=== PATIENT | female | born 1950 | race Caucasian/White ===

== ENCOUNTER → 2017-11-17 11:04 | Outpatient (CLI) | payer MEDICARE, OTHER, SELFPAY ==
[2017-11-17 14:05] LABS: Albumin/Globulin Ratio 1.3 (1.1-1.8); Bilirubin,Total 3.1 mg/dL (0.2-1.0); Blood Urea Nitrogen 12 mg/dL (7-18); Calcium 10.3 mg/dL (8.5-10.1); Sodium 140 mmol/L (136-145); VLDL Cholesterol 41 mg/dL (0-40)
[2017-11-17 14:28] LABS: Hemoglobin A1C 8.9 % (0.0-7.0)
[2017-11-17 16:48] LABS: Alanine Aminotransferase 24 U/L (12-78); Alkaline Phosphatase 70 U/L (46-116); Anion Gap 15.5 mEq/L (5-15); Aspartate Amino Transferase 11 U/L (15-37); Carbon Dioxide 26 mmol/L (21.0-32.0); Chloride 103 mmol/L (98-107); Chol/HDL Ratio 2.6 (1-3.5); Cholesterol 130 mg/dL (140-200); Creatinine,Serum 0.83 mg/dL (0.55-1.02); Estimated Glomerular Filt Rate 68 ml/min (>60); GFR (African American) 83 ML/MIN (>60); Globulin 3.2 gm/dl (1.3-3.2); Glucose 275 mg/dL (74-106); HDL Cholesterol 50 mg/dL (29-89); LDL Cholesterol 39 mg/dL (0-130); Potassium 4.5 mmoL/L (3.5-5.1); Total Protein,Serum 7.2 gm/dL (6.4-8.2); Triglycerides 203 mg/dL (30-200)
[2017-11-18 05:20] LABS: Creatinine, Urine 221.5 mg/dL (Not Estab.); Microalbumin, Urine 75.9 ug/mL (Not Estab.)
== END ==
PROVIDERS: Visit Provider Nurse Practitioner Family
DX: E11.9 Type 2 diabetes mellitus without complications (principal); E78.5 Hyperlipidemia, unspecified; E04.9 Nontoxic goiter, unspecified
CPT/HCPCS: 36415; 80053; 80061; 82043; 82570; 83036; 84443

== ENCOUNTER → 2018-02-24 09:18 | Outpatient (CLI) | payer MEDICARE, OTHER, SELFPAY ==
--- NOTE | 2018-02-24 09:22 | XR_ITS ---
XR hand RT min 3V HISTORY: ITS.REASON: Rt hand pain ORDERING PHYSICIAN: Gina Aguilar MD PATIENT AGE: 67 years COMPARISON: None FINDINGS: No fracture or dislocation. No lytic or blastic change. Calcification is present along the radial and proximal aspect of the proximal phalanx of the fourth finger and could be due to an old avulsion injury. There is also some chondrocalcinosis of the radial aspect of the third metacarpal phalangeal joint. Mild osteoarthritic changes are present at the second DIP joint and there is chondrocalcinosis at the lateral aspect of the first metacarpal carpal joint, and the radioscaphoid joint, and the triangular fibrocartilage. IMPRESSION: No acute finding. Suspect old avulsion fracture at the proximal and radial aspect of the proximal phalanx of the third digit. Chondrocalcinosis
== END ==
PROVIDERS: PCP Internal Medicine Adolescent Medicine; Visit Provider Orthopaedic Surgery
DX: M79.641 Pain in right hand (principal)
CPT/HCPCS: 73130

== ENCOUNTER → 2018-03-31 12:58 | Outpatient (CLI) | payer MEDICARE, OTHER, SELFPAY ==
[2018-03-31 14:56] LABS: Hemoglobin A1C 7.3 % (0.0-7.0)
[2018-03-31 14:59] LABS: Alanine Aminotransferase 26 U/L (12-78); Albumin Level 4.1 gm/dL (3.4-5.0); Albumin/Globulin Ratio 1.2 (1.1-1.8); Alkaline Phosphatase 66 U/L (46-116); Anion Gap 13.6 mEq/L (5-15); Aspartate Amino Transferase 12 U/L (15-37); Bilirubin,Total 2.6 mg/dL (0.2-1.0); Blood Urea Nitrogen 11 mg/dL (7-18); Calcium 10.3 mg/dL (8.5-10.1); Carbon Dioxide 28 mmol/L (21.0-32.0); Chloride 102 mmol/L (98-107); Chol/HDL Ratio 2.5 (1-3.5); Cholesterol 149 mg/dL (140-200); Creatinine,Serum 0.85 mg/dL (0.55-1.02); Estimated Glomerular Filt Rate 66 ml/min (>60); GFR (African American) 80 ML/MIN (>60); Globulin 3.3 gm/dl (1.3-3.2); Glucose 167 mg/dL (74-106); HDL Cholesterol 60 mg/dL (29-89); LDL Cholesterol 48 mg/dL (0-130); Potassium 4.6 mmoL/L (3.5-5.1); Sodium 139 mmol/L (136-145); Thyroid Stimulating Hormone 0.38 uIU/ml (0.358-3.740); Total Protein,Serum 7.4 gm/dL (6.4-8.2); Triglycerides 205 mg/dL (30-200); VLDL Cholesterol 41 mg/dL (0-40)
== END ==
PROVIDERS: PCP Nurse Practitioner Family; Visit Provider Nurse Practitioner Family
DX: E78.5 Hyperlipidemia, unspecified (principal); E11.9 Type 2 diabetes mellitus without complications; E03.9 Hypothyroidism, unspecified
CPT/HCPCS: 36415; 80053; 80061; 83036; 84443

== ENCOUNTER 2018-05-28 13:05 | Emergency (ER) | payer MEDICARE, OTHER, SELFPAY ==
--- NOTE | 2018-05-28 13:12 | XR_ITS ---
XR ankle LT min 3V, XR foot LT min 3V Ordering Physician: Truong Schofield Patient Age: 67 years: Female HISTORY: ITS.REASON: LEFT FOOT PAIN TECHNIQUE: LEFT FOOT: 3 views nonweightbearing 3 views LEFT ANKLE: 3 views nonweightbearingft. COMPARISON :None ========= LEFT FOOT 3 view The left forefoot is intact. No erosions. Joint spaces well-maintained. . Slight roughening at the medial margin of the first cuneiforms noted but not of significance. Minor sclerosis at distal talus at talonavicular joint. Most notable is the Over 8 mm length plantar calcaneal spur, and the irregular wispy calcifications adjacent to it. The Most pronounced calcification adjacent this spur and then seen tapering, & diminishing over 3 cm length along along the course of the plantar aponeurosis., Posterior aspect . Soft tissue swelling throughout the foot ========= LEFT ANKLE 3: view: . prominent diffuse soft tissue swelling at the ankle which is fairly pronounced. Soft tissue swelling continues into the foot but most pronounced about the medial and lateral malleolus. again the primary other finding is the plantar calcaneal spur in the wispy calcifications stranding and inflammation along the plantar aponeurosis.. . Wispy calcification is seen inferior to the medial malleolus as well as a likely towards plantar medial aspect of the calcaneus.. Ankle joint is fairly well maintained with only question some mild sclerosis at the medial corner of talus no osteochondral defect evident. IMPRESSION: ...... . Calcaneal spur with irregular wispy dystrophic calcification about this spur & extending along plantar aponeurosis. Prominent soft tissue swelling at the ankle and continuing into the foot
[2018-05-28 13:35] VITALS: BP 145/82; PULSE 89; RESP 18; TEMP 36.9; O2SAT 96; BMI 28.1
--- NOTE | 2018-05-28 13:45 | HMH.EDUTC ---
[facility] [place] Clinical Impression: Foot pain Qualifiers: Laterality: left Qualified Code(s): M79.672 - Pain in left foot Heel pain Qualifiers: Laterality: left Qualified Code(s): M79.672 - Pain in left foot Disposition: Home, Self-Care Condition on Discharge: Good Instructions: DI for Foot Pain Additional Instructions: Rest the ankle. Follow up with the international controller (foot doctor-Dr. Patel) as recommended. Take the ibuprofen as prescribed. GO TO THE ER FOR ANY LIFE THREATENING SYMPTOMS Prescriptions: Ibuprofen [Ibuprofen 600mg Tablet] 600 mg PO Q6HP PRN #30 tab PRN Reason: Mild Pain Referrals: Catherine Hernandez APRN [Primary Care Provider] - Carola Patel DPM [Staff Physician] - Time of Disposition: 14:48 Medical Decision Making - Medical Records Medical records reviewed: No: I reviewed the patient's medical records. - Attila Inquiry Pt receiving controlled substance: No Attila was queried for this patient: No Vital Signs: 05/28/18 13:35 05/28/18 15:00 Temperature 98.4 F 98.3 F Temperature Source Oral Pulse Rate 82 Pulse Rate [Right Radial] 89 Respiratory Rate 18 18 Blood Pressure 137/76 Blood Pressure [Right Arm] 145/82 H Blood Pressure Mean [Right Arm] 103 02 Sat by Pulse Oximetry 96 Oxygen Delivery Method Room Air Room Air - Lab Data Lab Results 05/28/18 14:17: Uric Acid 4.5 Orders (Tests/Meds): ED MEDICATIONS Discontinued Medications Generic Name Dose Route Start Last Admin Trade Name Freq PRN Reason Stop Dose Admin Ketorolac Tromethamine 30 mg 05/28/18 14:48 05/28/18 14:56 Toradol 30mg/Ml Vial IM 05/28/18 14:49 30 mg ONCE ONE Administration ORDERS Category Date Time Status Foot XR left minimum 3 views [XR foot LT min 3V] Stat Exams 05/28/18 13:12 Taken XR ankle LT min 3V Stat Exams 05/28/18 13:12 Taken - Radiology Data #1 Image(s): Ankle, Foot/Toes Image Reviewed: Yes I reviewed the patient's radiology image, Yes I reviewed the patient's radiology image w/the ED provider Preliminary Findings: Abnormal (heel spur, soft tissue swelling- uric acid checked to r/o gout, it was wnl. denise wrap applied and referred to podiatry, NSAIDS) [facility] [place] - General Stated complaint: Left foot pain Time Seen by Provider: 05/28/18 13:45 Mode of Arrival: Family Vehicle Source of Information: Patient Limitations: No Limitations Description of Symptoms (Recalled from Triage Doc. by RN): pt c/o left foot/ankle pain and swelling. pt denies injury. HEENT Symptoms (Recalled from RN notes): No Resp Symptoms (Recalled from RN notes): No Skin Symptoms (Recalled from RN notes): No MS Symptoms (Recalled from RN notes): Yes (left foot pain/swelling) Functional Status (Recalled from RN notes): na - History of Present Illness Provider Complaint: For the past couple of days, she has had worsening left heel and ankle pain. She denies any injury. She denies any history of similar symptoms, other than she was told several years ago that she has a heel spur in the affected foot. She is diabetic. She denies any history of foot ulcers or infections of lower extremities. - Related Data Home Medications Medication Instructions Recorded Confirmed Atorvastatin Calcium [Atorvastatin 20 mg PO HS 10/13/17 02/24/18 20mg Tab] Estradiol 1 applic VG DAILY 10/13/17 02/24/18 Glimepiride [Amaryl 2mg tablet] 2 mg PO DAILY 10/13/17 02/24/18 Levothyroxine Sodium 10 mg PO DAILY 10/13/17 02/24/18 [Levothyroxine 100mcg (0.1MG) Tab] Loratadine [Claritin 10mg Tablet] 10 mg PO DAILY 10/13/17 02/24/18 Metformin HCl [Metformin HCl ER] 500 mg PO BID 10/13/17 02/24/18 Omeprazole [Omeprazole 20mg 20 mg PO DAILY PRN 10/13/17 02/24/18 Capsule] Triamcinolone Acetonide 15 gm TP DAILY 10/13/17 02/24/18 Previous Rx's Medication Instructions Recorded Azithromycin [Z-Jean Claude 250mg Tab] 250 mg PO UD DOSE PK #6 tab 10/13/17 Phen
--- NOTE | 2018-05-28 13:51 | ED_ITS ---
[facility] – [place] Disposition Clinical Impression: Foot pain Qualifiers: Laterality: left Qualified Code(s): M79.672 - Pain in left foot Heel pain Qualifiers: Laterality: left Qualified Code(s): M79.672 - Pain in left foot Disposition: Home, Self-Care Condition on Discharge: Good Instructions: DI for Foot Pain Additional Instructions: Rest the ankle. Follow up with the animal geneticist (foot doctor-Dr. Patel) as recommended. Take the ibuprofen as prescribed. GO TO THE ER FOR ANY LIFE THREATENING SYMPTOMS Prescriptions: Ibuprofen [Ibuprofen 600mg Tablet] 600 mg PO Q6HP PRN #30 tab PRN Reason: Mild Pain Referrals: Catherine Hernandez APRN [Primary Care Provider] - Carola Patel DPM [Staff Physician] - Time of Disposition: 14:48 Medical Decision Making - Medical Records Medical records reviewed: No: I reviewed the patient's medical records. - Attila Inquiry Pt receiving controlled substance: No Attila was queried for this patient: No Vital Signs: 05/28/18 13:35 05/28/18 15:00 Temperature 98.4 F 98.3 F Temperature Source Oral Pulse Rate 82 Pulse Rate [Right Radial] 89 Respiratory Rate 18 18 Blood Pressure 137/76 Blood Pressure [Right Arm] 145/82 H Blood Pressure Mean [Right Arm] 103 02 Sat by Pulse Oximetry 96 Oxygen Delivery Method Room Air Room Air - Lab Data Lab Results 05/28/18 14:17: Uric Acid 4.5 Orders (Tests/Meds): ED MEDICATIONS Discontinued Medications Generic Name Dose Route Start Last Admin Trade Name Freq PRN Reason Stop Dose Admin Ketorolac Tromethamine 30 mg 05/28/18 14:48 05/28/18 14:56 Toradol 30mg/Ml Vial IM 05/28/18 14:49 30 mg ONCE ONE Administration ORDERS Category Date Time Status Foot XR left minimum 3 views [XR foot LT min 3V] Stat Exams 05/28/18 13:12 Taken XR ankle LT min 3V Stat Exams 05/28/18 13:12 Taken - Radiology Data #1 Image(s): Ankle, Foot/Toes Image Reviewed: Yes I reviewed the patient's radiology image, Yes I reviewed the patient's radiology image w/the ED provider Preliminary Findings: Abnormal (heel spur, soft tissue swelling- uric acid checked to r/o gout, it was wnl. denise wrap applied and referred to podiatry, NSAIDS) [facility] [place] H[place] - General Stated complaint: Left foot pain Time Seen by Provider: 05/28/18 13:45 Mode of Arrival: Family Vehicle Source of Information: Patient Limitations: No Limitations Description of Symptoms (Recalled from Triage Doc. by RN): pt c/o left foot/ankle pain and swelling. pt denies injury. HEENT Symptoms (Recalled from RN notes): No Resp Symptoms (Recalled from RN notes): No Skin Symptoms (Recalled from RN notes): No MS Symptoms (Recalled from RN notes): Yes (left foot pain/swelling) Functional Status (Recalled from RN notes): na - History of Present Illness Provider Complaint: For the past couple of days, she has had worsening left heel and ankle pain. She denies any injury. She denies any history of similar symptoms, other than she was told several years ago that she has a heel spur in the affected foot. She is diabetic. She denies any history of foot ul
[2018-05-28 14:36] LABS: Uric Acid 4.5 mg/dL (2.6-7.2)
[2018-05-28 15:00] VITALS: BP 137/76; PULSE 82; RESP 18; TEMP 36.8; O2SAT 98
== END 2018-05-28 15:07 | disposition home or self-care (01) ==
PROVIDERS: Emergency Provider Nurse Practitioner Family; PCP Nurse Practitioner Family
DX: M79.672 Pain in left foot (principal)
CPT/HCPCS: G0463; 73610; 73630; 84550; 96372; 99202

== ENCOUNTER → 2018-06-14 08:50 | Outpatient (CLI) | payer MEDICARE, OTHER, SELFPAY ==
--- NOTE | 2018-06-14 08:55 | XR_ITS ---
XR foot wt bearing LT 3V HISTORY: Charcot joint ITS.REASON: Charcot Charcot foot ORDERING PHYSICIAN: Carola Patel DPM PATIENT AGE: 67 years COMPARISON: 05/28/2018 FINDINGS: There is mild pes planus. Calcification present along the plantar arch posteriorly near a calcaneal spur. No fracture or dislocation. No obvious lytic or blastic change. IMPRESSION: Overall no change mild pes planus with calcification along the plantar aponeurosis as before
== END ==
PROVIDERS: PCP Nurse Practitioner Family; Visit Provider Podiatrist
DX: E11.610 Type 2 diabetes mellitus with diabetic neuropathic arthropathy (principal); Z79.84 Long term (current) use of oral hypoglycemic drugs
CPT/HCPCS: 73630

== ENCOUNTER → 2018-06-27 07:41 | Outpatient (CLI) | payer MEDICARE, OTHER, SELFPAY ==
--- NOTE | 2018-06-27 07:49 | XR_ITS ---
XR foot wt bearing LT 3V Ordering Physician: Carola Patel DPM Patient Age: 67 years: Female HISTORY: ITS.REASON: Charcot Foot pain and additional swelling left foot TECHNIQUE: 3 view weightbearing left foot COMPARISON :05/28/2018 & 06/14/2018 left foot studies FINDINGS . Pes planus Plantar calcaneal spur measuring 6.5 mm in length with additional calcification surrounding the calcaneal spur as well as a extending along the plantar aponeurosis is seen on previous study. The toes appear intact. Metatarsals appear intact. Suggestion perhaps early arthritic changes at the tarsometatarsal metatarsal joints and likely about the navicula articulations.. No remarkable erosive changes. Mild soft tissue swelling throughout the foot. No obvious lytic or blastic lesions IMPRESSION: Mild diffuse additional soft tissue swelling throughout the foot. Otherwise No appreciable osseous change since recent prior studies 06/14/2018 Again note : Pes planus...& The Calcaneal spur with additional calcification along the plantar aponeurosis as seen before
== END ==
PROVIDERS: PCP Internal Medicine Adolescent Medicine; Visit Provider Podiatrist
DX: E11.610 Type 2 diabetes mellitus with diabetic neuropathic arthropathy (principal); Z79.84 Long term (current) use of oral hypoglycemic drugs
CPT/HCPCS: 73630

== ENCOUNTER → 2018-07-19 07:53 | Outpatient (CLI) | payer MEDICARE, OTHER, SELFPAY ==
--- NOTE | 2018-07-19 07:56 | XR_ITS ---
XR foot wt bearing LT 3V HISTORY: Foot pain ITS.REASON: Charcot ORDERING PHYSICIAN: Carola Patel DPM PATIENT AGE: 67 years COMPARISON: None FINDINGS: There is mild pes planus. Small spur is present along the plantar surface of the calcaneus with mild calcification of the plantar fascia posteriorly. No fracture or dislocation. No lytic or blastic change. IMPRESSION: Pes planus
== END ==
PROVIDERS: PCP Internal Medicine Adolescent Medicine; Visit Provider Podiatrist
DX: E11.610 Type 2 diabetes mellitus with diabetic neuropathic arthropathy (principal); Z79.84 Long term (current) use of oral hypoglycemic drugs
CPT/HCPCS: 73630

== ENCOUNTER → 2018-09-29 07:51 | Outpatient (CLI) | payer MEDICARE, OTHER, SELFPAY ==
--- NOTE | 2018-09-29 07:55 | XR_ITS ---
XR foot wt bearing LT 3V HISTORY: Foot pain ITS.REASON: Diabetic Charcot ORDERING PHYSICIAN: Carola Patel DPM PATIENT AGE: 67 years COMPARISON: None FINDINGS: There is mild pes planus. Calcification is noted along the plantar fascial and along a small calcaneal spur which may indicate plantar fasciitis. Normal alignment. No bony destructive process or significant degenerative change. Mild osteoarthritis involves the first metatarsophalangeal joint IMPRESSION: Pes planus with possible plantar fasciitis
== END ==
PROVIDERS: PCP Nurse Practitioner Family; Visit Provider Podiatrist
DX: E11.610 Type 2 diabetes mellitus with diabetic neuropathic arthropathy (principal); Z79.84 Long term (current) use of oral hypoglycemic drugs
CPT/HCPCS: 73630

== ENCOUNTER → 2019-01-19 08:28 | Outpatient (CLI) | payer MEDICARE, OTHER, SELFPAY ==
--- NOTE | 2019-01-19 08:31 | MM_ITS ---
PROCEDURE: MM DIG SCREENING MAMM BI W/CAD Patient Age:68Y CLINICAL INDICATION: SCREENING. No hormones. No new complains Family history. Mother with breast cancer. Age 66 COMPARISON: DIGMAMMS MAMMOGRAM SCREEN-[employer] N/C from 01/07/2009 DMSB DIGITAL MAMM-SCREEN BILATERAL from 01/07/2010 DMSB DIGITAL MAMM-SCREEN BILATERAL from 01/07/2011 DMSB DIGITAL MAMM-SCREEN BILATERAL from 01/08/2012 DMSB DIG MAMM-SCREEN CODIE from 09/20/2014 DMSB DIG MAMM-SCREEN CODIE W/CAD from 10/12/2016 TECHNIQUE: Standard CC and MLO images were obtained. R2 CAD reviewed. FINDINGS: Moderately dense breast tissue fills the central cuff baker second of both right and left breast but stable architecture with no dominant mass. Right breast few additional small round benign appearing punctate calcifications seen at deep central breast-.. Appear to be associated with an longstanding area of slight density/and minor architectural irregularity density possibly from scarring. I would question if there may have been old trauma or biopsy in this region, with these reflecting slowly progressing benign fat necrosis calcifications.. NO suspicious small branching or suspicious pleomorphic calcifications forms in this area;. And the focal area of slight irregular density here appears similar to studies dating back to 2010, 2011. Left breast: No prominent new findings.. . Again see a small unimpressive grouping of calcifications at of 12 o'clock retroareolar region towards anterior breast. The most notable of these calcifications have been present since 2010 there are 2 or 3 tiny additional small punctate calcifications additionally seen here over since 2017. Favor these are benign calcifications in this 68-year-old patient . Bilateral follow-up in 6-8 months to be adequate to further evaluate IMPRESSION: stable architecture. No new suspicious mass. Slight progression of what appear to be benign-appearing calcifications bilaterally At right breast, these additional new benign round punctate calcifications associated with a stable longstanding area of subtle irregular asymmetric density deep breast. . At the left breast there are 2 or 3 very tiny additional new punctate calcifications not felt to be of concern and a 68 However I would suggest bilateral follow-up in 6-9 months to again evaluate these slowly progressing benign-appearing calcifications bilaterally BI-RAD Category: 3 Probably Benign Finding Short Term Follow-up FOLLOW-UP: 6M -9 Month Follow-up bilateral mammogram (A letter has been sent to the patient regarding results of the study.) Dictated by: Marlon Herrera MD 01/20/2019 09:58 Electronically signed by Marlon Herrera MD in [place] 01/26/2019 11:06
--- NOTE | 2019-01-19 08:31 | XR_ITS ---
PROCEDURE: XR DEXA AXIAL SKELETON CLINICAL HISTORY: POST MENOPAUSAL COMPARISON: No exams were available for comparison FINDINGS: The L1-L4 density is 1.343 grams/centimeters sq with T-score of 1.4 Mean hip density is 0.886 grams/centimeters sq with a T-score -1.1 consistent with osteopenia. IMPRESSION: Osteopenia with moderate fracture risk. Treatment advised. Suggest follow-up exam January 2021 Dictated by: Kalpesh Valera MD 01/19/2019 18:18 Electronically signed by Kalpesh Valera MD in [place] 01/19/2019 18:18
== END ==
PROVIDERS: PCP Nurse Practitioner Family; Visit Provider Nurse Practitioner Family
DX: Z12.31 Encounter for screening mammogram for malignant neoplasm of breast (principal); Z13.820 Encounter for screening for osteoporosis; Z78.0 Asymptomatic menopausal state
CPT/HCPCS: 77067; 77080

== ENCOUNTER → 2019-02-06 10:52 | Outpatient (POV) | payer MEDICARE, OTHER, SELFPAY | PROVIDERS: Visit Provider Specialist | DX: R20.0 Anesthesia of skin (principal); M79.641 Pain in right hand | CPT/HCPCS: 95886; 95908 ==

== ENCOUNTER → 2019-02-11 09:03 | Outpatient (CLI) | payer MEDICARE, OTHER, SELFPAY ==
[2019-02-11 09:08] LABS: Microscopic, Urine URINE MICROSCOPIC (MICROSCOPIC)
[2019-02-11 09:41] LABS: Basophils # 0.1 K/mm3 (0-0.2); Basophils % 1.1 % (0.1-2.0); Eosinophils # 0.3 K/mm3 (0.0-0.4); Hematocrit 46.5 % (37.0-47.0); Hemoglobin 15.7 g/dL (12.2-16.2); Lymphocytes # 1.5 K/mm3 (0.7-4.5); Lymphocytes % 30.3 % (10-50); Mean Corpuscular HGB Conc 33.8 g/dL (31.8-35.4); Mean Corpuscular Hemoglobin 31.8 pg (27.0-31.2); Mean Platelet Volume 9.3 fl (7.4-10.4); Monocytes # 0.3 K/mm3 (0.1-1.0); Monocytes % 5.4 % (1.7-9.3); Neutrophils # 2.8 K/mm3 (1.8-7.8); Neutrophils % 57.2 % (37.0-80.0); Platelet Count 212 K/mm3 (142-424); Red Blood Count 4.94 M/mm3 (4.20-5.40); Red Cell Distribution Width 12.8 % (11.5-17.5)
[2019-02-11 09:57] LABS: Appearance,Urine CLEAR (Clear); Bilirubin,Urine Negative (Negative); Blood, Urine Negative (Negative); Color,Urine YELLOW (Yellow); Glucose,Urine (UA) TRACE (Negative); Ketones,Urine Negative (Negative); Leukocyte Esterase,Urine 1+ (Negative); Nitrate,Urine Negative (Negative); PH,Urine 5.5 (5.0-8.5); Protein,Urine Negative (Negative); Specific Gravity, Urine >= 1.030 (1.005-1.030); Urobilinogen,Urine 0.2 EU/dl (0.2)
[2019-02-11 10:21] LABS: Hemoglobin A1C 8.2 % (0.0-7.0)
[2019-02-11 11:04] LABS: Alanine Aminotransferase 17 U/L (12-78); Albumin Level 3.9 gm/dL (3.4-5.0); Albumin/Globulin Ratio 1.3 (1.1-1.8); Alkaline Phosphatase 63 U/L (46-116); Anion Gap 12.4 mEq/L (5-15); Aspartate Amino Transferase 8 U/L (15-37); Bilirubin,Total 1.6 mg/dL (0.2-1.0); Blood Urea Nitrogen 15 mg/dL (7-18); Calcium 10.6 mg/dL (8.5-10.1); Carbon Dioxide 25 mmol/L (21.0-32.0); Chloride 103 mmol/L (98-107); Chol/HDL Ratio 2.7 (1-3.5); Cholesterol 117 mg/dL (140-200); Creatinine,Serum 0.94 mg/dL (0.55-1.02); Estimated Glomerular Filt Rate 59 ml/min (>60); GFR (African American) 71 ML/MIN (>60); Glucose 208 mg/dL (74-106); HDL Cholesterol 44 mg/dL (29-89); LDL Cholesterol 36 mg/dL (0-130); Potassium 4.4 mmoL/L (3.5-5.1); Sodium 136 mmol/L (136-145); Thyroid Stimulating Hormone 1.17 uIU/ml (0.358-3.740); Total Protein,Serum 6.9 gm/dL (6.4-8.2); Triglycerides 184 mg/dL (30-200); VLDL Cholesterol 37 mg/dL (0-40)
[2019-02-11 11:45] LABS: Bacteria,Urine Trace /lpf
== END ==
PROVIDERS: Visit Provider Orthopaedic Surgery
DX: Z01.818 Encounter for other preprocedural examination (principal); G56.01 Carpal tunnel syndrome, right upper limb; R82.90 Unspecified abnormal findings in urine; Z79.899 Other long term (current) drug therapy
CPT/HCPCS: 36415; 80053; 80061; 81001; 83036; 84443; 85025; 87086

== ENCOUNTER → 2019-09-11 08:05 | Outpatient (CLI) | payer MEDICARE, OTHER, SELFPAY ==
--- NOTE | 2019-09-11 08:17 | XR_ITS ---
PROCEDURE: XR FOOT WT BEARING LT 3V CLINICAL INDICATION: charcot Pain COMPARISON: [id number] XR foot LT min 3V from 05/28/2018 [id number] XR foot wt bearing LT 3V from 06/14/2018 FTWBL3 XR foot wt bearing LT 3V from 06/27/2018 [id number] XR foot wt bearing LT 3V from 07/19/2018 FINDINGS: No fracture or dislocation. No lytic or blastic change. There is normal mineralization. The joint spaces are well-preserved. No significant degenerative/arthritic changes. No erosive changes evident. Other findings:There is mild pes planus and there is calcification anterior to a calcaneal spur which could be seen plantar fasciitis. IMPRESSION: No change mild pes planus with possible plantar fasciitis Dictated by: Kalpesh Valera MD 09/11/2019 08:48 Electronically signed by Kalpesh Valera MD in [place] 09/11/2019 08:48
--- NOTE | 2019-09-11 08:17 | XR_ITS ---
PROCEDURE: XR ANKLE WT BEARING LT MIN 3V CLINICAL INDICATION: charcot Pain COMPARISON: No exams were available for comparison FINDINGS: No fracture, dislocation, lytic change, or blastic change evident. No significant degenerative change. There is a well-circumscribed calcification at the tip of the lateral malleolus and may be due to an old fracture or ununited ossification center. There is minimal spurring of the anterior distal tibia IMPRESSION: No acute findings. Dictated by: Kalpesh Valera MD 09/11/2019 08:45 Electronically signed by Kalpesh Valera MD in [place] 09/11/2019 08:45
--- NOTE | 2019-09-11 08:17 | XR_ITS ---
PROCEDURE: XR FOOT WT BEARING RT 3V CLINICAL INDICATION: charcot Pain COMPARISON: [id number] XR foot LT min 3V from 05/28/2018 FTWBL3 XR foot wt bearing LT 3V from 06/14/2018 FTWBL3 XR foot wt bearing LT 3V from 06/27/2018 FTWBL3 XR foot wt bearing LT 3V from 07/19/2018 FINDINGS: No fracture or dislocation. No lytic or blastic change. There is normal mineralization. The joint spaces are well-preserved. No significant degenerative/arthritic changes. No erosive changes evident. Other findings:There is mild pes planus. Calcification is present anterior to a calcaneal spur and could be secondary to plantar fasciitis. IMPRESSION: Pes planus with possible plantar fasciitis Dictated by: Kalpesh Valera MD 09/11/2019 08:47 Electronically signed by Kalpesh Valera MD in [place] 09/11/2019 08:47
--- NOTE | 2019-09-11 08:17 | XR_ITS ---
PROCEDURE: XR ANKLE WT BEARING RT MIN 3V CLINICAL INDICATION: charcot The the COMPARISON: No exams were available for comparison FINDINGS: No fracture, dislocation, lytic change, or blastic change evident. No significant degenerative change. There is some minimal calcification medial to the medial malleolus and could be due to old injury. Talar dome is unremarkable and the ankle mortise is preserved. IMPRESSION: No acute findings. Dictated by: Kalpesh Valera MD 09/11/2019 08:41 Electronically signed by Kalpesh Valera MD in [place] 09/11/2019 08:41
== END ==
PROVIDERS: PCP Nurse Practitioner Family; Visit Provider Podiatrist
DX: E11.610 Type 2 diabetes mellitus with diabetic neuropathic arthropathy (principal); Z79.84 Long term (current) use of oral hypoglycemic drugs
CPT/HCPCS: 73610; 73630

== ENCOUNTER → 2019-12-07 10:14 | Outpatient (CLI) | payer MEDICARE, OTHER, SELFPAY ==
[2019-12-07 11:06] LABS: Basophils % 0.7 % (0.1-2.0); Eosinophils # 0.2 K/mm3 (0.0-0.4); Eosinophils % 3.5 % (0.1-12.0); Hematocrit 43.1 % (37.0-47.0); Hemoglobin 15.9 g/dL (12.2-16.2); Lymphocytes # 1.3 K/mm3 (0.7-4.5); Lymphocytes % 21.9 % (10-50); Mean Corpuscular HGB Conc 36.9 g/dL (31.8-35.4); Mean Corpuscular Volume 89.4 fl (81-99); Mean Platelet Volume 9.5 fl (7.4-10.4); Monocytes # 0.3 K/mm3 (0.1-1.0); Monocytes % 4.6 % (1.7-9.3); Neutrophils # 4.2 K/mm3 (1.8-7.8); Neutrophils % 69.3 % (37.0-80.0); Platelet Count 196 K/mm3 (142-424); Red Blood Count 4.82 M/mm3 (4.20-5.40); Red Cell Distribution Width 13.3 % (11.5-17.5)
[2019-12-07 11:30] LABS: Alanine Aminotransferase 14 U/L (12-78); Albumin Level 4.4 g/dl (3.5-5.0); Albumin/Globulin Ratio 1.5 (1.1-1.8); Alkaline Phosphatase 67 U/L (38-126); Anion Gap 14.4 mEq/L (5-15); Aspartate Amino Transferase 20 U/L (14-36); Bilirubin,Total 2.7 mg/dl (0.2-1.3); Blood Urea Nitrogen 11 mg/dl (7-17); Calcium 10.9 mg/dl (8.4-10.2); Carbon Dioxide 28 mmol/L (22.0-30.0); Chloride 100 mmol/L (98-107); Chol/HDL Ratio 2.6 (1-3.5); Cholesterol 130 mg/dl (140-200); Estimated Glomerular Filt Rate 83 ml/min (>60); GFR (African American) 100 ML/MIN (>60); Globulin 2.9 g/dL (1.3-3.2); Glucose 216 mg/dl (74-100); HDL Cholesterol 50 mg/dl (40-60); Potassium 4.4 mmoL/L (3.5-5.1); Sodium 138 mmol/L (136-145); Total Protein,Serum 7.3 g/dl (6.3-8.2); Triglycerides 230 mg/dl (30-150); VLDL Cholesterol 46 mg/dL (0-40)
[2019-12-07 11:35] LABS: Hemoglobin A1C 8.3 % (4.0-6.0)
[2019-12-07 11:47] LABS: 25-OH Vitamin D, Total 76.8 ng/mL (30-100)
[2019-12-07 12:01] LABS: Thyroid Stimulating Hormone 0.62 uIU/mL (0.465-4.68)
== END ==
PROVIDERS: Visit Provider Nurse Practitioner Family
DX: E11.610 Type 2 diabetes mellitus with diabetic neuropathic arthropathy (principal); E78.5 Hyperlipidemia, unspecified; E03.9 Hypothyroidism, unspecified; M81.0 Age-related osteoporosis without current pathological fracture
CPT/HCPCS: 36415; 80053; 80061; 82306; 83036; 84443; 85025

== ENCOUNTER → 2019-12-20 14:21 | Outpatient (CLI) | payer MEDICARE, OTHER, SELFPAY ==
--- NOTE | 2019-12-20 14:29 | US_ITS ---
PROCEDURE: US THYROID CLINICAL INDICATION: GOITER Hypercalcemia COMPARISON: US THY US THYROID from 05/22/2015 FINDINGS: The isthmus is enlarged at 12 mm. There is diffuse heterogeneous echogenicity of both lobes of the thyroid gland. The right lobe measures 5.4 x 1.4 x 2.4 cm and the left lobe measures 2.4 x 1.3 x 2 cm. No solid appearing nodules are evident. IMPRESSION: Enlarged hypoechoic heterogeneous thyroid gland consistent with goiter Dictated by: Kalpesh Valera MD 12/20/2019 17:57 Kalpesh Valera MD in [place] 12/20/2019 17:57
== END ==
PROVIDERS: PCP Nurse Practitioner Family; Visit Provider Nurse Practitioner Family
DX: E04.1 Nontoxic single thyroid nodule (principal)
CPT/HCPCS: 76536

== ENCOUNTER → 2019-12-28 11:49 | Outpatient (CLI) | payer MEDICARE, OTHER, SELFPAY ==
[2019-12-28 13:09] LABS: Calcium 11.8 mg/dl (8.4-10.2)
[2019-12-28 13:22] LABS: Intact Parathyroid Hormone 50.9 pg/mL (7.5-53.5)
[2019-12-28 13:26] LABS: Free T4 (Free Thyroxine) 1.42 ng/dl (0.78-2.19)
[2019-12-30 18:16] LABS: Calcium, Ionized 6.1 mg/dL (4.5-5.6); Thyroid Peroxidase Antibodies 143 IU/mL (0-34)
[2019-12-31 14:03] LABS: Thyroid Stimulating Immunoglob <0.10 IU/L (0.00-0.55)
== END ==
PROVIDERS: Visit Provider Otolaryngology
DX: E01.0 Iodine-deficiency related diffuse (endemic) goiter (principal)
CPT/HCPCS: 36415; 82310; 82330; 83970; 84439; 84443; 84445; 86376

== ENCOUNTER → 2020-01-22 07:48 | Outpatient (CLI) | payer MEDICARE, OTHER, SELFPAY ==
--- NOTE | 2020-01-22 07:51 | MM_ITS ---
PROCEDURE: MM DIG SCREENING MAMM BI W/CAD Referring Doctor: Dave Rocha Patient Age:69Y CLINICAL INDICATION: SCREENING 69-year-old. No hormones no new complaints. Family history: Mother with breast cancer age 66 postmenopausal COMPARISON: MG DMSB DIG MAMM-SCREEN CODIE from 09/20/2014 MG DMSB DIG MAMM-SCREEN CODIE W/CAD from 10/12/2016 MG MM DIG SCREENING MAMM BI W/CAD from 01/19/2019 TECHNIQUE: Standard CC and MLO images were obtained. R2 CAD reviewed. Bilateral digital breast tomosynthesis included. Additional nipple profile view right breast included FINDINGS: A fairly dense breast tissue for this patient's age again noted at at central breast; however we see no new areas of concern. No dominant or suspicious mass but a bilateral calcifications appear benign character and can be followed in 1 year Right breast. No new areas of significant concern . Scattered small punctate calcifications similar to previous last year's exam but these small dense round punctate calcifications can be be followed. There 2 or 3 additional scattered tiny calcifications right breast not of concern but would encourage follow-up 1 year in this pattern breast and with positive family history Left breast.. No new areas of concern. On previous study 2019 some small calcifications at the central breast were noted but there now forming a benign ring a appearance the but not of concern. Other tiny faint barely calcifications in the left breast are scattered not of concern and can be followed IMPRESSION: . No significant new findings Bilateral follow-up 1 year recommended and should be encouraged/emphasized Moderately dense breast Scattered benign calcifications bilateral again noted BI-RAD Category: 2 Benign Finding(s) FOLLOW-UP: 1YR 1 Year Follow-up (A letter has been sent to the patient regarding results of the study.) Dictated by: Marlon Herrera MD 01/26/2020 11:54 Marlon Herrera MD in [place] 01/26/2020 11:54
== END ==
PROVIDERS: PCP Nurse Practitioner Family; Visit Provider Internal Medicine Adolescent Medicine
DX: Z12.31 Encounter for screening mammogram for malignant neoplasm of breast (principal)
CPT/HCPCS: 77063; 77067

== ENCOUNTER 2020-03-14 10:15 | Emergency (ER) | payer MEDICARE, OTHER, SELFPAY ==
[2020-03-14 10:32] VITALS: BP 146/80; PULSE 94; RESP 16; TEMP 36.6; O2SAT 98; BMI 27.4
--- NOTE | 2020-03-14 10:38 | HMH.EDUTC ---
[facility] [place] Clinical Impression: UTI (urinary tract infection) Qualifiers: Urinary tract infection type: site unspecified Hematuria presence: without hematuria Qualified Code(s): N39.0 - Urinary tract infection, site not specified Disposition: Home, Self-Care Condition on Discharge: Good Instructions: Nitrofurantoin, Urinary Tract Infection, DI for Urinary Tract Infection (UTI) Additional Instructions: *Increase fluids. Water not Soda or Tea *Start antibiotic immediately and be sure to take as ordered for the FULL length of time although you should start to see improvement over the next 48 hours *Be SURE to follow up anytime for new or worsening symptoms with your family doctor. AND in 48 hours for urine culture results with your family doctor, if you do not have a doctor then you may call back to the [facility] for urine culture results and further treatment. We do recommend that you choose and establish care with a Primary Care Physician. AND follow up with them in 10-14 days to repeat UA to ensure infection is resolved and blood no longer present *Be sure to let your PCP know that we sent urine cultures from the [facility] so they can follow up to ensure that you area the on the correct antibiotic Call your doctor office and make appointment for 48 hours (2 days from today) to follow up and get the results of your urine culture and further treatment Make sure to follow up for your urine culture results Return if needed Straight to ER if any life threatening symptoms Prescriptions: Nitrofurantoin Monohyd/M-Cryst [Macrobid 100 mg Capsule] 100 mg PO BID 7 Days #14 cap Transmission Status: Pending to [id number] Referrals: Catherine Hernandez APRN [Primary Care Provider] - Time of Disposition: 10:45 Medical Decision Making - Attila Inquiry Pt receiving controlled substance: No Attila was queried for this patient: No Vital Signs: 03/14/20 10:32 Temperature 97.8 F Temperature Source Oral Pulse Rate [Right] 94 H Respiratory Rate 16 Blood Pressure [Right Arm] 146/80 H Blood Pressure Mean [Right Arm] 102 Blood Pressure Source [Right Arm] Automatic Cuff Blood Pressure Position [Right Arm] Sitting 02 Sat by Pulse Oximetry 98 Oxygen Delivery Method Room Air - Lab Data Lab results reviewed: Yes: I reviewed the patient's lab results. [facility] [place] - General Stated complaint: poss uti Time Seen by Provider: 03/14/20 10:39 Mode of Arrival: Ambulatory Source of Information: Patient Limitations: No Limitations HEENT Symptoms (Recalled from RN notes): No Resp Symptoms (Recalled from RN notes): No Skin Symptoms (Recalled from RN notes): No MS Symptoms (Recalled from RN notes): No Functional Status (Recalled from RN notes): na - History of Present Illness Provider Complaint: Patient state that she started having some burning with urination, feeling of urgency and frequecy and having achy like feeling in her lower back State that she has had several UTI in the past with similar sympotms Denies fever, denies abdominal pain - Related Data Home Medications Medication Instructions Recorded Confirmed Atorvastatin Calcium [Lipitor 20mg 20 mg PO HS 10/13/17 01/08/20 Tab] Loratadine [Claritin 10mg 10 mg PO DAILY 10/13/17 01/08/20 Tablet] Omeprazole [Omeprazole 20mg 20 mg PO DAILY PRN 10/13/17 01/08/20 Capsule] levothyroxine 88 mcg tablet 88 mcg PO DAILY 90 Days #90 tab 05/31/18 01/08/20 metformin 1,000 mg tablet 1,000 mg PO DAILY 90 Days #90 tab 05/31/18 01/08/20 Sitagliptin Phosphate [Januvia 100 mg PO DAILY 02/13/19 01/08/20 100mg tablet] glimepiride 4 mg tablet 4 mg PO tab 12/28/19 01/08/20 Previous Rx's Medication Instructions Recorded Ibuprofen [Ibuprofen 600mg 600 mg PO Q6HP PRN #30 tab 05/28/18 Tablet] Nitrofurantoin Monohyd/M-Cryst 100 mg PO BID 7 Days #14 cap 03/14/20 [Macrobid 100 mg Capsule] Allergies Allergy/AdvReac Type Severity Reaction Status Date / Time
[2020-03-14 10:40] LABS: Apearance,Urine Cloudy (Clear); Bilirubin,Urine Negative (Negative); Blood, Urine Negative (Negative); Color,Urine Dark Yellow (Yellow); Glucose,Urine (UA) Negative (Negative); Ketones,Urine Negative (Negative); Protein,Urine Negative (Negative); Specific Gravity, Urine 1.025 (1.005-1.030); UTC Leukocyte Esterase,Urine 2+ (Negative); UTC Nitrate,Urine Negative (Negative); Urobilinogen,Urine 0.2 EU/dl (0.2)
[2020-03-14 10:56] VITALS: BP 142/70; PULSE 70; RESP 16; TEMP 36.8; O2SAT 98
== END 2020-03-14 10:59 | disposition home or self-care (01) ==
PROVIDERS: Emergency Provider Nurse Practitioner; PCP Nurse Practitioner Family
DX: N30.00 Acute cystitis without hematuria (principal); E11.9 Type 2 diabetes mellitus without complications; E78.5 Hyperlipidemia, unspecified; K21.9 Gastro-esophageal reflux disease without esophagitis; Z88.1 Allergy status to other antibiotic agents; Z79.84 Long term (current) use of oral hypoglycemic drugs; Z79.899 Other long term (current) drug therapy
CPT/HCPCS: 81003; 87086; 87088; 87186; 99201

== ENCOUNTER 2020-05-29 10:12 | Emergency (ER) | payer MEDICARE, OTHER, SELFPAY ==
[2020-05-29] VITALS (9 sets, daily range): BP systolic 130–151; BP diastolic 67–100; PULSE 78–97; RESP 16–19; TEMP 36.6; O2SAT 94–98; BMI 26.3
--- NOTE | 2020-05-29 10:58 | HMH.EDUTC ---
[facility] [place] Clinical Impression: Colostomy hernia, Nausea Abdominal pain Qualifiers: Abdominal location: generalized Qualified Code(s): R10.84 - Generalized abdominal pain Back pain Qualifiers: Back pain location: low back pain Chronicity: acute Back pain laterality: bilateral Sciatica presence: without sciatica Qualified Code(s): M54.5 - Low back pain Disposition: Home, Self-Care Condition on Discharge: Good Instructions: DI for Acute Abdominal Pain Additional Instructions: Additional instructions for ABDOMINAL PAIN: See your physician as soon as possible for further evaluation. Return immediately if worsening abdominal pain, vomiting, shortness of breath, fever, vomiting of blood or abdominal distention. Zofran for nausea. Prescriptions: Ondansetron [Zofran 4mg ODT] 4 mg PO TIDP PRN #10 tab.rapdis PRN Reason: Nausea And Vomiting Transmission Status: Received by [id number] Referrals: Catherine Hernandez APRN [Primary Care Provider] - Medical Decision Making - Medical Records Medical records reviewed: No: I reviewed the patient's medical records. - Attila Inquiry Pt receiving controlled substance: No Vital Signs: 05/29/20 10:15 05/29/20 11:10 05/29/20 11:30 Temperature 97.8 F 98 F Temperature Source Oral Oral Pulse Rate Pulse Rate [Right Brachial] 88 97 H 81 Respiratory Rate 19 16 Blood Pressure Blood Pressure [Right Arm] 133/82 147/96 H 132/100 H Blood Pressure Mean [Right Arm] 99 113 110 Blood Pressure Source [Right Arm] Automatic Cuff Automatic Cuff Blood Pressure Position Blood Pressure Position [Right Arm] Sitting Sitting Sitting 02 Sat by Pulse Oximetry 98 97 96 Oxygen Delivery Method Room Air Room Air Room Air 05/29/20 11:45 05/29/20 12:00 05/29/20 12:30 Temperature Temperature Source Pulse Rate Pulse Rate [Right Brachial] 88 81 85 Respiratory Rate Blood Pressure Blood Pressure [Right Arm] 139/80 130/67 141/74 H Blood Pressure Mean [Right Arm] 99 88 96 Blood Pressure Source [Right Arm] Automatic Cuff Automatic Cuff Automatic Cuff Blood Pressure Position Blood Pressure Position [Right Arm] Sitting Sitting Sitting 02 Sat by Pulse Oximetry 96 97 94 L Oxygen Delivery Method Room Air Room Air Room Air 05/29/20 13:05 05/29/20 14:30 05/29/20 15:06 Temperature 98 F Temperature Source Oral Pulse Rate 78 Pulse Rate [Right Brachial] 80 84 Respiratory Rate 18 Blood Pressure 132/74 Blood Pressure [Right Arm] 133/72 151/81 H Blood Pressure Mean [Right Arm] 92 104 Blood Pressure Source [Right Arm] Automatic Cuff Automatic Cuff Blood Pressure Position Sitting Blood Pressure Position [Right Arm] Sitting Sitting 02 Sat by Pulse Oximetry 96 94 L Oxygen Delivery Method Room Air Room Air Room Air - Lab Data Lab results reviewed: Yes: I reviewed the patient's lab results. Lab Results 05/29/20 10:14: Urine Color Dark yellow, Urine Appearance Cloudy, Urine pH 5.0, Ur Specific [place] 1.030, Urine Protein Trace, Urine Glucose (UA) Negative, Urine Ketones 2+, Urine Blood Negative, Urine Nitrate Negative, Urine Bilirubin 2+ A, Urine Urobilinogen 0.2, Ur Leukocyte Esterase Negative 05/29/20 10:20: Urine Color Yellow, Urine Appearance Clear, Urine pH 5.5, Ur Specific [place] >= 1.030, Urine Protein Negative, Urine Glucose (UA) Negative, Urine Ketones 1+, Urine Blood Negative, Urine Nitrate Negative, Urine Bilirubin 2+ A, Urine Urobilinogen 0.2, Ur Leukocyte Esterase Negative, Urine RBC Occasional, Urine WBC 3-5, Ur Squamous Epith Cells 3-5 05/29/20 11:16: WBC 9.6, RBC 5.44 H, Hgb 17.2 H, Hct 50.1 H, MCV 92.1, MCH 31.6 H, MCHC 34.3, RDW 13.4, Plt Count 208, MPV 9.2, Neut % (Auto) 77.8, Lymph % (Auto) 14.2, [place] % (Auto) 5.4, Eos % (Auto) 1.9, Baso % (Auto) 0.7, Neut # (Auto) 7.5, Lymph # (Auto) 1.4, [place] # (Auto) 0.5, Eos # (Auto) 0.2, Baso # (Auto) 0.1 05/29/20 11:16: Sodium 138, Potassium 4.1, Chloride 100, Carbon Dioxide 24, Anion Gap 18
--- NOTE | 2020-05-29 11:05 | PC.NURSE ---
PATIENT SENT TO ER PER DIPAK MIRZA APRN FOR FURTHER EVALUATION. REPORT GIVEN TO Tahira CARRIZALES RN
--- NOTE | 2020-05-29 11:12 | HMH.EDGENADL ---
ED Disposition Clinical Impression: Colostomy hernia, Nausea Abdominal pain Qualifiers: Abdominal location: generalized Qualified Code(s): R10.84 - Generalized abdominal pain Back pain Qualifiers: Back pain location: low back pain Chronicity: acute Back pain laterality: bilateral Sciatica presence: without sciatica Qualified Code(s): M54.5 - Low back pain Disposition: Home, Self-Care Condition on Discharge: Good Instructions: DI for Acute Abdominal Pain Additional Instructions: Additional instructions for ABDOMINAL PAIN: See your physician as soon as possible for further evaluation. Return immediately if worsening abdominal pain, vomiting, shortness of breath, fever, vomiting of blood or abdominal distention. Zofran for nausea. Prescriptions: Ondansetron [Zofran 4mg ODT] 4 mg PO TIDP PRN #10 tab.rapdis PRN Reason: Nausea And Vomiting Transmission Status: Pending to [id number] Referrals: Catherine Hernandez APRN [Primary Care Provider] - - Critical Care Critical Care Time: No Attestation: On 05/29/20, the high probability of a clinically significant, sudden or life threatening deterioration of the following system(s) required my full and direct attention, intervention and personal management. The time I documented below is in addition to time spent performing reported procedures but includes the following listed in this critical care notation. Medical Decision Making - Attila Inquiry Pt receiving controlled substance: No Vital Signs: 05/29/20 10:15 05/29/20 11:10 05/29/20 11:30 Temperature 97.8 F 98 F Temperature Source Oral Oral Pulse Rate [Right Brachial] 88 97 H 81 Respiratory Rate 19 16 Blood Pressure [Right Arm] 133/82 147/96 H 132/100 H Blood Pressure Mean [Right Arm] 99 113 110 Blood Pressure Source [Right Arm] Automatic Cuff Automatic Cuff Blood Pressure Position [Right Arm] Sitting Sitting Sitting 02 Sat by Pulse Oximetry 98 97 96 Oxygen Delivery Method Room Air Room Air Room Air 05/29/20 11:45 05/29/20 12:00 05/29/20 12:30 Temperature Temperature Source Pulse Rate [Right Brachial] 88 81 85 Respiratory Rate Blood Pressure [Right Arm] 139/80 130/67 141/74 H Blood Pressure Mean [Right Arm] 99 88 96 Blood Pressure Source [Right Arm] Automatic Cuff Automatic Cuff Automatic Cuff Blood Pressure Position [Right Arm] Sitting Sitting Sitting 02 Sat by Pulse Oximetry 96 97 94 L Oxygen Delivery Method Room Air Room Air Room Air 05/29/20 13:05 05/29/20 14:30 Temperature Temperature Source Pulse Rate [Right Brachial] 80 84 Respiratory Rate Blood Pressure [Right Arm] 133/72 151/81 H Blood Pressure Mean [Right Arm] 92 104 Blood Pressure Source [Right Arm] Automatic Cuff Automatic Cuff Blood Pressure Position [Right Arm] Sitting Sitting 02 Sat by Pulse Oximetry 96 94 L Oxygen Delivery Method Room Air Room Air - Lab Data Lab results reviewed: Yes: I reviewed the patient's lab results. Lab Results 05/29/20 10:14: Urine Color Dark yellow, Urine Appearance Cloudy, Urine pH 5.0, Ur Specific [place] 1.030, Urine Protein Trace, Urine Glucose (UA) Negative, Urine Ketones 2+, Urine Blood Negative, Urine Nitrate Negative, Urine Bilirubin 2+ A, Urine Urobilinogen 0.2, Ur Leukocyte Esterase Negative 05/29/20 10:20: Urine Color Yellow, Urine Appearance Clear, Urine pH 5.5, Ur Specific [place] >= 1.030, Urine Protein Negative, Urine Glucose (UA) Negative, Urine Ketones 1+, Urine Blood Negative, Urine Nitrate Negative, Urine Bilirubin 2+ A, Urine Urobilinogen 0.2, Ur Leukocyte Esterase Negative, Urine RBC Occasional, Urine WBC 3-5, Ur Squamous Epith Cells 3-5 05/29/20 11:16: WBC 9.6, RBC 5.44 H, Hgb 17.2 H, Hct 50.1 H, MCV 92.1, MCH 31.6 H, MCHC 34.3, RDW 13.4, Plt Count 208, MPV 9.2, Neut % (Auto) 77.8, Lymph % (Auto) 14.2, [place] % (Auto) 5.4, Eos % (Auto) 1.9, Baso % (Auto) 0.7, Neut # (Auto) 7.5, Lymph # (Auto) 1.4, [place] # (Auto) 0.5, Eos # (Auto) 0.2, Baso # (Auto) 0.1 05/13
[2020-05-29 11:18] LABS: Microscopic, Urine URINE MICROSCOPIC (MICROSCOPIC)
--- NOTE | 2020-05-29 11:19 | CT_ITS ---
PROCEDURE: CT ABDOMEN PELVIS W CON CLINICAL INDICATION: abdominal pain` Pain across the lower abdomen. Colostomy bag. No nausea vomiting or diarrhea. COMPARISON: CT ABDPELW/O CT ABD PELVIS W/O CONTRAST from 12/26/2014 TECHNIQUE: IV Contrast: 75ML Isovue 370 Oral Contrast administered Axial images obtained with sagittal and coronal reformats. All CT scans at the facility use one or more dose reduction, viz: automated exposure control, ma/kV adjustment per patient size (including targeted exams where dose is matched to indication, i.e. head), or iterative reconstruction technique. FINDINGS: LOWER THORAX: No acute finding ABDOMEN & PELVIS: There is no intra-abdominal free air or free fluid. There is a large right lateral peritoneal defect with neck of the defect measuring at least 3.5 centimeters. There is redemonstration of development of skin thickening surrounding the colostomy defect. The bowel associated with the colostomy traverses the inferior margin of the defect. There is no significant bowel dilatation proximal or distal to the herniated small bowel there is no fat stranding in the associated fat. There is marked altered anatomy of the bowel appearance suggests total or near total colectomy. Correlate with surgical history. There is a slightly thickened appearance of the gallbladder wall although it is minimally filled which is likely the reason for the thick-walled appearance. Correlate clinically to determine if patient has a right pain localized to the right upper quadrant. The remaining solid abdominal organs have a normal appearance. There is minimal filling of the urinary bladder which has a grossly normal appearance. Uterus and ovaries have not opacified with this injection timing on this current study. Scattered uterine calcifications suggest presence of fibroids. Calcifications in the left ovary and left ovarian of approximately 3.3 cc is larger than typical for patient age and slightly increased in size compared with 2014. Mild enlargement of the right ovary is also visible. Pelvic ultrasound may be appropriate for further evaluation. There is no abdominal or pelvic adenopathy. There are scattered atherosclerotic calcifications in the abdominal aorta and branch vessels. There are degenerative changes in the skeleton. There is severe narrowing of the lumbar spinal canal at the L3-4 level. There is a [id number] left convex scoliotic curvature of the lumbar spine IMPRESSION: 1. Large right lateral peritoneal defect with a large loop of small bowel and a large amount of intraperitoneal fat extending into the defect. There is narrowing and buckling of the small bowel approximately 5 centimeters from the colostomy by the margin of the there abdominal wall musculature and peritoneum, possibly a source of patient's symptoms with a minimal prominence of the diameter the bowel proximal to this location. 2. There are no distended loops of small bowel by CT size criteria. There are no air-fluid levels. Or other evidence of small bowel obstruction. 3. Severe lumbar spinal canal stenosis. 4. Slightly thickened appearance of the gallbladder wall probably due to minimal filling of the gallbladder, correlate clinically. 5. Prominent left greater than right ovaries with a small calcification and minimal increase in size of left ovary compared with prior CT. Pelvic ultrasound may be appropriate for further evaluation or monitoring. Dictated by: Gilda Queen MD 05/29/2020 14:35 Gilda Queen MD in [place] 05/29/2020 14:35
[2020-05-29 11:21] LABS: Apearance,Urine Cloudy (Clear); Color,Urine Dark Yellow (Yellow); Glucose,Urine (UA) Negative (Negative); Protein,Urine Trace (Negative)
[2020-05-29 11:22] LABS: Bilirubin,Urine 2+ (Negative); Blood, Urine Negative (Negative); Ketones,Urine 2+ (Negative); UTC Leukocyte Esterase,Urine Negative (Negative); UTC Nitrate,Urine Negative (Negative); Urobilinogen,Urine 0.2 EU/dl (0.2)
[2020-05-29 11:22] LABS: Appearance,Urine CLEAR (Clear); Bilirubin,Urine 2+ (Negative); Blood, Urine Negative (Negative); Color,Urine YELLOW (Yellow); Glucose,Urine (UA) Negative (Negative); Ketones,Urine 1+ (Negative); Leukocyte Esterase,Urine Negative (Negative); Nitrate,Urine Negative (Negative); PH,Urine 5.5 (5.0-8.5); Protein,Urine Negative (Negative); Specific Gravity, Urine >= 1.030 (1.005-1.030); Urobilinogen,Urine 0.2 EU/dl (0.2)
[2020-05-29 11:26] LABS: RBC,Urine Occasional #/hpf (0-3)
[2020-05-29 11:31] LABS: Basophils # 0.1 K/mm3 (0-0.2); Basophils % 0.7 % (0.1-2.0); Eosinophils # 0.2 K/mm3 (0.0-0.4); Eosinophils % 1.9 % (0.1-12.0); Hematocrit 50.1 % (37.0-47.0); Hemoglobin 17.2 g/dL (12.2-16.2); Lymphocytes # 1.4 K/mm3 (0.7-4.5); Lymphocytes % 14.2 % (10-50); Mean Corpuscular HGB Conc 34.3 g/dL (31.8-35.4); Mean Corpuscular Hemoglobin 31.6 pg (27.0-31.2); Mean Corpuscular Volume 92.1 fl (81-99); Mean Platelet Volume 9.2 fl (7.4-10.4); Monocytes # 0.5 K/mm3 (0.1-1.0); Monocytes % 5.4 % (1.7-9.3); Neutrophils # 7.5 K/mm3 (1.8-7.8); Neutrophils % 77.8 % (37.0-80.0); Platelet Count 208 K/mm3 (142-424); Red Blood Count 5.44 M/mm3 (4.20-5.40); Red Cell Distribution Width 13.4 % (11.5-17.5); White Blood Count 9.6 K/mm3 (4.8-10.8)
[2020-05-29 11:34] LABS: Alanine Aminotransferase 17 U/L (12-78); Albumin Level 5.2 g/dl (3.5-5.0); Albumin/Globulin Ratio 1.3 (1.1-1.8); Alkaline Phosphatase 73 U/L (38-126); Anion Gap 18.1 mEq/L (5-15); Aspartate Amino Transferase 25 U/L (14-36); Bilirubin,Total 4.3 mg/dl (0.2-1.3); Blood Urea Nitrogen 16 mg/dl (7-17); Calcium 11.9 mg/dl (8.4-10.2); Carbon Dioxide 24 mmol/L (22.0-30.0); Chloride 100 mmol/L (98-107); Creatinine Clearance Estimated 53 mL/min (50-200); Estimated Glomerular Filt Rate 62 ml/min (>60); GFR (African American) 75 ML/MIN (>60); Globulin 3.9 g/dL (1.3-3.2); Glucose 213 mg/dl (74-100); Lipase 118 U/L (23-300); Potassium 4.1 mmoL/L (3.5-5.1); Sodium 138 mmol/L (136-145); Total Protein,Serum 9.1 g/dl (6.3-8.2)
--- NOTE | 2020-05-29 11:49 | PC.NURSE ---
Pt finished contrast. Notified radiology
--- NOTE | 2020-05-29 12:53 | PC.NURSE ---
family at bedside updated on plan of care
--- NOTE | 2020-05-29 13:41 | PC.NURSE ---
Pt with rad.
== END 2020-05-29 15:07 | disposition home or self-care (01) ==
LOC: UTC 10:16 → ER 11:08
PROVIDERS: Nurse Practitioner Family; Emergency Provider Emergency Medicine; PCP Nurse Practitioner Family
DX: R10.84 Generalized abdominal pain (principal); E11.65 Type 2 diabetes mellitus with hyperglycemia; K21.9 Gastro-esophageal reflux disease without esophagitis; K51.90 Ulcerative colitis, unspecified, without complications; N28.9 Disorder of kidney and ureter, unspecified; E78.5 Hyperlipidemia, unspecified; Z79.899 Other long term (current) drug therapy
CPT/HCPCS: 74177; 80053; 81001; 81003; 83690; 85025; 96375; 99284; J2405; Q9967

== ENCOUNTER → 2020-09-06 11:20 | Outpatient (CLI) | payer MEDICARE, OTHER, SELFPAY ==
--- NOTE | 2020-09-06 11:25 | XR_ITS ---
PROCEDURE: XR FOOT WT BEARING LT 3V CLINICAL INDICATION: evaluate for charcot changes COMPARISON: Right foot same day FINDINGS: No fracture or dislocation. No lytic or blastic change. There is normal mineralization. The tarsal bones metatarsals and phalanges all appear intact. No Charcot changes are seen. There is a prominent spur of the calcaneus at the insertion of the plantar tendon with a tiny spur the insertion of the Achilles tendon. There is flattening of the plantar arch. IMPRESSION: Ntmz-rp-[id number] pes planus with prominent plantar calcaneal spur Dictated by: Dr. Nasir Cleveland MD 09/06/2020 12:15 Dr. Nasir Cleveland MD in [place] 09/06/2020 12:15
--- NOTE | 2020-09-06 11:25 | XR_ITS ---
PROCEDURE: XR ANKLE WT BEARING LT MIN 3V CLINICAL INDICATION: swelling COMPARISON: Right ankle same date FINDINGS: There is moderate diffuse soft tissue swelling both medially and laterally more prominent than the right ankle. However the medial and lateral malleolus appear intact and the ankle mortise appears normal. IMPRESSION: Diffuse soft tissue swelling, no significant bony abnormality noted Dictated by: Dr. Nasir Cleveland MD 09/06/2020 12:13 Dr. Nasir Cleveland MD in [place] 09/06/2020 12:13
--- NOTE | 2020-09-06 11:25 | XR_ITS ---
PROCEDURE: XR FOOT WT BEARING RT 3V CLINICAL INDICATION: evaluate for charcot changes COMPARISON: No exams were available for comparison FINDINGS: No fracture or dislocation. No lytic or blastic change. There is normal mineralization. The tarsal bones, metatarsals and phalanges appear intact. There is a prominent spur of the calcaneus at the insertion of the plantar tendon. There is mild to moderate flattening of the plantar arch. There are no Charcot changes noted IMPRESSION: Gflr-ic-eginxkrb pes planus with prominent calcaneal spur is noted Dictated by: Dr. Nasir Cleveland MD 09/06/2020 12:17 Dr. Nasir Cleveland MD in [place] 09/06/2020 12:17
--- NOTE | 2020-09-06 11:25 | XR_ITS ---
PROCEDURE: XR ANKLE WT BEARING RT MIN 3V CLINICAL INDICATION: swelling COMPARISON: Left ankle same date FINDINGS: There is mild diffuse soft tissue swelling medially. The medial and lateral malleolus appear intact and the ankle mortise is normal. IMPRESSION: Mild soft tissue swelling otherwise grossly normal right ankle Dictated by: Dr. Nasir Cleveland MD 09/06/2020 12:12 Dr. Nasir lCeveland MD in [place] 09/06/2020 12:12
== END ==
PROVIDERS: PCP Nurse Practitioner Family; Visit Provider Podiatrist
DX: E11.610 Type 2 diabetes mellitus with diabetic neuropathic arthropathy (principal); Z79.84 Long term (current) use of oral hypoglycemic drugs
CPT/HCPCS: 73610; 73630

== ENCOUNTER → 2020-10-10 08:45 | Outpatient (CLI) | payer MEDICARE, OTHER, SELFPAY ==
[2020-10-10 09:23] LABS: Basophils # 0.1 K/mm3 (0-0.2); Eosinophils # 0.2 K/mm3 (0.0-0.4); Hematocrit 42.4 % (37.0-47.0); Lymphocytes # 1.4 K/mm3 (0.7-4.5); Lymphocytes % 25.4 % (10-50); Mean Corpuscular HGB Conc 35.3 g/dL (31.8-35.4); Mean Corpuscular Hemoglobin 31.3 pg (27.0-31.2); Mean Corpuscular Volume 88.6 fl (81-99); Mean Platelet Volume 9.1 fl (7.4-10.4); Monocytes # 0.3 K/mm3 (0.1-1.0); Monocytes % 5.8 % (1.7-9.3); Neutrophils # 3.4 K/mm3 (1.8-7.8); Neutrophils % 63.8 % (37.0-80.0); Platelet Count 178 K/mm3 (142-424); Red Blood Count 4.78 M/mm3 (4.20-5.40); Red Cell Distribution Width 13.3 % (11.5-17.5); White Blood Count 5.4 K/mm3 (4.8-10.8)
[2020-10-10 09:43] LABS: Hemoglobin A1C 7.2 % (4.0-6.0)
[2020-10-10 11:14] LABS: Alanine Aminotransferase 15 U/L (12-78); Albumin Level 4.2 g/dl (3.5-5.0); Albumin/Globulin Ratio 1.6 (1.1-1.8); Alkaline Phosphatase 56 U/L (38-126); Anion Gap 13.3 mEq/L (5-15); Aspartate Amino Transferase 20 U/L (14-36); Bilirubin,Total 2.8 mg/dl (0.2-1.3); Blood Urea Nitrogen 15 mg/dl (7-17); Calcium 10.6 mg/dl (8.4-10.2); Carbon Dioxide 27 mmol/L (22.0-30.0); Chloride 104 mmol/L (98-107); Chol/HDL Ratio 2.5 (1-3.5); Cholesterol 135 mg/dl (140-200); Estimated Glomerular Filt Rate 71 ml/min (>60); GFR (African American) 86 ML/MIN (>60); Globulin 2.7 g/dL (1.3-3.2); Glucose 192 mg/dl (74-100); HDL Cholesterol 55 mg/dl (40-60); Potassium 4.3 mmoL/L (3.5-5.1); Sodium 140 mmol/L (136-145); Total Protein,Serum 6.9 g/dl (6.3-8.2); Triglycerides 146 mg/dl (30-150); VLDL Cholesterol 29 mg/dL (0-40)
[2020-10-10 11:23] LABS: 25-OH Vitamin D, Total 88.1 ng/mL (30-100)
[2020-10-10 11:25] LABS: Direct LDL Cholesterol 56.15 mg/dL (100-129)
[2020-10-10 11:45] LABS: Thyroid Stimulating Hormone 0.15 uIU/mL (0.465-4.68)
== END ==
PROVIDERS: Visit Provider Nurse Practitioner Family
DX: E11.610 Type 2 diabetes mellitus with diabetic neuropathic arthropathy (principal); E78.5 Hyperlipidemia, unspecified; E03.9 Hypothyroidism, unspecified; M85.89 Other specified disorders of bone density and structure, multiple sites; Z78.0 Asymptomatic menopausal state; Z79.84 Long term (current) use of oral hypoglycemic drugs
CPT/HCPCS: 36415; 80053; 80061; 82306; 83036; 84443; 85025

== ENCOUNTER → 2021-02-03 08:14 | Outpatient (CLI) | payer MEDICARE, OTHER, SELFPAY ==
--- NOTE | 2021-02-03 08:17 | MM_ITS ---
PROCEDURE: MM DIG SCREENING MAMM BI W/CAD Digital Breast Tomosynthesis Included CLINICAL INDICATION: SCREENING There is a history of breast cancer in the patient's mother diagnosed after menopause. COMPARISON: MG DMSB DIG MAMM-SCREEN CODIE W/CAD from 10/12/2016 MG MM DIG SCREENING MAMM BI W/CAD from 01/19/2019 MG MM DIG SCREENING MAMM BI W/CAD from 01/22/2020 TECHNIQUE: Standard CC and MLO images and 3D Tomosynthesis was obtained. R2 CAD reviewed. FINDINGS: Moderate fibroglandular densities are seen in the central portions of both breasts slightly more prominent right than left. Scattered microcalcifications in both breast and there is faint arterial calcification in both breasts. There is no suspicious lesion in either breast no suspicious microcalcifications. IMPRESSION: Fibrofatty parenchyma with no suspicious lesions seen BI-RAD Category: 2 Benign Finding(s) FOLLOW-UP: 1YR 1 Year Follow-up (A letter has been sent to the patient regarding results of the study.) Dictated by: Dr. Nasir Cleveland MD 02/05/2021 11:14 Dr. Nasir Cleveland MD in [place] 02/05/2021 11:14
--- NOTE | 2021-02-03 09:05 | XR_ITS ---
PROCEDURE: XR DEXA AXIAL SKELETON CLINICAL HISTORY: OSTEOPENIA Patient is postmenopausal COMPARISON: CR XR DEXA AXIAL SKELETON from 01/19/2019 FINDINGS: The right hip BMD is 0.846 grams/centimeter squared with a T-score of -1.1. This is a decline in T-score from the previous study which is -0.6 The left hip BMD is 0.748 grams/centimeter squared with a T-score of -1.6. This is a decline from the previous study when it measured -0.7. The lumbar spine BMD is 1.161 grams/centimeter squared with a T-score of 1.0. This is a slight decline from the previous study when it measured 1.4 IMPRESSION: Values in the osteopenia range for both hips, normal study lumbar spine Based on these results a follow-up exam is recommended in year. Dictated by: Dr. Nasir Cleveland MD 02/05/2021 12:46 Dr. Nasir Cleveland MD in [place] 02/05/2021 12:46
== END ==
PROVIDERS: PCP Nurse Practitioner Family; Visit Provider Nurse Practitioner Family
DX: Z12.31 Encounter for screening mammogram for malignant neoplasm of breast (principal); Z13.820 Encounter for screening for osteoporosis; Z78.0 Asymptomatic menopausal state; M85.89 Other specified disorders of bone density and structure, multiple sites
CPT/HCPCS: 77063; 77067; 77080

== ENCOUNTER 2021-05-05 10:33 | Emergency (ER) | payer MEDICARE, OTHER, SELFPAY ==
[2021-05-05 12:03] VITALS: BP 160/95; PULSE 71; RESP 18; TEMP 36.7; O2SAT 99; BMI 27.4
--- NOTE | 2021-05-05 12:07 | XR_ITS ---
FINAL REPORT CLINICAL HISTORY: left wrist/ hand pain FINDINGS: LEFT HAND 3 views were obtained. There is no acute fracture or dislocation. There is mild narrowing of the DIP and PIP joints consistent with osteoarthritis. There is no bony erosion. There is no soft tissue abnormality. IMPRESSION: Findings consistent with osteoarthritis. Reviewed, Interpreted and Dictated by Greg Caldwell MD Transcribed by Lulu Singh Authenticated by Greg Caldwell MD on 05/05/2021 01:16:[address] [facility]
--- NOTE | 2021-05-05 12:07 | XR_ITS ---
FINAL REPORT CLINICAL HISTORY: left wrist/ hand pain FINDINGS: LEFT WRIST 3 views were obtained. There is no acute fracture or dislocation. There is mild narrowing of the radiocarpal joint. There is chondrocalcinosis in the triangular fibro cartilage. There are multiple calcifications identified at the margins of the proximal and mid carpal row which is probably related to osteoarthritis. There is no soft tissue abnormality. IMPRESSION: Changes of osteoarthritis described. Reviewed, Interpreted and Dictated by Greg Caldwell MD Transcribed by Lulu Singh Authenticated by Greg Caldwell MD on 05/05/2021 01:14:27 PM [facility]
--- NOTE | 2021-05-05 13:17 | HMH.EDUTC ---
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 Follow up with Dr. Kaplan (orthopedics). Sometimes there can be issues that don't show up well on x-rays, such as tendonitis and tendon injuries. So, you should follow up. I put in a referral but you need to call his office and schedule an appointment. Follow up with your regular doctor. GO TO THE ER FOR ANY WORSENING SYMPTOMS The steroids will make your blood sugars run higher. Please follow your prescribed diabetic diet and monitor your blood sugars regularly as prescribed while you are on them. Wear the wrist splint. Wear it while you sleep if possible. Sometimes people bend their wrists up in weird ways while they sleep and that might make your symptoms worse. Avoid doing any repetitive activities with your hand and wrist for the next couple of weeks at least. Prescriptions: methylPREDNISolone [Medrol] 4 mg PO DIRECTED 6 Days #21 packet Transmission Status: Received by [id number] Referrals: Catherine Hernandez APRN [Primary Care Provider] - Time of Disposition: 13:59 Medical Decision Making - Medical Records Medical records reviewed: No: I reviewed the patient's medical records. - Attila Inquiry Pt receiving controlled substance: No Vital Signs: 05/05/21 12:03 Temperature 98.0 F Temperature Source Oral Pulse Rate [Right Brachial] 71 Respiratory Rate 18 Blood Pressure [Right Arm] 160/95 H Blood Pressure Mean [Right Arm] 116 Blood Pressure Source [Right Arm] Automatic Cuff Blood Pressure Position [Right Arm] Sitting 02 Sat by Pulse Oximetry 99 Oxygen Delivery Method Room Air Orders (Tests/Meds): ED MEDICATIONS Discontinued Medications Generic Name Dose Route Start Last Admin Trade Name Freq PRN Reason Stop Dose Admin Methylprednisolone Sodium Succinate 125 mg 05/05/21 13:57 05/05/21 14:05 Methylprednisolone Sod Succ 125mg Vial IM 05/05/21 13:58 125 mg ONCE ONE Administration ORDERS Category Date Time Status XR hand LT 2V Stat Exams 05/05/21 12:07 Taken XR wrist LT 2V Stat Exams 05/05/21 12:07 Taken [facility] [place] HPI - General Stated complaint: lt wrist/hand pain Time Seen by Provider: 05/05/21 13:17 Mode of Arrival: Ambulatory Source of Information: Patient Limitations: No Limitations Description of Symptoms (Recalled from Triage Doc. by RN): pt. states she was mopping her floor last week and began to have pain in her left wrist/ thumb area. It has gotten worse over the last week and now she can not use it. HEENT Symptoms (Recalled from RN notes): No Resp Symptoms (Recalled from RN notes): No Skin Symptoms (Recalled from RN notes): No MS Symptoms (Recalled from RN notes): Yes Functional Status (Recalled from RN notes): n/a - History of Present Illness Provider Complaint: She has been having left wrist pain and pain at the base of her left thumb for the past week. She states that her symptoms began after she had to mop up a spill. She denies any history of having similar symptoms other than she has had issues with carpal tunnel in the affected hand, but she had surgery on that in the past and it fixed it. - Related Data Home Medications Medication Instructions Recorded Confirmed Atorvastatin Calcium [Lipitor 20mg 20 mg PO HS 10/13/17 05/05/21 Tab] Omeprazole [Omeprazole 20mg 20 mg PO DAILY PRN 10/13/17 05/05/21 Capsule] levothyroxine
[2021-05-05 14:44] VITALS: BP 160/95; PULSE 71; RESP 18; TEMP 36.6
== END 2021-05-05 14:45 | disposition home or self-care (01) ==
PROVIDERS: Emergency Provider Nurse Practitioner Family; PCP Nurse Practitioner Family
DX: M77.22 Periarthritis, left wrist (principal); E11.69 Type 2 diabetes mellitus with other specified complication; K21.9 Gastro-esophageal reflux disease without esophagitis; E03.9 Hypothyroidism, unspecified; E78.5 Hyperlipidemia, unspecified; Z79.899 Other long term (current) drug therapy
CPT/HCPCS: 29125; G0463; 73100; 73120; 99202

== ENCOUNTER 2021-06-28 11:35 | Emergency (ER) | payer MEDICARE, OTHER, SELFPAY ==
[2021-06-28] VITALS (7 sets, daily range): BP systolic 111–166; BP diastolic 46–88; PULSE 66–90; RESP 18–20; TEMP 36.8; O2SAT 98–100; BMI 23.7; BMI 26.9
[2021-06-28 12:01] LABS: Apearance,Urine Cloudy (Clear); Blood, Urine Negative (Negative); Color,Urine Dark Yellow (Yellow); Glucose,Urine (UA) 1+ (Negative); Ketones,Urine 1+ (Negative); PH,Urine 5.5 (5.0-8.5); Protein,Urine Negative (Negative)
[2021-06-28 12:02] LABS: Bilirubin,Urine 2+ (Negative); UTC Leukocyte Esterase,Urine Negative (Negative); UTC Nitrate,Urine Negative (Negative); Urobilinogen,Urine 0.2 EU/dl (0.2)
[2021-06-28 12:17] LABS: POC Glucose,Bedside 204 (70-110)
--- NOTE | 2021-06-28 12:27 | HMH.EDUTC ---
[facility] [place] Disposition Condition on Discharge: Good Time of Disposition: 12:38 <Shagufta Rowland - Last Filed: 06/28/21 14:09> <Janes Cardenas - Last Filed: 06/28/21 18:26> Clinical Impression: Abdominal pain Qualifiers: Abdominal location: right lower quadrant Qualified Code(s): R10.31 - Right lower quadrant pain Disposition: Home, Self-Care Instructions: 'Diet Plate' May Help People With Diabetes Lose Weight, Renal (Kidney) Disease Diet -- For People Not on Dialysis Prescriptions: Ondansetron [Zofran 4mg ODT] 4 mg PO QID 3 Days #12 tab Transmission Status: Received by [id number] Referrals: Provider,Referral, [Primary Care Provider] - Medical Decision Making - Attila Inquiry Pt receiving controlled substance: No Attila was queried for this patient: No - Lab Data Lab results reviewed: Yes: I reviewed the patient's lab results. Result diagrams: 06/28/21 13:04 06/28/21 13:04 <Shagufta Rowland - Last Filed: 06/28/21 14:09> - Medical Records Medical records reviewed: Yes: I reviewed the patient's medical records. - Lab Data Result diagrams: 06/28/21 13:04 06/28/21 13:04 - Radiology Data #1 Image(s): Chest Image Reviewed: Yes I reviewed the patient's radiology results, Yes I reviewed the patient's radiology image - CT Data CT Scan: Abdomen Time Received: 18:[address] Reviewed: Yes: I have reviewed the patient's CT results, I have viewed the radiologist's interpretation <Janes Cardenas - Last Filed: 06/28/21 18:26> Vital Signs: 06/28/21 11:40 06/28/21 13:01 06/28/21 13:23 Temperature 98.2 F 98.2 F Temperature Source Oral Oral Pulse Rate 75 Pulse Rate [Right Brachial] 90 73 Respiratory Rate 18 18 Blood Pressure 154/88 H Blood Pressure [Right Arm] 166/77 H 133/48 L Blood Pressure Mean 110 Blood Pressure Mean [Right Arm] 106 76 Blood Pressure Source [Right Arm] Automatic Cuff Automatic Cuff Blood Pressure Position [Right Arm] Sitting Sitting 02 Sat by Pulse Oximetry 98 100 98 Oxygen Delivery Method Room Air Room Air 03/19/22 13:31 06/28/21 14:01 06/28/21 15:00 Temperature Temperature Source Pulse Rate 71 66 69 Pulse Rate [Right Brachial] Respiratory Rate Blood Pressure 111/46 L 122/62 116/54 L Blood Pressure [Right Arm] Blood Pressure Mean 85 77 71 Blood Pressure Mean [Right Arm] Blood Pressure Source [Right Arm] Blood Pressure Position [Right Arm] 02 Sat by Pulse Oximetry 98 98 100 Oxygen Delivery Method 06/28/21 17:00 Temperature 98.2 F Temperature Source Oral Pulse Rate 69 Pulse Rate [Right Brachial] Respiratory Rate 20 Blood Pressure 116/54 L Blood Pressure [Right Arm] Blood Pressure Mean Blood Pressure Mean [Right Arm] Blood Pressure Source [Right Arm] Blood Pressure Position [Right Arm] 02 Sat by Pulse Oximetry Oxygen Delivery Method Room Air - Lab Data Lab Results 06/28/21 11:48: Urine Color Yellow, Urine Appearance Clear, Urine pH 6.0, Ur Specific [place] >= 1.030, Urine Protein Negative, Urine Glucose (UA) Trace, Urine Ketones 1+, Urine Blood Negative, Urine Nitrate Negative, Urine Bilirubin 2+ A, Urine Urobilinogen 0.2, Ur Leukocyte Esterase Negative, Urine RBC None, Urine WBC Occasional, Ur Squamous Epith Cells Occasional, Calcium Oxalate Crystal 4+, Urine Bacteria None 06/28/21 11:57: Urine Color Dark yellow, Urine Appearance Cloudy, Urine pH 5.5, Ur Specific [place] 1.030, Urine Protein Negative, Urine Glucose (UA) 1+, Urine Ketones 1+, Urine Blood Negative, Urine Nitrate Negative, Urine Bilirubin 2+ A, Urine Urobilinogen 0.2, Ur Leukocyte Esterase Negative 06/28/21 12:10: POC Glucose 204 H 06/28/21 13:04: WBC 6.4, RBC 4.94, Hgb 16.0, Hct 46.8, MCV 94.9, MCH 32.4 H, MCHC 34.1, RDW 13.9, Plt Count 234, MPV 10.4, Neut % (Auto) 71.6, Lymph % (Auto) 19.9, [place] % (Auto) 5.0, Eos % (Auto) 2.2, Baso % (Auto) 1.4, Neut # (Auto) 4.6, Lymph # (Auto) 1.3, [place] # (Auto) 0.3, Eos # (Auto) 0.1, Baso # (Auto) 0.1 03
--- NOTE | 2021-06-28 12:30 | PC.NURSE ---
PATIENT SENT TO ER PER Lor SPARKS APRN FOR FURTHER EVALUATION. REPORT GIVEN TO Tahira GARZA RN BY Lor SPARKS APRN
--- NOTE | 2021-06-28 13:12 | PC.NURSE ---
Pt assessed and in room
--- NOTE | 2021-06-28 13:24 | XR_ITS ---
PROCEDURE INFORMATION: Exam: XR Chest Exam date and time: 06/28/2021 1:36 PM Age: 70 years old Clinical indication: Other: Vomitting; Additional info: Vomiting TECHNIQUE: Imaging protocol: XR of the chest. Views: 1 view. COMPARISON: CT ABDOMEN PELVIS W CON 05/29/2020 1:31 PM FINDINGS: Lungs: Unremarkable. No consolidation. Pleural spaces: Unremarkable. No pleural effusion. No pneumothorax. Heart/Mediastinum: Unremarkable. No cardiomegaly. Bones/joints: Unremarkable. IMPRESSION: No acute findings.
--- NOTE | 2021-06-28 13:24 | CT_ITS ---
PROCEDURE INFORMATION: Exam: CT Abdomen And Pelvis With Contrast Exam date and time: 06/28/2021 2:31 PM Age: 70 years old Clinical indication: Vomiting; Additional info: Rlq pain-- she has a iliostomy from ulcerated colitis -- vomiting TECHNIQUE: Imaging protocol: Computed tomography of the abdomen and pelvis with contrast. Radiation optimization: All CT scans at this facility use at least one of these dose optimization techniques: automated exposure control; mA and/or kV adjustment per patient size (includes targeted exams where dose is matched to clinical indication); or iterative reconstruction. Contrast material: ISOVUE; Contrast volume: 75 ml; Contrast route: IV; COMPARISON: CT ABDOMEN PELVIS W CON 05/29/2020 1:31 PM FINDINGS: Lungs: Atelectasis in the right middle lobe Liver: Normal. No mass. Gallbladder and bile ducts: Normal. No calcified stones. No ductal dilation. Pancreas: Normal. No ductal dilation. Spleen: Normal. No splenomegaly. Adrenal glands: Normal. No mass. Kidneys and ureters: Normal. No hydronephrosis. Stomach and bowel: Unremarkable. No obstruction. No mucosal thickening. Appendix: No evidence of appendicitis. Intraperitoneal space: Unremarkable. No free air. No significant fluid collection. Vasculature: Unremarkable. No abdominal aortic aneurysm. Lymph nodes: Unremarkable. No enlarged lymph nodes. Urinary bladder: Unremarkable as visualized. 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 Bones/joints: Levoscoliosis of the lumbar spine Soft tissues: Right lower quadrant ostomy with large peristomal hernia. No obstruction.. IMPRESSION: 1. Right lower quadrant ostomy with large peristomal hernia. No obstruction.. 2. 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
[2021-06-28 13:31] LABS: Microscopic, Urine URINE MICROSCOPIC (MICROSCOPIC)
[2021-06-28 13:35] LABS: Basophils # 0.1 K/mm3 (0-0.2); Basophils % 1.4 % (0.1-2.0); Eosinophils # 0.1 K/mm3 (0.0-0.4); Eosinophils % 2.2 % (0.1-12.0); Hematocrit 46.8 % (37.0-47.0); Lymphocytes # 1.3 K/mm3 (0.7-4.5); Lymphocytes % 19.9 % (10-50); Mean Corpuscular HGB Conc 34.1 g/dL (31.8-35.4); Mean Corpuscular Hemoglobin 32.4 pg (27.0-31.2); Mean Corpuscular Volume 94.9 fl (81-99); Mean Platelet Volume 10.4 fl (7.4-10.4); Monocytes # 0.3 K/mm3 (0.1-1.0); Neutrophils # 4.6 K/mm3 (1.8-7.8); Neutrophils % 71.6 % (37.0-80.0); Platelet Count 234 K/mm3 (142-424); Red Blood Count 4.94 M/mm3 (4.20-5.40); Red Cell Distribution Width 13.9 % (11.5-17.5); White Blood Count 6.4 K/mm3 (4.8-10.8)
[2021-06-28 13:45] LABS: Chloride 102 mmol/L (98-107)
[2021-06-28 13:46] LABS: Potassium 4.5 mmoL/L (3.5-5.1); Sodium 136 mmol/L (136-145)
[2021-06-28 13:48] LABS: Alanine Aminotransferase 20 U/L (12-78); Aspartate Amino Transferase 30 U/L (14-36); Blood Urea Nitrogen 13 mg/dl (7-17); Creatinine Clearance Estimated 49 mL/min (50-200); Estimated Glomerular Filt Rate 49 ml/min (>60); GFR (African American) 59 ML/MIN (>60)
[2021-06-28 13:49] LABS: Albumin Level 4.4 g/dl (3.5-5.0); Albumin/Globulin Ratio 1.6 (1.1-1.8); Alkaline Phosphatase 57 U/L (38-126); Anion Gap 13.5 mEq/L (5-15); Bilirubin,Total 3.3 mg/dl (0.2-1.3); Calcium 10.1 mg/dl (8.4-10.2); Carbon Dioxide 25 mmol/L (22.0-30.0); Globulin 2.8 g/dL (1.3-3.2); Glucose 188 mg/dl (74-100); Lipase 120 U/L (23-300); Total Protein,Serum 7.2 g/dl (6.3-8.2)
--- NOTE | 2021-06-28 14:26 | PC.NURSE ---
pt to RAD
[2021-06-28 14:34] LABS: Appearance,Urine CLEAR (Clear); Blood, Urine Negative (Negative); Color,Urine YELLOW (Yellow); Glucose,Urine (UA) TRACE (Negative); Ketones,Urine 1+ (Negative); Leukocyte Esterase,Urine Negative (Negative); Nitrate,Urine Negative (Negative); Protein,Urine Negative (Negative); Specific Gravity, Urine >= 1.030 (1.005-1.030); Urobilinogen,Urine 0.2 EU/dl (0.2)
[2021-06-28 14:49] LABS: Bilirubin,Urine 2+ (Negative)
--- NOTE | 2021-06-28 14:52 | PC.NURSE ---
back from RAD
--- NOTE | 2021-06-28 14:55 | HMH.EDGENADL ---
ED Disposition Clinical Impression: Abdominal pain Qualifiers: Abdominal location: right lower quadrant Qualified Code(s): R10.31 - Right lower quadrant pain Clinical Impression: (Ruled Out): Weakness Disposition: Home, Self-Care Condition on Discharge: Good Prescriptions: Ondansetron [Zofran 4mg ODT] 4 mg PO QID 3 Days #12 tab Transmission Status: Pending to [id number] Referrals: Provider,Referral, [Primary Care Provider] - - Critical Care Critical Care Time: No Attestation: On 06/28/21, the high probability of a clinically significant, sudden or life threatening deterioration of the following system(s) required my full and direct attention, intervention and personal management. The time I documented below is in addition to time spent performing reported procedures but includes the following listed in this critical care notation. Medical Decision Making - Medical Records Medical records reviewed: Yes: I reviewed the patient's medical records. - Attila Inquiry Pt receiving controlled substance: No Vital Signs: 06/28/21 11:40 06/28/21 13:23 Temperature 98.2 F 98.2 F Temperature Source Oral Oral Pulse Rate [Right Brachial] 90 73 Respiratory Rate 18 18 Blood Pressure [Right Arm] 166/77 H 133/48 L Blood Pressure Mean [Right Arm] 106 76 Blood Pressure Source [Right Arm] Automatic Cuff Automatic Cuff Blood Pressure Position [Right Arm] Sitting Sitting 02 Sat by Pulse Oximetry 98 98 Oxygen Delivery Method Room Air Room Air - Lab Data Lab Results 06/28/21 11:48: Urine Color Yellow, Urine Appearance Clear, Urine pH 6.0, Ur Specific [place] >= 1.030, Urine Protein Negative, Urine Glucose (UA) Trace, Urine Ketones 1+, Urine Blood Negative, Urine Nitrate Negative, Urine Bilirubin 2+ A, Urine Urobilinogen 0.2, Ur Leukocyte Esterase Negative, Urine RBC None, Urine WBC Occasional, Ur Squamous Epith Cells Occasional, Calcium Oxalate Crystal 4+, Urine Bacteria None 06/28/21 11:57: Urine Color Dark yellow, Urine Appearance Cloudy, Urine pH 5.5, Ur Specific [place] 1.030, Urine Protein Negative, Urine Glucose (UA) 1+, Urine Ketones 1+, Urine Blood Negative, Urine Nitrate Negative, Urine Bilirubin 2+ A, Urine Urobilinogen 0.2, Ur Leukocyte Esterase Negative 06/28/21 12:10: POC Glucose 204 H 06/28/21 13:04: WBC 6.4, RBC 4.94, Hgb 16.0, Hct 46.8, MCV 94.9, MCH 32.4 H, MCHC 34.1, RDW 13.9, Plt Count 234, MPV 10.4, Neut % (Auto) 71.6, Lymph % (Auto) 19.9, [place] % (Auto) 5.0, Eos % (Auto) 2.2, Baso % (Auto) 1.4, Neut # (Auto) 4.6, Lymph # (Auto) 1.3, [place] # (Auto) 0.3, Eos # (Auto) 0.1, Baso # (Auto) 0.1 06/28/21 13:04: Sodium 136, Potassium 4.5, Chloride 102, Carbon Dioxide 25, Anion Gap 13.5, BUN 13, Creatinine 1.10 H, Estimated Creat Clear 49, Estimated GFR 49 L, Est GFR ( Amer) 59, Glucose 188 H, Calcium 10.1, Total Bilirubin 3.3 H, AST 30, ALT 20, Alkaline Phosphatase 57, Total Protein 7.2, Albumin 4.4, Globulin 2.8, Albumin/Globulin Ratio 1.6, Lipase 120 06/28/21 15:11: Lactate 1.5 Result diagrams: 06/28/21 13:04 06/28/21 13:04 Orders (Tests/Meds): ED MEDICATIONS Discontinued Medications Generic Name Dose Route Start Last Admin Trade Name Freq PRN Reason Stop Dose Admin Lactated Ringer's 1,000 mls @ 999 mls/hr 06/28/21 13:30 06/28/21 14:02 Lactated Ringer's 1000 Ml Bag IV 06/28/21 14:30 999 mls/hr .Q1H1M MINDI Administration Iopamidol 75 ml 06/28/21 14:38 06/28/21 14:39 Iopamidol-370 (76%);100ml Bottle IV 06/28/21 14:39 75 ml ONCE ONE Administration Ondansetron HCl 4 mg 06/28/21 13:27 06/28/21 14:02 Ondansetron 4mg/2ml Vial IV 06/28/21 13:28 4 mg ONCE ONE Administration Sodium Chloride 10 ml 06/28/21 14:38 06/28/21 14:39 Sodium Chloride 0.9% 10ml Syr (Rad Only) IV 06/28/21 14:39 10 ml ONCE ONE Administration - CT Data CT Scan: Abdomen Time Received: 15:[address] Reviewed: Yes: I have reviewed the patient's CT results, I have viewed th
[2021-06-28 15:57] LABS: Lactic Acid 1.5 mmol/L (0.7-2.1)
[2021-06-28 16:13] LABS: Calcium Oxalate Crystals,Urine 4+ /lpf; Squamous Epithelial Cell,Urine Occasional #/hpf (0-5); WBC,Urine Occasional #/hpf (0-3)
== END 2021-06-28 17:01 | disposition home or self-care (01) ==
LOC: UTC 11:41 → ER 12:36
PROVIDERS: Nurse Practitioner; Emergency Provider Emergency Medicine
DX: R10.31 Right lower quadrant pain (principal); E11.65 Type 2 diabetes mellitus with hyperglycemia; K21.9 Gastro-esophageal reflux disease without esophagitis; E78.5 Hyperlipidemia, unspecified; E03.9 Hypothyroidism, unspecified; Z88.1 Allergy status to other antibiotic agents
CPT/HCPCS: 71045; 74177; 80053; 81001; 81003; 82962; 83605; 83690; 85025; 96365; 96375; 99284; J2405; Q9967

== ENCOUNTER → 2021-07-07 15:40 | Outpatient (CLI) | payer MEDICARE, OTHER, SELFPAY ==
--- NOTE | 2021-07-07 15:48 | XR_ITS ---
FINAL REPORT CLINICAL HISTORY: ACUTE RIGHT SIDED LOW BACK PAIN WITHOUT SCIATICA FINDINGS: 5 views of the lumbar spine were obtained. There is no evidence of fracture or dislocation. There is a proximally 7 mm of left lateral subluxation of L3 on L4. There is leftward curvature. There are moderate and severe degenerative changes with disc space narrowing and osteophyte formation. There is multilevel vacuum disc phenomenon. Vascular calcifications are present. IMPRESSION: Moderate and severe degenerative changes. Left lateral subluxation of L3 on L4. Reviewed, Interpreted and Dictated by Elton Raines III, MD Transcribed by Devin Anderson Authenticated by Elton Raines III, MD on 07/07/2021 04:45:52 PM [facility]
== END ==
PROVIDERS: PCP Nurse Practitioner Family; Visit Provider Nurse Practitioner Family
DX: M54.50 Low back pain, unspecified (principal)
CPT/HCPCS: 72110

== ENCOUNTER → 2021-09-10 10:26 | Outpatient (CLI) | payer MEDICARE, OTHER, SELFPAY ==
--- NOTE | 2021-09-10 10:34 | XR_ITS ---
FINAL REPORT CLINICAL HISTORY: charcot evaluation FINDINGS: RIGHT FOOT Three views were obtained. There is no acute fracture or dislocation. There are mild degenerative changes. Plantar calcaneal spur is identified. There is calcification in the region of the posterior plantar aponeurosis posteriorly. Note is made of pes planus deformity. IMPRESSION: Degenerative and chronic appearing findings. Reviewed, Interpreted and Dictated by Elton Raines III, MD Transcribed by Leonarda Benedict Authenticated and [facility]
--- NOTE | 2021-09-10 10:34 | XR_ITS ---
FINAL REPORT CLINICAL HISTORY: charcot eval COMPARISON: 09/06/2020 FINDINGS: LEFT ANKLE Three views were obtained. There is no acute fracture or dislocation. Is there are chronic calcifications inferior to the medial and lateral malleoli. There is a plantar calcaneal spur. There are calcifications in the region of the posterior plantar aponeurosis. Soft tissue swelling is identified. IMPRESSION: Degenerative and chronic appearing findings. Reviewed, Interpreted and Dictated by Elton Raines III, MD Transcribed by Leonarda Benedict Authenticated and [facility]
--- NOTE | 2021-09-10 10:34 | XR_ITS ---
FINAL REPORT CLINICAL HISTORY: charcot evaluation COMPARISON: 09/06/2020 FINDINGS: RIGHT ANKLE Three views were obtained. There is no acute fracture or dislocation. Mild degenerative changes are present. There are chronic calcifications inferior to the medial and lateral malleoli. There is calcification in the region of the plantar aponeurosis. Plantar calcaneal spur is identified. Note is made of soft tissue swelling. IMPRESSION: Degenerative and chronic appearing findings. Reviewed, Interpreted and Dictated by Elton Raines III, MD Transcribed by Leonarda Benedict Authenticated and . [facility]
--- NOTE | 2021-09-10 10:34 | XR_ITS ---
FINAL REPORT CLINICAL HISTORY: charcto evaluation FINDINGS: LEFT FOOT Three views were obtained. There is no acute fracture or dislocation. Mild degenerative changes are present. There is mild lateral angulation of the midfoot. Plantar calcaneal spur is identified. There is calcification in the region of the posterior plantar aponeurosis. Pes planus deformity is identified. IMPRESSION: Degenerative and chronic appearing findings. Reviewed, Interpreted and Dictated by Elton Raines III, MD Transcribed by Leonarda Benedict Authenticated and [facility]
== END ==
PROVIDERS: PCP Nurse Practitioner Family; Visit Provider Nurse Practitioner Family
DX: E11.610 Type 2 diabetes mellitus with diabetic neuropathic arthropathy (principal); M79.672 Pain in left foot; M79.671 Pain in right foot; M25.571 Pain in right ankle and joints of right foot; M25.572 Pain in left ankle and joints of left foot; Z79.84 Long term (current) use of oral hypoglycemic drugs
CPT/HCPCS: 73610; 73630

== ENCOUNTER → 2022-05-11 14:10 | Outpatient (CLI) | payer MEDICARE, OTHER, SELFPAY | PROVIDERS: PCP Student in an Organized Health Care Education/Training Program; Visit Provider Student in an Organized Health Care Education/Training Program | DX: N39.0 Urinary tract infection, site not specified (principal) | CPT/HCPCS: 87086 ==

== ENCOUNTER → 2022-06-09 08:06 | Outpatient (CLI) | payer MEDICARE, OTHER, SELFPAY ==
[2022-06-09 09:06] LABS: Basophils # 0.1 K/mm3 (0-0.2); Basophils % 1.4 % (0.1-2.0); Eosinophils # 0.3 K/mm3 (0.0-0.4); Eosinophils % 5.3 % (0.1-12.0); Hematocrit 41.9 % (37.0-47.0); Hemoglobin 14.6 g/dL (12.2-16.2); Lymphocytes # 1.8 K/mm3 (0.7-4.5); Lymphocytes % 27.5 % (10-50); Mean Corpuscular HGB Conc 34.9 g/dL (31.8-35.4); Mean Corpuscular Hemoglobin 32.1 pg (27.0-31.2); Mean Corpuscular Volume 92.2 fl (81-99); Mean Platelet Volume 10.1 fl (7.4-10.4); Monocytes # 0.4 K/mm3 (0.1-1.0); Monocytes % 5.7 % (1.7-9.3); Neutrophils # 3.8 K/mm3 (1.8-7.8); Platelet Count 201 K/mm3 (142-424); Red Blood Count 4.55 M/mm3 (4.20-5.40); Red Cell Distribution Width 13.5 % (11.5-17.5); White Blood Count 6.4 K/mm3 (4.8-10.8)
[2022-06-09 09:26] LABS: Alanine Aminotransferase 15 U/L (12-78); Albumin Level 4.1 g/dl (3.5-5.0); Albumin/Globulin Ratio 1.6 (1.1-1.8); Alkaline Phosphatase 55 U/L (38-126); Anion Gap 5.1 mEq/L (5-15); Aspartate Amino Transferase 19 U/L (14-36); Bilirubin,Total 1.6 mg/dl (0.2-1.3); Blood Urea Nitrogen 14 mg/dl (7-17); Calcium 10.2 mg/dl (8.4-10.2); Carbon Dioxide 26 mmol/L (22.0-30.0); Chloride 109 mmol/L (98-107); Chol/HDL Ratio 2.3 (1-3.5); Cholesterol 129 mg/dl (140-200); Estimated Glomerular Filt Rate 61 ml/min (>60); GFR (African American) 74 ML/MIN (>60); Globulin 2.6 g/dL (1.3-3.2); Glucose 152 mg/dl (74-100); HDL Cholesterol 55 mg/dl (40-60); Potassium 4.1 mmoL/L (3.5-5.1); Sodium 136 mmol/L (136-145); Total Protein,Serum 6.7 g/dl (6.3-8.2); Triglycerides 182 mg/dl (30-150); VLDL Cholesterol 36 mg/dL (0-40)
[2022-06-09 09:38] LABS: Direct LDL Cholesterol 49.13 mg/dL (100-129)
[2022-06-09 09:41] LABS: Hemoglobin A1C 7.7 % (4.0-6.0)
== END ==
PROVIDERS: PCP Nurse Practitioner Family; Visit Provider Nurse Practitioner Family
DX: E11.610 Type 2 diabetes mellitus with diabetic neuropathic arthropathy (principal); E78.5 Hyperlipidemia, unspecified; Z79.84 Long term (current) use of oral hypoglycemic drugs
CPT/HCPCS: 36415; 80053; 80061; 83036; 84443; 85025

== ENCOUNTER → 2022-06-15 15:48 | Outpatient (CLI) | payer MEDICARE, OTHER, SELFPAY ==
--- NOTE | 2022-06-15 15:53 | MM_ITS ---
PROCEDURE INFORMATION: Exam: MG Bilateral Screening 3D Mammography Exam date and time: 06/15/2022 4:01 PM Age: 71 years old Clinical indication: Screening examination . Family history of breast carcinoma. TECHNIQUE: Imaging protocol: Bilateral Screening tomosynthesis and 2D mammography including computer-aided detection (CAD) when performed. COMPARISON: 1. MG MM DIG SCREENING MAMM BI W/CAD 02/03/2021 8:27 AM 2. MG MM DIG SCREENING MAMM BI W/CAD 01/22/2020 8:01 AM 3. MG MM DIG SCREENING MAMM BI W/CAD 01/19/2019 9:02 AM FINDINGS: MAMMOGRAPHY: Breast composition: The breasts are extremely dense, which lowers the sensitivity of mammography. Mass: No suspicious masses. Architectural distortion: No suspicious distortion. Calcifications: No suspicious calcifications. Asymmetric density: None. Skin thickening: None. Axillary adenopathy: None. IMPRESSION: 1. No mammographic evidence of malignancy. Annual screening is recommended unless otherwise clinically indicated. 2. Given the reported risk factors for this patient, a breast cancer risk assessment may prove useful for further evaluation. ASSESSMENT: BI-RADS Category 1: Negative
== END ==
PROVIDERS: PCP Nurse Practitioner Family; Visit Provider Nurse Practitioner Family
DX: Z12.31 Encounter for screening mammogram for malignant neoplasm of breast (principal)
CPT/HCPCS: 77063; 77067

== ENCOUNTER → 2022-09-08 16:28 | Outpatient (CLI) | payer MEDICARE, OTHER, SELFPAY ==
--- NOTE | 2022-09-08 16:33 | XR_ITS ---
PROCEDURE INFORMATION: Exam: XR Left Foot Complete; Alignment Exam date and time: 09/08/2022 4:34 PM Age: 71 years old Clinical indication: Pain; Foot; Left; Additional info: Foot pain TECHNIQUE: Imaging protocol: Radiologic exam of the left foot. Views: 3 or more views. COMPARISON: CR XR FOOT WT BEARING LT 3V 09/10/2021 10:51 AM FINDINGS: Bones/joints: Mild osteopenia. Minimal enthesophyte plantar margin of the calcaneus at the site of attachment of the plantar aponeurosis. Persistent pes planus. Moderate degenerative changes 1st metatarsophalangeal articulation. Soft tissues: Normal. IMPRESSION: 1. No evidence of acute osseous injury. 2. Moderate degenerative changes 1st metatarsophalangeal joint.
--- NOTE | 2022-09-08 16:33 | XR_ITS ---
PROCEDURE INFORMATION: Exam: XR Right Ankle Exam date and time: 09/08/2022 4:34 PM Age: 71 years old Clinical indication: Pain; Ankle; Right; Additional info: Ankle pain TECHNIQUE: Imaging protocol: Radiologic exam of the right ankle. Views: 3 or more views. COMPARISON: CR XR ANKLE WT BEARING RT MIN 3V 09/10/2021 10:51 AM FINDINGS: Bones/joints: Minimal enthesophyte plantar margin of the calcaneus at the site of attachment of the plantar aponeurosis. Osteopenia. Soft tissues: Diffuse soft tissue swelling. IMPRESSION: No evidence of acute osseous injury.
--- NOTE | 2022-09-08 16:33 | XR_ITS ---
PROCEDURE INFORMATION: Exam: XR Right Foot Complete; Alignment Exam date and time: 09/08/2022 4:34 PM Age: 71 years old Clinical indication: Pain; Foot; Right; Additional info: Foot pain TECHNIQUE: Imaging protocol: Radiologic exam of the right foot. Views: 3 or more views. COMPARISON: CR XR FOOT WT BEARING RT 3V 09/10/2021 10:51 AM FINDINGS: Bones/joints: Generalized osteopenia. Minimal enthesophyte plantar margin of the calcaneus at the site of attachment of the plantar aponeurosis. Soft tissues: Normal. IMPRESSION: No evidence of acute osseous injury.
--- NOTE | 2022-09-08 16:33 | XR_ITS ---
PROCEDURE INFORMATION: Exam: XR Left Ankle Exam date and time: 09/08/2022 4:34 PM Age: 71 years old Clinical indication: Pain; Ankle; Left; Additional info: Ankle pain TECHNIQUE: Imaging protocol: Radiologic exam of the left ankle. Views: 3 or more views. COMPARISON: CR XR ANKLE WT BEARING LT MIN 3V 09/10/2021 10:51 AM FINDINGS: Bones/joints: Minimal enthesophyte plantar margin of the calcaneus at the site of attachment of the plantar aponeurosis. Soft tissues: Diffuse soft tissue swelling most pronounced superficial to the lateral malleolus. IMPRESSION: No evidence of acute osseous injury.
== END ==
PROVIDERS: PCP Nurse Practitioner Family; Visit Provider Podiatrist
DX: E11.610 Type 2 diabetes mellitus with diabetic neuropathic arthropathy (principal); M21.41 Flat foot [pes planus] (acquired), right foot; M21.42 Flat foot [pes planus] (acquired), left foot; M79.671 Pain in right foot; M79.672 Pain in left foot; M25.571 Pain in right ankle and joints of right foot; M25.572 Pain in left ankle and joints of left foot
CPT/HCPCS: 73610; 73630

== ENCOUNTER → 2022-11-12 16:08 | Outpatient (CLI) | payer MEDICARE, OTHER, SELFPAY ==
--- NOTE | 2022-11-12 16:13 | XR_ITS ---
PROCEDURE INFORMATION: Exam: XR Abdomen Exam date and time: 11/12/2022 4:18 PM Age: 71 years old Clinical indication: Abdominal pain; Generalized; Prior surgery; Surgery date: 6+ months; Surgery type: Ileostomy repair as a teenager. ; Additional info: Lower abdominal pain. . . Nausea history of ileostomy TECHNIQUE: Imaging protocol: Radiologic exam of the abdomen. Views: 2 Views. Upright and supine views. COMPARISON: CT ABDOMEN PELVIS W CON 06/28/2021 2:31 PM FINDINGS: Tubes, catheters and devices: Multiple surgical chana project over the lower abdomen and pelvis. Gastrointestinal tract: Right lower quadrant ostomy. Intraperitoneal space: Normal. No free air. Bones/joints: Moderate lumbar curvature and multilevel lumbar degenerative disc disease. No acute fracture. IMPRESSION: No acute findings.
[2022-11-12 16:51] LABS: Basophils # 0.1 K/mm3 (0-0.2); Basophils % 0.8 % (0.1-2.0); Eosinophils # 0.3 K/mm3 (0.0-0.4); Eosinophils % 3.4 % (0.1-12.0); Hematocrit 47.3 % (37.0-47.0); Hemoglobin 15.7 g/dL (12.2-16.2); Lymphocytes # 1.8 K/mm3 (0.7-4.5); Lymphocytes % 22.1 % (10-50); Mean Corpuscular HGB Conc 33.1 g/dL (31.8-35.4); Mean Corpuscular Hemoglobin 30.2 pg (27.0-31.2); Mean Corpuscular Volume 91.1 fl (81-99); Mean Platelet Volume 9.1 fl (7.4-10.4); Monocytes # 0.4 K/mm3 (0.1-1.0); Neutrophils # 5.7 K/mm3 (1.8-7.8); Neutrophils % 68.7 % (37.0-80.0); Platelet Count 275 K/mm3 (142-424); Red Blood Count 5.19 M/mm3 (4.20-5.40); Red Cell Distribution Width 12.8 % (11.5-17.5); White Blood Count 8.2 K/mm3 (4.8-10.8)
[2022-11-12 17:17] LABS: Alanine Aminotransferase 20 U/L (12-78); Albumin Level 4.8 g/dl (3.5-5.0); Albumin/Globulin Ratio 1.7 (1.1-1.8); Alkaline Phosphatase 68 U/L (38-126); Amylase 131 U/L (30-110); Anion Gap 16.7 mEq/L (5-15); Aspartate Amino Transferase 23 U/L (14-36); Bilirubin,Total 1.6 mg/dl (0.2-1.3); Blood Urea Nitrogen 18 mg/dl (7-17); Calcium 11.4 mg/dl (8.4-10.2); Carbon Dioxide 24 mmol/L (22.0-30.0); Chloride 103 mmol/L (98-107); Estimated Glomerular Filt Rate 49 ml/min (>60); GFR (African American) 59 ML/MIN (>60); Globulin 2.9 g/dL (1.3-3.2); Glucose 145 mg/dl (74-100); Lipase 272 U/L (23-300); Potassium 3.7 mmoL/L (3.5-5.1); Sodium 140 mmol/L (136-145); Total Protein,Serum 7.7 g/dl (6.3-8.2)
[2022-11-12 17:48] LABS: Thyroid Stimulating Hormone 2.95 uIU/mL (0.465-4.68)
[2022-11-13 11:17] LABS: Intact Parathyroid Hormone 54.1 pg/mL (7.5-53.5)
[2022-11-13 11:57] LABS: 25-OH Vitamin D, Total 75.7 ng/mL (30-100)
== END ==
PROVIDERS: PCP Nurse Practitioner Family; Visit Provider Nurse Practitioner Family
DX: R10.30 Lower abdominal pain, unspecified (principal); R11.0 Nausea; Z98.890 Other specified postprocedural states; E11.610 Type 2 diabetes mellitus with diabetic neuropathic arthropathy; M85.89 Other specified disorders of bone density and structure, multiple sites; Z79.84 Long term (current) use of oral hypoglycemic drugs
CPT/HCPCS: 36415; 74019; 80053; 82150; 82306; 83036; 83690; 83970; 84443; 85025

== ENCOUNTER 2022-11-19 18:39 | Emergency (ER) | payer MEDICARE, OTHER, SELFPAY ==
[2022-11-19 18:55] VITALS: BP 114/68; PULSE 92; RESP 20; TEMP 37.2; O2SAT 99; BMI 26.5
[2022-11-19 19:10] LABS: Microscopic, Urine URINE MICROSCOPIC (MICROSCOPIC)
[2022-11-19 19:13] LABS: Appearance,Urine CLEAR (Clear); Bilirubin,Urine Negative (Negative); Blood, Urine Negative (Negative); Color,Urine YELLOW (Yellow); Glucose,Urine (UA) TRACE (Negative); Ketones,Urine Negative (Negative); Leukocyte Esterase,Urine Negative (Negative); Nitrate,Urine Negative (Negative); PH,Urine 5.5 (5.0-8.5); Protein,Urine TRACE (Negative); Specific Gravity, Urine >= 1.030 (1.005-1.030); Urobilinogen,Urine 0.2 EU/dl (0.2)
--- NOTE | 2022-11-19 19:32 | EXP.UTC ---
Discharge Plan Disposition Patient Disposition: Home, Self-Care Condition: Good Prescriptions Prescriptions: New fluticasone propionate [Flonase Allergy Relief] 50 mcg/actuation spray,suspension 1 - 2 spray intranasal DAILY Qty: 16 0RF Rx Instructions: administer into each nostril daily azithromycin [Zithromax Z-Jean Claude] 250 mg tablet See Rx Instructions .ROUTE .COMPLEX 5 Days Qty: 6 0RF Rx Instructions: For 250 mg dose pack: take 500 mg today (day 1), then 250 mg for 4 days (days 2-5) No Action loratadine 10 mg tablet 10 mg PO DAILY cholecalciferol (vitamin D3) 1,250 mcg (50,000 unit) capsule 1,250 mcg PO WEEKLY (DME) FreeStyle Lite Strips Strip See Rx Instructions .ROUTE .MEDSUPPLY Qty: 10 Rx Instructions: As directed lidocaine 5 % adhesive patch,medicated 1 patch TP metformin 1,000 mg tablet 1,000 mg PO DAILY 90 Days Qty: 90 levothyroxine 75 mcg tablet 75 mcg PO glimepiride 2 mg tablet 2 mg PO sulfamethoxazole-trimethoprim 800-160 mg tablet 1 tab PO BID Qty: 14 0RF atorvastatin 20 MG tablet 20 mg PO HS sitagliptin phosphate 100 MG tablet 100 mg PO DAILY Referrals Follow up/Referrals: Catherine Hernandez APRN [Primary Care Provider] - See instructions Activity Restrictions/Add. Instructions Additional Instructions/Restrictions: *Monitor Temp, Over the counter Motrin or Tylenol as directed/as needed Tylenol every 4 hours and Motrin every 6 hours (as long as your family doctor has told you that you can take it) for fever or pain. and straight to ER if unable to lower temp less than 101.0 after medication given *Warm salt water gargles may help to soothe the throat *Throat Lozenges? *Warm fluids like tea with honey may help to soothe the throat? *Sleep elevated *Humidifier/Vaporizer *Flonase 2 sprays in each nostril daily but be aware that it may take 2-3 days before you notice improvement Your throat swab was sent for culture. Those results are typically sent to your primary care. Be sure to follow up in 2-3 days with your family doctor/primary care physician if no improvement so they can review those result and treat if necessary. If you don?t have a primary care doctor, I recommend you get one but in the mean time, you will have to return to a walk in clinic Follow up IMMEDIATELY for new or worsening symptoms or no Noticeable improvement over the next 48-72 hours. 911 for difficulty breathing or swallowing Clinical Impressions Clinical Impression: Sinusitis Qualifiers: Sinusitis location: unspecified location Chronicity: unspecified Qualified Code(s): J32.9 - Chronic sinusitis, unspecified Instructions Patient Instructions: DI for Sinusitis, Sinusitis, DI for Sinus Headache Discharge ED Provider[place] Shagufta [place] [facility] [place] Stated complaint: CAMARENA, poss UTI Mode of Arrival: Ambulatory Source of Information: Patient and Relative Limitations: No Limitations Time Seen by Provider: 11/19/22 19:33 Description of Symptoms (Recalled from Triage Doc. by RN): PATIENT C/O HEADACHE, NAUSEA, SORE THROAT, AND EAR PAIN AND COUGH. SHE STATES SHE WAS TREATED FOR A UTI LAST WEEK AND WANTS TO MAKE SURE IT HAS NOT COME BACK. DENIES BURNING, PAIN, OR FREQUENCY WITH URINATION HEENT Symptoms (Recalled from RN notes): Yes Resp Symptoms (Recalled from RN notes): No Skin Symptoms (Recalled from RN notes): No MS Symptoms (Recalled from RN notes): No Functional Status (Recalled from RN notes): WNL History of Present Illness Provider Complaint: Patient states that she was seen and treated a week or two ago for UTI States that those symptoms are now gone but she has been having sinus pain and pressure, headache, feeling achy and chills, pain and pressure in her ears and cough States that she feels like she may have a sinus infection States that also wants to get her urine checked to make sure t
[2022-11-19 19:34] LABS: Bacteria,Urine Trace /lpf; Squamous Epithelial Cell,Urine Occasional #/hpf (0-5); Uric Acid Crystals,Urine Trace /lpf
[2022-11-19 19:46] VITALS: BP 114/68; PULSE 92; RESP 20; TEMP 37.2; O2SAT 99
[2022-11-20 19:10] LABS: UTC Strep Screen (Rapid) Negative (Negative)
== END 2022-11-19 19:53 | disposition home or self-care (01) ==
PROVIDERS: Emergency Provider Nurse Practitioner; PCP Nurse Practitioner Family
DX: J01.90 Acute sinusitis, unspecified (principal); R53.81 Other malaise
CPT/HCPCS: 81001; 87880; 99212; 99214; G0463

== ENCOUNTER 2022-11-30 16:30 | Outpatient (CLI) | payer MEDICARE, OTHER, SELFPAY ==
[2022-11-30 16:48] VITALS: BMI 24.7
[2022-11-30 16:55] VITALS: BP 139/70; PULSE 81; RESP 18; TEMP 36.7; O2SAT 98
[2022-11-30 17:36] LABS: Basophils % 0.4 % (0.1-2.0); Eosinophils # 0.1 K/mm3 (0.0-0.4); Eosinophils % 0.9 % (0.1-12.0); Hematocrit 44.2 % (37.0-47.0); Lymphocytes # 1.3 K/mm3 (0.7-4.5); Lymphocytes % 16.8 % (10-50); Mean Corpuscular HGB Conc 36.2 g/dL (31.8-35.4); Mean Corpuscular Hemoglobin 31.9 pg (27.0-31.2); Mean Corpuscular Volume 88.1 fl (81-99); Mean Platelet Volume 10.3 fl (7.4-10.4); Monocytes # 0.5 K/mm3 (0.1-1.0); Monocytes % 6.2 % (1.7-9.3); Neutrophils # 5.9 K/mm3 (1.8-7.8); Neutrophils % 75.7 % (37.0-80.0); Platelet Count 240 K/mm3 (142-424); Red Blood Count 5.02 M/mm3 (4.20-5.40); Red Cell Distribution Width 12.6 % (11.5-17.5); White Blood Count 7.7 K/mm3 (4.8-10.8)
[2022-11-30 17:38] LABS: Alanine Aminotransferase 24 U/L (12-78); Albumin/Globulin Ratio 1.4 (1.1-1.8); Alkaline Phosphatase 71 U/L (38-126); Amylase 124 U/L (30-110); Aspartate Amino Transferase 27 U/L (14-36); Bilirubin,Total 2.5 mg/dl (0.2-1.3); Blood Urea Nitrogen 45 mg/dl (7-17); Calcium 11.1 mg/dl (8.4-10.2); Carbon Dioxide 20 mmol/L (22.0-30.0); Chloride 100 mmol/L (98-107); Creatinine Clearance Estimated 24 mL/min (50-200); Estimated Glomerular Filt Rate 24 ml/min (>60); GFR (African American) 30 ML/MIN (>60); Globulin 3.6 g/dL (1.3-3.2); Glucose 174 mg/dl (74-100); Sodium 140 mmol/L (136-145); Total Protein,Serum 8.6 g/dl (6.3-8.2)
[2022-11-30 18:04] VITALS: BP 124/57; PULSE 67; RESP 18; O2SAT 98
== END 2022-11-30 18:06 | disposition home or self-care (01) ==
LOC: INF 16:31
PROVIDERS: PCP Nurse Practitioner Family; Visit Provider Nurse Practitioner Family
DX: E86.0 Dehydration (principal)
CPT/HCPCS: 80053; 82150; 85025; 96360; 96375; J2405

== ENCOUNTER → 2022-12-04 06:31 | Outpatient (CLI) | payer MEDICARE, OTHER, SELFPAY ==
--- NOTE | 2022-12-04 06:37 | CT_ITS ---
FINAL REPORT TECHNIQUE: Axial images through the abdomen and pelvis were performed without contrast. This study was performed with techniques to keep radiation doses as low as reasonably achievable, (ALARA). Individualized dose reduction techniques using automated exposure control or adjustment of mA and/or kV according to the patient's size were employed. CLINICAL HISTORY: ABD PAIN/WEIGHT LOSS COMPARISON: 06/28/2021 FINDINGS: ABDOMEN: In the lung bases. The heart size is normal. Limited images of the liver are unremarkable. The gallbladder is present. The spleen is normal. No adrenal mass is identified. The aorta is normal in caliber. There is no significant free fluid or adenopathy. There is no nephrolithiasis. There is no hydronephrosis. PELVIS: The appendix is not identified. There is a right anterior pelvic wall parastomal hernia. There is no evidence of obstruction. The uterus is present and lies posteriorly. Calcified fibroids are seen within the uterus. The urinary bladder is incompletely distended. There is no significant free fluid or adenopathy. IMPRESSION: Right anterior pelvic wall parastomal hernia. No evidence of obstruction. Reviewed, Interpreted and Dictated by Greg Caldwell MD Transcribed by Leonarda Benedict Authenticated and [facility]
== END ==
PROVIDERS: PCP Nurse Practitioner Family; Visit Provider Nurse Practitioner Family
DX: R10.30 Lower abdominal pain, unspecified (principal); R63.4 Abnormal weight loss; E86.0 Dehydration
CPT/HCPCS: 74176

== ENCOUNTER → 2022-12-07 11:30 | Outpatient (CLI) | payer MEDICARE, OTHER, SELFPAY ==
[2022-12-07 13:00] LABS: Anion Gap 15.3 mEq/L (5-15); Blood Urea Nitrogen 13 mg/dl (7-17); Carbon Dioxide 24 mmol/L (22.0-30.0); Chloride 106 mmol/L (98-107); Estimated Glomerular Filt Rate 54 ml/min (>60); GFR (African American) 66 ML/MIN (>60); Glucose 262 mg/dl (74-100); Potassium 4.3 mmoL/L (3.5-5.1); Sodium 141 mmol/L (136-145)
== END ==
PROVIDERS: PCP Nurse Practitioner Family; Visit Provider Nurse Practitioner Family
DX: N17.9 Acute kidney failure, unspecified (principal)
CPT/HCPCS: 36415; 80048

== ENCOUNTER 2023-03-06 18:05 | Emergency (ER) | payer MEDICARE, OTHER, SELFPAY ==
--- OUTSIDE RECORDS SUMMARY | 2023-03-06 18:11 | XMS_ITS | Patient Health Record ---
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 Gr. >=1.030 Ketone neg Bili neg Glucose neg Microalbumin (In-House) Reviewed date:06/08/2022 06:26:02 PM Interpretation:Normal Performing Lab: Notes/Report: Normal ALB 30mg
[2023-03-06 18:20] VITALS: BP 140/88; PULSE 86; RESP 18; TEMP 36.6; O2SAT 98; BMI 25.2
--- NOTE | 2023-03-06 18:29 | EXP.UTC ---
Discharge Plan Disposition Patient Disposition: Home, Self-Care Condition: Good Prescriptions Prescriptions: New cephalexin 500 mg capsule 500 mg PO QID 7 Days Qty: 28 0RF mupirocin 2 % ointment 1 applic topical TID 10 Days Qty: 22 0RF Rx Instructions: apply to area on your right shoulder No Action loratadine 10 mg tablet 10 mg PO DAILY (DME) FreeStyle Lite Strips Strip See Rx Instructions .ROUTE .MEDSUPPLY Qty: 10 Rx Instructions: As directed metformin 1,000 mg tablet 1,000 mg PO DAILY 90 Days Qty: 90 levothyroxine 75 mcg tablet 75 mcg PO DAILY glimepiride 2 mg tablet 2 mg PO DAILY atorvastatin 20 MG tablet 20 mg PO HS pantoprazole 40 mg tablet,delayed release (DR/EC) 40 mg PO DAILY Patient Comments: TAKE 1 TABLET BY MOUTH EVERY DAY sitagliptin phosphate 100 MG tablet 100 mg PO DAILY Referrals Follow up/Referrals: Elton Rowell MD [Staff Physician] - See instructions (Call office for appointment in surgical clinic) Catherine Hernandez APRN [Primary Care Provider] - See instructions Activity Restrictions/Add. Instructions Additional Instructions/Restrictions: *Start antibiotic(s) immediately and be sure to take as ordered for the FULL length of time although you may be feeling better or start to see improvement in the next 24-48 hours *Monitor closely. Outlined redness so that you can monitor easier. Follow up immediately for new or worsening symptoms including but not limited to redness, swelling, streaking from site fever or chills. *Warm compress 15 minutes 3-4 times day *Never squeeze or pop these on your own. Seek immediate medical attention next time this occurs *Monitor Temp. Tylenol every 4 hours as needed and ibuprofen every 6 hours as needed (as long as your primary care doctor has told you that it is ok to take both. For fever, aches, pain. ER if no less that 101 despite Tylenol and ibuprofen ?Follow up with your family doctor/primary care physician in the next 48-72 hours if no improvement Call the Surgical Clinic and make appointment Clinical Impressions Clinical Impression: Skin problem Instructions Patient Instructions: DI for Skin Abscess, DI for Cellulitis -- Adult Discharge ED Provider: Shagufta Rowland [facility] General Stated complaint: knot on back Mode of Arrival: Ambulatory Source of Information: Patient Limitations: No Limitations Time Seen by Provider: 03/06/23 18:29 Description of Symptoms (Recalled from Triage Doc. by RN): PATIENT C/O KNOT TO RIGHT SIDE OF BACK X 1 WEEK HEENT Symptoms (Recalled from RN notes): No Resp Symptoms (Recalled from RN notes): No Skin Symptoms (Recalled from RN notes): Yes MS Symptoms (Recalled from RN notes): No Functional Status (Recalled from RN notes): WNL History of Present Illness Provider Complaint: Patient states that she has a knot on her right shoulder blade area for about a week that has got larger and more tender States that she has had a small knot there for years but in the last week it has got larger, warm and red and hard to the touch thinks it may be infected so today it was bothering her and she came in to get it checked out Related Data Home Medications Medication Instructions Recorded Confirmed atorvastatin 20 mg tablet 20 mg PO HS Cholesterol 10/13/17 03/06/23 metformin 1,000 mg tablet 1,000 mg PO DAILY Diabetes 90 days 05/31/18 03/06/23 #90 tabs sitagliptin phosphate 100 mg tablet 100 mg PO DAILY Diabetes 02/13/19 03/06/23 loratadine 10 mg tablet 10 mg PO DAILY Allergy symptoms 09/10/20 03/06/23 glimepiride 2 mg tablet 2 mg PO DAILY Diabetes 09/11/21 03/06/23 levothyroxine 75 mcg tablet 75 mcg PO DAILY thyroid supplement 09/11/21 03/06/23 blood sugar diagnostic (FreeStyle #10 ea 10/16/21 09/10/22 Lite Strips) pantoprazole 40 mg tablet,delayed 40 mg PO DAILY 03/06/23 03/06/23 release Previous Rx's Medication Instructions
[2023-03-06 18:33] VITALS: BP 140/88; PULSE 86; RESP 18; TEMP 36.6; O2SAT 98
== END 2023-03-06 18:47 | disposition home or self-care (01) ==
PROVIDERS: Emergency Provider Nurse Practitioner; PCP Nurse Practitioner Family
DX: R22.2 Localized swelling, mass and lump, trunk (principal); L03.312 Cellulitis of back [any part except buttock and flank]; E11.9 Type 2 diabetes mellitus without complications; K21.9 Gastro-esophageal reflux disease without esophagitis; E03.9 Hypothyroidism, unspecified; E78.5 Hyperlipidemia, unspecified; J30.2 Other seasonal allergic rhinitis; Z79.84 Long term (current) use of oral hypoglycemic drugs
CPT/HCPCS: 99212; 99214; G0463

== ENCOUNTER → 2023-03-11 14:52 | Outpatient (CLI) | payer MEDICARE, OTHER, SELFPAY ==
[2023-03-11 15:06] LABS: Basophils # 0.1 K/mm3 (0-0.2); Basophils % 0.5 % (0.1-2.0); Eosinophils # 0.4 K/mm3 (0.0-0.4); Eosinophils % 3.7 % (0.1-12.0); Hematocrit 43.7 % (37.0-47.0); Hemoglobin 15.2 g/dL (12.2-16.2); Lymphocytes # 1.5 K/mm3 (0.7-4.5); Mean Corpuscular HGB Conc 34.7 g/dL (31.8-35.4); Mean Corpuscular Hemoglobin 32.6 pg (27.0-31.2); Mean Platelet Volume 9.7 fl (7.4-10.4); Monocytes # 0.4 K/mm3 (0.1-1.0); Monocytes % 3.8 % (1.7-9.3); Neutrophils # 7.2 K/mm3 (1.8-7.8); Platelet Count 210 K/mm3 (142-424); Red Blood Count 4.65 M/mm3 (4.20-5.40); Red Cell Distribution Width 12.9 % (11.5-17.5); White Blood Count 9.4 K/mm3 (4.8-10.8)
[2023-03-11 16:06] LABS: Anion Gap 16.3 mEq/L (5-15); Blood Urea Nitrogen 19 mg/dl (7-17); Calcium 10.4 mg/dl (8.4-10.2); Carbon Dioxide 24 mmol/L (22.0-30.0); Chloride 100 mmol/L (98-107); Estimated Glomerular Filt Rate 54 ml/min (>60); GFR (African American) 66 ML/MIN (>60); Glucose 221 mg/dl (74-100); Potassium 4.3 mmoL/L (3.5-5.1); Sodium 136 mmol/L (136-145)
== END ==
PROVIDERS: PCP Nurse Practitioner Family; Visit Provider Surgery
DX: L02.91 Cutaneous abscess, unspecified (principal); E66.3 Overweight; Z68.26 Body mass index [BMI] 26.0-26.9, adult
CPT/HCPCS: 36415; 80048; 85025

== ENCOUNTER 2023-03-15 10:56 | Day surgery (SDC) | payer MEDICARE, OTHER, SELFPAY ==
[2023-03-12 09:41] VITALS: BMI 26.9
[2023-03-15] VITALS (8 sets, daily range): BP systolic 145–162; BP diastolic 74–84; PULSE 71–87; RESP 12–18; TEMP 36.1–36.6; O2SAT 97–100
[2023-03-15] MEDS: LACTATED RINGERS 1000ML 1,000 ML 25 ML IV (11:09)
--- NOTE | 2023-03-15 11:42 | EXP.ANES.CKL ---
[facility] Disclaimer: The information contained in this section may have been updated after the patient was seen, as this information can be updated by other users. Medical History Arthritis Diabetes GERD (gastroesophageal reflux disease) Hyperlipidemia Hypothyroidism Ileostomy in place Renal insufficiency Seasonal allergies UTI (urinary tract infection) Surgical History H/O hand surgery History of bilateral tubal ligation History of carpal tunnel release of both wrists History of eye removal Family History Other Cancer Diabetes Hyperlipidemia Hypertension Thyroid disorder Social History Smoking Status: Never smoker second hand exposure: No alcohol intake: never substance use type: denies use current occupational status: other Travel in the last 8 weeks: None household members: spouse housing: house caffeine: Yes [facility] Anesthesia Checklist Patient Identification Patient Identification: Arm Band, Family and Verbal (Name & ) Structural Data Admitted From: Home Planned Operative Procedure/s: I&D Right back cyst Verified Documents: Surgical Consent and History and Physical NPO Status Verified Time NPO: 00:00 Chart Verification Results Verified: CBC and BMP Additional verifications Fingerstick Blood Glucose: 215 Patient : No Anesthesia Reactions: No Hx Blood Transfusions: Yes Blood Transfusion Reaction: No Cardiovascular Assessment Heart Sounds: S1 & S2 Pulse Rhythm: Irregular Peripheral Edema: No Airway Assessment Mallampati Score:: Class II Dentition: Dentures-good fit (Upper/lower out. 2 lower teeth intact. Nothing loose per pt.) Neurological Assessment Level of Consciousness: Awake, Alert, Appropriate and Follows Commands Hx Seizures: No Numbness or tingling in extremities: No Anesthesia Plan Anesthesia Risk discussed: Yes Anesthesia Plan: Verified ASA Class: III Anesthesia Type: General
[2023-03-15] MEDS: CLINDAMYCIN PHOSPHATE 900 MG in 0.9 % SODIUM CHLORIDE 50 ML 100 MG IV (13:44)
[2023-03-15] MEDS: LIDOCAINE 1% 20ML MDV 20 ML (14:05)
[2023-03-15] MEDS: ROPIVACAINE 0.5% 30ML VIAL 150 MG (14:05)
--- NOTE | 2023-03-15 14:29 | P.OP_ITS ---
Date of procedure: 03/15/23 Pre-op Diagnosis:: Abscessed sebaceous cyst, right scapular area Post-op Diagnosis:: Same Procedure performed:: Incision and drainage of complex right back abscess with debridement of skin and subcutaneous tissues (debrided area 2 x 1 cm and 1 cm in depth) Surgeon:: Elton Rowell MD MEDICAL TRANSCRIPTION EDITOR:: Other Anesthesia: LMA Estimated blood loss (mL): 20 Clinical Note:: Patient is a very pleasant 72-year-old female referred by urgent treatment center for cyst on shoulder. She has had a knot near the right scapula for quite some time. Recently she states that it has occasionally become somewhat tender but usually self-limited. However, about a week ago she had developed significant increase in size and discomfort with redness and swelling. She was seen in the [facility] on 03/06/2023. She was given cephalexin. She was sent for consultation for surgery. She states that it has improved somewhat. She is using warm compresses. She also has mupirocin ointment. 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 She was given cephalexin for antibiotic. Patient was seen in the office several days prior to surgery. Area appeared to be consistent with abscess sebaceous cyst. Given her history of recurrent MRSA soft tissue infections I switched her from cephalexin to Zyvox. Arrangements were made for incision and drainage with debridement of abscess cyst and hopefully evacuation of underlying cyst capsule and contents. Operative findings:: Consistent with abscessed sebaceous cyst. Operative note:: Patient was taken the operating room. She was given preoperative intravenous antibiotics. In the operating room she was placed in a supine position. General anesthesia was induced via LMA. She was repositioned in lateral position. The area was prepped and draped in the standard surgical fashion. There was several punctate skin openings draining some slightly purulent material. Limited elliptical incision was made around this area. Careful dissection was carried down. Abscess cavity pocket was encountered and there was a large amount of thick pus which exuded from the wound. This was sent for cultures. Overlying skin ellipse measuring approximately 2 x 1 cm was excised. Underlying cyst cavity containing caseous material and purulent liquid was encountered. Caseous material was evacuated. Attempt was made to remove as much of any visible cyst capsule as possible. The wound was debrided with a curette. Wound was irrigated. Hemostasis was achieved electrocautery. There was bleeding vessel which was suture-ligated with a 3-0 chromic suture. Local anesthetic was infiltrated. Wound was packed with dry sterile gauze. Clean dry sterile dressing was applied. Condition: stable Disposition: PACU Complications:: None immediately apparent
[2023-03-15 14:54] LABS: POC Glucose,Bedside 182 (70-110)
[2023-03-16 10:18] LABS: POC Glucose,Bedside 215 (70-110)
--- NOTE | 2023-03-16 13:02 | EXP.ANES.II ---
[facility] Anesthesia Record Part II Anesthesia Record Part II Discharge Time: 15:03 Destination: Surgical Day Care (OP Surgery) PACU nurse assessment reviewed?: Yes Patient Condition:: Good Anesthesia Complications:: None Swallowing reflex intact?: Yes Airway Patency: Patent Cyanosis?: No Blood Pressure: 159/78 SaO2: 98 Respiratory Rate: 12 Pulse Rate: 72 Temperature: 97.8 F Mental Status: Alert & Oriented Pain level:: 0 Nausea and/or vomitting:: None Intake, IV Amount: 0 Hydration: Adequate
[2023-03-16 13:03] VITALS: BP 159/78; PULSE 72; RESP 12; TEMP 36.6; O2SAT 98
== END 2023-03-15 15:36 | disposition home or self-care (01) ==
PROVIDERS: PCP Nurse Practitioner Family; Visit Provider Surgery
DX: L03.312 Cellulitis of back [any part except buttock and flank] (principal); L72.3 Sebaceous cyst; E11.9 Type 2 diabetes mellitus without complications; B96.89 Other specified bacterial agents as the cause of diseases classified elsewhere
CPT/HCPCS: 10061; 82962; 87070; 87075; 87205; 96374; J2405

== ENCOUNTER 2023-03-16 13:07 | Outpatient (CLI) | payer MEDICARE, OTHER, SELFPAY | END 2023-03-16 13:20 | disposition home or self-care (01) | LOC: INF 13:08 | PROVIDERS: PCP Nurse Practitioner Family; Visit Provider Surgery | DX: L72.3 Sebaceous cyst (principal); Z48.01 Encounter for change or removal of surgical wound dressing | CPT/HCPCS: 88304; G0463 ==

== ENCOUNTER 2023-03-17 09:11 | Outpatient (CLI) | payer MEDICARE, OTHER, SELFPAY | END 2023-03-17 09:22 | disposition home or self-care (01) | LOC: INF 09:12 | PROVIDERS: PCP Nurse Practitioner Family; Visit Provider Surgery | DX: L72.3 Sebaceous cyst (principal) | CPT/HCPCS: G0463 ==

== ENCOUNTER 2023-03-18 09:13 | Outpatient (CLI) | payer MEDICARE, OTHER, SELFPAY | END 2023-03-18 09:22 | disposition home or self-care (01) | LOC: INF 09:15 | PROVIDERS: PCP Nurse Practitioner Family; Visit Provider Surgery | DX: L72.3 Sebaceous cyst (principal) | CPT/HCPCS: G0463 ==

== ENCOUNTER 2023-03-19 09:12 | Outpatient (CLI) | payer MEDICARE, OTHER, SELFPAY | END 2023-03-19 09:22 | disposition home or self-care (01) | LOC: INF 09:13 | PROVIDERS: PCP Nurse Practitioner Family; Visit Provider Surgery | DX: L72.3 Sebaceous cyst (principal) | CPT/HCPCS: G0463 ==

== ENCOUNTER → 2023-03-20 09:12 | Outpatient (CLI) | payer MEDICARE, OTHER, SELFPAY | PROVIDERS: PCP Nurse Practitioner Family; Visit Provider Surgery | DX: L72.3 Sebaceous cyst (principal); Z48.01 Encounter for change or removal of surgical wound dressing | CPT/HCPCS: G0463 ==

== ENCOUNTER 2023-03-21 09:06 | Outpatient (CLI) | payer MEDICARE, OTHER, SELFPAY | END 2023-03-21 09:18 | disposition home or self-care (01) | LOC: INF 09:07 | PROVIDERS: PCP Nurse Practitioner Family; Visit Provider Surgery | DX: L72.3 Sebaceous cyst (principal); Z48.01 Encounter for change or removal of surgical wound dressing | CPT/HCPCS: G0463 ==

== ENCOUNTER 2023-03-22 09:03 | Outpatient (CLI) | payer MEDICARE, OTHER, SELFPAY | END 2023-03-22 09:19 | disposition home or self-care (01) | LOC: INF 09:04 | PROVIDERS: PCP Nurse Practitioner Family; Visit Provider Surgery | DX: Z48.01 Encounter for change or removal of surgical wound dressing (principal); L72.3 Sebaceous cyst | CPT/HCPCS: G0463 ==

== ENCOUNTER 2023-03-24 09:02 | Outpatient (CLI) | payer MEDICARE, OTHER, SELFPAY | END 2023-03-24 09:15 | disposition home or self-care (01) | LOC: INF 09:03 | PROVIDERS: PCP Nurse Practitioner Family; Visit Provider Surgery | DX: Z48.01 Encounter for change or removal of surgical wound dressing (principal); L72.3 Sebaceous cyst | CPT/HCPCS: G0463 ==

== ENCOUNTER 2023-03-25 09:14 | Outpatient (CLI) | payer MEDICARE, OTHER, SELFPAY | END 2023-03-25 09:27 | disposition home or self-care (01) | LOC: INF 09:15 | PROVIDERS: PCP Nurse Practitioner Family; Visit Provider Surgery | DX: Z48.01 Encounter for change or removal of surgical wound dressing (principal); L72.3 Sebaceous cyst | CPT/HCPCS: G0463 ==

== ENCOUNTER 2023-03-26 09:19 | Outpatient (CLI) | payer MEDICARE, OTHER, SELFPAY | END 2023-03-26 09:30 | disposition home or self-care (01) | LOC: INF 09:20 | PROVIDERS: PCP Nurse Practitioner Family; Visit Provider Surgery | DX: Z48.01 Encounter for change or removal of surgical wound dressing (principal); L72.3 Sebaceous cyst | CPT/HCPCS: G0463 ==

== ENCOUNTER 2023-03-30 09:23 | Outpatient (CLI) | payer MEDICARE, OTHER, SELFPAY | END 2023-03-30 09:45 | disposition home or self-care (01) | LOC: INF 09:24 | PROVIDERS: PCP Nurse Practitioner Family; Visit Provider Surgery | DX: Z48.01 Encounter for change or removal of surgical wound dressing (principal); L72.3 Sebaceous cyst | CPT/HCPCS: G0463 ==

== ENCOUNTER 2023-04-06 09:06 | Outpatient (CLI) | payer MEDICARE, OTHER, SELFPAY | END 2023-04-06 09:15 | disposition home or self-care (01) | LOC: INF 09:07 | PROVIDERS: PCP Nurse Practitioner Family; Visit Provider Surgery | DX: Z48.01 Encounter for change or removal of surgical wound dressing (principal); L72.3 Sebaceous cyst | CPT/HCPCS: G0463 ==

== ENCOUNTER 2023-04-14 12:01 | Outpatient (CLI) | payer MEDICARE, OTHER, SELFPAY | END 2023-04-14 12:35 | disposition home or self-care (01) | LOC: INF 12:03 | PROVIDERS: PCP Nurse Practitioner Family; Visit Provider Surgery | DX: Z48.01 Encounter for change or removal of surgical wound dressing (principal); L72.3 Sebaceous cyst | CPT/HCPCS: G0463 ==

== ENCOUNTER 2023-04-15 09:03 | Outpatient (CLI) | payer MEDICARE, OTHER, SELFPAY | END 2023-04-15 09:15 | disposition home or self-care (01) | LOC: INF 09:03 | PROVIDERS: PCP Nurse Practitioner Family; Visit Provider Surgery | DX: Z48.01 Encounter for change or removal of surgical wound dressing (principal); L72.3 Sebaceous cyst | CPT/HCPCS: G0463 ==

== ENCOUNTER 2023-04-22 09:13 | Outpatient (CLI) | payer MEDICARE, OTHER, SELFPAY | END 2023-04-22 09:27 | disposition home or self-care (01) | PROVIDERS: PCP Nurse Practitioner Family; Visit Provider Surgery | DX: L72.3 Sebaceous cyst (principal); Z48.01 Encounter for change or removal of surgical wound dressing | CPT/HCPCS: G0463 ==

== ENCOUNTER 2023-04-27 09:11 | Outpatient (CLI) | payer MEDICARE, OTHER, SELFPAY | END 2023-04-27 09:24 | disposition home or self-care (01) | LOC: INF 09:13 | PROVIDERS: PCP Nurse Practitioner Family; Visit Provider Surgery | DX: Z48.01 Encounter for change or removal of surgical wound dressing (principal); L72.3 Sebaceous cyst | CPT/HCPCS: G0463 ==

== ENCOUNTER → 2023-04-29 10:43 | Outpatient (CLI) | payer MEDICARE, OTHER, SELFPAY | END | disposition home or self-care (01) | LOC: INF 10:45 | PROVIDERS: PCP Nurse Practitioner Family; Visit Provider Surgery | DX: Z48.01 Encounter for change or removal of surgical wound dressing (principal); L72.3 Sebaceous cyst | CPT/HCPCS: G0463 ==

== ENCOUNTER 2023-07-15 21:11 | Emergency (ER) | payer MEDICARE, OTHER, SELFPAY ==
[2023-07-15 21:12] VITALS: BP 158/67; PULSE 82; RESP 18; TEMP 36.7; O2SAT 96; BMI 26.9
--- NOTE | 2023-07-15 21:30 | CT_ITS ---
PROCEDURE INFORMATION: Exam: CT Abdomen And Pelvis With Contrast Exam date and time: 07/15/2023 10:10 PM Age: 72 years old Clinical indication: Abdominal pain; Additional info: Llq abdominal pain acute, severe. H/o colectomy TECHNIQUE: Imaging protocol: Computed tomography of the abdomen and pelvis with contrast. Radiation optimization: All CT scans at this facility use at least one of these dose optimization techniques: automated exposure control; mA and/or kV adjustment per patient size (includes targeted exams where dose is matched to clinical indication); or iterative reconstruction. Contrast material: ISOVUE; Contrast volume: 75 ml; Contrast route: IV; COMPARISON: 1. CT ABDOMEN PELVIS WO CON 12/04/2022 6:[address] ABDOMEN PELVIS W CON 06/28/2021 2:[address] ABDOMEN PELVIS W CON 05/29/2020 1:31 PM FINDINGS: Lungs: Scattered areas of bronchial wall thickening which are likely chronic inflammatory. A few areas of subpleural reticulation are noted, nonspecific. Liver: Normal. Gallbladder and bile ducts: No acute process. Pancreas: Normal. Spleen: Normal. Adrenal glands: The adrenal glands appear normal. Kidneys and ureters: There are no soft tissue renal masses or hydronephrosis. Stomach and bowel: Status post total proctocolectomy. Appendix: No evidence of appendicitis. Intraperitoneal space: There is a small volume of free fluid in the pelvis. Vasculature: There is atherosclerotic disease of the visualized aorta and its major branch vessels. Lymph nodes: No lymphadenopathy. Urinary bladder: Unremarkable as visualized. Reproductive: There is moderate prolapse of the uterus and urinary bladder. Bones/joints: There is diffuse degenerative disease of the visualized osseous structures. There is a slight levo scoliotic curvature of the spine. Soft tissues: Right lower quadrant ileostomy with a large peristomal hernia that is not obstructed. There are postsurgical changes of the ventral abdominal wall. 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 No acute obstructive or inflammatory process is seen.
[2023-07-15 21:34] VITALS: BP 158/67; PULSE 79; O2SAT 96
[2023-07-15 21:35] LABS: Microscopic, Urine URINE MICROSCOPIC (MICROSCOPIC)
[2023-07-15 21:39] LABS: Chloride 108 mmol/L (98-107); Sodium 141 mmol/L (136-145)
[2023-07-15 21:40] LABS: Appearance,Urine CLEAR (Clear); Bilirubin,Urine Negative (Negative); Blood, Urine Negative (Negative); Color,Urine YELLOW (Yellow); Glucose,Urine (UA) 1+ (Negative); Ketones,Urine Negative (Negative); Leukocyte Esterase,Urine 1+ (Negative); Nitrate,Urine Negative (Negative); PH,Urine 5.5 (5.0-8.5); Protein,Urine Negative (Negative); Specific Gravity, Urine >= 1.030 (1.005-1.030); Urobilinogen,Urine 0.2 EU/dl (0.2)
[2023-07-15 21:41] LABS: Alanine Aminotransferase 16 U/L (12-78); Alkaline Phosphatase 63 U/L (38-126); Aspartate Amino Transferase 23 U/L (14-36); Bilirubin,Total 1.9 mg/dl (0.2-1.3); Blood Urea Nitrogen 14 mg/dl (7-17); Creatinine Clearance Estimated 47 mL/min (50-200); Estimated Glomerular Filt Rate 49 ml/min (>60); GFR (African American) 59 ML/MIN (>60)
[2023-07-15 21:42] LABS: Albumin Level 4.4 g/dl (3.5-5.0); Albumin/Globulin Ratio 1.5 (1.1-1.8); Calcium 10.1 mg/dl (8.4-10.2); Carbon Dioxide 25 mmol/L (22.0-30.0); Glucose 222 mg/dl (74-100); Lipase 269 U/L (23-300); Total Protein,Serum 7.4 g/dl (6.3-8.2)
[2023-07-15] MEDS: KETOROLAC 30MG/ML VIAL 15 MG IV (21:47)
--- NOTE | 2023-07-15 21:49 | HMH.EDGENADL ---
Discharge Plan Disposition Patient Disposition: Home, Self-Care Prescriptions Prescriptions: No Action loratadine 10 mg tablet 10 mg PO DAILY (DME) FreeStyle Lite Strips Strip See Rx Instructions .ROUTE .MEDSUPPLY Qty: 10 Rx Instructions: As directed metformin 1,000 mg tablet 1,000 mg PO DAILY 90 Days Qty: 90 levothyroxine 75 mcg tablet 75 mcg PO DAILY glimepiride 2 mg tablet 4 mg PO DAILY linezolid 600 mg tablet 600 mg PO BID 10 Days Qty: 20 0RF atorvastatin 20 MG tablet 20 mg PO HS pantoprazole 40 mg tablet,delayed release (DR/EC) 40 mg PO DAILY Patient Comments: TAKE 1 TABLET BY MOUTH EVERY DAY mupirocin 2 % ointment 1 applic topical TID 10 Days Qty: 22 0RF Rx Instructions: apply to area on your right shoulder sitagliptin phosphate 100 MG tablet 100 mg PO DAILY Referrals Follow up/Referrals: Catherine Hernandez APRN [Primary Care Provider] - See instructions Clinical Impressions Clinical Impression: Abdominal pain, Nausea Instructions Patient Instructions: DI for Acute Abdominal Pain Discharge ED Provider: Carlos Dinh General Adult HPI General Chief complaint: Abdominal Pain Stated complaint: nausea LT side abd pain Time Seen by Provider: 07/15/23 21:20 Mode of Arrival: Family Vehicle Source of Information: Patient Limitations: No Limitations Description of Symptoms (Recalled from ER Triage Doc. by RN): Patient states approximately at 20:40 she had severe pain in left upper abdomen felt like a knot that radiated down. Has had iliostomy >51yrs. Pain is not quite as severe but still hurting quite a bit and does not know why it is happening. History of Present Illness HPI narrative: 72-year-old female history of ulcerative colitis status post total colectomy with ileostomy in place, tubal ligation, small bowel obstruction history presenting with abdominal pain. Started just before arrival. She was sitting at the table doing nothing particular. Left lower quadrant, severe, does not radiate, associated with nausea without vomiting. Patient denies urinary symptoms, changes to ostomy output, fevers or chills, or any other concerns. Please note that above description of symptoms, in this electronic medical record under categorization of recalled from ER triage doctor by RN are reflective of an initial nursing assessment, however, is not reflective of my full history and physical exam that was personally taken and clarified. Consequentially, this preceding description of symptoms, which may include the patient's categorized chief complaint in the EMR, do not reflect my personal clinical impression, and the ultimate description of history of present illness and patient stated complaints should be deferred to this section of the note. Unless stated otherwise or congruent with this section of the note, additional signs, symptoms, or incongruence should be interpreted as inaccurate with my clinical impression. Related Data Home Medications Medication Instructions Recorded Confirmed atorvastatin 20 mg tablet 20 mg PO HS Cholesterol 10/13/17 06/01/23 metformin 1,000 mg tablet 1,000 mg PO DAILY Diabetes 90 days 05/31/18 06/01/23 #90 tabs sitagliptin phosphate 100 mg tablet 100 mg PO DAILY Diabetes 02/13/19 06/01/23 loratadine 10 mg tablet 10 mg PO DAILY Allergy symptoms 09/10/20 06/01/23 glimepiride 2 mg tablet 4 mg PO DAILY Diabetes 09/11/21 06/01/23 levothyroxine 75 mcg tablet 75 mcg PO DAILY thyroid supplement 09/11/21 06/01/23 blood sugar diagnostic (FreeStyle #10 ea 10/16/21 06/01/23 Lite Strips) pantoprazole 40 mg tablet,delayed 40 mg PO DAILY 03/06/23 06/01/23 release Previous Rx's Medication Instructions Recorded mupirocin 2 % topical ointment 1 applic topical TID 10 days #22 03/06/23 grams linezolid 600 mg tablet 600 mg PO BID 10 days #20 tabs 03/11/23 Allergies Allergy/AdvReac Type Severity Reaction Status Date / Time ciprofloxacin [From Cipro] Allergy Verified 06/01/23 10:37 nitrofurantoin Allergy Verified 06/01/23 10:37 [From Macrobid] [facility] Disclaimer: The information contained in this section may have been updated after the patient was seen, as this information can be updated by other users. Medical History Arthritis Diabetes GERD (gastroesophageal reflux disease) Hyperlipidemia Hypothyroidism Ileostomy in place Renal insufficiency Seasonal allergies UTI (urinary tract infection) Surgical History H/O hand surgery History of bilateral tubal ligation History of carpal tunnel release of both wrists History of colonoscopy History of eye removal Family History Other Cancer Diabetes Hyperlipidemia Hypertension Thyroid disorder Social History Smoking Status: Never smoker second hand exposure: No alcohol intake: never substance use type: denies use current occupational status: other Travel in the last 8 weeks: None household members: spouse housing: house caffeine: Yes ROS Obtained: Yes All systems reviewed & no additional complaints except as documented Physical Exam General General appearance: alert and in no apparent distress Head Head exam: atraumatic and normocephalic Eye Eye exam: Present normal appearance, PERRL and EOMI ENT ENT exam: Present mucous membranes moist Neck Neck exam: Present normal inspection, full ROM and trachea midline Respiratory Respiratory exam: Absent respiratory distress, wheezes, stridor, accessory muscle use or prolonged expiratory phase Cardiovascular Cardiovascular exam: Present regular rate and normal rhythm Abdominal Exam Abdominal exam: Present soft, tenderness and guarding; Absent distention, rebound or rigidity Abdominal tenderness: Present LLQ and severe Extremities Exam Extremities exam: Absent edema Neurological Exam Neurological exam: Present alert, oriented X3, CN II-XII intact and normal gait; Absent motor sensory deficit Skin Skin exam: Present warm and dry; Absent diaphoresis or erythema Medical Decision Making Medical Records Medical records reviewed: Yes I reviewed the patient's medical records. Attila Inquiry Pt receiving controlled substance: No Attila was queried for this patient: No Vital Signs: 07/15/23 21:12 07/15/23 21:34 07/15/23 22:00 Temperature 98.0 F Temperature Source Oral Pulse Rate 79 80 Pulse Rate [Right] 82 Respiratory Rate 18 Blood Pressure 158/67 H 164/64 H Blood Pressure [Right Arm] 158/67 H Blood Pressure Mean 97 106 Blood Pressure Mean [Right Arm] 97 Blood Pressure Source Blood Pressure Source [Right Arm] Automatic Cuff Blood Pressure Position 02 Sat by Pulse Oximetry 96 96 98 Oxygen Delivery Method Room Air 07/15/23 22:30 07/15/23 23:20 Temperature 0 F L Temperature Source Pulse Rate 80 81 Pulse Rate [Right] Respiratory Rate 18 Blood Pressure 141/78 H 164/88 H Blood Pressure [Right Arm] Blood Pressure Mean 96 Blood Pressure Mean [Right Arm] Blood Pressure Source Automatic Cuff Blood Pressure Source [Right Arm] Blood Pressure Position Sitting 02 Sat by Pulse Oximetry 99 Oxygen Delivery Method Room Air Lab Data Lab Results 07/15/23 21:19: Urine Color Yellow, Urine Appearance Clear, Urine pH 5.5, Ur Specific Hepler >= 1.030, Urine Protein Negative, Urine Glucose (UA) 1+, Urine Ketones Negative, Urine Blood Negative, Urine Nitrate Negative, Urine Bilirubin Negative, Urine Urobilinogen 0.2, Ur Leukocyte Esterase 1+ A, Urine RBC None, Urine WBC Occasional, Ur Squamous Epith Cells Occasional, Urine Bacteria None 07/15/23 21:20: WBC 9.6, RBC 4.52, Hgb 14.6, Hct 43.1, MCV 95.3, MCH 32.2 H, MCHC 33.8, RDW 13.2, Plt Count 197, MPV 9.9, Neut % (Auto) 73.2, Lymph % (Auto) 18.4, [place] % (Auto) 4.1, Eos % (Auto) 3.2, Baso % (Auto) 1.2, Neut # (Auto) 7.0, Lymph # (Auto) 1.8, [place] # (Auto) 0.4, Eos # (Auto) 0.3, Baso # (Auto) 0.1, Sodium 141, Potassium 4.0, Chloride 108 H, Carbon Dioxide 25, Anion Gap 12.0, BUN 14, Creatinine 1.10 H, Estimated Creat Clear 47, Estimated GFR 49 L, Est GFR ( Amer) 59, Glucose 222 H, Lactate 2.0, Calcium 10.1, Total Bilirubin 1.9 H, AST 23, ALT 16, Alkaline Phosphatase 63, Total Protein 7.4, Albumin 4.4, Globulin 3.0, Albumin/Globulin Ratio 1.5, Lipase 269 07/15/23 21:20 07/15/23 21:20 Orders (Tests/Meds): ED MEDICATIONS Generic Name Dose Route Start Last Admin Trade Name Freq PRN Reason Stop Dose Admin Sodium Chloride 10 ml 07/15/23 22:16 07/15/23 22:17 Sodium Chloride 0.9% 10ml Syr (Rad Only) IV 08/14/23 22:15 10 ml NEEDED PRN Administration Maintain IV Site Discontinued Medications Generic Name Dose Route Start Last Admin Trade Name Freq PRN Reason Stop Dose Admin Iopamidol 75 ml 07/15/23 22:16 07/15/23 22:17 Iopamidol-370 (76%);100ml Bottle IV 07/15/23 22:17 75 ml ONCE ONE Administration Ketorolac Tromethamine 15 mg 07/15/23 21:30 07/15/23 21:47 Ketorolac 30mg/Ml Vial IV 07/15/23 21:31 15 mg ONCE ONE Administration ORDERS Category Date Time Status CT abdomen pelvis w con Stat Cat Scan 07/15/23 21:30 Completed Complete Blood Count Auto Diff Stat Lab 07/15/23 21:20 Completed Comprehensive Metabolic Panel Stat Lab 07/15/23 21:20 Completed Lactic Acid Stat Lab 07/15/23 21:20 Completed Lipase Stat Lab 07/15/23 21:20 Completed Urinalysis and Microscopic Stat Lab 07/15/23 21:19 Completed Urine Culture Stat Micro 07/15/23 21:19 Received Medical Decision Narrative: 72-year-old female history of ulcerative colitis status post total colectomy with ileostomy in place, tubal ligation, small bowel obstruction history presenting with abdominal pain. Started just before arrival. She was sitting at the table doing nothing particular. Left lower quadrant, severe, does not radiate, associated with nausea without vomiting. Patient denies urinary symptoms, changes to ostomy output, fevers or chills, or any other concerns. History was obtained via conversation with patient and family. On arrival, patient hemodynamically stable, alert, oriented x4, appropriate, GCS 15, moving all extremities spontaneously, pupils equal and reactive to light. Full physical exam performed and significant for abdomen is soft, but pretty tender in left lower quadrant with involuntary guarding. Ostomy in place right side of abdomen without obvious issue. Differential includes PUD, gastritis, enteritis, gastroenteritis, pancreatitis, SBO, colitis, diverticulitis, nephrolithiasis, UTI, cholecystitis, choledocholithiasis, appendicitis, torsion, hepatitis, aortic pathology, mesenteric ischemia among others Patient was given Toradol IV for symptomatic management and correction of underlying abnormalities. Workup independently interpreted and significant for nonactionable CBC. Chemistry with mild EMILY creatinine 1.1. Bilirubin mildly elevated 1.9, no other LFT abnormalities. Lipase negative, urinalysis with squamous cells, trace leuk esterase. CT abdomen pelvis without acute intra-abdominal pathology. See radiology report for further read. On reevaluation, patient still feeling sore, but feels okay going home with supportive care and monitoring pain. Feels comfortable coming back if she needs to. On my evaluation, abdomen is still soft, minimally tender, tenderness has now migrated a little higher into the left upper quadrant. I feel patient is appropriate for home-going trial. Because patient at baseline without signs or symptoms of clinical decompensation, deemed appropriate for discharge. Results were relayed to patient who voiced understanding and were agreeable to outpatient management and follow up. I discussed my clinical impression with patient and answered all questions. At this time, the evidence for any other entities in the differential is insufficient to warrant any further testing or ED observation. This was explained as well. Advisory was given that persistent or worsening symptoms require further evaluation. I confirmed the understanding of this discussion. Critical Care Critical Care Time Critical Care Time: No
[2023-07-15 22:00] VITALS: BP 164/64; PULSE 80; O2SAT 98
[2023-07-15 22:13] LABS: Basophils # 0.1 K/mm3 (0-0.2); Basophils % 1.2 % (0.1-2.0); Eosinophils # 0.3 K/mm3 (0.0-0.4); Eosinophils % 3.2 % (0.1-12.0); Hematocrit 43.1 % (37.0-47.0); Hemoglobin 14.6 g/dL (12.2-16.2); Lymphocytes # 1.8 K/mm3 (0.7-4.5); Lymphocytes % 18.4 % (10-50); Mean Corpuscular HGB Conc 33.8 g/dL (31.8-35.4); Mean Corpuscular Hemoglobin 32.2 pg (27.0-31.2); Mean Corpuscular Volume 95.3 fl (81-99); Mean Platelet Volume 9.9 fl (7.4-10.4); Monocytes # 0.4 K/mm3 (0.1-1.0); Monocytes % 4.1 % (1.7-9.3); Neutrophils % 73.2 % (37.0-80.0); Platelet Count 197 K/mm3 (142-424); Red Blood Count 4.52 M/mm3 (4.20-5.40); Red Cell Distribution Width 13.2 % (11.5-17.5); White Blood Count 9.6 K/mm3 (4.8-10.8)
[2023-07-15] MEDS: IOPAMIDOL-370 (76%);100ML BOTTLE 75 ML IV (22:17)
[2023-07-15] MEDS: SODIUM CHLORIDE 0.9% 10ML SYR (RAD ONLY) 10 ML IV (22:17)
[2023-07-15 22:27] LABS: Squamous Epithelial Cell,Urine Occasional #/hpf (0-5); WBC,Urine Occasional #/hpf (0-3)
[2023-07-15 22:30] VITALS: BP 141/78; PULSE 80; O2SAT 99
[2023-07-15 23:20] VITALS: BP 164/88; PULSE 81; RESP 18; TEMP -17.7; TEMP 0
== END 2023-07-15 23:28 | disposition home or self-care (01) ==
PROVIDERS: Emergency Provider Emergency Medicine; PCP Nurse Practitioner Family
DX: R10.32 Left lower quadrant pain (principal); B96.89 Other specified bacterial agents as the cause of diseases classified elsewhere; R11.0 Nausea; K21.9 Gastro-esophageal reflux disease without esophagitis; E11.9 Type 2 diabetes mellitus without complications; E03.9 Hypothyroidism, unspecified; E78.5 Hyperlipidemia, unspecified; Z93.2 Ileostomy status; Z79.84 Long term (current) use of oral hypoglycemic drugs
CPT/HCPCS: 74177; 80053; 81001; 83605; 83690; 85025; 87086; 96374; 99284; Q9967

== ENCOUNTER 2023-07-22 12:08 | Outpatient (CLI) | payer MEDICARE, OTHER, SELFPAY ==
[2023-07-22 12:34] LABS: Basophils # 0.1 K/mm3 (0-0.2); Basophils % 0.7 % (0.1-2.0); Eosinophils # 0.2 K/mm3 (0.0-0.4); Eosinophils % 2.8 % (0.1-12.0); Hematocrit 44.4 % (37.0-47.0); Hemoglobin 15.1 g/dL (12.2-16.2); Lymphocytes # 1.3 K/mm3 (0.7-4.5); Lymphocytes % 15.1 % (10-50); Mean Corpuscular HGB Conc 34.1 g/dL (31.8-35.4); Mean Corpuscular Hemoglobin 32.2 pg (27.0-31.2); Mean Corpuscular Volume 94.3 fl (81-99); Mean Platelet Volume 8.1 fl (7.4-10.4); Monocytes # 0.3 K/mm3 (0.1-1.0); Neutrophils # 6.6 K/mm3 (1.8-7.8); Neutrophils % 77.4 % (37.0-80.0); Platelet Count 255 K/mm3 (142-424); Red Cell Distribution Width 12.9 % (11.5-17.5); White Blood Count 8.5 K/mm3 (4.8-10.8)
[2023-07-22 13:38] LABS: Hemoglobin A1C 8.2 % (4.0-6.0)
[2023-07-22 14:12] LABS: Chloride 104 mmol/L (98-107); Sodium 137 mmol/L (136-145)
[2023-07-22 14:13] LABS: Potassium 4.2 mmoL/L (3.5-5.1)
[2023-07-22 14:15] LABS: Alanine Aminotransferase 16 U/L (12-78); Albumin Level 4.4 g/dl (3.5-5.0); Albumin/Globulin Ratio 1.5 (1.1-1.8); Alkaline Phosphatase 69 U/L (38-126); Anion Gap 16.2 mEq/L (5-15); Aspartate Amino Transferase 22 U/L (14-36); Bilirubin,Total 2.2 mg/dl (0.2-1.3); Blood Urea Nitrogen 16 mg/dl (7-17); Carbon Dioxide 21 mmol/L (22.0-30.0); Cholesterol 206 mg/dl (140-200); Estimated Glomerular Filt Rate 40 ml/min (>60); GFR (African American) 48 ML/MIN (>60); Globulin 2.9 g/dL (1.3-3.2); Total Protein,Serum 7.3 g/dl (6.3-8.2); Triglycerides 199 mg/dl (30-150); VLDL Cholesterol 40 mg/dL (0-40)
[2023-07-22 14:16] LABS: Calcium 10.6 mg/dl (8.4-10.2); Chol/HDL Ratio 4.8 (1-3.5); Glucose 175 mg/dl (74-100); HDL Cholesterol 43 mg/dl (40-60)
[2023-07-22 14:46] LABS: Thyroid Stimulating Hormone 2.34 uIU/mL (0.465-4.68)
== END 2023-07-22 23:59 | disposition home or self-care (01) ==
LOC: LAB 12:10
PROVIDERS: PCP Nurse Practitioner Family; Visit Provider Nurse Practitioner Family
DX: I10 Essential (primary) hypertension (principal); E11.610 Type 2 diabetes mellitus with diabetic neuropathic arthropathy
CPT/HCPCS: 36415; 80053; 80061; 83036; 84443; 85025

== ENCOUNTER 2023-09-09 11:05 | Outpatient (CLI) | payer MEDICARE, OTHER, SELFPAY ==
--- NOTE | 2023-09-09 11:09 | XR_ITS ---
FINAL REPORT CLINICAL HISTORY: Charcot s pain COMPARISON: 09/08/2022 FINDINGS: LEFT FOOT Three views of the left foot demonstrate no acute fracture or dislocation. Pes planus deformity is seen on the lateral view. There is a moderate plantar spur. Moderate hypertrophic changes are noted at the 1st MTP. The soft tissues are unremarkable. IMPRESSION: Moderate hypertrophic changes without acute bony abnormality. Reviewed, Interpreted and Dictated by Greg Caldwell MD Transcribed by Asia Tracey Authenticated and [facility]
--- NOTE | 2023-09-09 11:09 | XR_ITS ---
FINAL REPORT CLINICAL HISTORY: Charcot s pain COMPARISON: 09/08/2022 FINDINGS: RIGHT FOOT 3 views of the right foot were obtained. There is no acute fracture or dislocation. There is a large plantar spur. Mild hypertrophic changes are noted at the 1st MTP. Soft tissues are unremarkable. IMPRESSION: Mild hypertrophic changes without acute bony abnormality. Reviewed, Interpreted and Dictated by Gerg Caldwell MD Transcribed by Asia Tracey Authenticated and [facility]
== END 2023-09-09 23:59 | disposition home or self-care (01) ==
LOC: RAD 11:07
PROVIDERS: PCP Nurse Practitioner Family; Visit Provider Nurse Practitioner
DX: E11.610 Type 2 diabetes mellitus with diabetic neuropathic arthropathy (principal); M79.671 Pain in right foot; M79.672 Pain in left foot; Z79.84 Long term (current) use of oral hypoglycemic drugs
CPT/HCPCS: 73630

== ENCOUNTER 2023-10-11 07:46 | Outpatient (CLI) | payer MEDICARE, OTHER, SELFPAY ==
--- NOTE | 2023-10-11 07:53 | XR_ITS ---
FINAL REPORT CLINICAL HISTORY: POST MENOPAUSAL COMPARISON: 02/03/2021 FINDINGS: Using L1-4, the bone mineral density of the spine is 1.182 g/cm2, corresponding to T-score of 1.2 which is within normal limits but likely falsely elevated secondary to hypertrophic changes. Previously this was 1.161 with a T-score of 1.0. Using the left hip, the bone mineral density of the femoral neck is 0.582 g/cm2, corresponding to a T-score of -2.4 which is consistent with low bone density. Previously this was 0.637 with a T-score of -1.9. Using the right hip, the bone mineral density of the femoral neck is 0.807 g/cm2, corresponding to a T-score of -1.1 which is consistent with low bone density. Previously this was 0.726 with a T-score of -1.1. FRAX 10 year fracture risk is 17% for a hip fracture and 28% for a major osteoporotic fracture. NOTE: T-score: Standard deviation compared with peak bone mass of young adult mean. *Following the recommendations of the International Society of Bone densitometry, classification of hip BMD is based on the lower of two T-scores; total hip or femoral neck. IMPRESSION: Diminished bone mineral density consistent with low bone density. Reviewed, Interpreted and Dictated by Elton Raines III, MD Transcribed by Asia Tracey Authenticated and . [facility]
--- NOTE | 2023-10-11 07:53 | MM_ITS ---
PROCEDURE INFORMATION: Exam: MG Bilateral Screening 3D Mammography Exam date and time: 10/11/2023 7:49 AM Age: 72 years old Clinical indication: Screening examination. Family history of breast carcinoma. TECHNIQUE: Imaging protocol: Bilateral Screening tomosynthesis and 2D mammography including computer-aided detection (CAD) when performed. COMPARISON: 1. MG MM DIG SCREENING MAMM BI W/CAD 06/15/2022 4:01 PM 2. MG MM DIG SCREENING MAMM BI W/CAD 02/03/2021 8:27 AM 3. MG MM DIG SCREENING MAMM BI W/CAD 01/22/2020 8:01 AM FINDINGS: MAMMOGRAPHY: Breast composition: The breasts are extremely dense, which lowers the sensitivity of mammography. Mass: No suspicious masses. Architectural distortion: No suspicious distortion. Calcifications: No suspicious calcifications. Asymmetric density: None. Skin thickening: None. Axillary adenopathy: None. IMPRESSION: 1. No mammographic evidence of malignancy. Annual screening is recommended unless otherwise clinically indicated. 2. Given the reported risk factors for this patient, a breast cancer risk assessment may prove useful for further evaluation. ASSESSMENT: BI-RADS Category 1: Negative
== END 2023-10-11 23:59 | disposition home or self-care (01) ==
LOC: RAD 07:47
PROVIDERS: PCP Nurse Practitioner Family; Visit Provider Nurse Practitioner Family
DX: Z12.31 Encounter for screening mammogram for malignant neoplasm of breast (principal); Z78.0 Asymptomatic menopausal state
CPT/HCPCS: 77063; 77067; 77080

== ENCOUNTER 2023-10-16 09:56 | Emergency (ER) | payer MEDICARE, OTHER, SELFPAY ==
[2023-10-16 10:40] VITALS: BP 148/63; PULSE 75; RESP 18; TEMP 36.8; O2SAT 100; BMI 24.8
--- NOTE | 2023-10-16 10:43 | EXP.UTC ---
Discharge Plan Disposition Patient Disposition: Home, Self-Care Condition: Good Prescriptions Prescriptions: New phenazopyridine 200 mg Tablet 200 mg PO BID 2 Days Qty: 4 0RF sulfamethoxazole-trimethoprim [Bactrim DS] 800-160 mg Tablet 1 tab PO BID Qty: 14 0RF ondansetron 4 mg Tablet,Disintegrating 4 mg PO Q8H PRN (Reason: Nausea) Qty: 12 0RF No Action loratadine 10 mg tablet 10 mg PO DAILY (DME) FreeStyle Lite Strips Strip See Rx Instructions .ROUTE .MEDSUPPLY Qty: 10 Rx Instructions: As directed glimepiride 4 mg tablet 4 mg PO DAILY lidocaine 5 % adhesive patch,medicated 1 patch topical DAILY PRN (Reason: Pain, Mild) Rx Instructions: leave on most painful area for up to 12 hrs as needed metformin 1,000 mg tablet 1,000 mg PO DAILY 90 Days Qty: 90 levothyroxine 75 mcg tablet 75 mcg PO DAILY glimepiride 2 mg tablet 4 mg PO DAILY atorvastatin 20 MG tablet 20 mg PO HS pantoprazole 40 mg tablet,delayed release (DR/EC) 40 mg PO DAILY Patient Comments: TAKE 1 TABLET BY MOUTH EVERY DAY mupirocin 2 % ointment 1 applic topical TID 10 Days Qty: 22 0RF Rx Instructions: apply to area on your right shoulder sitagliptin phosphate 100 MG tablet 100 mg PO DAILY Referrals Follow up/Referrals: Catherine Hernandez APRN [Primary Care Provider] - See instructions Activity Restrictions/Add. Instructions Additional Instructions/Restrictions: Drink plenty of fluids. Take tylenol or ibuprofen for pain or fever. Take the medications as directed. Follow up with your regular doctor. GO TO THE ER FOR ANY WORSENING SYMPTOMS The pyridium will make your urine turn orange, this is an expected side effect. It will stain your clothes if it comes into contact with them. We will culture the urine. That will tell what bacteria is causing your infection and which antibiotics will treat it best. Sometimes the first antibiotic we prescribe turns out to not work against different bacteria. So, make sure you follow up within 3 days if you are not getting better. Clinical Impressions Clinical Impression: UTI (urinary tract infection) Instructions Patient Instructions: Urinary Tract Infection, Urine Culture, DI for Urinary Tract Infection (UTI), Phenazopyridine Discharge ED Provider: Truong Schofield [facility] HPI General Stated complaint: uti Time Seen by Provider: 10/16/23 10:42 Related Data Home Medications Medication Instructions Recorded Confirmed atorvastatin 20 mg tablet 20 mg PO HS Cholesterol 10/13/17 10/16/23 metformin 1,000 mg tablet 1,000 mg PO DAILY Diabetes 90 days 05/31/18 10/16/23 #90 tabs sitagliptin phosphate 100 mg tablet 100 mg PO DAILY Diabetes 02/13/19 10/16/23 loratadine 10 mg tablet 10 mg PO DAILY Allergy symptoms 09/10/20 10/16/23 glimepiride 2 mg tablet 4 mg PO DAILY Diabetes 09/11/21 10/16/23 levothyroxine 75 mcg tablet 75 mcg PO DAILY thyroid supplement 09/11/21 10/16/23 blood sugar diagnostic (FreeStyle #10 ea 10/16/21 06/01/23 Lite Strips) pantoprazole 40 mg tablet,delayed 40 mg PO DAILY 03/06/23 10/16/23 release glimepiride 4 mg tablet 4 mg PO DAILY 09/13/23 10/16/23 lidocaine 5 % topical patch 1 patch topical DAILY PRN Pain, 09/13/23 10/16/23 Mild Previous Rx's Medication Instructions Recorded mupirocin 2 % topical ointment 1 applic topical TID 10 days #22 03/06/23 grams phenazopyridine 200 mg tablet 200 mg PO BID 2 days #4 tabs 10/16/23 ondansetron 4 mg disintegrating 4 mg PO Q8H PRN Nausea #12 tabs 10/17/23 tablet sulfamethoxazole 800 1 tab PO BID #14 tabs 10/17/23 mg-trimethoprim 160 mg tablet (Bactrim DS) Allergies Allergy/AdvReac Type Severity Reaction Status Date / Time ciprofloxacin [From Cipro] Allergy Verified 10/16/23 10:53 nitrofurantoin Allergy Verified 10/16/23 10:53 [From Macrobid] [facility] Disclaimer: The information contained in this section may have been updated after the patient was seen, as this information can be updated by other users. Medical History (Updated 10/16/23 @ 11:25 by Truong Schofield APRN) Ileostomy in place Arthritis Renal insufficiency GERD (gastroesophageal reflux disease) UTI (urinary tract infection) Seasonal allergies Hypothyroidism Hyperlipidemia Diabetes Surgical History Hx of removal of cyst History of colonoscopy H/O hand surgery History of eye removal History of bilateral tubal ligation History of carpal tunnel release of both wrists Family History Other Cancer Diabetes Hyperlipidemia Hypertension Thyroid disorder Social History Smoking Status: Never smoker second hand exposure: No alcohol intake: never substance use type: denies use current occupational status: other Travel in the last 8 weeks: None household members: spouse housing: house caffeine: Yes ROS Obtained: Yes All systems reviewed & no additional complaints except as documented Constitutional Constitutional: Reports system reviewed and no additional complaints, except as documented, Denies chills and Denies fever(s) Eyes Eyes: Denies eye discharge ENT Ears, Nose, Mouth, and Throat: Denies dysphagia, Denies sore throat and Denies throat swelling Cardiovascular Cardiovascular: Denies chest pain and Denies dyspnea Respiratory Respiratory: Denies chest congestion, Denies cough and Denies dyspnea Gastrointestinal Gastrointestingal: Denies abdominal pain, constipation, diarrhea, dysphagia, nausea or vomiting Genitourinary Female Genitourinary: Reports dysuria, Reports urinary frequency, Denies urinary incontinence, Reports urinary hesitancy and Reports urinary urgency Musculoskeletal Musculoskeletal: Denies arthralgias and Reports back pain Integumentary/Breasts Skin/Breast: Denies rash Neurologic Neurologic: Denies paresthesias Allergic/Immunologic Allergic/Immunologic: Denies throat swelling Physical Exam General General appearance: alert and in no apparent distress Head Head exam: atraumatic and normocephalic Eye Eye exam: Present normal appearance, PERRL and EOMI ENT ENT exam: Present normal exam, mucous membranes moist, TM's normal bilaterally and normal external ear exam Neck Neck exam: Present normal inspection, full ROM and trachea midline; Absent tenderness, meningismus or lymphadenopathy Chest Chest inspection: Present normal inspection and symmetric chest wall rise; Absent tenderness Respiratory Respiratory exam: Present normal lung sounds bilaterally; Absent respiratory distress, wheezes or stridor Cardiovascular Cardiovascular exam: Present regular rate, normal rhythm and normal heart sounds Abdominal Exam Abdominal exam: Present soft and normal bowel sounds; Absent distention, tenderness, guarding, rebound, rigidity, incision, psoas sign, obturator sign, heel tap sign, Carrera's sign, Rovsing's sign or tenderness at McBurney's Point Extremities Exam Extremities exam: Present normal inspection, full ROM and normal capillary refill; Absent tenderness, edema, joint swelling, calf tenderness or cyanosis Back Exam Back exam: Present normal inspection and full ROM; Absent tenderness, CVA tenderness (R) or CVA tenderness (L) Neurological Exam Neurological exam: Present alert, oriented X3 and normal gait Psychiatric Psychiatric exam: Present normal affect and normal mood Skin Skin exam: Present warm, dry, intact and normal color Lymphatic Lymphatic Findings: no adenopathy Medical Decision Making Medical Records Medical records reviewed: No I reviewed the patient's medical records. Attila Inquiry Pt receiving controlled substance: No Lab Data Lab results reviewed: Yes I reviewed the patient's lab results.
[2023-10-16 10:56] LABS: Apearance,Urine Clear (Clear); Color,Urine Yellow (Yellow); PH,Urine 5.5 (5.0-8.5); Protein,Urine Negative (Negative)
[2023-10-16 10:57] LABS: Bilirubin,Urine Negative (Negative); Blood, Urine Negative (Negative); Glucose,Urine (UA) Negative (Negative); Ketones,Urine Negative (Negative); UTC Leukocyte Esterase,Urine 1+ (Negative); UTC Nitrate,Urine Negative (Negative); Urobilinogen,Urine 0.2 EU/dl (0.2)
--- NOTE | 2023-10-16 10:58 | PC.NURSE ---
Sent urine culture to lab via tube system.
[2023-10-16 12:10] VITALS: BP 148/63; PULSE 75; RESP 18; TEMP 36.8; O2SAT 100
--- NOTE | 2023-10-18 14:31 | PC.NURSE ---
REVIEWED PATIENT'S URINE CULTURE. PATIENT IS CURRENTLY ON BACTRIM WHICH IS SUSCEPTIBLE, NO CHANGE NEEDED AT THIS TIME
== END 2023-10-16 11:50 | disposition home or self-care (01) ==
PROVIDERS: Emergency Provider Nurse Practitioner Family; PCP Nurse Practitioner Family
DX: N39.0 Urinary tract infection, site not specified (principal); B96.1 Klebsiella pneumoniae [K. pneumoniae] as the cause of diseases classified elsewhere; R30.0 Dysuria; R35.0 Frequency of micturition
CPT/HCPCS: 81003; 87086; 87088; 87186; 99212; 99214; G0463

== ENCOUNTER 2023-11-22 13:54 | Emergency (ER) | payer MEDICARE, OTHER, SELFPAY ==
[2023-11-22 14:10] VITALS: BP 128/64; PULSE 65; RESP 20; TEMP 36.5; O2SAT 100; BMI 25.0
--- NOTE | 2023-11-22 14:24 | EXP.UTC ---
Discharge Plan Disposition Patient Disposition: Home, Self-Care Condition: Good Prescriptions Prescriptions: No Action loratadine 10 mg tablet 10 mg PO DAILY (DME) FreeStyle Lite Strips Strip See Rx Instructions .ROUTE .MEDSUPPLY Qty: 10 Rx Instructions: As directed glimepiride 4 mg tablet 4 mg PO DAILY lidocaine 5 % adhesive patch,medicated 1 patch topical DAILY PRN (Reason: Pain, Mild) Rx Instructions: leave on most painful area for up to 12 hrs as needed metformin 1,000 mg tablet 1,000 mg PO DAILY 90 Days Qty: 90 levothyroxine 75 mcg tablet 75 mcg PO DAILY glimepiride 2 mg tablet 4 mg PO DAILY atorvastatin 20 MG tablet 20 mg PO HS pantoprazole 40 mg tablet,delayed release (DR/EC) 40 mg PO DAILY Patient Comments: TAKE 1 TABLET BY MOUTH EVERY DAY mupirocin 2 % ointment 1 applic topical TID 10 Days Qty: 22 0RF Rx Instructions: apply to area on your right shoulder phenazopyridine 200 mg Tablet 200 mg PO BID 2 Days Qty: 4 0RF sulfamethoxazole-trimethoprim [Bactrim DS] 800-160 mg Tablet 1 tab PO BID Qty: 14 0RF ondansetron 4 mg Tablet,Disintegrating 4 mg PO Q8H PRN (Reason: Nausea) Qty: 12 0RF sitagliptin phosphate 100 MG tablet 100 mg PO DAILY Referrals Follow up/Referrals: Catherine Hernandez APRN [Primary Care Provider] - See instructions Activity Restrictions/Add. Instructions Additional Instructions/Restrictions: *Increase fluids. Water not Soda or Tea Zofran as prescribed for nausea *Be SURE to follow up anytime for new or worsening symptoms with your family doctor. AND in 48 hours for urine culture results with your family doctor, if you do not have a doctor then you may call back to the [facility] for urine culture results and further treatment. We do recommend that you choose and establish care with a Primary Care Physician. ?AND follow up with them ?in 10-14 days to repeat UA to ensure infection is resolved and blood no longer present *Be sure to let your PCP know that we sent urine cultures from the [facility] Call your doctor office and make appointment for 48 hours (2 days from today) ?to follow up and get the results of your urine culture and further treatment Clinical Impressions Clinical Impression: Nausea Instructions Patient Instructions: DI for Nausea -- Adult Print Language Print Language: Azeri Discharge ED Provider: Shagufta Rowland [facility] HPI General Stated complaint: poss uti Mode of Arrival: Ambulatory Source of Information: Patient Limitations: No Limitations Time Seen by Provider: 11/22/23 14:25 Description of Symptoms (Recalled from Triage Doc. by RN): PATIENT C/O LOWER BACK PAIN, NAUSEA, AND FEELING LIKE SHE NEEDS TO URINATE BUT CAN'T THAT STARTED YESTERDAY HEENT Symptoms (Recalled from RN notes): No Resp Symptoms (Recalled from RN notes): No Skin Symptoms (Recalled from RN notes): No MS Symptoms (Recalled from RN notes): No Functional Status (Recalled from RN notes): WNL History of Present Illness Provider Complaint: Patient states that since yesterday she has been having nausea and feeling like she has to urinate more frequently and these are her typical symptoms she has when she has a UTI so today she came in to get her urine checked Related Data Home Medications ?Medication ?Instructions ?Recorded ?Confirmed atorvastatin 20 mg tablet 20 mg PO HS Cholesterol 10/13/17 10/16/23 metformin 1,000 mg tablet 1,000 mg PO DAILY Diabetes 90 days 05/31/18 10/16/23 #90 tabs sitagliptin phosphate 100 mg tablet 100 mg PO DAILY Diabetes 02/13/19 10/16/23 loratadine 10 mg tablet 10 mg PO DAILY Allergy symptoms 09/10/20 10/16/23 levothyroxine 75 mcg tablet 75 mcg PO DAILY thyroid supplement 09/11/21 10/16/23 blood sugar diagnostic (FreeStyle #10 ea 10/16/21 06/01/23 Lite Strips) pantoprazole 40 mg tablet,delayed 40 mg PO DAILY 03/06/23 10/16/23 release glimepiride 4 mg tablet 4 mg PO DAILY 09/13/23 10/16/23 lidocaine 5 % topical patch 1 patch topical DAILY PRN Pain, 09/13/23 10/16/23 Mild Previous Rx's ?Medication ?Instructions ?Recorded mupirocin 2 % topical ointment 1 applic topical TID 10 days #22 03/06/23 grams Allergies Allergy/AdvReac Type Severity Reaction Status Date / Time ciprofloxacin [From Cipro] Allergy Verified 10/16/23 10:53 nitrofurantoin Allergy Verified 10/16/23 10:53 [From Macrobid] Worker's Comp Is this a Worker's Comp case?: No [facility] Disclaimer: The information contained in this section may have been updated after the patient was seen, as this information can be updated by other users. Medical History (Updated 11/22/23 @ 14:32 by Shagufta Rowland APRN) Ileostomy in place Arthritis Renal insufficiency GERD (gastroesophageal reflux disease) UTI (urinary tract infection) Seasonal allergies Hypothyroidism Hyperlipidemia Diabetes Surgical History Hx of removal of cyst History of colonoscopy H/O hand surgery History of eye removal History of bilateral tubal ligation History of carpal tunnel release of both wrists Family History Other Cancer Diabetes Hyperlipidemia Hypertension Thyroid disorder Social History Smoking Status: Never smoker second hand exposure: No alcohol intake: never substance use type: denies use current occupational status: other Travel in the last 8 weeks: None household members: spouse housing: house caffeine: Yes ROS Obtained: Yes All systems reviewed & no additional complaints except as documented and Yes Systems reviewed as appropriate & no additional complaints except as documented Constitutional Constitutional: Reports system reviewed and no additional complaints, except as documented, Reports as per HPI, Denies body ache, Denies chills and Denies fever(s) ENT Ears, Nose, Mouth, and Throat: Reports system reviewed and no additional complaints, except as documented and Reports as per HPI Cardiovascular Cardiovascular: Reports system reviewed and no additional complaints, except as documented and Reports as per HPI Respiratory Respiratory: Reports system reviewed and no additional complaints, except as documented and Reports as per HPI Gastrointestinal Gastrointestingal: Reports system reviewed and no additional complaints, except as documented, as per HPI and nausea; Denies abdominal pain, cramping, diarrhea or vomiting Genitourinary Female Genitourinary: Reports system reviewed and no additional complaints, except as documented, Reports as per HPI, Denies dysuria, Denies flank pain, Reports urinary frequency and Reports urinary urgency Physical Exam General General appearance: alert and in no apparent distress ENT ENT exam: Present mucous membranes moist Respiratory Respiratory exam: Present normal lung sounds bilaterally; Absent respiratory distress or wheezes Cardiovascular Cardiovascular exam: Present regular rate, normal rhythm and normal heart sounds Abdominal Exam Abdominal exam: Present soft and normal bowel sounds; Absent distention or tenderness Neurological Exam Neurological exam: Present alert, oriented X3 and normal gait Medical Decision Making Attila Inquiry Pt receiving controlled substance: No Attila was queried for this patient: No Vital Signs: 11/22/23 14:10 Temperature 97.7 F Temperature Source Oral Pulse Rate [Left] 128 H Respiratory Rate 20 Blood Pressure [Left Arm] 128/64 Blood Pressure Mean [Left Arm] 85 Blood Pressure Source [Left Arm] Automatic Cuff Blood Pressure Position [Left Arm] Sitting 02 Sat by Pulse Oximetry 100 Oxygen Delivery Method Room Air Lab Data Lab results reviewed: Yes I reviewed the patient's lab results. Medical Decision Narrative: Patient states that she still has zofran at home
[2023-11-22 14:31] LABS: Apearance,Urine Clear (Clear); Bilirubin,Urine 1+ (Negative); Blood, Urine Negative (Negative); Color,Urine Dark Yellow (Yellow); Glucose,Urine (UA) Negative (Negative); Ketones,Urine TRACE (Negative); Protein,Urine 1+ (Negative); Specific Gravity, Urine >= 1.030 (1.005-1.030); UTC Leukocyte Esterase,Urine Negative (Negative); UTC Nitrate,Urine Negative (Negative); Urobilinogen,Urine 0.2 EU/dl (0.2)
[2023-11-22 14:32] VITALS: BP 128/64; PULSE 65; RESP 20; TEMP 36.5; O2SAT 100
== END 2023-11-22 14:35 | disposition home or self-care (01) ==
PROVIDERS: Emergency Provider Nurse Practitioner; PCP Nurse Practitioner Family
DX: R11.0 Nausea (principal); R35.0 Frequency of micturition; R39.15 Urgency of urination; M54.59 Other low back pain; K21.9 Gastro-esophageal reflux disease without esophagitis; E03.9 Hypothyroidism, unspecified; E78.5 Hyperlipidemia, unspecified; E11.9 Type 2 diabetes mellitus without complications; Z79.84 Long term (current) use of oral hypoglycemic drugs
CPT/HCPCS: 81003; 87086; 99212; 99213; G0463

== ENCOUNTER 2024-03-22 10:24 | Emergency (ER) | payer MEDICARE, OTHER, SELFPAY ==
[2024-03-22 11:48] LABS: Apearance,Urine Cloudy (Clear); Bilirubin,Urine Negative (Negative); Blood, Urine Negative (Negative); Color,Urine Dark Yellow (Yellow); Glucose,Urine (UA) Negative (Negative); Ketones,Urine Negative (Negative); Protein,Urine Negative (Negative); Specific Gravity, Urine 1.025 (1.005-1.030); UTC Leukocyte Esterase,Urine 2+ (Negative); UTC Nitrate,Urine Negative (Negative); Urobilinogen,Urine 0.2 EU/dl (0.2)
[2024-03-22 11:50] VITALS: BP 137/70; PULSE 76; RESP 18; TEMP 36.8; O2SAT 98; BMI 23.6
--- NOTE | 2024-03-22 12:01 | ED_ITS ---
Discharge Plan Disposition Patient Disposition: Home, Self-Care Condition: Good Prescriptions Prescriptions: New cephalexin 500 mg capsule 500 mg PO BID 7 Days Qty: 14 0RF phenazopyridine [Pyridium] 200 mg tablet 200 mg PO Q8H 2 Days Qty: 6 0RF No Action (DME) FreeStyle Lite Strips Strip See Rx Instructions .ROUTE .MEDSUPPLY Qty: 10 Rx Instructions: As directed atorvastatin 20 mg tablet 20 mg PO DAILY levothyroxine 75 mcg tablet 75 mcg PO DAILY pantoprazole 40 mg tablet,delayed release (DR/EC) 40 mg PO DAILY Patient Comments: TAKE 1 TABLET BY MOUTH DAILY metformin 1,000 mg tablet 1,000 mg PO DAILY glimepiride 4 mg tablet 4 mg PO DAILY Januvia 100 mg tablet 100 mg PO DAILY Referrals Follow up/Referrals: Catherine Hernandez APRN [Primary Care Provider] - See instructions Activity Restrictions/Add. Instructions Additional Instructions/Restrictions: *Increase fluids. Water not Soda or Tea *Start antibiotic immediately and be sure to take as ordered for the FULL length of time although you should start to see improvement over the next 48 hours *Pyridium as needed Remember this medication will turn your urine . This is normal but it will stain what ever it gets on *You should not use Pyridium for more than 48 hours. If so , follow up with your primary physician to review urine culture and ensure that antibiotic is adequate for infection *Be SURE to follow up anytime for new or worsening symptoms with your family doctor. AND in 48 hours for urine culture results with your family doctor, if you do not have a doctor then you may call back to the [facility] for urine culture results and further treatment. We do recommend that you choose and establish care with a Primary Care Physician. ?AND follow up with them ?in 10-14 days to repeat UA to ensure infection is resolved and blood no longer present *Be sure to let your PCP know that we sent urine cultures from the [facility] so they can follow up to ensure that you area the on the correct antibiotic Call your doctor office and make appointment for 48 hours (2 days from today) ?to follow up and get the results of your urine culture and further treatment Clinical Impressions Clinical Impression: UTI (urinary tract infection) Instructions Patient Instructions: DI for Urinary Tract Infection (UTI), Urinary Tract Infection Print Language Print Language: Turkish Discharge ED Provider: Shagufta Rowland [facility] HPI General Stated complaint: Pain in L side and lower back Mode of Arrival: Ambulatory Source of Information: Patient Limitations: No Limitations Time Seen by Provider: 03/22/24 12:01 Description of Symptoms (Recalled from Triage Doc. by RN): PATIENT C/O LEFT FLANK PAIN THAT STARTED YESTERDAY AFTERNOON HEENT Symptoms (Recalled from RN notes): No Resp Symptoms (Recalled from RN notes): No Skin Symptoms (Recalled from RN notes): No MS Symptoms (Recalled from RN notes): No Functional Status (Recalled from RN notes): WNL History of Present Illness Provider Complaint: Patient states that has been having achy like feeling in her left lower back and noticed her urine was looking dark and having urinary frequency States feels like she does when she has a UTI so she came in to get checked Denies loss of control of bowel or bladder and denies fever or abdominal pain Related Data Home Medications ?Medication ?Instructions ?Recorded ?Confirmed blood sugar diagnostic (Freeyle #10 ea 10/16/21 03/22/24 Lite Strips) atorvastatin 20 mg tablet 20 mg PO DAILY 03/22/24 03/22/24 glimepiride 4 mg tablet 4 mg PO DAILY 03/22/24 03/22/24 levothyroxine 75 mcg tablet 75 mcg PO DAILY 03/22/24 03/22/24 metformin 1,000 mg tablet 1,000 mg PO DAILY 03/22/24 03/22/24 pantoprazole 40 mg tablet,delayed 40 mg PO DAILY 03/22/24 03/22/24 release sitagliptin phosphate 100 mg 100 mg PO DAILY 03/22/24 03/22/24 tablet (Januvia) Previous Rx's ?Medication ?Instructions ?Recorded cephalexin 500 mg capsule 500 mg PO BID 7 days #14 caps 03/22/24 phenazopyridine 200 mg tablet 200 mg PO Q8H pain 2 days #6 tabs 03/22/24 (Pyridium) Allergies Allergy/AdvReac Type Severity Reaction Status Date / Time ciprofloxacin (From Cipro) Allergy Verified 10/16/23 10:53 nitrofurantoin (From Allergy Verified 10/16/23 10:53 Macrobid) Worker's Comp Is this a Worker's Comp case?: No [facility] Disclaimer: The information contained in this section may have been updated after the patient was seen, as this information can be updated by other users. Medical History (Updated 03/22/24 @ 12:06 by Shagufta Rowland APRN) Ulcerative colitis Ileostomy in place Arthritis Renal insufficiency GERD (gastroesophageal reflux disease) UTI (urinary tract infection) Seasonal allergies Hypothyroidism Hyperlipidemia Diabetes Surgical History Hx of removal of cyst History of colonoscopy H/O hand surgery History of eye removal History of bilateral tubal ligation History of carpal tunnel release of both wrists Family History Other Cancer Diabetes Hyperlipidemia Hypertension Thyroid disorder Social History Smoking Status: Never smoker second hand exposure: No alcohol intake: never substance use type: denies use current occupational status: other Travel in the last 8 weeks: None household members: spouse housing: house caffeine: Yes ROS Obtained: Yes All systems reviewed & no additional complaints except as documented and Yes Systems reviewed as appropriate & no additional complaints except as documented Constitutional Constitutional: Reports system reviewed and no additional complaints, except as documented, Reports as per HPI, Denies body ache, Denies chills and Denies fever(s) ENT Ears, Nose, Mouth, and Throat: Reports system reviewed and no additional complaints, except as documented and Reports as per HPI Cardiovascular Cardiovascular: Reports system reviewed and no additional complaints, except as documented and Reports as per HPI Respiratory Respiratory: Reports system reviewed and no additional complaints, except as documented and Reports as per HPI Gastrointestinal Gastrointestingal: Reports system reviewed and no additional complaints, except as documented and as per HPI; Denies abdominal pain Genitourinary Female Genitourinary: Reports system reviewed and no additional complaints, except as documented, Reports as per HPI, Reports dysuria, Reports flank pain, Reports urinary frequency and Reports urinary urgency Physical Exam General General appearance: alert and in no apparent distress ENT ENT exam: Present normal exam, normal oropharynx and mucous membranes moist Respiratory Respiratory exam: Present normal lung sounds bilaterally; Absent respiratory distress or wheezes Cardiovascular Cardiovascular exam: Present regular rate, normal rhythm and normal heart sounds Abdominal Exam Abdominal exam: Present soft, distention and normal bowel sounds Back Exam Back exam: Present tenderness; Absent CVA tenderness (R), CVA tenderness (L), sciatic notch tenderness (R) or sciatic notch tenderness (L) Back 1 view image: 2 1. reports achy like pain like she gets with UTI Neurological Exam Neurological exam: Present alert, oriented X3 and normal gait Medical Decision Making Medical Records Screening: Per USPSTF and CDC recommendations, given the prevalence of disease in our region, it is our hospital?s policy to screen for HIV and viral Hepatitis for all patients aged 18 and over and those with ongoing risk factors. Attila Inquiry Pt receiving controlled substance: No Attila was queried for this patient: No Vital Signs: 03/22/24 11:50 Temperature 98.3 F Temperature Source Oral Pulse Rate [Left Brachial] 76 Respiratory Rate 18 Blood Pressure [Left Arm] 137/70 Blood Pressure Mean [Left Arm] 92 Blood Pressure Source [Left Arm] Automatic Cuff Blood Pressure Position [Left Arm] Sitting 02 Sat by Pulse Oximetry 98 Oxygen Delivery Method Room Air Lab Data Lab results reviewed: Yes I reviewed the patient's lab results. Lab Results 03/22/24 11:39: Urine Color Dark yellow, Urine Appearance Cloudy, Urine pH 5.0, Ur Specific [place] 1.025, Urine Protein Negative, Urine Glucose (UA) Negative, Urine Ketones Negative, Urine Blood Negative, Urine Nitrate Negative, Urine Bilirubin Negative, Urine Urobilinogen 0.2, Ur Leukocyte Esterase 2+ A Orders (Tests/Meds): ORDERS Category Date Time Status Urine Culture Stat Micro 03/22/24 11:43 Received
[2024-03-22 12:10] VITALS: BP 137/70; PULSE 76; RESP 18; TEMP 36.8; O2SAT 98
== END 2024-03-22 12:14 | disposition home or self-care (01) ==
PROVIDERS: Emergency Provider Nurse Practitioner; PCP Nurse Practitioner Family
DX: N39.0 Urinary tract infection, site not specified (principal); R10.9 Unspecified abdominal pain; M54.50 Low back pain, unspecified; R35.0 Frequency of micturition
CPT/HCPCS: 81003; 87086; 99212; G0381

== ENCOUNTER 2024-05-09 08:45 | Outpatient (CLI) | payer MEDICARE, OTHER, SELFPAY ==
--- NOTE | 2024-05-09 09:09 | XR_ITS ---
FINAL REPORT CLINICAL HISTORY: PAIN COMPARISON: None FINDINGS: RIGHT KNEE Three views demonstrate no acute fracture or dislocation. There is advanced medial compartment joint space narrowing. Chondrocalcinosis is noted in the medial and lateral compartment joint spaces. There is significant joint space narrowing at the patellofemoral joint. There is calcification superior to the patellofemoral joint seen on the lateral view. This may be within the quadriceps tendon. IMPRESSION: Moderately advanced osteoarthritis, particularly involving the medial compartment and patellofemoral joint spaces. Reviewed, Interpreted and Dictated by Greg Caldwell MD Transcribed by Myla Ignacio Authenticated and [facility]
[2024-05-09 09:23] LABS: Basophils # 0.1 K/mm3 (0-0.2); Basophils % 0.6 % (0.1-2.0); Eosinophils # 0.2 K/mm3 (0.0-0.4); Eosinophils % 2.9 % (0.1-12.0); Hemoglobin 12.9 g/dL (12.2-16.2); Lymphocytes # 1.2 K/mm3 (0.7-4.5); Lymphocytes % 15.2 % (10-50); Mean Corpuscular HGB Conc 34.9 g/dL (31.8-35.4); Mean Corpuscular Hemoglobin 31.3 pg (27.0-31.2); Mean Corpuscular Volume 89.8 fl (81-99); Mean Platelet Volume 11.5 fl (7.4-10.4); Monocytes # 0.5 K/mm3 (0.1-1.0); Monocytes % 6.1 % (1.7-9.3); Neutrophils # 5.8 K/mm3 (1.8-7.8); Neutrophils % 74.8 % (37.0-80.0); Platelet Count 185 K/mm3 (142-424); Red Blood Count 4.12 M/mm3 (4.20-5.40); Red Cell Distribution Width 12.5 % (11.5-17.5); White Blood Count 7.7 K/mm3 (4.8-10.8)
[2024-05-09 10:02] LABS: Albumin Level 4.1 g/dl (3.5-5.0); Chloride 106 mmol/L (98-107); Hemoglobin A1C 6.5 % (4.0-6.0); Potassium 4.3 mmoL/L (3.5-5.1); Sodium 140 mmol/L (136-145)
[2024-05-09 10:05] LABS: Alanine Aminotransferase 12 U/L (12-78); Albumin/Globulin Ratio 1.7 (1.1-1.8); Alkaline Phosphatase 54 U/L (38-126); Anion Gap 17.3 mEq/L (5-15); Aspartate Amino Transferase 17 U/L (14-36); Bilirubin,Total 1.7 mg/dl (0.2-1.3); Blood Urea Nitrogen 27 mg/dl (7-17); Carbon Dioxide 21 mmol/L (22.0-30.0); Estimated Glomerular Filt Rate 44 ml/min (>60); GFR (African American) 53 ML/MIN (>60); Globulin 2.4 g/dL (1.3-3.2); Total Protein,Serum 6.5 g/dl (6.3-8.2)
[2024-05-09 10:06] LABS: Calcium 10.5 mg/dl (8.4-10.2); Chol/HDL Ratio 4.4 (1-3.5); Cholesterol 194 mg/dl (140-200); Glucose 113 mg/dl (74-100); HDL Cholesterol 44 mg/dl (40-60); Triglycerides 171 mg/dl (30-150); VLDL Cholesterol 34 mg/dL (0-40)
[2024-05-09 10:18] LABS: Direct LDL Cholesterol 110.44 mg/dL (100-129)
[2024-05-09 10:23] LABS: Uric Acid 6.5 mg/dl (2.5-6.2)
[2024-05-09 10:36] LABS: Thyroid Stimulating Hormone 1.45 uIU/mL (0.465-4.68)
== END 2024-05-09 23:59 | disposition home or self-care (01) ==
LOC: RAD 08:47
PROVIDERS: PCP Nurse Practitioner Family; Visit Provider Nurse Practitioner Family
DX: M25.561 Pain in right knee (principal); E11.610 Type 2 diabetes mellitus with diabetic neuropathic arthropathy; I10 Essential (primary) hypertension; E03.9 Hypothyroidism, unspecified; E78.5 Hyperlipidemia, unspecified
CPT/HCPCS: 73562; 80053; 80061; 82043; 83036; 84443; 84550; 85025

== ENCOUNTER 2024-09-11 10:46 | Outpatient (CLI) | payer MEDICARE, OTHER, SELFPAY ==
--- NOTE | 2024-09-11 10:50 | XR_ITS ---
FINAL REPORT CLINICAL HISTORY: Right Foot Pain, limping COMPARISON: 09/09/2023. FINDINGS: AP, oblique and lateral views of the right foot were obtained. There is no acute fracture or dislocation. There is progressive multijoint degenerative change present, when compared to the prior exam of 09/09/2023, particularly involving the first MTP joint. A flatfoot deformity is present. Soft tissues are unremarkable. IMPRESSION: Progression of multijoint degenerative change, particularly involving the first MTP joint. No acute bony abnormality identified. Reviewed, Interpreted and Dictated by Maryanne Shrestha MD Transcribed by Heather Pascal Authenticated and [facility]
--- NOTE | 2024-09-11 10:50 | XR_ITS ---
FINAL REPORT CLINICAL HISTORY: Left Foot Pain pt states she has L charcot foot, pain limping COMPARISON: 09/09/2023 FINDINGS: AP, oblique and lateral views of the left foot were obtained. There is no acute fracture or dislocation. Since the prior exam, there has been progressive multijoint degenerative change, particularly involving the first MTP joint. A flatfoot deformity is noted. Soft tissues are unremarkable. IMPRESSION: Progression of multijoint degenerative change, particularly involving the first MTP joint, with no acute osseous abnormality of the left foot. Reviewed, Interpreted and Dictated by Maryanne Shrestha MD Transcribed by Heather Pascal Authenticated and [facility]
== END 2024-09-11 23:59 | disposition home or self-care (01) ==
LOC: RAD 10:48
PROVIDERS: PCP Nurse Practitioner Family; Visit Provider Nurse Practitioner
DX: M15.9 Polyosteoarthritis, unspecified (principal); M77.31 Calcaneal spur, right foot; M21.41 Flat foot [pes planus] (acquired), right foot; M21.42 Flat foot [pes planus] (acquired), left foot; E11.8 Type 2 diabetes mellitus with unspecified complications
CPT/HCPCS: 73630

== ENCOUNTER 2024-12-24 06:19 | Emergency (ER) | payer MEDICARE, OTHER, SELFPAY ==
--- OUTSIDE RECORDS SUMMARY | 2024-07-15 17:30 | XMS_ITS ---
Author Organization [facility] Address [address] [place] [address] Care Team Providers Care Asphalt Spreader Name Role Phone Catherine Hernandez Primary Care Provider Migration, Provider Unavailable Unavailable Allergies Allergen (clinical drug ingredient) Drug/Non Drug Allergy documented on EMR Reaction Allergy Type Onset Date Status Ciprofloxacin shakes Drug Allergy Act sofia nitrofurantoin, macrocrystals / nitrofurantoin, monohydrate Macrobid abdominal cramping Drug Allergy Active REASON FOR VISIT [facility] To [facility] Conversion Encounter Medications Medication SIG (Take, Route, Frequency, Duration) Notes Start Date End Date Status Loratadine 10 MG TAKE 1 TABLET DAILY Active ACCU-CHECK AVIA PLUS TEST STRIPS NA DIRECTED ONCE A DAY ONCE A DAY *Please review for potential replacement for e-prescription and drug interaction check* Active Voltaren Arthritis Pain 1 % as directed applied topically 4 times a day Active Losartan Potassium 25 MG 1 tab(s) orally once a day; Duration: 90 days 05/11/2024 Active Lidocaine 5 % 1 patch applied topically once a day; Duration: 30 day(s) prn Active Januvia 100 MG TAKE 1 TABLET DAILY; Duration: 90 days Active Glimepiride 4 MG 1 1/2 tab(s) orally once a day; Duration: 90 days Active Pantoprazole Sodium 40 MG 1 tab(s) orally once a day; Duration: 30 days Active Synthroid 75 MCG 1 tab(s) orally once a day; Duration: 90 days Active Atorvastatin Calcium 20 MG TAKE 1 TABLET orally once a day at night; Duration: 90 days Active metFORMIN HCl 1000 MG 1 cap orally once a day; Duration: 90 days Active Mupirocin 2 % 1 jayson applied topically 3 times a day; Duration: 7 days Active FREESTYLE LITE TEST STRIPS USE TO CHECK BLOOD SUGAR DX:E11.9 ONCE DAILY; Duration: 100 DAYS *Please review for potential replacement for e-prescription and drug interaction check* Active Encounters Encounter Location Date Provider Diagnosis [facility] [address] [facility] [address] [place] [address] 07/15/2024 Provider Migration Plan Of Treatment Medication Medication Name Sig Start Date Stop Date Notes Losartan Potassium 25 MG 1 tab(s) orally once a day; Duration: 90 days 05/11/2024 Next Appt Details Provider Name:Catherine Martinez ce, 12/28/2024 09:00:00 AM, [address] [facility], [address], [place], [address], Progress Notes * Clau GUTIÉRREZB:1950 (74 yo F)Acc No.[id number]:07/15/2024 Patient: Vera KELLER Provider: Yg jorgensen Migration :1950 A ge:73 Y S ex:Female Date:07/15/2024 Address:[address] [place] [address] [place], [place], [id number] Pcp:Catherine Hernandez Subjective: * Chief Complaints: * 1 . [facility] Conversion Encounter. * Medical History: * Medications: T ishag Voltaren Arthritis Pain 1 % Gel as directed applied topically 4 times a day , Taking ACCU-CHECK AVIA PLUS TEST STRIPS NA 100'S BOX DIRECTED ONCE A DAY ONCE A DAY , Notes to Pharmacist: *Please review for potential replacement for e-prescription and drug interaction check*, Taking Loratadine 10 MG Tablet TAKE 1 TABLET DAILY , Taking Lidocaine 5 % Patch 1 patch applied topically once a day , Notes to Pharmacist: prn, Taking FREESTYLE LITE TEST STRIPS USE TO CHECK BLOOD SUGAR DX:E11.9 ONCE DAILY , Notes to Pharmacist: *Please review for potential replacement for e-prescription and drug interaction check*, Taking Mupirocin 2 % Ointment 1 jayson applied topically 3 times a day , Taking metFORMIN HCl 1000 MG Tablet 1 cap orally once a day , Taking Atorvastatin Calcium 20 MG Tablet TAKE 1 TABLET orally once a day at night , Taking Synthroid 75 MCG Tablet 1 tab(s) orally once a day , Taking Pantoprazole Sodium 40 MG Tablet Delayed Release 1 tab(s) orally once a day , Taking Glimepiride 4 MG Tablet 1 1/2 tab(s) orally once a day , Taking Januvia 100 MG Tablet TAKE 1 TABLET DAILY * Allergies: C iprofloxacin: shakes, Macrobid: abdominal cramping - Side Effects. Objective: * Vitals: Assessment: Plan: * Treatment: * * Electronic signature of Saeed morrison Migration on 12/24/2024 at 06:40 AM EDT Sign off status: Pending * Provider: Yg jorgensen Migration Date: 07/15/2024 Generated for Sim fierro/Jasmyn/Payton on: 12/24/2024 06:40 AM EDT
--- OUTSIDE RECORDS SUMMARY | 2024-11-02 08:10 | XMS_ITS | Encounter Summary ---
Author Organization Healthcare Address [address] [place] [address] Care Team Providers Care Prop Sawyer Name Role Phone Catherine Hernandez JANAY Primary Care Provider +1- [phone] Encounter Details Date Type Department Care Team (Latest Contact Info) Description 11/02/2024 8:10 AM EDT - 11/02/2024 11:59 PM EDT Hospital Encounter [facility] [address] [facility], [address] [place] [address] Age-related osteoporosis without current pathological [...] Medical Office Building Surgical Specialties [address] [facility], [facility] 302 [place] [address] Lacho Lenz MD [address] [facility] 302 [place] [phone] 11/08/2025 8:20 AM EDT Office Visit [facility] Min[facility] [address] [facility], [facility] [address] [place] [address] Lauri Zavala MD [address] [facility] 401 [place] [address] 11/08/2025 8:40 AM EDT Appointment [facility] [address] [facility], [facility] [address] [place] [address] documented as of this encounter Procedures Procedure Name Priority Date/Time Associated Diagnosis Comments DEXA BONE DENSITY Routine 11/02/2024 8:1 0 AM EDT Age-related osteoporosis without current pathological fracture documented in this encounter Results * Dexa Bone Density (11/02/2024 8:10 AM EDT) Anatomical Region Laterality Modality L-spine Radiographic Whitney ging Narrative 11/12/2024 10:28 AM EDT [facility] - [facility] [address] [place] [address], [place] [address] DXA Bone Densitometry Report: [Date of exam] BMD test performed using the Bolt DXA System (analysis version: 14.10) manufactured by [employer]. REFERRING PROVIDER: Dr. Lauri Zavala MD CLINICAL [...] documented as of this encounter Care Teams Prop Sawyer Relationship Specialty Start Date End Date Catherine Hernandez APRN [address] [place] [id number] PCP - General 08/23/20 documented as of this encounter
--- OUTSIDE RECORDS SUMMARY | 2024-11-02 08:40 | XMS_ITS | Encounter Summary ---
Author Organization Healthcare Address [address] [place] [address] Care Team Providers Care Bench Chemist Name Role Phone Catherine Hernandez JANAY Primary Care Provider +1- [phone] Reason for Referral * Consultation (Routine) - Authorized Specialty Diagnoses / Procedures Referred By Damaris t Referred To Contact General, Endocrine & Minimally Invasive Surgery / General Surgery Diagnoses Age-related osteoporosis without current pathological fracture Stage 3a chronic kidney disease (CMS/HCC) Hypercalcemia Hyperparathyroidism ([facility]/HCC) Kailash Granados PA [address] [address] Phone: tel: fax: Ijeoma Logan MD [address] [address] Phone: tel: fax: Referral ID Status Reason Start Date Expiration Date Visits Requested Visits Authorized [id number] Authorized Specialty Services Required 11/02/2024 05/04/2026 1 1 Scheduling Instructions Please evaluate for primary hyperparathyroidism, adenoma on NM parathyroid imaging Thanks! * Consultation (Routine) - Authorized Specialty Diagnoses / Procedures Referred By Contac t Referred To Contact Diagnoses Age-related osteoporosis without current pathological fracture Stage 3a chronic kidney disease (CMS/HCC) Hypercalcemia Kailash Granados PA [address] [address] Phone: tel: fax: Referral ID Status Reason Start Date Expiration Date V isits Requested Visits Authorized [id number] Authorized 11/02/2024 05/04/2026 1 1 Reason for Visit * Reason Comments Follow-up * Consultation (Routine) - Closed Specialty Diagnoses / Procedures Referred By Damaris donald Referred To Contact Diagnoses Age-related osteoporosis without current pathological fracture Lauri Zavala MD [address] [place] [address] Phone: tel: fax: Referral ID Status Reason Start Date Expiration Date Visits Re quested Visits Authorized [id number] Closed 08/28/2024 02/27/2026 1 1 Encounter Details Date Type Department Care Team ([facility] st Contact Info) Description 11/02/2024 8:40 AM EDT Office Visit [facility] [address], [address] [place] [address] Lauri Zavala MD [address] [place] [address] Age-related osteoporosis without current pathological fracture [...] XRT, renal stones, dental issues/scheduled dental procedures, oil heaterman corticosteroid; - Has underlying UC, Colectomy in [...] file Social Connections: Unknown (01/20/2023) Received from [facility] Family and Community Support Help with Day-to-Day Activities: Not on file Lonely or Isolated: Not on file Intimate Partner Violence: Unknown (01/20/2023) Received from [facility] Abuse Screen Unsafe at Home or Work/School: Not on file Feels Threatened by Someone?: Not on file Does Anyone Keep You from Contacting Others or Doint Things Outside the Home?: Not on file Physical Sign of Abuse Present: Not on file Housing Stability: Unknown (01/20/2023) Received from [facility] Housing Stability Current Living Arrangements: Not [...] , LH , PROLACTIN , TSH , [id number] , FREET4 , CORTISOL Urine studies: Lab [...] (delayed set) acquired and processed using Siemens Taxi 24/7 Intevo 16 SPECT/CT hybrid technology. Three-dimensional attenuation-corrected SPECT, CT and fused SPECT/CT tomographic images in coronal, sagittal, and transverseplanes created and reviewed interactively to optimize sensitivity, specificity, and anatomic localization. CT: low-dose, [id number]-[id number], without intravenous contrast; TOTAL DLP (Dose Length [...] pathological fracture Stage 3a chronic kidney disease ([facility]) Hypercalcemia Hyperparathyroidism ([facility]) IgG lambda monoclonal gammopathy [3] Past Surgical [...] Medical Office Building Surgical Specialties [address] [facility], [address] [place] [address] Lacho Lenz MD [address] [facility] [address] [place] [address] 11/08/2025 8:20 AM EDT Office Visit [facility] Bone & Mineral Metabolism [address] [facility], [address] [place] [address] Lauri Zavala MD [address] [facility] [address] [place] [address] 11/08/2025 8:[address] [facility] Bone & Mineral Metabolism [address] [facility], [address] [place] [address] Scheduled Orders Name Type Priority [...] Hyperparathyroidism (CMS/HCC) Expected: 10/25/2025 (Approximate), Expires: 05/06/2026 [place] Lambda Quant Free Light Chains w/Ratio Lab [...] documented as of this encounter Care Teams Bench Chemist Relationship Specialty Start Date End Date Catherine Hernandez APRN [address] [place] [address] [place] [address] PCP - General 08/23/20 documented as of this encounter
--- OUTSIDE RECORDS SUMMARY | 2024-12-12 07:15 | XMS_ITS ---
Author Organization [facility] Address [address] [place] [address] Care Team Providers Care Cinder Dump Crane Operator Name Role Phone Catherine Hernandez Primary Care Provider Allergies Allergen (clinical drug ingredient) Drug/Non Drug Allergy documented on EMR Reaction Allergy Type Onset Date Status Ciprofloxacin shakes Drug Allergy Act sofia nitrofurantoin, macrocrystals / nitrofurantoin, monohydrate Macrobid abdominal cramping Drug Allergy Active Results Component Value Reference Range Notes Urinalysis Reviewed date:12/12/2024 02:14:08 PM Interpretation: Performing Lab: Notes/Report: Color/Clarity yellow Leuk small Nitrite neg Urobili 0.2 Protein neg pH 5.5 Blood neg Sp. Gr. >=1.030 Ketone neg Bili neg Glucose neg CULTURE, URINE, ROUTINE (395 ) Reviewed date:12/21/2024 05:53:33 PM Interpretation: Performing Lab:CB, [facility] [address], [facility] Yannick Elizalde Notes/Report: NON-FASTING CULTURE, URINE, ROUTINE SEE NOTE CULTURE, URINE, ROUTINE Micro Number: [id number] Test Status: Final Specimen Source: Urine Specimen Quality: Adequate Result: Mixed genital brittani isolated. These superficial bacteria are not indicative of a urinary tract infection. No further organism identification is warranted on this specimen. If clinically indicated, recollect clean-catch, mid-stream urine and transfer immediately to Urine Culture Transport Tube. REASON FOR VISIT possible UTI Medications Medication SIG (Take, Route, Frequency, Duration) Notes Start Date End Date Status Losartan Potassium 25 MG 1 tab(s) orally once a day; Duration: 90 days Active FREESTYLE LITE TEST STRIPS USE TO CHECK BLOOD SUGAR DX:E11.9 ONCE DAILY; Duration: 100 DAYS Active Pantoprazole Sodium 40 MG 1 tab(s) orally once a day; Duration: 30 days Active metFORMIN HCl 1000 MG 1 cap orally once a day; Duration: 90 days Active Januvia 100 MG TAKE 1 TABLET DAILY; Duration: 90 days Active Cefdinir 300 MG 300 mg Orally 2 times a day; Duration: 5 days 12/12/2024 Active Mupirocin 2 % 1 jayson applied topically 3 times a day; Duration: 7 days Active Synthroid 75 MCG 1 tab(s) orally once a day; Duration: 90 days Active Atorvastatin Calcium 20 MG TAKE 1 TABLET orally once a day at night; Duration: 90 days Active Glimepiride 4 MG 1 1/2 tab(s) orally once a day; Duration: 90 days Active Voltaren Arthritis Pain 1 % as directed applied topically 4 times a day Active Lidocaine 5 % 1 patch applied topically once a day; Duration: 30 day(s) prn Active Loratadine 10 MG TAKE 1 TABLET DAILY Active ACCU-CHECK AVIA PLUS TEST STRIPS NA DIRECTED ONCE A DAY ONCE A DAY *Please review for potential replacement for e-prescription and drug interaction check* Active Problems Problem Type SNOMED Code ICD Code Onset Dates Problem Status W/U Status Risk Notes Problem Midline cystocele (990951298) Female bladder prolapse (N81.10) Active confirmed Vital Signs Temperature 96.6 degrees Fahrenheit 12/13/19 25 Heart Rate 76 /min 12/12/2024 Blood pressure systolic 126 mm Hg 12/13/19 25 Blood pressure diastolic 62 mm Hg 025 Height 62.5 in 12/12/2024 Weight 134 lbs 12/12/2024 BMI 24.12 kg/m2 12/12/2024 Encounters Encounter Location Date Provider Diagnosis [facility] [address] [place] [address] 12/12/2024 Catherine Mary Urinary frequency R35.0 ; Acute UTI N39.0 and Female bladder prolapse N81.10 Assessments Encounter Date Diagnosis (ICD Code) Assessment Notes Treatment Notes Treatment Clinical Notes Section Notes 12/12/2024 Urinary frequency (ICD-10 - R35.0) 12/12/2024 Acute UTI (ICD-10 - N39.0) Discussed suspected UTI based on symptoms/UA results and need for treatment with antibiotics as well as good water intake. Discussed return precautions including fever, vomiting, intractable pain, etc. 12/12/2024 Female bladder prolapse (ICD-10 - N81.10) could be contributing to symptoms, has consulted with CAMPAIGN SPECIALIST previously Plan Of Treatment Medication Medication Name Sig Start Date Stop Date Notes Cefdinir 300 MG 300 mg Orally 2 time s a day; Duration: 5 days 12/12/2024 Next Appt Details Follow Up: prn, Reason: Provider Name:Catherine Martinez ce, 12/28/2024 09:00:00 AM, [address], [place], [address], Progress Notes * James GUTIÉRREZaDOB:1950 (74 yo F)Acc No.[id number]:12/12/2024 Progress Notes Patient: Vera KELLER Provider: MIGUEL Ace :1950 A ge:74 Y S ex:Female Date:12/12/2024 Address:[facility] [address] [place], [id number] Subjective: * Chief Complaints: * 1 . possible UTI. * HPI: g en: 74 yr old female with h/o ileostomy and bladder prolapse p resents today with c/o urinary frequency, lower back pain, malaise for 2-3 days. Has been taking cranberry every day and overall her frequency of urinary symptoms had improved. No fevers. No blood in urine. Does feel that the bulge of her bladder prolapse has gotten worse. * ROS: R ESPIRATORY: no S hortness of breath. n o C ough. ? C ONSTITUTIONAL: no L oss of appetite. n o F ever. D ERMATOLOGY: no R cassidy. G ASTROENTEROLOGY: no V omiting. A bdominal pain y es. D iarrhea?yes, b aseline. 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 * Medications: T aking Voltaren Arthritis Pain [...] day , Notes to Pharmacist: prn, Taking Mupirocin 2 % Ointment 1 jayson applied topically 3 times a day , Taking Atorvastatin Calcium 20 MG Tablet TAKE 1 TABLET orally once a day at night , Taking Synthroid 75 MCG Tablet 1 tab(s) orally once a day , Taking Glimepiride 4 MG Tablet 1 1/2 tab(s) orally once a day , Taking metFORMIN HCl 1000 MG Tablet 1 cap orally once a day , Taking Pantoprazole Sodium 40 MG Tablet Delayed Release 1 tab(s) orally once a day , Taking FREESTYLE LITE TEST STRIPS USE TO CHECK BLOOD SUGAR DX:E11.9 ONCE DAILY , Taking Losartan Potassium 25 MG Tablet 1 tab(s) orally once a day , Taking Januvia 100 MG Tablet TAKE 1 TABLET DAILY , Medication List reviewed and reconciled with the patient * Allergies: C iprofloxacin: shakes, Macrobid: abdominal cramping - Side Effects. Objective: * Vitals: N urse: nm, Pain: 3, Temp: 96.6, HR: 76, BP: 126/62, Ht: 62.5, Wt: 134, BMI:24.12. * Examination: G eneral Examination: General P leasant and Cooperative, NAD on RA,. Heart: R egular Rate and Rhythm. Lungs: c lear to auscultation,. Abdomen: s oft, ND, BS present, no CVA tenderness,. Psych N ormal Mood/Affect. Assessment: * Assessment: 1. A cute UTI - N39.0 (Primary) 2 . U rinary frequency - R35.0 ?3. F emale bladder prolapse - N81.10 Plan: * Treatment: Value Reference Range C ULTURE SEE NOTE - * This lab was reviewed by Daniel Hernandez on 12/21/2024 at 17:53 PM EDT Clinical Notes: Discussed suspected UTI based on symptoms/UA results and need for treatment with antibiotics as well as good water intake. Discussed return precautions including fever, vomiting, intractable pain, etc.??2.?Urinary frequency?LAB: CULTURE, URINE, ROUTINE (395) (Collection Date & Time - 12/12/2024 12:07 PM)* Value Reference Range C ULTURE SEE NOTE - * This lab was reviewed by Daniel Hernandez on 12/21/2024 at 17:53 PM EDT ?LAB: Urinalysis (Collection Date & Time - 12/12/2024)* Value Reference Range C olor/Clarity yellow * L euk small * N itrite neg * U robili 0.2 * P rotein neg * p H 5.5 * B lood neg * S p. Gr. >=1.030 * K etone neg * B jamie neg * G lucose neg * Carmen Fisher 12/13/19 11:39:41 AM EDT > 3.?Female bladder prolapse? Clinical Notes: could be contributing to symptoms, has consulted with CAMPAIGN SPECIALIST previously?? * Procedure Codes: 8 1002 URINALYSIS, Modifiers: QW * Follow Up: p rn * * Sign off status: Completed true * Provider: MIGUEL Ace Date: 12/12/2024 Generated for Sim fierro/Jasmyn/Northitting on: 12/24/2024 06:41 AM EDT History and Physical Notes * Examination Category Sub-Category Detail Notes Category Not es General Examination Heart: Regular Rate and Rhyt hm Lungs: clear to auscultatio n, Abdomen: soft, ND, BS present , no CVA tenderness, General Pleasant and Coopera tive, NAD on RA, Psych Normal Mood/Affect
--- OUTSIDE RECORDS SUMMARY | 2024-12-19 06:41 | XMS_ITS ---
Author Organization [facility] Address [address] [facility] [address] [place] [address] Care Team Providers Care Inspector Health Care Facilities Name Role Phone Catherine Hernandez Primary Care Provider REASON FOR VISIT mammogram order Encounters Encounter Location Date Provider Diagnosis [facility] [address] [place], [place] [address] 12/19/2024 Catherine Hernandez Breast cancer screening by [address], [place], [address], Progress Notes * James GUTIÉRREZLaurieB:1950 (74 yo F)Acc No.[id number]:12/19/2024 Patient: Vera KELLER :1950 A ge:74 Y S ex:Female [address], [address] Subjective: * Chief Complaints: * M ammogram order * Medical History: * Surgical History: * Hospitalization/Major Diagno stic Procedure: * Medications: Objective: * Vitals: * Physical Examination: Assessment: * Assessment: 1. B reast cancer screening by mammogram - Z12.31 Plan: * Treatment: * Procedure Codes: * true * Date: Generated for Sim fierro/Jasmyn/Payton on: 0 12/24/2024 06:40 AM EDT
--- OUTSIDE RECORDS SUMMARY | 2024-12-20 07:00 | XMS_ITS ---
Author Organization [facility] Address [address] [place] [address] Care Team Providers Care Meat Stuffer Name Role Phone Catherine Hernandez Primary Care Provider [phone] Dave Rocha Unavailable [phone] Allergies Allergen (clinical drug ingredient) Drug/Non Drug [...] 12/20/2024 Encounters Encounter Location Date Provider Diagnosis [facility] [address] [place] [address] 12/20/2024 Dave Rocha Urinary frequency R35.0 Assessments [...] canal on self examination, she notes seeing RING SPINNER for this many years ago when prolapse was less severe and was asymptomatic - has not completed Pelvic Floor PT in past - discussed with patient, she will call and schedule appointment with RING SPINNER, Dr. Tracey, regarding concerns for pelvic organ [...] canal on self examination, she notes seeing RING SPINNER for this many years ago when prolapse was less severe and was asymptomatic - has not completed Pelvic Floor PT in past - discussed with patient, she will call and schedule appointment with RING SPINNER, Dr. Tracey, regarding concerns for pelvic organ prolapse and if warranting further interventions at that time - patient has rountine follow up scheduled for annual visit in our clinic in the coming weeks Next Appt Details Follow Up: prn, Reason: Provider Name:Catherine Martinez ce, 12/28/2024 09:00:00 AM, [address] [place] [facility] [address] [facility], [address], [place], [address], Progress Notes * James GUTIÉRREZLaurieB:1950 (74 yo F)Acc No.[id number]:12/20/2024 Progress Notes Patient: Vera KELLER Provider: Gael Rocha MD :1950 A ge:74 Y S ex:Female Date:12/20/2024 Address:[address] [place] [address], [facility] Pcp:Catherine Hernandez Subjective: * Chief Complaints: * [...] bladder prolapse years ago and has seen RING SPINNER, Dr. Tracey, for this in the past [...] is planning on calling to schedule with RING SPINNER for follow up on bladder prolapse and [...] canal on self examination, she notes seeing RING SPINNER for this many years ago when prolapse was less severe and was asymptomatic - has not completed Pelvic Floor PT in past - discussed with patient, she will call and schedule appointment with RING SPINNER, Dr. Tracey, regarding concerns for pelvic organ [...] 12/20/2024 Generated for Printi ng/Fatwing/eTransmitting on: 0 12/24/2024 06:40 AM EDT History and Physical Notes * [...] bladder prolapse years ago and has seen RING SPINNER, Dr. Tracey, for this in the past [...] is planning on calling to schedule with RING SPINNER for follow up on bladder prolapse and has not yet completed pelvic floor PT. Examination Category Sub-Category Detail Notes Category Not es General Examination Heart: Regular Rate and Rhyt hm Lungs: clear to auscultatio n, Abdomen: soft, ND, BS present , no CVA tenderness, General Pleasant and Coopera tive, NAD on RA, Psych Normal Mood/Affect
[2024-12-24] VITALS (9 sets, daily range): BP systolic 113–154; BP diastolic 64–70; PULSE 88–110; RESP 15–16; TEMP 36.3–36.5; O2SAT 95–99; BMI 23.9
--- NOTE | 2024-12-24 06:29 | XR_ITS ---
PROCEDURE INFORMATION: Exam: XR Chest Exam date and time: 12/24/2024 7:30 AM Age: 74 years old Clinical indication: Other: Syncope TECHNIQUE: Imaging protocol: Radiologic exam of the chest. Views: 1 view. COMPARISON: CR XR CHEST PORTABLE 06/28/2021 1:36 PM FINDINGS: Lungs: Stable calcified granulomas both lung bases. No focal consolidation. Pleural spaces: Unremarkable. No pleural effusion. No pneumothorax. Heart/Mediastinum: Unremarkable. No cardiomegaly. Bones/joints: Stable scoliotic curvature of the thoracic spine. IMPRESSION: No acute findings.
--- NOTE | 2024-12-24 06:33 | ECG_ITS ---
APPROVED REPORT Exam: Resting ECG HR:100 bpm ECG Measurements Heart Rate 100 AXES NV 136 P 64 QRSd 85 QRS 79 QT 352 T 69 QTc 409 Conclusion SINUS TACHYCARDIA MINIMAL ST DEPRESSION [0.025+ mV ST DEPRESSION] No STEMI Electronically signed by : ZIA SOARES, 12/24/2024 23:11:45
--- OUTSIDE RECORDS SUMMARY | 2024-12-24 06:40 | XMS_ITS | Encounter Summary ---
Author Organization Healthcare Address [address] [place] [address] Care Team Providers Care Bunch Maker Name Role Phone Catherine Hernandez APRN Primary Care Provider +1- [phone] Reason for Referral * Consultation (Routine) - Closed Specialty Diagnoses / Procedures Referred By Damaris donald Referred To Contact Nephrology Diagnoses Osteoporosis, unspecified osteoporosis type, unspecified pathological fracture presence Hypercalcemia Catherine Hernandez APRN [address] [address] Phone: tel: fax: Lauri Zavala MD [address] [address] Phone: tel: fax: Referral ID Status Reason Start Date Expiration Date V isits Requested Visits Authorized [id number] Closed Specialty Services Required 05/22/2024 11/21/2025 1 1 Encounter Details Date Type Department Care Team (Latest Contact Info) Description 05/22/2024 Community Orders [facility] [address] [place] [address] Catherine Hernandez APRN [address] [address] Osteoporosis, unspecified osteoporosis type, unspecified pathological fracture presence (Primary Dx); Hypercalcemia Social History Tobacco Use Types Packs/Day Years Used Date Smoking Tobacco: Never Assessed Comments Unknown Sex and Gender Information Value Date Recorded Sex Assigned at Not on file Legal Sex Female 8:17 PM EDT Gender Identity Not on file Sexual Orientation Not on file documented as of this encounter Plan of Treatment Upcoming Encounters Date Type Department Care Team ([facility] st Contact Info) Description 04/26/2025 2:00 PM EST Consult Medical Office Building Surgical Specialties [address] [facility], [address] [place] [address] Lacho Lenz MD [address] [facility] [address] [place] [address] 11/08/2025 8:20 AM EDT Office Visit [facility] [address] [facility], [address] [place] [address] Lauri Zavala MD [address] [facility] [address] [place] [address] 11/08/2025 8:40 AM EDT Appointment [facility] [address] [facility], [address] [place] [address] Scheduled Referrals Name Type Priority Associated Diagnoses Orde r Schedule Ambulatory referral to Nephrology Outpatient Referral Routine Osteoporosis, unspecified osteoporosis type, unspecified pathological fracture presence Hypercalcemia Ordered: 05/22/2024 documented as of this encounter Visit Diagnoses Diagnosis Osteoporosis, unspecified osteoporosis type, unspecified pathological fracture presence- Primary Hypercalcemia documented in this encounter Care Teams Bunch Maker Relationship Specialty Start Date End Date Catherine Hernandez APRN [address] [place] [address] PCP - General 08/23/20 documented as of this encounter
--- OUTSIDE RECORDS SUMMARY | 2024-12-24 06:40 | XMS_ITS | Encounter Summary ---
Author Organization Healthcare Address [address] [place] [address] Care Team Providers Care Fiscal Technician Name Role Phone Catherine Hernandez ENERGY SYSTEMS ENGINEER Primary Care Provider +1- [phone] Encounter Details Date Type Department Care Team (Latest Contact Info) Description 11/02/2024 Travel Social History Tobacco Use Types Packs/Day Years [...] Not at all 11/02/2024 8:33 AM EDT DayYusufJossy E Feeling down, depressed, or hopeless Not at all 11/02/2024 8:33 AM EDT Day, Jossy E Patient Health Questionnaire -2 Score 0 11/02/2024 8:33 AM EDT Day Jossy E documented as of this encounter Plan of Treatment Upcoming Encounters Date Type Department Care Team (Late st Contact Info) Description 04/26/2025 2:00 PM EST Consult Medical Office Building Surgical Specialties [address] [facility], [address] [place] [address] Lacho Lenz MD [address] [facility] [address] [place] [address] 11/08/2025 8:20 AM EDT Office Visit [facility] [address] [facility], [address] [place] [address] Lauri Zavala MD [address] [place] [address] 11/08/2025 8:[address] [facility] [address] [facility], [address] [place] [address] documented as of this encounter Visit Diagnoses Not on filedocumented in this encounter Additional Health Concerns Assessment Noted Time A fall risk assessment has been complete d for the patient 11/02/2024 8:33 AM EDT A Body Mass Index follow-up plan has been documented for the patient 11/02/2024 9:00 AM EDT documented as of this encounter Care Teams Fiscal Technician Relationship Specialty Start Date End Date Catherine Hernandez APRN [address] [place] [address] PCP - General 08/23/20 documented as of this encounter
--- OUTSIDE RECORDS SUMMARY | 2024-12-24 06:40 | XMS_ITS | Clinical Summary ---
Author Organization Healthcare Address [address] [place] [address] Care Team Providers Care Motivational Speaker Name Role Phone Catherine Hernandez STEAM FINISHER Primary Care Provider +1- [phone] Allergies Active Allergy Reactions Criticality Noted Date Comments Ciprofloxacin Other - please docum ent in the comment field Low 08/28/2024 Nitrofurantoin Other - please docum ent in the comment field Low 11/02/2024 Pt reported stomach cramps Medications glimepiride (Amaryl) 4 MG tablet 09/13/2023 Active pantoprazole (Protonix) 40 MG EC tablet 1 (one) time each day at the same time. Active atorvastatin (Lipitor) 20 MG tablet TAKE 1 TABLET orally once a day at night for 90 days Active Synthroid 75 MCG tablet 09/08/2023 Active loratadine (Claritin) 10 MG tablet Take 1 tablet by mouth daily. Active Januvia 100 MG tablet TAKE 1 TABLET DAILY for 90 days Active metFORMIN (Glucophage) 1000 MG tablet 1 (one) time each day at the same time. Active losartan (Cozaar) 25 MG tablet 08/05/2024 Active mupirocin (Bactroban) 2 % ointment every 8 hours. 09/07/2023 Active lidocaine (Lidoderm) 5 % patch 1 patch 1 (one) time each day at the same time. Active diclofenac (Voltaren) 1 % topical gel every 6 hours. Active FREESTYLE LITE test strip 10/10/2024 Active Active Problems Problem Noted Date Diagnosed Date Age-related osteoporosis wit hout current pathological fracture 11/02/2024 Stage 3a chronic kidney disease 11/02/2024 Hypercalcemia 11/02/2024 Hyperparathyroidism 11/02/2024 IgG lambda monoclonal gammopathy 11/02/2024 Encounters Date Type Department Care Team Description 11/02/2024 8:40 AM EDT Office Visit [facility] [address] [place] [address] Lauri Zavala MD Age-related osteoporosis without current pathological fracture (Primary Dx); Stage 3a chronic kidney disease (CMS/HCC); Hypercalcemia; Hyperparathyroidism (CMS/HCC); IgG lambda monoclonal gammopathy 11/02/2024 8:10 AM EDT - 11/02/2024 11:59 PM EDT Hospital Encounter [facility] [address] , [address] [place] [address] Age-related osteoporosis without current pathological fracture Discharge Disposition: Home or Self Care 11/02/2024 Travel 09/25/2024 12:30 PM EDT - 09/25/2024 11:59 PM EDT Hospital Encounter [facility] [address] [place] [address] Discharge Disposition: Home or Self Care 09/25/2024 10:38 AM EDT - 09/25/2024 12:29 PM EDT Hospital Encounter [facility] [address] [place] [address] Discharge Disposition: Home or Self Care 09/25/2024 10:30 AM EDT - 09/25/2024 10:37 AM EDT Hospital Encounter [facility] [address] [place] [address] Age-related osteoporosis without current pathological fracture; Stage 3a chronic kidney disease ([facility]/HCC); Hypercalcemia Discharge Disposition: Home or Self Care 09/25/2024 10:30 AM EDT - 09/25/2024 10:37 AM EDT Hospital Encounter [facility] [address] [place] [address] Age-related osteoporosis without current pathological fracture; Stage 3a chronic kidney disease (CMS/HCC); Hypercalcemia Discharge Disposition: Home or Self Care 09/25/2024 Travel from Last 3 Months Immunizations Immunization Administration Dates Next Due Influenza Vaccine, Quadrival ent, Adjuvanted 01/06/2023 Influenza, High-dose, Split Virus, Trivalent, Injectable, preservative free 01/19/2024 Influenza, Split (incl. adria fied surface antigen) 02/06/2014 Influenza, high-dose, quadrivalent 12/16,12/15/2020,11/28/2019,12/26 Influenza, injectable, quadrivalent 12/14/2017 Influenza, trivalent, adjuvanted 12/26/2016 Pneumococcal Conjugate PCV 13 03/25/2017 Pneumococcal Polysaccharide PPV23 02/28/2016 Td (adult), 5 Lf tetanus tox oid, preservative free, adsorbed 03/25/2017 Zoster, Recombinant 03/01/2018 Zoster, live 10/12/2016 Social History Tobacco Use Types Packs/Day Years [...] on file Sexual Orientation Not on file Last Filed Vital Signs Vital Sign Reading [...] Mass Index 25.45 11/02/2024 8:36 AM EDT Plan of Treatment Upcoming Encounters Date Type Department Care Team ([facility] st Contact Info) Description 04/26/2025 2:00 PM EST Consult Medical Office Building Surgical Specialties [address] [facility], [address] [place] [address] Lacho Lenz MD [address] [place] [address] 11/08/2025 8:20 AM EDT Office Visit [facility] [address], [address] [place] [address] Lauri Zavala MD [address] [place] [address] 11/08/2025 8:40 AM EDT Appointment [facility] [address] [facility], [address] [place] [address] Health Maintenance Due Date Last Done Comments [facility]-Diabetes: Hemoglobin A1C 1950 [facility]-Hepatitis C Screening 1950 [facility]Medicare Annual Wellness (AWV) 1950 [facility]-Infant/Child/Adol SDOH Screenings 1950 Diabetes: Dental Exam 1958 [facility]- SDOH Screenings 1966 [facility]-Adult SDOH Screenings 1966 [facility]-DTaP,Tdap,and Td Vaccines (1 - Tdap) 03/26/2017 03/25/2017 [facility]-Zoster Vaccines (3 of 3) 04/26/2018 03/01/2018, 10/12/2016 [facility]-RSV Vaccine: 60+ Years or (1 - 1-dose 75+ series) 12/11/2023 [id number] Vaccine (4 - 2024- season) 2024 02/11/2021, 06/19/2020, 05/22/2020 [facility]-Influenza Vaccine (#1) 12/11/202401/18, 01/06/2023, 12/16/2021, Additional history exists [facility]-Bone Density Scan 11/02/2025 11/02/2024 [facility]-Depression Screening 11/02/2025 11/02/2024 [facility]-Pneumococcal Vaccine: 50+ Years Completed 03/25/2017, 02/28/2016 [facility]-Obesity Intervention Completed 11/02/2024, 08/10 HPV Vaccines Aged Out No longer eligi ble based on patient's age to complete this topic [facility]-HIB Vaccines Aged Out No longer e ligible based on patient's age to complete this topic [facility]-Hepatitis A Vaccines Aged Out No longer eligible based on patient's age to complete this topic [facility]-IPV Vaccines Aged Out No longer e ligible based on patient's age to complete this topic [facility]-Rotavirus Vaccines Aged Out No lo nger eligible based on patient's age to complete this topic Procedures Procedure Name Priority Date/Time Associated Diagnosis Comments DEXA BONE DENSITY Routine 11/02/2024 8:1 0 AM EDT Age-related osteoporosis without current pathological fracture NM PARATHYROID SCAN W SPECT Routine 09/25/2024 1:05 PM EDT Age-related osteoporosis without current pathological fracture Stage 3a chronic kidney disease (CMS/HCC) Hypercalcemia US HEAD NECK SOFT TISSUE Routine 09/25/2024 10:40 AM EDT Age-related osteoporosis without current pathological fracture Stage 3a chronic kidney disease (CMS/HCC) Hypercalcemia from Last 3 Months Results * Dexa Bone Density (11/02/2024 8:10 AM EDT) Anatomical Region Laterality Modality L-spine Radiographic Whitney ging Narrative 11/12/2024 10:28 AM EDT [facility] [address] [place] [address] DXA Bone Densitometry Report: [Date of exam] BMD test performed using the Aloompa DXA System (analysis version: 14.10) manufactured by [employer]. REFERRING PROVIDER: Dr. Lauri Zavala MD CLINICAL [...] MD IMG DXA PROCEDURES Final Resu lt * NM Parathyroid Scan w SPECT (09/25/2024 1:05 PM EDT) Anatomical Region Laterality Modality Head Nuclear Medicine Impressions 09/25/2024 4:32 PM EDT Parathyroid scintigraphy demonstrates evidence of a right superior parathyroid adenoma. Thyroid Gland: Persistent delayed sestamibi activity within the lower pole of the right thyroid gland, might represent a thyroid adenoma. Further assessment with dedicated thyroid ultrasound recommended. CRITICAL RESULT: No. COMMUNICATION: Per this written report. By electronically signing this report, I, the attending physician, attest that I have personally reviewed the images/data for the above examination(s) and agree with the final edited report. Drafted by Berry Rodriguez MD on 09/25/2024 2:18 PM Final report signed by Deni Jeronimo MD on 09/25/2024 4:32 PM Narrative 09/25/2024 4:32 PM EDT CLINICAL INDICATION: Hyperparathyroidism by laboratory examination. On 08/28/2024, PTH level was 68 pg/mL. Total Ca level was 10.1 mg/dL. Patient is taking thyroid hormone replacement medication. TECHNIQUE: At approximately 10 minutes and 2-3 hours following intravenous administration of 25.5 mCi of Tc-99m sestamibi, SPECT and CT images of neck and chest (early set) and/or neck-only (delayed set) acquired and processed using Siemens Conductricsvo 16 SPECT/CT hybrid technology. Three-dimensional attenuation-corrected SPECT, CT and fused SPECT/CT tomographic images in coronal, sagittal, and transverse planes created and reviewed interactively to optimize sensitivity, specificity, and anatomic localization. CT: low-dose, [id number], without intravenous contrast; TOTAL DLP (Dose Length Product): 1026 mGy*cm. For reference to the report, annotated images have not been created and made available in PACS. COMPARISON/CORRELATION: None. No correlative imaging. FINDINGS: Normal in size thyroid gland with moderately heterogeneous biodistribution and relatively greater activity in right lobe compared to left. Incomplete washout from thyroid gland on delayed images with persistent uptake within the lower pole of the right lobe. Focal sestamibi localization to 11 x 10 mm soft tissue nodule posterior to the upper pole of the right thyroid lobe, series [address]: Minimal bibasilar atelectasis. Coronary artery calcifications. Atherosclerotic calcifications of the arch and the great vessels.. Procedure Note Deni Quezada MD - 09/25/2024 CLINICAL INDICATION: Hyperparathyroidism by laboratory examination. On 08/28/2024, PTH level was68 pg/mL. Total Ca level was 10.1 mg/dL. Patient is taking thyroid hormonereplacement medication. TECHNIQUE: At approximately 10 minutes and 2-3 hours following intravenousadministration of 25.5 mCi of Tc-99m sestamibi, SPECT and CT images ofneck and chest (early set) and/or neck-only (delayed set) acquired andprocessed using Siemens ClearStreama Intevo 16 SPECT/CT hybrid technology.Three-dimensional attenuation-corrected SPECT, CT and fused SPECT/CTtomographic images in coronal, sagittal, and transverse planes created andreviewed interactively to optimize sensitivity, specificity, and anatomiclocalization. CT: low-dose, [id number]-uztall-[id number], without intravenous contrast;TOTAL DLP (Dose Length Product): 1026 mGy*cm. For reference to the report, annotated images have not been created andmade available in PACS. COMPARISON/CORRELATION: None. No correlative imaging. FINDINGS: Normal in size thyroid gland with moderately heterogeneous biodistributionand relatively greater activity in right lobe compared to left. Incompletewashout from thyroid gland on delayed images with persistent uptake withinthe lower pole of the right lobe. Focal sestamibi localization to 11 x 10 mm soft tissue nodule posterior tothe upper pole of the right thyroid lobe, series [address]: Minimal bibasilar atelectasis. Coronary artery calcifications. Atherosclerotic calcifications of the arch and the great vessels.. IMPRESSION: Parathyroid scintigraphy demonstrates evidence of a right superiorparathyroid adenoma. Thyroid Gland: Persistent delayed sestamibi activity within the lower poleof the right thyroid gland, might represent a thyroid adenoma. Furtherassessment with dedicated thyroid ultrasound recommended. CRITICAL RESULT: No. COMMUNICATION: Per this written report. By electronically signing this report, I, the attending physician, attestthat I have personally reviewed the images/data for the aboveexamination(s) and agree with the final edited report. Drafted by Berry Rodriguez MD on 09/25/2024 2:18 PM Final report signed by Deni Jeronimo MD on 09/25/2024 4:32 PM us Lauri Zavala MD IMG NM PROCEDURES Final Resul t * US Head Neck Soft Tissue (09/25/2024 10:40 AM EDT) Anatomical Region Laterality Modality Head, Neck Ultrasound Impressions 09/25/2024 11:55 AM EDT Atrophic thyroid, likely sequela of prior thyroiditis. No suspicious thyroid nodule. CRITICAL RESULT: No. COMMUNICATION: Per this written report. Preliminary report signed by Josue Sarmiento DO on 09/25/2024 10:59 AM By electronically signing this report, I, the attending physician, attest that I have personally reviewed the images/data for the above examination(s) and agree with the final edited report. Drafted by Josue Sarmiento DO on 09/25/2024 10:52 AM Final report signed by Tish Pascal DO on 09/25/2024 11:55 AM Narrative 09/25/2024 11:55 AM EDT CLINICAL INDICATION: hypercalcemia TECHNIQUE: Multiplanar, bilateral dumont scale ultrasound of the thyroid, with limited Doppler vascular ultrasound. COMPARISON: None. FINDINGS: Thyroid: Isthmus measures 0.5 cm. Right thyroid measures 3.1 x 1.0 x 1.3 cm (2.1 cc). The left thyroid measures 2.6 x 0.8 x 0.7 cm (0.8 cc). No suspicious thyroid nodule. No enlarged lymph nodes. Procedure Note Tish Pascal DO - 09/25/2024 CLINICAL INDICATION: hypercalcemia TECHNIQUE: Multiplanar, bilateral dumont scale ultrasound of the thyroid, with limitedDoppler vascular ultrasound. COMPARISON: None. FINDINGS: Thyroid: Isthmus measures 0.5 cm. Right thyroid measures 3.1 x 1.0 x 1.3cm (2.1 cc). The left thyroid measures 2.6 x 0.8 x 0.7 cm (0.8 cc). No suspicious thyroid nodule. No enlarged lymph nodes. IMPRESSION: Atrophic thyroid, likely sequela of prior thyroiditis. No suspiciousthyroid nodule. CRITICAL RESULT: No. COMMUNICATION: Per this written report. Preliminary report signed by Josue Sarmiento DO on 09/25/2024 10:59 AM By electronically signing this report, I, the attending physician, attestthat I have personally reviewed the images/data for the aboveexamination(s) and agree with the final edited report. Drafted by Josue Sarmiento DO on 09/25/2024 10:52 AM Final report signed by Tish Pascal DO on 09/25/2024 11:55 AM us Lauri Zavala MD [facility] PROCEDURES Final Resul t from Last 3 Months Insurance MEDICARE [facility] Care Teams Motivational Speaker Relationship Specialty Start Date End Date Catherine Hernandez APRN [facility] [place] [address] PCP - General 08/23/20
--- OUTSIDE RECORDS SUMMARY | 2024-12-24 06:40 | XMS_ITS | Encounter Summary ---
Author Organization Healthcare Address [address] [place] [address] Care Team Providers Care Lining Stamper Name Role Phone Catherine Hernandez LIVING ADVISOR Primary Care Provider [phone]- [phone] Reason for Referral * Consultation (Routine) - Authorized Specialty Diagnoses / Procedures Referred By Damaris donald Referred To Contact Nephrology Diagnoses Low bone density Acquired hypothyroidism Elevated parathyroid hormone related peptide level Catherine Hernandez, LIVING ADVISOR [address] [address] Phone: tel: fax: [facility] [address] [address] Phone: tel: fax: Referral ID Status Reason Start Date Expiration Date Visits Requested Visits Authorized [id number] Authorized Specialty Services Required 10/15/2023 04/15/2025 1 1 Encounter Details Date Type Department Care Team (Late st Contact Info) Description 10/15/2023 Community [facility] [address] [place] [address] Catherine Hernandez, LIVING ADVISOR [address] [address] Low bone density (Primary Dx); Acquired hypothyroidism; Elevated parathyroid hormone related peptide level Social History Tobacco Use Types Packs/Day Years [...] Office Building [facility] [address] [facility], [address] [place] [address] Lacho Lenz MD [address] [facility] [address] [place] [address] 11/08/2025 8:20 AM EDT Office Visit [facility] [address] [facility], [address] [place] [address] Lauri Zavala MD [address] [facility] [address] [place] [address] 11/08/2025 8:40 AM EDT Appointment [facility] [address] [facility], [address] [place] [address] Scheduled Referrals Name Type Priority Associated Diagnoses Orde r Schedule Ambulatory referral to Nephrology Outpatient Referral Routine Low bone density Acquired hypothyroidism Elevated parathyroid hormone related peptide level Ordered: 10/15/2023 documented as of this encounter Visit Diagnoses Diagnosis Low bone density- Primary Acquired hypothyroidism Unspecified hypothyroidism Elevated parathyroid hormone related peptide level documented in this encounter Care Teams Lining Stamper Relationship Specialty Start Date End Date Catherine Hernandez APRN Counts include [facility] beds at the [facility] [address] PCP - General 08/23/20 documented as of this encounter
--- OUTSIDE RECORDS SUMMARY | 2024-12-24 06:40 | XMS_ITS | Clinical Summary ---
[facility] Address [address] [place] [address] Care Team Providers Care Plate Printer Name Role Phone Provider, No Known Primary Care Provider Unavail able Social History Tobacco Use Types Packs/Day Years Used Date Smoking Tobacco: Never Assessed Abuse Screen Answer Date Recorded Unsafe at Home or Work/School Not on file Feels Threatened by Someone? Not on file 02/2023 Does Anyone Keep You from Co ntacting Others or Doint Things Outside the Home? Not on file 01/20/2023 Physical Sign of Abuse Present Not on file 1 Housing Stability Answer Date Recorded Current Living Arrangements Not on file 01/10 Potentially Unsafe Housing Conditions Not on jhonny e 01/20/2023 Family and Community Support Answer Yovanny e Recorded Help with Day-to-Day Activities Not on file 01/20/2023 Lonely or Isolated Not on file 01/20/2023 Employment Answer Date Recorded Do you want help finding or keeping work or a geoff b? Not on file 01/20/2023 Disabilities Answer Date Recorded Concentrating, Remembering, or Making Decisions Difficulty Not on file 01/20/2023 Doing Errands Independently Difficulty Not on fi le 01/20/2023 Education Answer Date Recorded Help with school or training? Not on file Preferred Language Not on file 01/20/2023 Comments Unknown Sex and Gender Information Value Date Recorded Sex Assigned at Not on file Legal Sex Female 1:08 PM EST Gender Identity Not on file Sexual Orientation Not on file Plan of Treatment Health Maintenance Due Date Last Done Comments ANNUAL PHYSICAL 1950 DXA SCAN 1948 HEPATITIS C SCREENING 1948 TDAP/TD VACCINES (1 - Tdap) 12/11/1967 Pneumococcal Vaccine 50+ (1 of 1 - PCV) 1998 ZOSTER VACCINE (1 of 2) 1998 RSV Vaccine - Adults (1 - 1-dose 75+ series) COVID-19 Vaccine (2023- season) 2024 INFLUENZA VACCINE 01/10/2025 Care Teams Plate Printer Relationship Specialty Start Date End Date Provider, No Known [facility] [place] [address] PCP - General 06/05/15
[2024-12-24 06:41] LABS: POC Glucose,Bedside 206 gm/dL (70-110)
--- OUTSIDE RECORDS SUMMARY | 2024-12-24 06:41 | XMS_ITS | Patient Health Record ---
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 Name Role Phone MaryCatherine Primary Care Provider Dave Rocha Unavailable [phone] Alexus Terrazas Unavailable [phone] Migration, Provider Unavailable Unavailable Allergies Allergen (clinical [...] >=1.030 Ketone neg Bili neg Glucose neg M-Hemoglobin A1C Reviewed date:05/12/2024 10:37:34 AM Interpretation: Performing Lab: Notes/Report: HGBA1C 6.5 4.0-6.0 % < 6% Non-Diabetic Level < 7% Controlled Diabetic Level > 8% Poorly Controlled Diabetic Level M-Uric Acid Reviewed date:05/12/2024 10:37:34 AM Interpretation: Performing Lab: Notes/Report: URIC 6.5 2.5-6.2 mg/dl M-Lipid Panel Reviewed date:05/12/2024 10:37:34 AM Interpretation: Performing Lab: Notes/Report: Patient Fasting? Y TRIG 171 30-150 mg/dl CHOL 194 140-200 mg/dl DLDL 110.44 100-129 mg/dL VLDL 34 0-40 mg/dL HDL 44 40-60 mg/dl CHLHDL 4.4 1-3.5 M-Thyroid Stimulating Hormon e Reviewed date:05/12/2024 10:37:34 AM Interpretation: Performing Lab: Notes/Report: TSH 1.45 0.465-4.68 uIU/mL X ray : Knee, Right Reviewed date:05/12/2024 10:37:34 AM Interpretation: Performing Lab: Notes/Report: Urinalysis Reviewed date:03/28/2024 11:12:14 AM Interpretation: Performing Lab: Notes/Report: Color/Clarity Roselyn Leuk neg Nitrite pos Urobili 0.2 Protein 100mg/dL pH 5.5 Blood neg Sp. Gr. >=1.030 Ketone neg Bili small Glucose neg H-MICROALB Reviewed date:05/10/2024 04:46:34 PM Interpretation: Performing Lab: Notes/Report: MICROALB 27.000 0-16.7 mg/L CULTURE, URINE, ROUTINE (395 ) Reviewed date:12/21/2024 05:53:33 PM Interpretation: Performing Lab:CB, [facility] [id number] [facility], [facility] HomeKpjfWL[address] Yannick Elizalde Notes/Report: NON-FASTING CULTURE, URINE, ROUTINE SEE NOTE CULTURE, URINE, ROUTINE Micro Number: [id number] Test Status: Final Specimen Source: Urine Specimen Quality: Adequate Result: Mixed genital brittani isolated. These superficial bacteria are not indicative of a urinary tract infection. No further organism identification is warranted on this specimen. If clinically indicated, recollect clean-catch, mid-stream urine and transfer immediately to Urine Culture Transport Tube. Urinalysis Reviewed date:12/12/2024 02:14:08 PM Interpretation: Performing Lab: Notes/Report: Color/Clarity yellow Leuk small Nitrite neg Urobili 0.2 Protein neg pH 5.5 Blood neg Sp. Gr. >=1.030 Ketone neg Bili neg Glucose neg M-Complete Blood Count Auto Diff Reviewed date:05/12/2024 10:37:34 AM Interpretation: Performing Lab: Notes/Report: WBC 7.7 4.8-10.8 K/mm3 RBC 4.12 4.20-5.40 M/mm3 HGB 12.9 12.2-16.2 g/dL HCT 37.0 37.0-47.0 % MCV 89.8 81-99 fl MCH 31.3 27.0-31.2 pg MCHC 34.9 31.8-35.4 g/dL RDW 12.5 11.5-17.5 % PLT 185 142-424 K/mm3 MPV 11.5 7.4-10.4 fl NE% 74.8 37.0-80.0 % LY% 15.2 10-50 % MO% 6.1 1.7-9.3 % EO% 2.9 0.1-12.0 % BA% 0.6 0.1-2.0 % NE# 5.8 1.8-7.8 K/mm3 LY# 1.2 0.7-4.5 K/mm3 MO# 0.5 0.1-1.0 K/mm3 EO# 0.2 0.0-0.4 K/mm3 BA# 0.1 0-0.2 K/mm3 M-Comprehensive Metabolic Pa ezio Reviewed date:05/12/2024 10:37:34 AM Interpretation: Performing Lab: Notes/Report: NA 140 136-145 mmol/L K 4.3 3.5-5.1 mmoL/L CL 106 98-107 mmol/L CO2 21 22.0-30.0 mmol/L GAP 17.3 5-15 mEq/L BUN 27 7-17 mg/dl CREATT 1.20 0.52-1.04 mg/dl GFRAA 53 >60 ML/MIN EGFR 44 >60 ml/min GLU 113 74-100 mg/dl CA 10.5 8.4-10.2 mg/dl BILIT 1.7 0.2-1.3 mg/dl AST 17 14-36 U/L ALT 12 12-78 U/L TP 6.5 6.3-8.2 g/dl ALB 4.1 3.5-5.0 g/dl GLOB 2.4 1.3-3.2 g/dL AGRATIO 1.7 1.1-1.8 ALP 54 38-126 U/L CULTURE, URINE, ROUTINE (395 ) Reviewed date:03/30/2024 01:23:39 PM Interpretation: Performing Lab:[place], [facility] [id number], [facility] HomeVvbmUI[address] Yannick Elizalde Notes/Report: NON-FASTING; NON-FASTING; NON-FASTING CULTURE, URINE, ROUTINE SEE NOTE CULTURE, URINE, ROUTINE Micro Number: [id number] Test Status: Final Specimen Source: Urine Specimen Quality: Adequate Result: No Growth CBC (INCLUDES DIFF/PLT) (639 9) Reviewed date:03/29/2024 12:29:19 PM Interpretation: Performing Lab:[facility], [facility] [id number] [facility], [facility] HomeXglrOH[address] Yannick Elizalde Notes/Report: NON-FASTING; NON-FASTING; NON-FASTING WHITE BLOOD CELL COUNT 7.3 3.8-10.8 Thousand/ uL RED BLOOD CELL COUNT 4.09 3.80-5.10 Million/uL HEMOGLOBIN 13.0 11.7-15.5 g/dL HEMATOCRIT 38.1 35.0-45.0 % MCV 93.2 80.0-100.0 fL MCH 31.8 27.0-33.0 pg MCHC 34.1 32.0-36.0 g/dL For adults, a slight decrease in the calculated MCHC value (in the range of 30 to 32 g/dL) is most likely not clinically significant; however, it should be interpreted with caution in correlation with other red cell parameters and the patient's clinical condition. RDW 11.9 11.0-15.0 % PLATELET COUNT 203 140-400 Thousand/uL MPV 12.2 7.5-12.5 fL ABSOLUTE NEUTROPHILS 5344 0707-8050 cells/uL ABSOLUTE LYMPHOCYTES 5919 020-7584 cells/uL ABSOLUTE MONOCYTES 613 200-950 cells/uL ABSOLUTE EOSINOPHILS 161 15-500 cells/uL ABSOLUTE BASOPHILS 44 0-200 cells/uL NEUTROPHILS 73.2 LYMPHOCYTES 15.6 MONOCYTES 8.4 EOSINOPHILS 2.2 BASOPHILS 0.6 COMPREHENSIVE METABOLIC PANE L (55549) Reviewed date:03/29/2024 12:29:19 PM Interpretation: Performing Lab:[facility], [facility] [id number], [facility] HomeIggmGQ[address] Yannick Elizalde Notes/Report: NON-FASTING; NON-FASTING; NON-FASTING GLUCOSE 163 65-99 mg/dL Fasting reference interval For someone without known diabetes, a glucose value >125 mg/dL indicates that they may have diabetes and this should be confirmed with a follow-up test. UREA NITROGEN (BUN) 20 7-25 mg/dL CREATININE 1.15 0.60-1.00 mg/dL EGFR 50 > OR = 60 mL/min/1.73m2 BUN/CREATININE RATIO 17 6-22 (calc) SODIUM 140 135-146 mmol/L POTASSIUM 4.2 3.5-5.3 mmol/L CHLORIDE 103 98-110 mmol/L CARBON DIOXIDE 23 20-32 mmol/L CALCIUM 10.7 8.6-10.4 mg/dL PROTEIN, TOTAL 6.7 6.1-8.1 g/dL ALBUMIN 4.1 3.6-5.1 g/dL GLOBULIN 2.6 1.9-3.7 g/dL (calc) ALBUMIN/GLOBULIN RATIO 1.6 1.0-2.5 (calc) BILIRUBIN, TOTAL 2.9 0.2-1.2 mg/dL ALKALINE PHOSPHATASE 54 37-153 U/L AST 9 10-35 U/L ALT 7 6-29 U/L Medications Medication SIG (Take, Route, Frequency, Duration) Notes Start Date End Date Status Loratadine 10 MG TAKE 1 TABLET DAILY Active Cefdinir 300 MG 300 mg Orally 2 time s a day; Duration: 5 days 12/12/2024 Active Lidocaine 5 % 1 patch applied topi jonathan once a day; Duration: 30 day(s) prn Active Voltaren Arthritis Pain 1 % as directed applied topically 4 times a day Active Losartan Potassium 25 MG 1 tab(s) orally once a day; Duration: 90 days Active ACCU-CHECK AVIA PLUS TEST STRIPS NA DIRECTED ONCE A DAY ONCE A DAY Active Januvia 100 MG TAKE 1 TABLET [...] times a day; Duration: 7 days Active Immunizations Vaccine Route Administration Date Status Comme nts Zostavax (Shingles) SC Subcutaneous 10/14/2016 Administered Lot # [id number] Tenivac (Td) 7 + yrs IM Intramuscular 03/25/2017 Administered SHINGRIX IM Intramuscular 03/01/2018 Administered Prevnar PCV-13 (Pneumococcal conjugate 13) IM Intramuscular 03/25/2017 Administered Pneumovax 23 IM Intramuscular 02/28/2016 Administered Influenza (Fluzone)--Medicar e only IM Intramuscular 02/06/2014 Administered [id number] exp luke e 09/13/2014 Influenza (Fluzone)--Medicar e only IM Intramuscular 01/29/2015 Administered Influenza (Fluzone)--Medicar e only IM Intramuscular 12/26/2016 Administered Influenza (Fluzone)--Medicar e only IM Intramuscular 12/14/2017 Administered Fluzone High Dose Unknown 12/26/2018 Administered Fluzone High Dose Unknown 11/29/2019 Administered Fluzone High Dose Unknown 01/19/2024 Administered Problems Problem Type SNOMED Code ICD Code Onset Dates Problem Status W/U Status Risk Notes Problem Hypercalcemia (86178075) Hypercalcemia (E83.52) Active confirmed Problem Ileostomy present (802983587) Ileostomy status (Z93.2) Active confirmed Problem Recurrent urinary tract infection (935079538) Recurrent UTI (N39.0) Active confirmed Problem Hyperlipidemia (83982429) Hyperlipidemia (E78.5) Active confirmed Problem Essential hypertension (41706444) Essential hypertension (I10) Active confirmed Problem Back pain (120921779) Back pain (M54.9) Active confirmed Problem Chronic pain (43464061) Other chronic pain (G89.29) Active confirmed Problem Lower abdominal pain (91411391) Lower abdominal pain (R10.30) Active confirmed Problem Goiter (2652820) Goiter (E04.9) Active confirme d Problem Gastroesophageal reflux disease (100397937) Gastroesophageal reflux disease, esophagitis presence not specified (K21.9) Active confirmed Problem Body mass index 25-29 - overweight (168309009) BMI 28.0-28.9,adult (Z68.28) Active confirmed Problem Degeneration of lumbosacral intervertebral disc (13182409) DDD (degenerative disc disease), lumbosacral (M51.37) Active confirmed Problem Hypothyroidism (56866245) Hypothyroidism, unspecified type (E03.9) Active confirmed Problem Methicillin resistant Staphylococcus aureus infection (427939721) Methicillin resistant Staphylococcus aureus infection (A49.02) Active confirmed Problem Body mass index 25-29 - overweight (179604541) BMI 26.0-26.9,adult (Z68.26) Active confirmed Problem Atrophic vaginitis (05302938) Atrophic vaginitis (N95.2) Active confirmed Problem Seasonal allergic rhinitis (586169245) Chronic seasonal allergic rhinitis, unspecified trigger (J30.2) Active confirmed Problem Chondrocalcinosis (787209932) Chondrocalcinosis (M11.20) Active confirmed Problem Midline cystocele (821078036) Female bladder prolapse (N81.10) Active confirmed Problem Osteopenia following menopause (disorder) (001395572) Osteopenia after menopause (M81.0) Active confirmed Problem Arthropathy associated with a neurological disorder (30195983) Charcot's joint of left foot (M14.672) Active confirmed Problem Diabetic neuropathic arthropathy (988280878) Type 2 diabetes mellitus with diabetic neuropathic arthropathy, 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) Active confirmed Problem Blood chemistry abnormal (186835227) Elevated PTHrP level (R79.89) Active confirmed Problem 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) Active confirmed Vital Signs Heart Rate 80 /min 12/20/2024 Temperature 97.6 degrees Fahrenheit 12/20/2024 Blood pressure diastolic 56 mm Hg 12/20/2024 Height 62.5 in 12/20/2024 Blood pressure systolic 102 mm Hg 12/20/2024 Weight 131.6 lbs 12/20/2024 BMI 23.68 kg/m2 12/20/2024 Encounters Encounter Location Date Provider Diagnosis [facility] [address] [place] [address] 07/15/2024 Provider Migration [facility] [address] [place], [place] [address] 03/28/2024 Alexus Terrazas Low back pain, unspecified M54.50 ; Acute cystitis without hematuria N30.00 and Weakness R53.1 [facility] [address] [place] [address] 05/09/20[facility] Type 2 diabetes mellitus with diabetic neuropathic arthropathy, without long-term current use of insulin E11.610 ; Hypothyroidism, unspecified type E03.9 ; Essential hypertension I10 ; Hyperlipidemia E78.5 ; Other chronic pain G89.29 and Pain, joint, knee, right M25.561 [facility] [address] [place] [address] 12/12/2024 Catherine Mary Urinary frequency R35.0 ; Acute UTI N39.0 and Female bladder prolapse N81.10 [facility] [address] [place] [address] 12/20/2024 Dave Taokiley Urinary frequency R35.0 [facility] [address] [place] [address] 03/23/2024 Catherine Mary [facility] [address] [place] [address] 05/11/2024 Catherine Mary [facility] [address] [place] [address] 05/22/2024 Catherine Mary [facility] [address] [place] [address] 12/06/2024 Catherine Mary [facility] [address] [address] 12/13/2024 [facility] Acute UTI N39.0 [facility] [address] [place] [address] 12/19/2024 [facility] Breast cancer screening by mammogram Z12.31 [facility] [address] [place] [address] 12/21/2024 [facility] Assessments Encounter Date Diagnosis (ICD Code) Assessment [...] canal on self examination, she notes seeing PRODUCT DESIGN MANAGER for this many years ago when prolapse was less severe and was asymptomatic - has not completed Pelvic Floor PT in past - discussed with patient, she will call and schedule appointment with PRODUCT DESIGN MANAGER, Dr. Tracey, regarding concerns for pelvic organ prolapse and if warranting further interventions at that time - patient has rountine follow up scheduled for annual visit in our clinic in the coming weeks 12/19/2024 Breast cancer screening by mammogram (ICD-10 - Z12.31) 12/13/2024 Acute UTI (ICD-10 - N39.0) 12/12/2024 Urinary frequency (ICD-10 - R35.0) 12/12/2024 Acute UTI (ICD-10 - N39.0) Discussed suspected UTI based on symptoms/UA results and need for treatment with antibiotics as well as good water intake. Discussed return precautions including fever, vomiting, intractable pain, etc. 05/09/2024 Hypothyroidism, unspecified type (ICD-10 - E03.9) update labs as noted, continue oral replacement 03/28/2024 Low back pain, unspecified (ICD-10 - M54.50) 05/09/2024 Type 2 diabetes mellitus with diabetic neuropathic arthropathy, without long-term current use of insulin (ICD-10 - E11.610) Update labs today, tolerating current regimen 03/28/2024 Acute cystitis without hematuria (ICD-10 - N30.00) [facility] records reviewed. UA unremarkable. Urine CX contaminated. Today, UA abnormal, appears to have UTI. Change abx. Increase oral fluid intake. Use zofran at home for nausea. May have viral illness component as well. Given her reported weakness and poor intake x 1 week labs obtained to r/o leukocytosis and dehydration. Low back pain likely related to a combination of LDD and UTI. Supportive care and return precautions discussed 03/28/2024 Weakness (ICD-10 - R53.1) 05/09/2024 Essential hypertension (ICD-10 - I10) normal today, no longer requiring antihypertensive therapy, monitor 12/12/2024 Female bladder prolapse (ICD-10 - N81.10) could be contributing to symptoms, has consulted with PRODUCT DESIGN MANAGER previously 05/09/2024 Hyperlipidemia (ICD-10 - E78.5) continue statin therapy 05/09/2024 Other chronic pain (ICD-10 - G89.29) 05/09/2024 Pain, joint, knee, right (ICD-10 - M25.561) Continue sleeve for support, topicals, imaging today. likely need orthopedic consultation Plan Of Treatment Pending Test Test Name Order Date Mammogram : Bilateral 12/19/2024 CT Scan : Abdomen and Pelvis, with and w ithout contrast 12/25/2014 H-MISCELLANEOUS CULTURE 08/18/2013 H-CMP 04/02/2015 H-LIPID PANEL 01/29/2015 H-PTH,INTACT 04/02/2015 H-MICROALBUMIN URINE 10/12/2016 Urine Culture, Routine 07/07/2021 H-Ionized Calcium 04/02/2015 M-Comprehensive Metabolic Panel 03/08/20 M-Comprehensive Metabolic Panel 11/02/19 M-Hemoglobin A1C 11/01/2017 M-Hemoglobin A1C 03/08/2018 M-Lipid Panel 03/08/2018 M-Lipid Panel 11/01/2017 M-Thyroid Stimulating Hormone 11/01/2017 M-Thyroid Stimulating Hormone 03/08/2018 M-Parathyroid Hormone Intact 11/13/2022 M-Vitamin D 25 Hydroxy 11/13/2022 M-Vitamin D 25 Hydroxy 10/10/2020 M-Vitamin D 25 Hydroxy 12/07/2019 M-Microalb/Creat Ratio, Randm Ur 018 M-Microalb/Creat Ratio, Randm Ur 025 M-Microalb/Creat Ratio, Rand Ur 018 URINALYSIS, COMPLETE (5463) 04/14/2023 CULTURE, URINE, ROUTINE (395) 11/02/2022 NUCLEAR MED : Parathyroid scan 3 Next Appt Details Provider Name:Catherine Martinez ce, 12/28/2024 09:00:00 AM, [address], [place], [address], Insurance Providers Payer Name Payer Address Payer Phone Subscriber Number Group Number Insured Name Patient Relationship to Insured Coverage Start Date Coverage End Date [place] [address] [place] [place] [address] [id number] Vera Cedillo Self - patient is the insured [facility] CLAIM[facility] [address] [place] [address] [id number] Vera Cedillo Self - patient is the insured [employer] [address] [place] [address] [address] [place] [address] [phone] Vera Cedillo Self - patient is the insured Medical (General) History Medical History History ICD Code Diabetes,Hyperlipidemia, Allergies, Ulce rative Colitis s/p ilostomy left eye trauma and subsequent hemorrhag e - left prosthetic eye hernia Osteopenia, DEXA 2018 LEFT charcot foot Kidney injury due to dehydration, ACEI/A RB stopped Hyperparathyroidism Surgical History Surgery Date(Month/Year) Eye removal r/t trauma 2002 Hernia Removal 1997 Ileostomy 1972 hand surgery-left 2013 right hand-carpal tunnel surgery 02/2019 Hospitalization History Reason Date(Month/Year) Dehydration, EMILY
[2024-12-24 06:51] LABS: Hematocrit 39.5 % (37.0-47.0); Hemoglobin 13.9 g/dL (12.2-16.2); Immature Granulocytes % 0.4 %; Mean Corpuscular HGB Conc 35.2 g/dL (31.8-35.4); Mean Corpuscular Hemoglobin 32.0 pg (27.0-31.2); Mean Corpuscular Volume 90.8 fl (81-99); Nucleated Red Blood Cells % 0 %; Platelet Count 254 K/mm3 (142-424); Red Blood Count 4.35 M/mm3 (4.20-5.40); Red Cell Distribution Width-SD 40.2 fL; White Blood Count 14.2 K/mm3 (4.8-10.8)
[2024-12-24] MEDS: ONDANSETRON 4MG/2ML VIAL 4 MG IV (06:57)
--- NOTE | 2024-12-24 07:01 | HMH.EDGENADL ---
Discharge Plan Disposition Patient Disposition: Home, Self-Care Prescriptions Prescriptions: New ondansetron 4 mg tablet,disintegrating 4 mg PO Q6H PRN (Reason: nausea and vomiting) 5 Days Qty: 20 0RF No Action (DME) FreeStyle Lite Strips Strip See Rx Instructions .ROUTE .MEDSUPPLY Qty: 10 Rx Instructions: As directed losartan 25 mg tablet PO DAILY diclofenac sodium 1 % gel 4 g topical QID PRN (Reason: pain ) Qty: 100 2RF Rx Instructions: apply to single knee, ankle, foot; for foot includes sole/toes/top of foot atorvastatin 20 mg tablet 20 mg PO DAILY levothyroxine 75 mcg tablet 75 mcg PO DAILY pantoprazole 40 mg tablet,delayed release (DR/EC) 40 mg PO DAILY Patient Comments: TAKE 1 TABLET BY MOUTH DAILY metformin 1,000 mg tablet 1,000 mg PO DAILY glimepiride 4 mg tablet 4 mg PO DAILY Januvia 100 mg tablet 100 mg PO DAILY Referrals Follow up/Referrals: Catherine Hernandez APRN [Primary Care Provider, Medical] - See instructions Activity Restrictions/Add. Instructions Additional Instructions/Restrictions: You were moderately dehydrated from decreased oral intake over the last 24 to 48 hours with a very mild acute kidney injury. Hospitalization was offered but we opted to try to manage this in an outpatient setting please drink sugar and salt containing fluids until your urine is clear and have repeat blood test done within the next 24 to 48 hours return to the emergency department if you are unable to tolerate fluids or if you are feeling worse. Clinical Impressions Clinical Impression: Acute dehydration, Nausea, EMILY (acute kidney injury) Print Language Print Language: [place]an Discharge ED Provider: Angy Mccollum General Adult HPI <Angy Mccollum MD - Last Filed: 12/24/24 07:22> General Chief complaint: Dizziness Stated complaint: nausea,hot and cold,passed out Time Seen by Provider: 12/24/24 06:29 Mode of Arrival: Ambulatory Source of Information: Patient Description of Symptoms (Recalled from ER Triage Doc. by RN): PT presents to the ED for evaluation of a 'Sick feeling , PT stated she woke up with nausea. PT stated she had dry heaved but hasnt puked yet. PT stated she had a syncope episode and passed out, unwitnessed. PT just finished ABX r/t UTI History of Present Illness HPI narrative: 74-year-old female with history of ulcerative colitis end ileostomy placed more than 50 years ago presents to the ER with complaints of feeling sick. Patient reports she woke up with nausea but symptoms really started about 24 hours ago. She and family at bedside report decreased appetite, decreased oral intake. Patient reports she has been dry heaving but has not actually vomited. She states her ileostomy output is thinner than normal but nonbloody, nonmelanotic. She reports when she was trying to be sick she got up and got lightheaded and fell to the floor, denies actually losing consciousness, patient does not take blood thinners. She denies any numbness, tingling, or weakness. No chest pain or difficulty breathing. No headache. Patient just finished cefdinir for urinary tract infection and denies any urinary symptoms at this time. Related Data Home Medications ?Medication ?Instructions ?Recorded ?Confirmed blood sugar diagnostic (FreeStyle #10 ea 10/16/21 09/13/24 Lite Strips) atorvastatin 20 mg tablet 20 mg PO DAILY 03/22/24 09/13/24 glimepiride 4 mg tablet 4 mg PO DAILY 03/22/24 09/13/24 levothyroxine 75 mcg tablet 75 mcg PO DAILY 03/22/24 09/13/24 metformin 1,000 mg tablet 1,000 mg PO DAILY 03/22/24 09/13/24 pantoprazole 40 mg tablet,delayed 40 mg PO DAILY 03/22/24 09/13/24 release sitagliptin phosphate 100 mg 100 mg PO DAILY 03/22/24 09/13/24 tablet (Januvia) losartan 25 mg tablet mg PO DAILY 09/13/24 09/13/24 Previous Rx's ?Medication ?Instructions ?Recorded diclofenac sodium 1 % topical gel 4 g topical QID PRN pain #100 09/14/24 grams ondansetron 4 mg disintegrating 4 mg PO Q6H PRN nausea and 12/24/24 tablet vomiting 5 days #20 tabs Allergies Allergy/AdvReac Type Severity Reaction Status Date / Time ciprofloxacin (From Cipro) Allergy Verified 09/13/24 11:34 nitrofurantoin (From Allergy Verified 09/13/24 11:34 Macrobid) [facility] <Angy Mccollum MD - Last Filed: 12/24/24 07:22> [facility] Disclaimer: The information contained in this section may have been updated after the patient was seen, as this information can be updated by other users. Medical History Ulcerative colitis Ileostomy in place Arthritis Renal insufficiency GERD (gastroesophageal reflux disease) UTI (urinary tract infection) Seasonal allergies Hypothyroidism Hyperlipidemia Diabetes Surgical History Hx of removal of cyst Back, 2022 History of colonoscopy H/O hand surgery History of eye removal History of bilateral tubal ligation History of carpal tunnel release of both wrists Family History Other Cancer Diabetes Hyperlipidemia Hypertension Thyroid disorder Social History Smoking Status: Never smoker second hand exposure: No alcohol intake: never substance use type: denies use current occupational status: other Travel in the last 8 weeks?: None household members: spouse housing: house caffeine: Yes Have you lived/traveled outside US in past 30 days?: No Contact w/someone who lives/traveled outside US past 30 days?: No Exposure to someone with infectious disease in past 14 days?: No Do you have a fever (greater than 100.4 F or 38 C)?: No Have you tested positive for COVID-19?: No Exposed to someone with COVID-19 in past 14 days?: No Do you have a sore throat?: No Do you have a cough?: No Do you have any weakness?: No Do you have any diarrhea?: No Are you experiencing any unusual bleeding?: No Do you have any muscle aches/pain?: No Do you have any abdominal pain?: No Are you experiencing loss of taste or smell?: No Other Medical History Have you received the Flu Vaccine for this season: No Have you received the Pneumonia Vaccine: Yes <Angy Mccollum MD - Last Filed: 12/24/24 07:22> ROS Obtained: Yes Systems reviewed as appropriate & no additional complaints except as documented Per HPI Physical Exam <Angy Mccollum MD - Last Filed: 12/24/24 07:22> General General appearance: alert and in no apparent distress Head Head exam: atraumatic and normocephalic Eye Eye exam: Present PERRL and EOMI ENT ENT exam: Present mucous membranes moist Neck Neck exam: Present normal inspection and full ROM Chest Chest inspection: Present symmetric chest wall rise Respiratory Respiratory exam: Present normal lung sounds bilaterally; Absent respiratory distress, wheezes or stridor Cardiovascular Cardiovascular exam: Present regular rate and normal rhythm Abdominal Exam Abdominal exam: Present soft; Absent distention, tenderness, guarding or rebound Comment: Ileostomy right lower quadrant well-appearing Extremities Exam Extremities exam: Present full ROM; Absent edema Neurological Exam Neurological exam: Present alert and oriented X3; Absent motor sensory deficit Psychiatric Psychiatric exam: Present normal affect and normal mood Skin Skin exam: Present warm and dry Medical Decision Making <Angy Mccollum MD - Last Filed: 12/24/24 07:22> Medical Records Medical records reviewed: Yes I reviewed the patient's medical records. Screening: Per USPSTF and CDC recommendations, given the prevalence of disease in our region, it is our hospital?s policy to screen for HIV and viral Hepatitis for all patients aged 18 and over and those with ongoing risk factors. Attila Inquiry Pt receiving controlled substance: No Vital Signs: 12/24/24 06:29 12/24/24 06:30 12/24/24 07:34 Temperature 97.4 F L Temperature Source Axillary Pulse Rate 103 H 103 H Pulse Rate [Right] 110 H Respiratory Rate 16 15 Blood Pressure 148/70 H 139/70 Blood Pressure [Right Arm] 154/69 H Blood Pressure Mean [Right Arm] 97 Blood Pressure Source Automatic Cuff Blood Pressure Position Supine 02 Sat by Pulse Oximetry 99 99 98 Oxygen Delivery Method Room Air Room Air Room Air 12/24/24 07:42 12/24/24 08:00 12/24/24 08:30 Temperature Temperature Source Pulse Rate 96 H 96 H 89 Pulse Rate [Right] Respiratory Rate 16 Blood Pressure 139/70 113/67 136/64 Blood Pressure [Right Arm] Blood Pressure Mean [Right Arm] Blood Pressure Source Automatic Cuff Blood Pressure Position Supine 02 Sat by Pulse Oximetry 98 97 97 Oxygen Delivery Method Room Air Room Air 12/24/24 09:00 Temperature Temperature Source Pulse Rate 88 Pulse Rate [Right] Respiratory Rate Blood Pressure 130/66 Blood Pressure [Right Arm] Blood Pressure Mean [Right Arm] Blood Pressure Source Blood Pressure Position 02 Sat by Pulse Oximetry 95 Oxygen Delivery Method Lab Data Lab Results 12/24/24 06:29: POC Glucose 206 H 12/24/24 06:34: HCV Ab LARS w/Rflx PCR Qn Negative, HIV Ag/Ab Combo Qual Negative 12/24/24 06:38: WBC 14.2 H, RBC 4.35, Hgb 13.9, Hct 39.5, MCV 90.8, MCH 32.0 H, MCHC 35.2, RDW 12.1, Plt Count 254, MPV 12.0 H, Neut % (Auto) 83.9 H, Lymph % (Auto) 8.4 L, Maries % (Auto) 6.5, Eos % (Auto) 0.4, Baso % (Auto) 0.4, Neut # (Auto) 11.9 H, Lymph # (Auto) 1.2, Maries # (Auto) 0.9, Eos # (Auto) 0.1, Baso # (Auto) 0.1, PT 12.4, INR 1.13 H, D-Dimer 1.00 H, Sodium 140, Potassium 4.6, Chloride 109 H, Carbon Dioxide 12 L, Anion Gap 23.6 H, BUN 33 H, Creatinine 1.90 H, Estimated Creat Clear 24, Estimated GFR 26 L, Est GFR ( Amer) 31 L, Glucose 215 H, Lactate 2.0, Calcium 10.6 H, Total Bilirubin 2.8 H, AST 22, ALT 14, Alkaline Phosphatase 61, Troponin I < 0.01, Total Protein 8.2 D, Albumin 4.9, Globulin 3.3 H, Albumin/Globulin Ratio 1.5, Lipase 124 12/24/24 06:38 12/24/24 06:38 Orders (Tests/Meds): ED MEDICATIONS Discontinued Medications Generic Name Dose Route Start Last Admin Trade Name Freq PRN Reason Stop Dose Admin Lactated Ringer's 1,000 mls @ 999 mls/hr 12/24/24 06:35 12/24/24 09:05 Lactated Ringer's 1000 Ml Bag IV 12/24/24 07:35 Infused .Q1H1M ONE Infusion Ondansetron HCl 4 mg 12/24/24 06:35 12/24/24 06:57 Ondansetron 4mg/2ml Vial IV 12/24/24 06:36 4 mg ONCE ONE Administration ORDERS Category Date Time Status CT abdomen pelvis wo con Stat Cat Scan 12/24/24 07:[address] cervical spine wo con Stat Cat Scan 12/24/24 07:[address] head/brain wo con Stat Cat Scan 12/24/24 07:02 Completed XR chest portable Stat Exams 12/24/24 06:29 Completed Complete Blood Count Auto Diff Stat Lab 12/24/24 06:38 Completed Comprehensive Metabolic Panel Stat Lab 12/24/24 06:38 Completed D-Dimer Stat Lab 12/24/24 06:38 Completed HIV Combo Stat Lab 12/24/24 06:34 Completed Hepatitis C Ab Qual. W/ RFX Stat Lab 12/24/24 06:34 Completed Lactic Acid Stat Lab 12/24/24 06:38 Completed Lipase Stat Lab 12/24/24 06:38 Completed POC Glucose,Bedside Routine Lab 12/24/24 06:29 Completed Prothrombin Time INR Stat Lab 12/24/24 06:38 Completed Troponin I Q3H Lab 12/24/24 09:30 Ordered Troponin I Q3H Lab 12/24/24 12:30 Ordered Troponin I Stat Lab 12/24/24 06:38 Completed Urinalysis and Microscopic Stat Lab 12/24/24 06:29 Ordered Medical Decision Narrative: In summary, this 74-year-old female with comorbidities described in the HPI presents to the emergency department today with nausea, near syncope. On initial evaluation patient is hemodynamically stable, afebrile, she was tachycardic on arrival but during my exam heart rate was in the 90s, exam notable for nontender, soft abdomen with well-appearing ileostomy, benign cardiopulmonary exam, no neurologic deficits. Differential diagnosis includes but is not limited to viral infection, urinary tract infection, bowel obstruction was considered though it is less likely since patient continues having ostomy output, electrolyte abnormality, dehydration, orthostatic hypotension, intracranial or cervical spine injury from fall, arrhythmia, ACS, among others. Based on these concerns, I ordered hematologic and serum labs, cardiac workup, CT head and C-spine, CT abdomen pelvis, urinalysis. ECG personally interpreted demonstrates sinus tachycardia, rate 100, normal axis, normal AZ and QTc, no STEMI. Patient received IV fluids, Zofran initially for treatment. Labs personally reviewed demonstrate leukocytosis WBC 14.2, no anemia, normal platelets, PT/INR nonactionable, CMP demonstrates elevated creatinine with findings of EMILY, patient is already receiving IV fluids, due to kidney dysfunction patient will not receive contrasted scans at this time. Lactic normal at 2.0, lipase normal at 124, no pancreatitis. Imaging and additional labs pending at the time of physician handoff. Patient handed off to Dr. Mcclain in stable condition for further management and disposition. <Paras Mcclain MD - Last Filed: 12/24/24 09:34> Vital Signs: 12/24/24 06:29 12/24/24 06:30 12/24/24 07:34 Temperature 97.4 F L Temperature Source Axillary Pulse Rate 103 H 103 H Pulse Rate [Right] 110 H Respiratory Rate 16 15 Blood Pressure 148/70 H 139/70 Blood Pressure [Right Arm] 154/69 H Blood Pressure Mean [Right Arm] 97 Blood Pressure Source Automatic Cuff Blood Pressure Position Supine 02 Sat by Pulse Oximetry 99 99 98 Oxygen Delivery Method Room Air Room Air Room Air 12/24/24 07:42 12/24/24 08:00 12/24/24 08:30 Temperature Temperature Source Pulse Rate 96 H 96 H 89 Pulse Rate [Right] Respiratory Rate 16 Blood Pressure 139/70 113/67 136/64 Blood Pressure [Right Arm] Blood Pressure Mean [Right Arm] Blood Pressure Source Automatic Cuff Blood Pressure Position Supine 02 Sat by Pulse Oximetry 98 97 97 Oxygen Delivery Method Room Air Room Air 12/24/24 09:00 Temperature Temperature Source Pulse Rate 88 Pulse Rate [Right] Respiratory Rate Blood Pressure 130/66 Blood Pressure [Right Arm] Blood Pressure Mean [Right Arm] Blood Pressure Source Blood Pressure Position 02 Sat by Pulse Oximetry 95 Oxygen Delivery Method Lab Data Lab results reviewed: Yes I reviewed the patient's lab results. Lab Results 12/24/24 06:29: POC Glucose 206 H 12/24/24 06:34: HCV Ab LARS w/Rflx PCR Qn Negative, HIV Ag/Ab Combo Qual Negative 12/24/24 06:38: WBC 14.2 H, RBC 4.35, Hgb 13.9, Hct 39.5, MCV 90.8, MCH 32.0 H, MCHC 35.2, RDW 12.1, Plt Count 254, MPV 12.0 H, Neut % (Auto) 83.9 H, Lymph % (Auto) 8.4 L, Maries % (Auto) 6.5, Eos % (Auto) 0.4, Baso % (Auto) 0.4, Neut # (Auto) 11.9 H, Lymph # (Auto) 1.2, Maries # (Auto) 0.9, Eos # (Auto) 0.1, Baso # (Auto) 0.1, PT 12.4, INR 1.13 H, D-Dimer 1.00 H, Sodium 140, Potassium 4.6, Chloride 109 H, Carbon Dioxide 12 L, Anion Gap 23.6 H, BUN 33 H, Creatinine 1.90 H, Estimated Creat Clear 24, Estimated GFR 26 L, Est GFR ( Amer) 31 L, Glucose 215 H, Lactate 2.0, Calcium 10.6 H, Total Bilirubin 2.8 H, AST 22, ALT 14, Alkaline Phosphatase 61, Troponin I < 0.01, Total Protein 8.2 D, Albumin 4.9, Globulin 3.3 H, Albumin/Globulin Ratio 1.5, Lipase 124 Orders (Tests/Meds): ED MEDICATIONS Discontinued Medications Generic Name Dose Route Start Last Admin Trade Name Freq PRN Reason Stop Dose Admin Lactated Ringer's 1,000 mls @ 999 mls/hr 12/24/24 06:35 12/24/24 09:05 Lactated Ringer's 1000 Ml Bag IV 12/24/24 07:35 Infused .Q1H1M ONE Infusion Ondansetron HCl 4 mg 12/24/24 06:35 12/24/24 06:57 Ondansetron 4mg/2ml Vial IV 12/24/24 06:36 4 mg ONCE ONE Administration ORDERS Category Date Time Status CT abdomen pelvis wo con Stat Cat Scan 12/24/24 07:[address] cervical spine wo con Stat Cat Scan 12/24/24 07:[address] head/brain wo con Stat Cat Scan 12/24/24 07:02 Completed XR chest portable Stat Exams 12/24/24 06:29 Completed Complete Blood Count Auto Diff Stat Lab 12/24/24 06:38 Completed Comprehensive Metabolic Panel Stat Lab 12/24/24 06:38 Completed D-Dimer Stat Lab 12/24/24 06:38 Completed HIV Combo Stat Lab 12/24/24 06:34 Completed Hepatitis C Ab Qual. W/ RFX Stat Lab 12/24/24 06:34 Completed Lactic Acid Stat Lab 12/24/24 06:38 Completed Lipase Stat Lab 12/24/24 06:38 Completed POC Glucose,Bedside Routine Lab 12/24/24 06:29 Completed Prothrombin Time INR Stat Lab 12/24/24 06:38 Completed Troponin I Q3H Lab 12/24/24 09:30 Ordered Troponin I Q3H Lab 12/24/24 12:30 Ordered Troponin I Stat Lab 12/24/24 06:38 Completed Urinalysis and Microscopic Stat Lab 12/24/24 06:29 Ordered Medical Decision Narrative: In summary, this 74-year-old female with comorbidities described in the HPI presents to the emergency department today with nausea, near syncope. On initial evaluation patient is hemodynamically stable, afebrile, she was tachycardic on arrival but during my exam heart rate was in the 90s, exam notable for nontender, soft abdomen with well-appearing ileostomy, benign cardiopulmonary exam, no neurologic deficits. Differential diagnosis includes but is not limited to viral infection, urinary tract infection, bowel obstruction was considered though it is less likely since patient continues having ostomy output, electrolyte abnormality, dehydration, orthostatic hypotension, intracranial or cervical spine injury from fall, arrhythmia, ACS, among others. Based on these concerns, I ordered hematologic and serum labs, cardiac workup, CT head and C-spine, CT abdomen pelvis, urinalysis. ECG personally interpreted demonstrates sinus tachycardia, rate 100, normal axis, normal AZ and QTc, no STEMI. Patient received IV fluids, Zofran initially for treatment. Labs personally reviewed demonstrate leukocytosis WBC 14.2, no anemia, normal platelets, PT/INR nonactionable, CMP demonstrates elevated creatinine with findings of EMILY, patient is already receiving IV fluids, due to kidney dysfunction patient will not receive contrasted scans at this time. Lactic normal at 2.0, lipase normal at 124, no pancreatitis. Imaging and additional labs pending at the time of physician handoff. Patient handed off to Dr. Mcclain in stable condition for further management and disposition. Reassessment this is Dr. Mcclain at 9:32 AM I took checkout from Dr. Mccollum pending patient CT scans and reads. CT scan of the head neck and abdomen pelvis were performed which I personally interpreted shows no acute abnormalities. 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 Serial abdominal exams are benign. Patient does have evidence of acute kidney injury with a creatinine of 1.9 baseline of 1.2 also her bicarb is 12 with an elevated anion gap all likely secondary to dehydration. Patient was given a liter of IV fluids and feels much better she was p.o. challenged and tolerated this well. She is no longer throwing up in the emergency department. Family is at the bedside. Had extensive discussion with them and consider hospitalization given her laboratory abnormalities but she has close outpatient follow-up and with shared decision making we opted to aggressively hydrate orally at home and to follow-up within the next 24 to 48 hours for repeat CMP. I have advised that she return to the emergency point with any refractory decreased p.o. intake or worsening of her symptoms. the patient's preference was to go home and understood if she does not aggressively hydrate that she could get significantly worse specifically with her renal function. Patient ultimately is discharged in a stable condition. Critical Care <Angy Mccollum MD - Last Filed: 12/24/24 07:22> Critical Care Time Critical Care Time: No
--- NOTE | 2024-12-24 07:02 | CT_ITS ---
PROCEDURE INFORMATION: Exam: CT Head Without Contrast Exam date and time: 12/24/2024 7:23 AM Age: 74 years old Clinical indication: Syncope and collapse; Additional info: Syncope, fall TECHNIQUE: Imaging protocol: Computed tomography of the head without contrast. Radiation optimization: All CT scans at this facility use at least one of these dose optimization techniques: automated exposure control; mA and/or kV adjustment per patient size (includes targeted exams where dose is matched to clinical indication); or iterative reconstruction. COMPARISON: No relevant prior studies available. FINDINGS: Brain: No acute intracranial hemorrhage.. There is mild diffuse heterogeneity of the white matter attenuation, consistent with chronic white matter ischemic changes. Mild cerebral atrophy Cerebral ventricles: No ventriculomegaly. Paranasal sinuses: There is nonspecific fluid within the ethmoid sinuses. Mastoid air cells: Visualized mastoid air cells are well aerated. Bones: Severe degenerative changes in the temporomandibular joints Soft tissues: Unremarkable. IMPRESSION: No acute intracranial hemorrhage..
--- NOTE | 2024-12-24 07:02 | CT_ITS ---
PROCEDURE INFORMATION: Exam: CT Cervical Spine Without Contrast Exam date and time: 12/24/2024 7:25 AM Age: 74 years old Clinical indication: Other: Syncope; Additional info: Syncope, fall TECHNIQUE: Imaging protocol: Computed tomography of the cervical spine without contrast. Radiation optimization: All CT scans at this facility use at least one of these dose optimization techniques: automated exposure control; mA and/or kV adjustment per patient size (includes targeted exams where dose is matched to clinical indication); or iterative reconstruction. COMPARISON: CT HEAD/BRAIN WO CON 12/24/2024 7:23 AM FINDINGS: Bones: No acute fracture of the cervical spine. No subluxation or dislocation of the cervical spine. Intervertebral disc space narrowing C3/C4 and C5 through T1 may represent degenerative disc disease.. Anterior osteophyte formation C3 through T1. Posterior osteophyte formation C3 through T1. Degenerative changes in the facets at multiple levels. Degenerative changes at C1/C2 Lungs: Lung apices are normal. Thyroid: The thyroid is atrophic Soft tissues: Unremarkable. IMPRESSION: 1. No acute fracture of the cervical spine. 2. No subluxation or dislocation of the cervical spine. 3. Intervertebral disc space narrowing C3/C4 and C5 through T1 may represent degenerative disc disease..
[2024-12-24] MEDS: LACTATED RINGERS 1000ML 1,000 ML 999 ML IV (07:03)
[2024-12-24 07:04] LABS: INR 1.13 (0.9-1.1); Prothrombin Time 12.4 seconds (10.1-12.5)
[2024-12-24 07:05] LABS: Alanine Aminotransferase 14 U/L (12-78); Albumin Level 4.9 g/dl (3.5-5.0); Albumin/Globulin Ratio 1.5 (1.1-1.8); Alkaline Phosphatase 61 U/L (38-126); Anion Gap 23.6 mEq/L (5-15); Aspartate Amino Transferase 22 U/L (14-36); Bilirubin,Total 2.8 mg/dl (0.2-1.3); Blood Urea Nitrogen 33 mg/dl (7-17); Calcium 10.6 mg/dl (8.4-10.2); Carbon Dioxide 12 mmol/L (22.0-30.0); Chloride 109 mmol/L (98-107); Creatinine Clearance Estimated 24 mL/min (50-200); Creatinine,Serum 1.90 mg/dl (0.52-1.04); Estimated Glomerular Filt Rate 26 ml/min (>60); GFR (African American) 31 ML/MIN (>60); Globulin 3.3 g/dL (1.3-3.2); Glucose 215 mg/dl (74-100); Potassium 4.6 mmoL/L (3.5-5.1); Sodium 140 mmol/L (136-145); Total Protein,Serum 8.2 g/dl (6.3-8.2)
[2024-12-24 07:06] LABS: Lipase 124 U/L (23-300)
--- NOTE | 2024-12-24 07:20 | CT_ITS ---
PROCEDURE INFORMATION: Exam: CT Abdomen And Pelvis Without Contrast Exam date and time: 12/24/2024 7:28 AM Age: 74 years old Clinical indication: Nausea; Additional info: Nausea, ileostomy TECHNIQUE: Imaging protocol: Computed tomography of the abdomen and pelvis without contrast. Radiation optimization: All CT scans at this facility use at least one of these dose optimization techniques: automated exposure control; mA and/or kV adjustment per patient size (includes targeted exams where dose is matched to clinical indication); or iterative reconstruction. COMPARISON: CT ABDOMEN PELVIS W CON 07/15/2023 10:10 PM FINDINGS: Liver: Normal. No mass. Gallbladder and biliary ducts: Cholelithiasis. No gallbladder wall thickening. Pancreas: Normal. No ductal dilation. Spleen: Normal. No splenomegaly. Adrenal glands: Normal. No mass. Kidneys and ureters: Normal. No hydronephrosis. Stomach and bowel: Previous colectomy. Appendix: No evidence of appendicitis. Intraperitoneal space: Unremarkable. No free air. No significant fluid collection. Vasculature: Unremarkable. No abdominal aortic aneurysm. Lymph nodes: Unremarkable. No enlarged lymph nodes. Urinary bladder: Unremarkable as visualized. Reproductive: Unremarkable as visualized. Bones/joints: Degenerative changes throughout the lumbar spine. No acute fracture. 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 No evidence of bowel obstruction. IMPRESSION: 1. 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 No evidence of bowel obstruction. 2. Cholelithiasis.
[2024-12-24 07:22] LABS: Troponin I < 0.01 ng/ml (0.00-0.034)
[2024-12-24 07:25] LABS: D-Dimer 1.00 ug/mL (0.0-0.5)
--- NOTE | 2024-12-24 07:48 | PC.NURSE ---
Patient is aware that we need a urine.
--- NOTE | 2024-12-24 07:52 | PC.NURSE ---
No blood cultures needed at this time per
[2024-12-24 08:26] LABS: Hepatitis C Ab Qual. W/ RFX NEGATIVE (Negative)
--- NOTE | 2024-12-24 09:10 | PC.NURSE ---
call made to radiology, scan has been assigned but not being read currently.
--- NOTE | 2024-12-24 09:31 | PC.NURSE ---
Dr Mcclain wants pt to do PO challenge. Jasen provided to pt.
== END 2024-12-24 10:03 | disposition home or self-care (01) ==
PROVIDERS: Emergency Provider Emergency Medicine; PCP Nurse Practitioner Family
DX: N17.9 Acute kidney failure, unspecified (principal); R11.0 Nausea; E86.0 Dehydration; E11.8 Type 2 diabetes mellitus with unspecified complications
CPT/HCPCS: 70450; 71045; 72125; 74176; 80053; 82962; 83605; 83690; 84484; 85025; 85378; 85610; 86803; 87389; 93005; 96361; 96374; 99285; J2405; J7120

== ENCOUNTER 2024-12-25 13:12 | Observation (INO) | payer MEDICARE, OTHER, SELFPAY ==
--- OUTSIDE RECORDS SUMMARY | 2024-07-15 17:30 | XMS_ITS ---
Author Organization [facility] D [facility] Address [address] [place] [address] Care Team Providers Care Spiral Winding Machine Helper Name Role Phone Catherine Hernandez Primary Care Provider Migration, Provider Unavailable Unavailable Allergies Allergen (clinical drug ingredient) Drug/Non Drug Allergy documented on EMR Reaction Allergy Type Onset Date Status Ciprofloxacin shakes Drug Allergy Act sofia nitrofurantoin, macrocrystals / nitrofurantoin, monohydrate Macrobid abdominal cramping Drug Allergy Active REASON FOR VISIT [facility] To [facility] Conversion Encounter Medications Medication SIG (Take, [...] Active Encounters Encounter Location Date Provider Diagnosis [place] [facility] [address] [facility] 36 [facility] [address] [place] [address] 07/15/2024 Provider Migration Plan Of Treatment Medication Medication Name Sig Start Date Stop Date Notes Losartan Potassium 25 MG 1 tab(s) orally once a day; Duration: 90 days 05/11/2024 Next Appt Details Provider Name:Catherine Martinez ce, 12/28/2024 09:00:00 AM, [address] [facility] 36 [facility], [address], [place], [address], Progress Notes * Clau GUTIÉRREZB:1950 (74 yo F)Acc No.[id number]:07/15/2024 Patient: Vera KELLER Provider: Yg jorgensen Migration :1950 A ge:73 Y S ex:Female Date:07/15/2024 Address:[address] [place] [address] HAYLEY, Shaq [place], [id number] Pcp:Catherine Hernandez Subjective: * Chief Complaints: * 1 . [facility] Conversion Encounter. * Medical History: * [...] Electronic signature of Saeed morrison Migration on 12/25/2024 at 01:44 PM EDT Sign off status: Pending * Provider: Yg jorgensen Migration Date: 0 07/15/2024 Generated for Sim fierro/Jasmyn/Payton on: 12/25/2024 01:44 PM EDT
--- OUTSIDE RECORDS SUMMARY | 2024-11-02 08:10 | XMS_ITS | Encounter Summary ---
Author Organization Healthcare Address [address] [place] [address] Care Team Providers Care Weld Fitter Name Role Phone Catherine Hernandez JANAY Primary Care Provider +1- [phone] Encounter Details Date Type Department Care Team (Latest Contact Info) Description 11/02/2024 8:10 AM EDT - 11/02/2024 11:59 PM EDT Hospital Encounter [facility] [address] [facility], [address] [place] [address] Age-related osteoporosis without current pathological fracture Discharge Disposition: Home or Self Care Social History Tobacco Use Types Packs/Day Years Used Date Smoking Tobacco: Never Passive Smoke Exposure: Past Smokeless Tobacco: Never Alcohol Use Standard Drinks/Week Comments Never 0 (1 standard drink = 0.6 oz pur e alcohol) PHQ-2 Answer Date Recorded Patient Health Questionnaire-2 Score 0 11/02/2024 Comments No Sex and Gender Information Value Date Recorded Sex Assigned at Not on file Legal Sex Female 8:17 PM EDT Gender Identity Not on file Sexual Orientation Not on file documented as of this encounter Functional Status * Over the past 2 weeks, how often have you been bothered by any of the following problems? Question Answer Date of Assessment Author Little interest or pleasure in doing things Not at all 11/02/2024 8:33 AM EDT Jossy Day Feeling down, depressed, or hopeless Not at all 11/02/2024 8:33 AM EDT Jossy Day Patient Health Questionnaire -2 Score 0 11/02/2024 8:33 AM EDT Jossy Day documented as of this encounter Medications at Time of Discharge atorvastatin (Lipitor) 20 MG tablet TAKE 1 TABLET orally once a day at night for 90 days diclofenac (Voltaren) 1 % topical gel every 6 hours. glimepiride (Amaryl) 4 MG tablet 09/13/2023 Januvia 100 MG tablet TAKE 1 TABLET DAILY for 90 days lidocaine (Lidoderm) 5 % patch 1 patch 1 (one) time each day at the same time. loratadine (Claritin) 10 MG tablet Take 1 tablet by mouth daily. losartan (Cozaar) 25 MG tablet 08/05/2024 metFORMIN (Glucophage) 1000 MG tablet 1 (one) time each day at the same time. mupirocin (Bactroban) 2 % ointment every 8 hours. 09/07/2023 pantoprazole (Protonix) 40 MG EC tablet 1 (one) time each day at the same time. Synthroid 75 MCG tablet 09/08/2023 FREESTYLE LITE test strip 10/10/2024 documented as of this encounter Plan of Treatment Upcoming Encounters Date Type Department Care Team (Late st Contact Info) Description 04/26/2025 2:00 PM EST Consult Medical Office Building Surgical Specialties [address] [facility], [facility] [address] [place] [address] Lacho Lenz MD [address] [facility] [address] [place] [phone] 11/08/2025 8:20 AM EDT Office Visit [facility] [address] [facility], [facility] [address] [place] [address] Lauri Zavala MD [address] [facility] [address] [place] [address] 11/08/2025 8:40 AM EDT Appointment [facility] [address] [facility], [facility] [address] [place] [address] documented as of this encounter Procedures Procedure Name Priority Date/Time Associated Diagnosis Comments DEXA BONE DENSITY Routine 11/02/2024 8:1 0 AM EDT Age-related osteoporosis without current pathological fracture documented in this encounter Results * Dexa Bone Density (11/02/2024 8:10 AM EDT) Anatomical Region Laterality Modality L-spine Radiographic Whitney ging Narrative 11/12/2024 10:28 AM EDT [facility] [address] [place] [address], [place] [address] DXA Bone Densitometry Report: [Date of exam] BMD test performed using the Re2you DXA System (analysis version: 14.10) manufactured by [employer]. REFERRING PROVIDER: Dr. Lauri Zavala MD CLINICAL INFORMATION: PATIENT NAME: Vera Cedillo PATIENT AGE: 73 y.o. LEGAL SEX: female RADIOGRAPHIC VIEWS: Sites scanned: AP Spine, HIP Right , and HIP Left COMPARISON STUDY: DXA Axial Prior studies are not available for comparison FINDINGS: Based on WHO criteria (post-menopausal female) the diagnosis is Osteopenia The lowest T score is -1.5 in the Right Hip FRAX (10-year probability of fracture) - Major Osteoporotic: 11.8 %; Hip: 2.5 % The presence of arthritic or degenerative joint changes in the spine could artefactually increase measured BMD. The number of available measurements/sites limits adequate interpretation TBS: The TBS L1-L4 of 1.418 indicates normal microarchitecture TREATMENT RECOMMENDATIONS: Treatment decisions should be based on clinical indications. Suggest general measures to optimize calcium and vitamin D status, fall prevention measures and reduce fracture risk. FRAX threshold not met criteria for consideration of therapy Consider repeat BMD in 2-3 years us Lauri Zavala MD IMG DXA PROCEDURES Final Resu lt documented in this encounter Visit Diagnoses Diagnosis Age-related osteoporosis without current pathological fracture documented in this encounter Additional Health Concerns Assessment Noted Time A fall risk assessment has been complete d for the patient 11/02/2024 8:33 AM EDT A Body Mass Index follow-up plan has been documented for the patient 11/02/2024 9:00 AM EDT documented as of this encounter Care Teams Weld Fitter Relationship Specialty Start Date End Date Catherine Hernandez APRN [address] [place] [phone] PCP - General 08/23/20 documented as of this encounter
--- OUTSIDE RECORDS SUMMARY | 2024-11-02 08:40 | XMS_ITS | Encounter Summary ---
Author Organization Healthcare Address [address] [place] [address] Care Team Providers Care Steam Plant Records Clerk Name Role Phone Catherine Hernandez JANAY Primary Care Provider +1- [phone] Reason for Referral * Consultation (Routine) - Authorized Specialty Diagnoses / Procedures Referred By Damaris t Referred To Contact General, Endocrine & Minimally Invasive Surgery / General Surgery Diagnoses Age-related osteoporosis without current pathological fracture Stage 3a chronic kidney disease (CMS/HCC) Hypercalcemia Hyperparathyroidism ([facility]/HCC) Kailash Granados PA [address] [address] Phone: tel: fax: Ijeoma Logan MD [address] [address] Phone: tel: fax: Referral ID Status Reason Start Date Expiration Date Visits Requested Visits Authorized [id number] Authorized Specialty Services Required 11/02/2024 05/04/2026 1 1 Scheduling Instructions Please evaluate for primary hyperparathyroidism, adenoma on NM parathyroid imaging Thanks! * Consultation (Routine) - Authorized Specialty Diagnoses / Procedures Referred By Contac t Referred To Contact Diagnoses Age-related osteoporosis without current pathological fracture Stage 3a chronic kidney disease (CMS/HCC) Hypercalcemia Kailash Granados PA [address] [address] Phone: tel: fax: Referral ID Status Reason Start Date Expiration Date V isits Requested Visits Authorized [id number] Authorized 11/02/2024 05/04/2026 1 1 Reason for Visit * Reason Comments Follow-up * Consultation (Routine) - Closed Specialty Diagnoses / Procedures Referred By Damaris donald Referred To Contact Diagnoses Age-related osteoporosis without current pathological fracture Lauri Zavala MD [address] [place] [address] Phone: tel: fax: Referral ID Status Reason Start Date Expiration Date Visits Re quested Visits Authorized [id number] Closed 08/28/2024 02/27/2026 1 1 Encounter Details Date Type Department Care Team ([facility] st Contact Info) Description 11/02/2024 8:40 AM EDT Office Visit [facility] [address], [address] [place] [address] Lauri Zavala MD [address] [place] [address] Age-related osteoporosis without current pathological fracture [...] XRT, renal stones, dental issues/scheduled dental procedures, gut carrier corticosteroid; - Has underlying UC, Colectomy in [...] Connections: Unknown (01/20/2023) Received from [facility] Family and Community Support Help with Day-to-Day Activities: Not on file Lonely or Isolated: Not on file Intimate Partner Violence: Unknown (01/20/2023) Received from [facility] Abuse Screen Unsafe at Home or Work/School: Not on file Feels Threatened by Someone?: Not on file Does Anyone Keep You from Contacting Others or Doint Things Outside the Home?: Not on file Physical Sign of Abuse Present: Not on file Housing Stability: Unknown (01/20/2023) Received from [facility] Housing Stability Current Living Arrangements: Not [...] , LH , PROLACTIN , TSH , [id number] , FREET4 , CORTISOL Urine studies: Lab [...] (delayed set) acquired and processed using Siemens Chaologix Intevo 16 SPECT/CT hybrid technology. Three-dimensional attenuation-corrected SPECT, CT and fused SPECT/CT tomographic images in coronal, sagittal, and transverseplanes created and reviewed interactively to optimize sensitivity, specificity, and anatomic localization. CT: low-dose, [id number]-[id number], without intravenous contrast; TOTAL DLP (Dose Length [...] pathological fracture Stage 3a chronic kidney disease ([facility]) Hypercalcemia Hyperparathyroidism ([facility]) IgG lambda monoclonal gammopathy [3] Past Surgical [...] Medical Office Building Surgical Specialties [address] [facility], [address] [place] [address] Lacho Lenz MD [address] [facility] [address] [place] [address] 11/08/2025 8:20 AM EDT Office Visit [facility] Bone & Mineral Metabolism [address] [facility], [address] [place] [address] Lauri Zavala MD [address] [facility] [address] [place] [address] 11/08/2025 8:40 AM EDT Appointment [facility] Bone & Mineral Metabolism [address] [facility], [address] [place] [address] Scheduled Orders Name Type Priority [...] Hyperparathyroidism (CMS/HCC) Expected: 10/25/2025 (Approximate), Expires: 05/06/2026 [place] Lambda Quant Free Light Chains w/Ratio Lab [...] documented as of this encounter Care Teams Steam Plant Records Clerk Relationship Specialty Start Date End Date Catherine Hernandez APRN [address] [place] [address] [place] [address] PCP - General 08/23/20 documented as of this encounter
--- OUTSIDE RECORDS SUMMARY | 2024-12-12 07:15 | XMS_ITS ---
Author Organization [facility] Address [address] [place] [address] Care Team Providers Care Field Services Analyst Name Role Phone Catherine Hernandez Primary Care Provider [phone] Allergies Allergen (clinical drug ingredient) Drug/Non Drug [...] date:12/21/2024 05:53:33 PM Interpretation: Performing Lab:CB, [facility] [address], [facility] Yannick Elizalde Notes/Report: NON-FASTING CULTURE, URINE, ROUTINE SEE NOTE CULTURE, URINE, ROUTINE Micro Number: [id number] Test Status: Final Specimen Source: Urine Specimen [...] W/U Status Risk Notes Problem Midline cystocele ([id number]) Female bladder prolapse (N81.10) Active confirmed Vital Signs Temperature 96.6 degrees Fahrenheit 12/13/19 25 Heart Rate 76 /min 12/12/2024 Blood pressure systolic 126 mm Hg 12/13/19 25 Blood pressure diastolic 62 mm Hg 025 Height 62.5 in 12/12/2024 Weight 134 lbs 12/12/2024 BMI 24.12 kg/m2 12/12/2024 Encounters Encounter Location Date Provider Diagnosis [facility] [address] [place] [address] 12/12/2024 Catherine Mary Urinary frequency R35.0 ; [...] be contributing to symptoms, has consulted with DOCUMENT REVIEWER previously Plan Of Treatment Medication Medication Name Sig Start Date Stop Date Notes Cefdinir 300 MG 300 mg Orally 2 time s a day; Duration: 5 days 12/12/2024 Next Appt Details Follow Up: prn, Reason: Provider Name:Catherine Martinez ce, 12/28/2024 09:00:00 AM, [address], [address], [place], [address], Progress Notes * James GUTIÉRREZaDOB:1950 (74 yo F)Acc No.[id number]:12/12/2024 Progress Notes Patient: Vera KELLER Provider: MIGUEL Ace :1950 A ge:74 Y S ex:Female Date:12/12/2024 Address:[facility] [address], [place], [id number] Subjective: * Chief Complaints: * 1 . [...] be contributing to symptoms, has consulted with DOCUMENT REVIEWER previously?? * Procedure Codes: 8 1002 URINALYSIS, Modifiers: QW * Follow Up: p rn * * Sign off status: Completed true * Provider: MIGUEL Ace Date: 12/12/2024 Generated for Sim fierro/Jasmyn/Northitting on: 12/25/2024 01:45 PM EDT History and Physical Notes * Examination Category Sub-Category Detail Notes Category Not es General Examination Heart: Regular Rate and Rhyt hm Lungs: clear to auscultatio n, Abdomen: soft, ND, BS present , no CVA tenderness, General Pleasant and Coopera tive, NAD on RA, Psych Normal Mood/Affect
--- OUTSIDE RECORDS SUMMARY | 2024-12-19 06:41 | XMS_ITS ---
Author Organization [facility] Address [address] [facility] [address] [place] [address] Care Team Providers Care Roller Skate Assembler Name Role Phone Catherine Hernandez Primary Care Provider REASON FOR VISIT mammogram order Encounters Encounter Location Date Provider Diagnosis [facility] [address] [place], [place] [address] 12/19/2024 Catherine Hernandez Breast cancer screening by [address], [place], [address], Progress Notes * James GUTIÉRREZLaurieB:1950 (74 yo F)Acc No.[id number]:12/19/2024 Patient: Vera KELLER :1950 A ge:74 Y S ex:Female [address], [address] Subjective: * Chief Complaints: * M ammogram order * Medical History: * Surgical History: * Hospitalization/Major Diagno stic Procedure: * Medications: Objective: * Vitals: * Physical Examination: Assessment: * Assessment: 1. B reast cancer screening by mammogram - Z12.31 Plan: * Treatment: * Procedure Codes: * true * Date: Generated for Sim fierro/Jasmyn/Payton on: 0 12/25/2024 01:45 PM EDT
--- OUTSIDE RECORDS SUMMARY | 2024-12-20 07:00 | XMS_ITS ---
Author Organization [facility] Address [address] [place] [address] Care Team Providers Care Circuit Board Repair Technician Name Role Phone Catherine Hernandez Primary Care Provider Dave Rocha Unavailable [phone] Allergies Allergen (clinical drug ingredient) Drug/Non Drug Allergy documented on EMR Reaction Allergy Type Onset Date Status Ciprofloxacin shakes Drug Allergy Act sofia nitrofurantoin, macrocrystals / nitrofurantoin, monohydrate Macrobid abdominal cramping Drug Allergy Active Results Component Value Reference Range Notes Urinalysis Reviewed date:12/20/2024 12:21:57 PM Interpretation: Performing Lab: Notes/Report: Color/Clarity yellow Leuk trace Nitrite neg Urobili 0.2 Protein trace pH 5.5 Blood neg Sp. Gr. >=1.030 Ketone neg Bili neg Glucose neg REASON FOR VISIT possible UTI-urinary frequency Medications Medication SIG (Take, Route, Frequency, Duration) Notes Start Date End Date Status Cefdinir 300 MG 300 mg Orally 2 time s a day; Duration: 5 days 12/12/2024 Active Losartan Potassium 25 MG 1 tab(s) orally once a day; Duration: 90 days Active Januvia 100 MG TAKE 1 TABLET DAILY; Duration: 90 days Active Pantoprazole Sodium 40 MG 1 tab(s) orall y once a day; Duration: 30 days Active FREESTYLE LITE TEST STRIPS USE TO CHECK BLOOD SUGAR DX:E11.9 ONCE DAILY; Duration: 100 DAYS Active Glimepiride 4 MG 1 1/2 tab(s) orally once a day; Duration: 90 days Active metFORMIN HCl 1000 MG 1 cap orally once a day; Duration: 90 days Active Atorvastatin Calcium 20 MG TAKE 1 TABLET orally once a day at night; Duration: 90 days Active Synthroid 75 MCG 1 tab(s) orally once a day; Duration: 90 days Active Mupirocin 2 % 1 jayson applied topica lly 3 times a day; Duration: 7 days Active Loratadine 10 MG TAKE 1 TABLET DAILY Active Lidocaine 5 % 1 patch applied topi jonathan once a day; Duration: 30 day(s) prn Active Voltaren Arthritis Pain 1 % as directed applied topically 4 times a day Active ACCU-CHECK AVIA PLUS TEST STRIPS NA DIRECTED ONCE A DAY ONCE A DAY Active Vital Signs Temperature 97.6 degrees Fahrenheit 12/21/19 25 Heart Rate 80 /min 12/20/2024 Blood pressure systolic 102 mm Hg 12/21/19 25 Blood pressure diastolic 56 mm Hg 025 Height 62.5 in 12/20/2024 Weight 131.6 lbs 12/20/2024 BMI 23.68 kg/m2 12/20/2024 Encounters Encounter Location Date Provider Diagnosis [facility] [address] [place] [address] 12/20/2024 Dave Rocha Urinary frequency R35.0 Assessments Encounter Date Diagnosis (ICD Code) Assessment Notes Treatment Notes Treatment Clinical Notes Section Notes 12/20/2024 Urinary frequency (ICD-10 - R35.0) - recently had UA and Cx on 12/12/2024 with negative results, has now completed course of oral cefdinir for suspected UTI at that time - notes now with some improvement in urinary frequency and back discomfort but remains having some urgenc - UA in clinic today not concerning for ongoing UTI - discussed with patient and has history of pelvic organ prolapse with bladder protruding into the vaginal canal on self examination, she notes seeing SOIL CHEMIST for this many years ago when prolapse was less severe and was asymptomatic - has not completed Pelvic Floor PT in past - discussed with patient, she will call and schedule appointment with SOIL CHEMIST, Dr. Tracey, regarding concerns for pelvic organ prolapse and if warranting further interventions at that time - patient has rountine follow up scheduled for annual visit in our clinic in the coming weeks Plan Of Treatment Treatment Notes Assessment Notes Urinary frequency - recently had UA and Cx on 12/12/2024 with negative results, has now completed course of oral cefdinir for suspected UTI at that time - notes now with some improvement in urinary frequency and back discomfort but remains having some urgenc - UA in clinic today not concerning for ongoing UTI - discussed with patient and has history of pelvic organ prolapse with bladder protruding into the vaginal canal on self examination, she notes seeing SOIL CHEMIST for this many years ago when prolapse was less severe and was asymptomatic - has not completed Pelvic Floor PT in past - discussed with patient, she will call and schedule appointment with SOIL CHEMIST, Dr. Tracey, regarding concerns for pelvic organ prolapse and if warranting further interventions at that time - patient has rountine follow up scheduled for annual visit in our clinic in the coming weeks Next Appt Details Follow Up: prn, Reason: Provider Name:Catherine Martinez ce, 12/28/2024 09:00:00 AM, [address] [place] [facility] [address] [facility], [address], [place], [address], Progress Notes * James GUTIÉRREZLaurieB:1950 (74 yo F)Acc No.[id number]:12/20/2024 Progress Notes Patient: Vera KELLER Provider: Gael Rocha MD :1950 A ge:74 Y S ex:Female Date:12/20/2024 Address:[address] [place] [address], [facility] Pcp:Catherine Hernandez Subjective: * Chief Complaints: * 1 . possible UTI-urinary frequency. * HPI: g en: Patient presents today for follow up regarding recent treatment of UTI with oral Cefdinir. She notes she has completed course of oral antibiotic with improvement in symptoms of urinary frequency, urgency, and back pain. She does note however an increased feeling of abomiinal pressure/discomfort that has preceeded and continued beyond this UTI treamtnent. She notes history of bladder prolapse years ago and has seen SOIL CHEMIST, Dr. Tracey, for this in the past however years ago and was not as severe at that time. She now notes increased discomfort and urgency when bending over at waist and with prlonged walking/walking up hill. She also notes on self examination an increase in bulging within the vagina which has increased from her prior self- exams years ago. She notes she is planning on calling to schedule with SOIL CHEMIST for follow up on bladder prolapse and has not yet completed pelvic floor PT. 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 * Social History: S moking A re you a:: nonsmoker. R ecreational drug use: no. Exercise: yes. Home smoke detector use: yes. Caffeine: yes, frequency:tea- 1 a weeksoft drinks- 2 per day. Living Will: Yes, is POA and then daughter. Alcohol: no. Sexually active: no. Travel outside [place]: no. Occupation: Retired [employer]. * Medications: T jamie Voltarejustin Arthritis Pain 1 % Gel as directed applied topically 4 times a day , Taking ACCU-CHECK AVIA PLUS TEST STRIPS NA 100'S BOX DIRECTED ONCE A DAY ONCE A DAY , Taking Loratadine 10 MG Tablet TAKE 1 [...] Tablet TAKE 1 TABLET DAILY , Taking Cefdinir 300 MG Capsule 300 mg Orally 2 times a day , Medication List reviewed and reconciled with the patient * Allergies: C iprofloxacin: shakes, Macrobid: abdominal cramping - Side Effects. Objective: * Vitals: N urse: jl, Pain: 0, Temp: 97.6, RR: 18, HR: 80, BP: 102/56, Ht: 62.5, Wt: 131.6, BMI:23.68. * Examination: G eneral Examination: General P leasant and Cooperative, NAD on RA,. Heart: R egular Rate and Rhythm. Lungs: c lear to auscultation,. Abdomen: s oft, ND, BS present, no CVA tenderness,. Psych N ormal Mood/Affect. Assessment: * Assessment: 1. U rinary frequency - R35.0 (Primary) Plan: * Treatment: Value Reference Range C olor/Clarity yellow * L euk trace * N itrite neg * U robili 0.2 * P rotein trace * p H 5.5 * B lood neg * S p. Gr. >=1.030 * K etone neg * B jamie neg * G lucose neg * Herlinda Paez 12/20/2024 11: 21:19 AM EDT > Notes: - recently had UA and Cx on 12/12/2024 with negative results, has now completed course of oral cefdinir for suspected UTI at that time - notes now with some improvement in urinary frequency and back discomfort but remains having some urgenc - UA in clinic today not concerning for ongoing UTI - discussed with patient and has history of pelvic organ prolapse with bladder protruding into the vaginal canal on self examination, she notes seeing SOIL CHEMIST for this many years ago when prolapse was less severe and was asymptomatic - has not completed Pelvic Floor PT in past - discussed with patient, she will call and schedule appointment with SOIL CHEMIST, Dr. Tracey, regarding concerns for pelvic organ prolapse and if warranting further interventions at that time - patient has rountine follow up scheduled for annual visit in our clinic in the coming weeks ?? * Procedure Codes: 8 1002 URINALYSIS, Modifiers: QW * Follow Up: p rn * * Sign off status: Completed true * Provider: Gael Rocha MD Date: 0 12/20/2024 Generated for Printi ng/Fatwing/eTransmitting on: 0 12/25/2024 01:44 PM EDT History and Physical Notes * HPI (History of Present Illness) Category Sub-Category Detail Notes Category Not es gen Patient present s today for follow up regarding recent treatment of UTI with oral Cefdinir. She notes she has completed course of oral antibiotic with improvement in symptoms of urinary frequency, urgency, and back pain. She does note however an increased feeling of abomiinal pressure/discomfort that has preceeded and continued beyond this UTI treamtnent. She notes history of bladder prolapse years ago and has seen SOIL CHEMIST, Dr. Tracey, for this in the past however years ago and was not as severe at that time. She now notes increased discomfort and urgency when bending over at waist and with prlonged walking/walking up hill. She also notes on self examination an increase in bulging within the vagina which has increased from her prior self-exams years ago. She notes she is planning on calling to schedule with SOIL CHEMIST for follow up on bladder prolapse and has not yet completed pelvic floor PT. Examination Category Sub-Category Detail Notes Category Not es General Examination Heart: Regular Rate and Rhyt hm Lungs: clear to auscultatio n, Abdomen: soft, ND, BS present , no CVA tenderness, General Pleasant and Coopera tive, NAD on RA, Psych Normal Mood/Affect
[2024-12-25] VITALS (11 sets, daily range): BP systolic 96–138; BP diastolic 65–91; PULSE 69–110; RESP 14–18; TEMP 36.5–36.8; O2SAT 94–100; BMI 18.1; BMI 24.0
--- NOTE | 2024-12-25 13:32 | PC.NURSE ---
FS 203
--- OUTSIDE RECORDS SUMMARY | 2024-12-25 13:44 | XMS_ITS | Encounter Summary ---
Author Organization Healthcare Address [address] [place] [address] Care Team Providers Care Breast Worker Name Role Phone Catherine Hernandez BARREL PAINTER Primary Care Provider +1- [phone] Encounter Details Date Type Department Care Team [...] Medical Office Building Surgical Specialties [address] [facility], [address] [place] [address] Lacho Lenz MD [address] [facility] [address] [place] [address] 11/08/2025 8:20 AM EDT Office Visit Professional [facility] Mineral Metabolism [address], [address] [place] [address] Lauri Zavala MD [address] [place] [address] 11/08/2025 8:40 AM EDT Appointment [facility] Mineral Metabolism [address] [facility] [address] [facility], [address] [place] [address] documented as of this encounter Visit Diagnoses Not on filedocumented in this encounter Additional Health Concerns Assessment Noted Time A fall risk assessment has been complete d for the patient 11/02/2024 8:33 AM EDT A Body Mass Index follow-up plan has been documented for the patient 11/02/2024 9:00 AM EDT documented as of this encounter Care Teams Breast Worker Relationship Specialty Start Date End Date Catherine Hernandez APRN [address] [place] [address] PCP - General 08/23/20 documented as of this encounter
--- OUTSIDE RECORDS SUMMARY | 2024-12-25 13:44 | XMS_ITS | Clinical Summary ---
Author Organization [facility] Address [address] [place] [address] Care Team Providers Care Placement Director Name Role Phone Provider, No Known Primary [...] season) 2024 INFLUENZA VACCINE 01/10/2025 Care Teams Placement Director Relationship Specialty Start Date End Date Provider, No Known [facility] [place] [address] PCP - General 06/05/15
--- OUTSIDE RECORDS SUMMARY | 2024-12-25 13:44 | XMS_ITS | Clinical Summary ---
Author Organization Healthcare Address [address] [place] [address] Care Team Providers Care Waiter Name Role Phone Catherine Hernandez COMPANY LABORER Primary Care Provider +1- [phone] Allergies Active Allergy Reactions Criticality Noted Date [...] Description 11/02/2024 8:40 AM EDT Office Visit [facility] Mineral Metabolism [address] [place] [address] Lauri Zavala MD Age-related osteoporosis without current pathological fracture (Primary Dx); Stage 3a chronic kidney disease (CMS/HCC); Hypercalcemia; Hyperparathyroidism (CMS/HCC); IgG lambda monoclonal gammopathy 11/02/2024 8:10 AM EDT - 11/02/2024 11:59 PM EDT Hospital Encounter [facility]eral [facility]abolism [address] [place] [address] Age-related osteoporosis without current pathological fracture Discharge Disposition: Home or Self Care 11/02/2024 Travel 09/25/2024 12:30 PM EDT - 09/25/2024 11:59 PM EDT Hospital Encounter [facility] [address] [place] [address] Discharge Disposition: Home or Self Care 09/25/2024 10:38 AM EDT - 09/25/2024 12:29 PM EDT Hospital Encounter [facility] [address] [place] [address] Discharge Disposition: Home or Self Care 09/25/2024 10:30 AM EDT - 09/25/2024 10:37 AM EDT Hospital Encounter [facility] [address] [place] [address] Age-related osteoporosis without current pathological fracture; Stage 3a chronic kidney disease ([facility]/HCC); Hypercalcemia Discharge Disposition: Home or Self Care 09/25/2024 10:30 AM EDT - 09/25/2024 10:37 AM EDT Hospital Encounter [facility] [address] [place] [address] Age-related osteoporosis without current pathological [...] Upcoming Encounters Date Type Department Care Team ([facility] st Contact Info) Description 04/26/2025 2:00 PM EST Consult Medical Office Building Surgical Specialties [address] [facility] [address] [facility] [address], [address] [place] [address] Lacho Lenz MD [address] [place] [address] 11/08/2025 8:20 AM EDT Office Visit [facility] Mineral Metabolism [address], [address] [place] [address] Lauri Zavala MD [address] [place] [address] 11/08/2025 8:40 AM EDT Appointment [facility]eral [facility]abolism [address] [facility] [address] [facility] [address], [address] [place] [address] Health Maintenance Due Date Last Done Comments [facility]-Diabetes: Hemoglobin A1C 1950 [facility]-Hepatitis C Screening 1950 [facility]-Medicare Annual Wellness (AWV) 1950 [facility]-Infant/Child/Adol SDOH Screenings 1950 Diabetes: Dental Exam 1958 [facility]- SDOH Screenings 1966 [facility]-Adult SDOH Screenings 1966 [facility]-DTaP,Tdap,and Td Vaccines (1 - Tdap) 03/26/2017 03/25/2017 [facility]-Zoster Vaccines (3 of 3) 04/26/2018 03/01/2018, 10/12/2016 [facility]-RSV Vaccine: 60+ Years or (1 - 1-dose 75+ series) 12/11/2023 [id number] Vaccine (4 - 2024- season) 2024 02/11/2021, [...] Whitney ging Narrative 11/12/2024 10:28 AM EDT [facility] [address] [place] [address] DXA Bone Densitometry Report: [Date of exam] BMD test performed using the [employer] DXA System (analysis version: 14.10) manufactured by [employer]. REFERRING PROVIDER: Dr. Lauri Zavala MD CLINICAL [...] (delayed set) acquired and processed using Siemens Somnus Therapeuticsvo 16 SPECT/CT hybrid technology. Three-dimensional attenuation-corrected SPECT, CT and fused SPECT/CT tomographic images in coronal, sagittal, and transverse planes created and reviewed interactively to optimize sensitivity, specificity, and anatomic localization. CT: low-dose, [id number], without intravenous contrast; TOTAL DLP (Dose Length [...] neck-only (delayed set) acquired andprocessed using Siemens Synthacea Intevo 16 SPECT/CT hybrid technology.Three-dimensional attenuation-corrected SPECT, CT and fused SPECT/CTtomographic images in coronal, sagittal, and transverse planes created andreviewed interactively to optimize sensitivity, specificity, and anatomiclocalization. CT: low-dose, [id number], without intravenous contrast;TOTAL DLP (Dose Length Product): [...] 09/25/2024 11:55 AM us Lauri Zavala MD [facility] PROCEDURES Final Resul t from Last 3 Months Insurance MEDICARE [facility] Care Teams Waiter Relationship Specialty Start Date End Date Catherine Hernandez APRN [facility] [place] [address] PCP - General 08/23/20
--- OUTSIDE RECORDS SUMMARY | 2024-12-25 13:44 | XMS_ITS | Encounter Summary ---
Author Organization Healthcare Address [address] [place] [address] Care Team Providers Care Probation Supervisor Name Role Phone Catherine Hernandez SHUT OFF WORKER Primary Care Provider +1- [phone] Reason for Referral * Consultation (Routine) - Authorized Specialty Diagnoses / Procedures Referred By Damaris donald Referred To Contact Nephrology Diagnoses Low bone density Acquired hypothyroidism Elevated parathyroid hormone related peptide level Catherine Hernandez, SHUT OFF WORKER [address] [address] Phone: tel: fax: [facility] [address] [address] Phone: tel: fax: Referral ID Status Reason Start Date Expiration Date Visits Requested Visits Authorized [id number] Authorized Specialty Services Required 10/15/2023 04/15/2025 1 1 Encounter Details Date Type Department Care Team (Late st Contact Info) Description 10/15/2023 Community [facility] Community Practice [address] [place] [address] Catherine Hrenandez, SHUT OFF WORKER [address] [address] Low bone density (Primary Dx); [...] Medical Office Building Surgical Specialties [address], [address] [place] [address] Lacho Lenz MD [address] [facility] [address] [place] [address] 11/08/2025 8:20 AM EDT Office Visit [facility] Mineral Metabolism [address] [facility] [address] [facility], [address] [place] [address] Lauri Zavala MD [address] [facility] [address] [place] [address] 11/08/2025 8:40 AM EDT Appointment [facility] Mineral Metabolism [address] [facility], [address] [place] [address] Scheduled Referrals Name Type Priority Associated Diagnoses Orde r Schedule Ambulatory referral to Nephrology Outpatient Referral Routine Low bone density Acquired hypothyroidism Elevated parathyroid hormone related peptide level Ordered: 10/15/2023 documented as of this encounter Visit Diagnoses Diagnosis Low bone density- Primary Acquired hypothyroidism Unspecified hypothyroidism Elevated parathyroid hormone related peptide level documented in this encounter Care Teams Probation Supervisor Relationship Specialty Start Date End Date Catherine Hernandez APRN [facility] [address] PCP - General 08/23/20 documented as of this encounter
--- OUTSIDE RECORDS SUMMARY | 2024-12-25 13:44 | XMS_ITS | Encounter Summary ---
Author Organization Healthcare Address [address] [place] [address] Care Team Providers Care Visual Basic Developer Name Role Phone Catherine Hernandez APRN Primary Care Provider +1- [phone] Reason for Referral * Consultation (Routine) - Closed Specialty Diagnoses / Procedures Referred By Damaris donald Referred To Contact Nephrology Diagnoses Osteoporosis, unspecified osteoporosis type, unspecified pathological fracture presence Hypercalcemia Catherine Hernandez APRN [address] [address] Phone: tel: fax: Lauri Zavala MD [address] [address] Phone: tel: fax: Referral ID Status Reason Start Date Expiration Date V isits Requested Visits Authorized [id number] Closed Specialty Services Required 05/22/2024 11/21/2025 1 1 Encounter Details Date Type Department Care Team (Latest Contact Info) Description 05/22/2024 Community Orders Community Practice [address] [place] [address] Catherine Hernandez APRN [address] [address] Osteoporosis, unspecified osteoporosis type, unspecified [...] Upcoming Encounters Date Type Department Care Team ([facility] st Contact Info) Description 04/26/2025 2:00 PM EST Consult Medical Office Building Surgical Specialties [address] [facility], [address] [place] [address] Lacho Lenz MD [address] [facility] [address] [place] [address] 11/08/2025 8:20 AM EDT Office Visit [facility]abolism [address] [facility], [address] [place] [address] Lauri Zavala MD [address] [facility] [address] [place] [address] 11/08/2025 8:40 AM EDT Appointment [facility] [address] [facility], [address] [place] [address] Scheduled Referrals Name Type Priority Associated Diagnoses Orde r Schedule Ambulatory referral to Nephrology Outpatient Referral Routine Osteoporosis, unspecified osteoporosis type, unspecified pathological fracture presence Hypercalcemia Ordered: 05/22/2024 documented as of this encounter Visit Diagnoses Diagnosis Osteoporosis, unspecified osteoporosis type, unspecified pathological fracture presence- Primary Hypercalcemia documented in this encounter Care Teams Visual Basic Developer Relationship Specialty Start Date End Date Catherine Hernandez APRN [address] [place] [address] PCP - General 08/23/20 documented as of this encounter
--- OUTSIDE RECORDS SUMMARY | 2024-12-25 13:45 | XMS_ITS | Patient Health Record ---
Author Organization [facility] Address [address] [place] [address] Care Team Providers Care Durability Technician Name Role Phone MaryDanielah Primary Care Provider [phone] Dave Rocha Unavailable [phone] lAexus Terrazas Unavailable [phone] Migration, Provider Unavailable Unavailable Allergies Allergen (clinical [...] >=1.030 Ketone neg Bili neg Glucose neg M-Thyroid Stimulating Hormon e Reviewed date:05/12/2024 10:37:34 AM Interpretation: Performing Lab: Notes/Report: TSH 1.45 0.465-4.68 uIU/mL M-Complete Blood Count Auto Diff Reviewed date:05/12/2024 [...] 0.2 0.0-0.4 K/mm3 BA# 0.1 0-0.2 K/mm3 COMPREHENSIVE METABOLIC PANE L ([id number]) Reviewed date:03/29/2024 12:29:19 PM Interpretation: Performing Lab:[place], [facility] CenterPcxwHP[address] Yannick Elizalde Notes/Report: NON-FASTING; NON-FASTING; NON-FASTING GLUCOSE [...] 9 10-35 U/L ALT 7 6-29 U/L CBC (INCLUDES DIFF/PLT) (639 9) Reviewed date:03/29/2024 12:29:19 PM Interpretation: Performing Lab:[facility] [address], [facility] CenterXvhzVH[address] Yannick Elizalde Notes/Report: NON-FASTING; NON-FASTING; NON-FASTING WHITE [...] MPV 12.2 7.5-12.5 fL ABSOLUTE NEUTROPHILS 5344 [phone] cells/uL ABSOLUTE LYMPHOCYTES [phone] cells/uL ABSOLUTE MONOCYTES 613 200-950 cells/uL ABSOLUTE EOSINOPHILS 161 15-500 cells/uL ABSOLUTE BASOPHILS 44 0-200 cells/uL NEUTROPHILS 73.2 LYMPHOCYTES 15.6 MONOCYTES 8.4 EOSINOPHILS 2.2 BASOPHILS 0.6 CULTURE, URINE, ROUTINE (395 ) Reviewed date:03/30/2024 01:23:39 PM Interpretation: Performing Lab:[place] Mary[address], [facility] CenterGbwlFY[address] Yannick Elizalde Notes/Report: NON-FASTING; NON-FASTING; NON-FASTING CULTURE, URINE, ROUTINE SEE NOTE CULTURE, URINE, ROUTINE Micro Number: [id number] Test Status: Final Specimen Source: Urine Specimen Quality: Adequate Result: No Growth M-Lipid Panel Reviewed date:05/12/2024 10:37:34 AM Interpretation: Performing Lab: Notes/Report: Patient Fasting? Y TRIG 171 30-150 mg/dl CHOL 194 140-200 mg/dl DLDL 110.44 100-129 mg/dL VLDL 34 0-40 mg/dL HDL 44 40-60 mg/dl CHLHDL 4.4 1-3.5 M-Hemoglobin A1C Reviewed date:05/12/2024 10:37:34 AM Interpretation: Performing Lab: Notes/Report: HGBA1C 6.5 4.0-6.0 % < 6% Non-Diabetic Level < 7% Controlled Diabetic Level > 8% Poorly Controlled Diabetic Level M-Comprehensive Metabolic Pa ezio Reviewed date:05/12/2024 10:37:34 [...] AGRATIO 1.7 1.1-1.8 ALP 54 38-126 U/L X ray : Knee, Right Reviewed date:05/12/2024 10:37:34 AM Interpretation: Performing Lab: Notes/Report: Urinalysis Reviewed date:03/28/2024 11:12:14 AM Interpretation: Performing Lab: Notes/Report: Color/Clarity Roselyn Leuk neg Nitrite pos Urobili 0.2 Protein 100mg/dL pH 5.5 Blood neg Sp. Gr. >=1.030 Ketone neg Bili small Glucose neg H-MICROALB Reviewed date:05/10/2024 04:46:34 PM Interpretation: Performing Lab: Notes/Report: MICROALB 27.000 0-16.7 mg/L M-Uric Acid Reviewed date:05/12/2024 10:37:34 AM Interpretation: Performing Lab: Notes/Report: URIC 6.5 2.5-6.2 mg/dl CULTURE, URINE, ROUTINE (395 ) Reviewed date:12/21/2024 05:53:33 PM Interpretation: Performing Lab:CB, [facility], Jorge GonzalezAnjaBO[address] Yannick Elizalde Notes/Report: NON-FASTING CULTURE, URINE, ROUTINE SEE NOTE CULTURE, URINE, ROUTINE Micro Number: [id number] Test Status: Final Specimen Source: Urine Specimen [...] >=1.030 Ketone neg Bili neg Glucose neg Medications Medication SIG (Take, Route, Frequency, Duration) Notes Start Date End Date Status Lidocaine 5 % 1 patch applied topi jonathan once a day; Duration: 30 day(s) prn Active Loratadine 10 MG TAKE 1 TABLET DAILY Active Atorvastatin Calcium 20 MG TAKE 1 TABLET orally once a day at night; Duration: 90 days Active Mupirocin 2 % 1 jayson applied topica lly 3 times a day; Duration: 7 days Active Synthroid 75 MCG 1 tab(s) orally once a day; Duration: 90 days Active metFORMIN HCl 1000 MG 1 cap orally once a day; Duration: 90 days Active Glimepiride 4 MG 1 1/2 tab(s) orally once a day; Duration: 90 days Active Ondansetron 4 MG 1 tablet on the tong ue and allow to dissolve Orally prn Active FREESTYLE LITE TEST STRIPS USE TO CHECK BLOOD SUGAR DX:E11.9 ONCE DAILY; Duration: 100 DAYS Active Pantoprazole Sodium 40 MG 1 tab(s) orall y once a day; Duration: 30 days Active ACCU-CHECK AVIA PLUS TEST STRIPS NA DIRECTED ONCE A DAY ONCE A DAY Active Januvia 100 MG TAKE 1 TABLET DAILY; Duration: 90 days Active Voltaren Arthritis Pain 1 % as directed applied topically 4 times a day Active Losartan Potassium 25 MG 1 tab(s) orally once a day; Duration: 90 days Active Immunizations Vaccine Route Administration Date Status Comme nts Fluzone High Dose Unknown 12/26/2018 Administered Fluzone High Dose Unknown 11/29/2019 Administered Fluzone High Dose Unknown 01/19/2024 Administered Influenza (Fluzone)--Medicar e only IM Intramuscular 02/06/2014 Administered [id number] exp luke e 09/13/2014 Influenza (Fluzone)--Medicar e only IM Intramuscular 12/26/2016 Administered Influenza (Fluzone)--Medicar e only IM Intramuscular 12/14/2017 Administered Prevnar PCV-13 (Pneumococcal conjugate 13) IM Intramuscular 03/25/2017 Administered SHINGRIX IM Intramuscular 03/01/2018 Administered Tenivac (Td) 7 + yrs IM Intramuscular 03/25/2017 Administered Zostavax (Shingles) SC Subcutaneous 10/14/2016 Administered Lot # [id number] Pneumovax 23 IM Intramuscular 02/28/2016 Administered Influenza (Fluzone)--Medicar e only IM Intramuscular 01/29/2015 Administered Problems Problem Type SNOMED Code ICD Code Onset Dates Problem Status W/U Status Risk Notes Problem Hypercalcemia (49678858) Hypercalcemia (E83.52) Active confirmed Problem Ileostomy present (613016334) Ileostomy status (Z93.2) Active confirmed Problem Recurrent urinary tract infection (912554949) Recurrent UTI (N39.0) Active confirmed Problem Hyperlipidemia (41326295) Hyperlipidemia (E78.5) Active confirmed Problem Essential hypertension (46531034) Essential hypertension (I10) Active confirmed Problem Back pain (613908299) Back pain (M54.9) Active confirmed Problem Chronic pain (26907651) Other chronic pain (G89.29) Active confirmed Problem Lower abdominal pain (56247585) Lower abdominal pain (R10.30) Active confirmed Problem Goiter (6508379) Goiter (E04.9) Active confirme d Problem Gastroesophageal reflux disease (877871944) Gastroesophageal reflux disease, esophagitis presence not specified (K21.9) Active confirmed Problem Body mass index 25-29 - overweight (608739934) BMI 28.0-28.9,adult (Z68.28) Active confirmed Problem Degeneration of lumbosacral intervertebral disc (72288896) DDD (degenerative disc disease), lumbosacral (M51.37) Active confirmed Problem Hypothyroidism (25018793) Hypothyroidism, unspecified type (E03.9) Active confirmed Problem Methicillin resistant Staphylococcus aureus infection (473101341) Methicillin resistant Staphylococcus aureus infection (A49.02) Active confirmed Problem Body mass index 25-29 - overweight (259826608) BMI 26.0-26.9,adult (Z68.26) Active confirmed Problem Atrophic vaginitis (81782462) Atrophic vaginitis (N95.2) Active confirmed Problem Seasonal allergic rhinitis (484789581) Chronic seasonal allergic rhinitis, unspecified trigger (J30.2) Active confirmed Problem Chondrocalcinosis (089519834) Chondrocalcinosis (M11.20) Active confirmed Problem Midline cystocele (827007553) Female bladder prolapse (N81.10) Active confirmed Problem Osteopenia following menopause (disorder) (436794826) Osteopenia after menopause (M81.0) Active confirmed Problem Arthropathy associated with a neurological disorder (35751428) Charcot's joint of left foot (M14.672) Active confirmed Problem Diabetic neuropathic arthropathy (517357838) Type 2 diabetes mellitus with diabetic neuropathic arthropathy, 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) Active confirmed Problem Blood chemistry abnormal (015197263) Elevated PTHrP level (R79.89) Active confirmed Problem 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) Active confirmed Vital Signs Heart Rate 98 /min 12/25/2024 Temperature 97.8 degrees Fahrenheit 12/25/2024 Blood pressure diastolic 64 mm Hg 12/25/2024 Height 62.5 in 12/25/2024 Blood pressure systolic 88 mm Hg 12/25/2024 Weight 123.6 lbs 12/25/2024 BMI 22.24 kg/m2 12/25/2024 Encounters Encounter Location Date Provider Diagnosis [facility] [address] [place] [address] 07/15/2024 Provider Migration [facility] [address] [place] [address] 12/25/2024 Catherine Mary [facility] [address] [place] [address] 03/28/2024 Alexus McNees Low back pain, unspecified M54.50 ; Acute cystitis without hematuria N30.00 and Weakness R53.1 [facility] [address] [place] [address] 05/09/2024 Catherine Mary Type 2 diabetes mellitus with diabetic neuropathic arthropathy, without long-term current use of insulin E11.610 ; Hypothyroidism, unspecified type E03.9 ; Essential hypertension I10 ; Hyperlipidemia E78.5 ; Other chronic pain G89.29 and Pain, joint, knee, right M25.561 [facility] [address] [place] [address] 12/12/2024 Catherine Mary Urinary frequency R35.0 ; Acute UTI N39.0 and Female bladder prolapse N81.10 [facility] [address] [place] [address] 12/20/2024 Dave Rocha Urinary frequency R35.0 [facility] [address] [place] [address] 03/23/2024 Catherine Mary [facility] [address] [place] [address] 05/11/2024 Catherine Mary [facility] [address] [place] [address] 05/22/2024 Catherine Mary [facility] [address] [place] [address] 12/06/2024 Catherine Mary [facility] [address] [facility] [address] [place] [address] 12/13/2024 Catherine Mary Acute UTI N39.0 [facility] [address] [place] [address] 12/19/2024 Catherine Mary Breast cancer screening by mammogram Z12.31 [facility] [address] [place] [address] 12/21/2024 Catherine Hernandez Assessments Encounter Date Diagnosis (ICD Code) Assessment Notes Treatment Notes Treatment Clinical Notes Section Notes 03/28/2024 Acute cystitis without hematuria (ICD-10 - N30.00) [facility] records reviewed. UA unremarkable. Urine [...] Supportive care and return precautions discussed 03/28/2024 Low back pain, unspecified (ICD-10 - M54.50) 05/09/2024 Type 2 diabetes mellitus with diabetic neuropathic arthropathy, without long-term current use of insulin (ICD-10 - E11.610) Update labs today, tolerating current regimen 12/12/2024 Urinary frequency (ICD-10 - R35.0) 12/12/2024 Acute UTI (ICD-10 - N39.0) Discussed suspected UTI based on symptoms/UA results and need for treatment with antibiotics as well as good water intake. Discussed return precautions including fever, vomiting, intractable pain, etc. 12/13/2024 Acute UTI (ICD-10 - N39.0) 12/19/2024 Breast cancer screening by mammogram (ICD-10 - Z12.31) 12/20/2024 Urinary frequency (ICD-10 - R35.0) - [...] canal on self examination, she notes seeing LUNG PULLER for this many years ago when prolapse was less severe and was asymptomatic - has not completed Pelvic Floor PT in past - discussed with patient, she will call and schedule appointment with LUNG PULLER, Dr. Tracey, regarding concerns for pelvic organ prolapse and if warranting further interventions at that time - patient has rountine follow up scheduled for annual visit in our clinic in the coming weeks 05/09/2024 Hypothyroidism, unspecified type (ICD-10 - E03.9) update labs as noted, continue oral replacement 12/12/2024 Female bladder prolapse (ICD-10 - N81.10) could be contributing to symptoms, has consulted with LUNG PULLER previously 05/09/2024 Essential hypertension (ICD-10 - I10) normal today, no longer requiring antihypertensive therapy, monitor 03/28/2024 Weakness (ICD-10 - R53.1) 05/09/2024 Hyperlipidemia (ICD-10 - E78.5) continue statin [...] 07/07/2021 H-Ionized Calcium 04/02/2015 M-Comprehensive Metabolic Panel 11/02/19 18 M-Comprehensive Metabolic Panel 03/08/20 18 M-Hemoglobin A1C 03/08/2018 M-Hemoglobin A1C 11/01/2017 M-Lipid Panel 11/01/2017 M-Lipid Panel 03/08/2018 M-Thyroid Stimulating Hormone 03/08/2018 M-Thyroid Stimulating Hormone 11/01/2017 M-Parathyroid Hormone Intact 11/13/2022 M-Vitamin D 25 Hydroxy 11/13/2022 M-Vitamin D 25 Hydroxy 10/10/2020 M-Vitamin D 25 Hydroxy 12/07/2019 M-Microalb/Creat Ratio, [facility] 025 M-Microalb/Creat Ratio, [facility] Ur 018 M-Microalb/Creat Ratio, [facility] Ur 018 URINALYSIS, COMPLETE (5463) 04/14/2023 CULTURE, URINE, ROUTINE (395) 11/02/2022 NUCLEAR MED : Parathyroid scan 3 Next Appt Details Provider Name:Catherine Martinez ce, 12/28/2024 09:00:00 AM, [address], [place], [address], Insurance Providers Payer Name Payer Address Payer Phone Subscriber Number Group Number Insured Name Patient Relationship to Insured Coverage Start Date Coverage End Date [place] [phone] [id number] Mamadou Vera Self - patient is the insured [facility] [address] [place] [address] [id number] Mamadou Vera Self - patient is the insured [employer] [address] [place] [address] [phone] ACL James Cedilloa Self - patient is the insured Medical [...] Hernia Removal 1997 Ileostomy 1972 hand surgery-left 2014 right hand-carpal tunnel surgery 02/2019 Hospitalization History Reason Date(Month/Year) Dehydration, EMILY
--- NOTE | 2024-12-25 13:55 | HMH.EDGENADL ---
Discharge Plan Disposition Patient Disposition: Admitted Prescriptions Prescriptions: No Action (DME) FreeStyle Lite Strips Strip See Rx Instructions .ROUTE .MEDSUPPLY Qty: 10 Rx Instructions: As directed losartan 25 mg tablet PO DAILY diclofenac sodium 1 % gel 4 g topical QID PRN (Reason: pain ) Qty: 100 2RF Rx Instructions: apply to single knee, ankle, foot; for foot includes sole/toes/top of foot atorvastatin 20 mg tablet 20 mg PO DAILY levothyroxine 75 mcg tablet 75 mcg PO DAILY pantoprazole 40 mg tablet,delayed release (DR/EC) 40 mg PO DAILY Patient Comments: TAKE 1 TABLET BY MOUTH DAILY metformin 1,000 mg tablet 1,000 mg PO DAILY glimepiride 4 mg tablet 4 mg PO DAILY Januvia 100 mg tablet 100 mg PO DAILY ondansetron 4 mg tablet,disintegrating 4 mg PO Q6H PRN (Reason: nausea and vomiting) 5 Days Qty: 20 0RF Referrals Follow up/Referrals: Catherine Hernandez APRN [Primary Care Provider, Medical] - See instructions Clinical Impressions Clinical Impression: Diarrhea, Acute dehydration, EMILY (acute kidney injury) Instructions Patient Instructions: DI for Diarrhea and Traveler's Diarrhea -- Adult, DI for Diarrhea and Traveler's Diarrhea -- Child, DI for Nausea -- Adult, DI for Nausea -- Child Print Language Print Language: Peruvian Discharge ED Provider: Paras Mcclain General Adult HPI General Chief complaint: Nausea/Vomiting/Diarrhea Stated complaint: BP 80/60, dehydration Time Seen by Provider: 12/25/24 13:48 Mode of Arrival: Wheelchair Source of Information: Patient Description of Symptoms (Recalled from ER Triage Doc. by RN): Reports having diarrhea, low blood pressure and possible dehydration. Sent from Dr. Rocha's office related to low BP. History of Present Illness HPI narrative: Patient is a 74-year-old female who presents today with ongoing nausea decreased p.o. intake and more weakness after an ED visit yesterday. She was seen in the emergency department yesterday where she had some discomfort in the same kind of symptoms ultimately she had a CT scan which did not show any significant pathology she had labs showing some mild EMILY and metabolic acidosis was offered admission however she wanted to try to go home and see if she could aggressively hydrate herself which she has been unable to do. States her symptoms have only worsened from a weakness standpoint and she was hypotensive at Dr. Lewis's office and sent to the emergency department today. Denies any worsening pain. States she has had increased watery output from her ostomy. Related Data Home Medications ?Medication ?Instructions ?Recorded ?Confirmed blood sugar diagnostic ([place] #10 ea 10/16/21 09/13/24 Lite Strips) atorvastatin 20 mg tablet 20 mg PO DAILY 03/22/24 09/13/24 glimepiride 4 mg tablet 4 mg PO DAILY 03/22/24 09/13/24 levothyroxine 75 mcg tablet 75 mcg PO DAILY 03/22/24 09/13/24 metformin 1,000 mg tablet 1,000 mg PO DAILY 03/22/24 09/13/24 pantoprazole 40 mg tablet,delayed 40 mg PO DAILY 03/22/24 09/13/24 release sitagliptin phosphate 100 mg 100 mg PO DAILY 03/22/24 09/13/24 tablet (Januvia) losartan 25 mg tablet mg PO DAILY 09/13/24 09/13/24 Previous Rx's ?Medication ?Instructions ?Recorded diclofenac sodium 1 % topical gel 4 g topical QID PRN pain #100 09/14/24 grams ondansetron 4 mg disintegrating 4 mg PO Q6H PRN nausea and 12/24/24 tablet vomiting 5 days #20 tabs Allergies Allergy/AdvReac Type Severity Reaction Status Date / Time ciprofloxacin (From Cipro) Allergy Verified 09/13/24 11:34 nitrofurantoin (From Allergy Verified 09/13/24 11:34 Macrobid) [facility] Disclaimer: The information contained in this section may have been updated after the patient was seen, as this information can be updated by other users. Medical History Ulcerative colitis Ileostomy in place Arthritis Renal insufficiency GERD (gastroesophageal reflux disease) UTI (urinary tract infection) Seasonal allergies Hypothyroidism Hyperlipidemia Diabetes Surgical History Hx of removal of cyst Back2022 History of colonoscopy H/O hand surgery History of eye removal History of bilateral tubal ligation History of carpal tunnel release of both wrists Family History Other Cancer Diabetes Hyperlipidemia Hypertension Thyroid disorder Social History Smoking Status: Never smoker second hand exposure: No alcohol intake: never substance use type: denies use current occupational status: other Travel in the last 8 weeks?: None household members: spouse housing: house caffeine: Yes Have you lived/traveled outside US in past 30 days?: No Contact w/someone who lives/traveled outside US past 30 days?: No Exposure to someone with infectious disease in past 14 days?: No Do you have a fever (greater than 100.4 F or 38 C)?: No Have you tested positive for COVID-19?: No Exposed to someone with COVID-19 in past 14 days?: No Do you have a sore throat?: No Do you have a cough?: No Do you have any weakness?: No Do you have any diarrhea?: No Are you experiencing any unusual bleeding?: No Do you have any muscle aches/pain?: No Do you have any abdominal pain?: No Are you experiencing loss of taste or smell?: No Other Medical History Have you received the Flu Vaccine for this season: No Have you received the Pneumonia Vaccine: Yes ROS Obtained: Yes All systems reviewed & no additional complaints except as documented Physical Exam General General appearance: alert Respiratory Respiratory exam: Present normal lung sounds bilaterally Cardiovascular Cardiovascular exam: Present regular rate Abdominal Exam Abdominal exam: Present soft; Absent distention or tenderness Neurological Exam Neurological exam: Present alert and oriented X3 Medical Decision Making Medical Records Screening: Per USPSTF and CDC recommendations, given the prevalence of disease in our region, it is our hospital?s policy to screen for HIV and viral Hepatitis for all patients aged 18 and over and those with ongoing risk factors. Attila Inquiry Pt receiving controlled substance: No Vital Signs: 12/25/24 13:26 Temperature 98.0 F Temperature Source Oral Pulse Rate [Radial] 110 H Respiratory Rate 18 Blood Pressure [Right Arm] 96/66 L Blood Pressure Mean [Right Arm] 76 Blood Pressure Source [Right Arm] Automatic Cuff Blood Pressure Position [Right Arm] Sitting 02 Sat by Pulse Oximetry 97 Oxygen Delivery Method Room Air Lab Data Lab results reviewed: Yes I reviewed the patient's lab results. Lab Results 12/25/24 14:30: WBC 9.7 D, RBC 4.72, Hgb 15.0, Hct 42.3, MCV 89.6, MCH 31.8 H, MCHC 35.5 H, RDW 12.2, Plt Count 254, MPV 11.9 H, Neut % (Auto) 79.1, Lymph % (Auto) 11.9, [place] % (Auto) 7.7, Eos % (Auto) 0.6, Baso % (Auto) 0.3, Neut # (Auto) 7.7, Lymph # (Auto) 1.2, [place] # (Auto) 0.8, Eos # (Auto) 0.1, Baso # (Auto) 0.0, VBG pH 7.22 L, VBG pCO2 40.7, VBG pO2 36.7, VBG HCO3 16.3 L, VBG Total CO2 17.6 L, VBG O2 Saturation 68.0, VBG Base Excess -11.4 L, VBG Lactic Acid 1.8, Sodium 138, Potassium 4.8, Chloride 103, Carbon Dioxide 15 L, Anion Gap 24.8 H, BUN 45 H D, Creatinine 2.90 H D, Estimated Creat Clear 15, Estimated GFR 16 L*, Est GFR ( Amer) 19 L* D, Glucose 188 H, Calcium 11.1 H, Phosphorus 4.3, Magnesium 0.5 L, Total Bilirubin 2.3 H, AST 29 D, ALT 12, Alkaline Phosphatase 52, Total Protein 8.7 H, Albumin 5.1 H, Globulin 3.6 H, Albumin/Globulin Ratio 1.4 12/25/24 14:30 12/25/24 14:30 Orders (Tests/Meds): ED MEDICATIONS Generic Name Dose Route Start Last Admin Trade Name Freq PRN Reason Stop Dose Admin Magnesium Sulfate 2 gm in 50 mls @ 50 mls/hr 12/25/24 15:11 Magnesium Sulfate 2gm/50ml Premix IV 12/25/24 16:10 ONCE ONE Discontinued Medications Generic Name Dose Route Start Last Admin Trade Name Freq PRN Reason Stop Dose Admin Lactated Ringer's 1,000 mls @ 999 mls/hr 12/25/24 14:00 12/25/24 14:48 Lactated Ringer's 1000 Ml Bag IV 12/25/24 15:00 999 mls/hr .Q1H1M MINDI Administration Ondansetron HCl 4 mg 12/25/24 13:53 12/25/24 14:49 Ondansetron 4mg/2ml Vial IV 12/25/24 13:54 4 mg ONCE ONE Administration ORDERS Category Date Time Status CBC w/Auto Diff [Complete Blood Count Auto Diff] Stat Lab 12/25/24 14:30 Completed CMP [Comprehensive Metabolic Panel] Stat Lab 12/25/24 14:30 Completed Diarrhea 23 Panel, PCR Stat Lab 12/25/24 13:53 Ordered Magnesium Stat Lab 12/25/24 14:30 Completed Phosphorous Stat Lab 12/25/24 14:30 Completed Venous Blood Gas Stat RT 12/25/24 14:30 Completed Medical Decision Narrative: 74-year-old with above history and physical yesterday had EMILY with a creatinine of 1.9 up from a baseline of 1.2 also had metabolic acidosis but was tolerating p.o. and opted to try to go home for oral rehydration which she has been unable to do. I suspect she has had ongoing fluid losses as she states that she has continued to have watery output in her ostomy. Will get a diarrhea PCR panel to see if there is any invasive species such as C. difficile etc. IV fluids have been administered in addition to Zofran and will recheck metabolic tests to see where her kidney function lies at the moment. Reassessment 3:15 PM labs show worsening renal failure still with some metabolic acidosis patient continues to get IV fluids magnesium also low and replaced patient will be admitted to hospital medicine for further hydration management and to keep an eye on her her kidney function this all seems to be prerenal in nature. Patient admitted in a stable condition. Critical Care Critical Care Time Critical Care Time: Yes Attestation: On 12/25/24, the high probability of a clinically significant, sudden or life threatening deterioration of the following system(s) required my full and direct attention, intervention and personal management. The time I documented below is in addition to time spent performing reported procedures but includes the following listed in this critical care notation. Total Time Total Critical Care Time: 35
[2024-12-25 14:45] LABS: Lactate Venous 1.8 mmol/L (0.4-2.0); VBG HCO3 16.3 mmol/L (23-30); VBG PCO2 40.7 mmol/L (35-51); VBG PH 7.22 mmol/L (7.31-7.41); VBG PO2 36.7 mmol/L (28-40)
[2024-12-25] MEDS: LACTATED RINGERS 1000ML 1,000 ML 999 ML IV (14:48)
[2024-12-25 14:49] LABS: Hematocrit 42.3 % (37.0-47.0); Hemoglobin 15.0 g/dL (12.2-16.2); Immature Granulocytes % 0.4 %; Mean Corpuscular HGB Conc 35.5 g/dL (31.8-35.4); Mean Corpuscular Hemoglobin 31.8 pg (27.0-31.2); Mean Corpuscular Volume 89.6 fl (81-99); Nucleated Red Blood Cells % 0 %; Platelet Count 254 K/mm3 (142-424); Red Blood Count 4.72 M/mm3 (4.20-5.40); Red Cell Distribution Width-SD 40.3 fL; White Blood Count 9.7 K/mm3 (4.8-10.8)
[2024-12-25] MEDS: ONDANSETRON 4MG/2ML VIAL 4 MG IV (14:49)
[2024-12-25 15:00] LABS: Albumin Level 5.1 g/dl (3.5-5.0); Chloride 103 mmol/L (98-107); Potassium 4.8 mmoL/L (3.5-5.1); Sodium 138 mmol/L (136-145)
[2024-12-25 15:02] LABS: Blood Urea Nitrogen 45 mg/dl (7-17); Creatinine Clearance Estimated 15 mL/min (50-200); Creatinine,Serum 2.90 mg/dl (0.52-1.04); Estimated Glomerular Filt Rate 16 ml/min (>60); GFR (African American) 19 ML/MIN (>60)
[2024-12-25 15:03] LABS: Alanine Aminotransferase 12 U/L (12-78); Albumin/Globulin Ratio 1.4 (1.1-1.8); Alkaline Phosphatase 52 U/L (38-126); Anion Gap 24.8 mEq/L (5-15); Aspartate Amino Transferase 29 U/L (14-36); Bilirubin,Total 2.3 mg/dl (0.2-1.3); Calcium 11.1 mg/dl (8.4-10.2); Carbon Dioxide 15 mmol/L (22.0-30.0); Globulin 3.6 g/dL (1.3-3.2); Glucose 188 mg/dl (74-100); Phosphorous 4.3 mg/dl (2.5-4.5); Total Protein,Serum 8.7 g/dl (6.3-8.2)
[2024-12-25 15:08] LABS: Magnesium 0.5 mg/dl (1.6-2.3)
--- NOTE | 2024-12-25 15:15 | PC.NURSE ---
sports equipment supervisor contacted for bed.
--- NOTE | 2024-12-25 15:28 | PC.NURSE ---
Report called to KAMRON Reynaga.
--- NOTE | 2024-12-25 15:30 | HMH.PHAINT1 ---
Pharmacy Intervention Comments: MEDICATION RECONCILIATION COMPLETED ON PATIENT USING EXTERNAL FILL HISTORY FROM PHARMACY. -ANNETTA PARSON, KATHID
[2024-12-25] MEDS: MAGNESIUM SULFATE IN WATER 2 GM/50 ML PIGGYBACK IV (15:34)
--- NOTE | 2024-12-25 15:41 | PC.NURSE ---
arrived by w/c from ED
--- NOTE | 2024-12-25 16:14 | P.HP_ITS ---
<Statement entered by Ronnell Leung MD - 12/27/24 12:41> Agree with the plan as outlined by the [employer] INSPECTOR. History of Present Illness *Admission Date: 12/25/24 *Reason for visit:: diarrhea, low BP, possible dehydration *History of present illness: Ms. Cedillo is a 74-year-old female who presented to the emergency department from her PCPs office after having ongoing nausea, weakness, diarrhea, hypotension, and decreased p.o. intake. She has a primary medical history of type 2 diabetes, hypertension, hypothyroidism, GERD, and ileostomy. Patient states she has been having symptoms for approximately 3 to 4 days. She presented to the emergency department yesterday but wanted to go home to try and orally hydrate. Patient states she is having copious amounts of output from her ileostomy and has been unable to orally hydrate. [facility] Disclaimer: The information contained in this section may have been updated after the patient was seen, as this information can be updated by other users. Medical History Ulcerative colitis Ileostomy in place Arthritis Renal insufficiency GERD (gastroesophageal reflux disease) UTI (urinary tract infection) Seasonal allergies Hypothyroidism Hyperlipidemia Diabetes Surgical History Hx of removal of cyst Back2022 History of colonoscopy H/O hand surgery History of eye removal History of bilateral tubal ligation History of carpal tunnel release of both wrists Family History Other Cancer Diabetes Hyperlipidemia Hypertension Thyroid disorder Social History (Updated 12/25/24 @ 16:02 by Paris Tolliver RN) Smoking Status: Never smoker second hand exposure: No alcohol intake: never substance use type: denies use current occupational status: retired Travel in the last 8 weeks?: None household members: spouse housing: house caffeine: Yes Have you lived/traveled outside [place] in past 30 days?: No Contact w/someone who lives/traveled outside US past 30 days?: No Exposure to someone with infectious disease in past 14 days?: No Do you have a fever (greater than 100.4 F or 38 C)?: No Have you tested positive for COVID-19?: No Exposed to someone with COVID-19 in past 14 days?: No Do you have a sore throat?: No Do you have a cough?: No Do you have any weakness?: No Are you experiencing any nausea/vomitting?: Yes Do you have any diarrhea?: No Are you experiencing any unusual bleeding?: No Do you have any muscle aches/pain?: No Do you have any abdominal pain?: No Are you experiencing loss of taste or smell?: No Other Medical History Have you received the Flu Vaccine for this season: Yes Have you received the Pneumonia Vaccine: Yes Review of Systems Constitutional Constitutional: Reports fatigue, Reports poor appetite and Reports weakness ENT Ears, Nose, Mouth, and Throat: Denies nasal congestion and Denies sore throat *Cardiovascular Cardiovascular: Denies chest pain, Denies dyspnea, Denies leg edema and Denies pedal edema *Respiratory Respiratory: Denies chest congestion, Denies cough and Denies dyspnea *Gastrointestinal Gastrointestinal: Reports cramping, Denies heartburn, Reports loose stools, Reports nausea and Denies vomiting *Genitourinary Genitourinary: Denies difficulty voiding and Denies dysuria *Neurologic Neurologic: Reports weakness Endocrine Endocrine: Reports fatigue Meds Home Medications and Allergies Home Medications ?Medication ?Instructions ?Recorded ?Confirmed ?Type blood sugar diagnostic (Freeyle #10 ea 10/16/2108/04 History Lite Strips) levothyroxine 75 mcg tablet 75 mcg PO DAILY 03/22/24 0 12/25/24 History metformin 1,000 mg tablet 1,000 mg PO DAILY 03/22/24 0 12/25/24 History pantoprazole 40 mg tablet,delayed 40 mg PO DAILY 03/2212/25/24 History release sitagliptin phosphate 100 mg 100 mg PO DAILY 03/22/24 12/25/24 History tablet (Januvia) losartan 25 mg tablet 25 mg PO DAILY 09/13/2412/11 History atorvastatin 20 mg tablet 20 mg PO HS 12/25/24 5 History diclofenac sodium 1 % topical gel 4 g topical QIDP PRN Mild Pain 12/25/24 12/25/24 History (Scale Score 1-4) glimepiride 4 mg tablet 6 mg PO DAILY 12/25/2412/25 History loratadine 10 mg tablet 10 mg PO DAILY 09/15/25 09/1 5/25 History ondansetron 4 mg disintegrating 4 mg PO Q6HP PRN nause a and 12/25/24 12/25/24 History tablet vomiting New Prescriptions to Start Prescriptions: Allergies Allergy/AdvReac Type Severity Reaction Status Date / Time ciprofloxacin (From Cipro) Allergy Verified 09/13/24 11:34 nitrofurantoin (From Allergy Verified 09/13/24 11:34 Macrobid) Exam Data for Last 24 hours Vital signs and Labs for Last 24 Hours: Temp Pulse Resp BP Pulse Ox O2 Del Method 98 F 82 17 106/70 L 100 Room Air 12/25/24 15:41 12/25/24 15:41 12/25/24 15:41 12/25/24 15:41 12/25/24 15:26 12/25/24 15:41 Laboratory Results - last 24 hr 12/25/24 14:30: WBC 9.7 D, RBC 4.72, Hgb 15.0, Hct 42.3, MCV 89.6, MCH 31.8 H, MCHC 35.5 H, RDW 12.2, Plt Count 254, MPV 11.9 H, Neut % (Auto) 79.1, Lymph % (Auto) 11.9, Walton % (Auto) 7.7, Eos % (Auto) 0.6, Baso % (Auto) 0.3, Neut # (Auto) 7.7, Lymph # (Auto) 1.2, Walton # (Auto) 0.8, Eos # (Auto) 0.1, Baso # (Auto) 0.0, VBG pH 7.22 L, VBG pCO2 40.7, VBG pO2 36.7, VBG HCO3 16.3 L, VBG Total CO2 17.6 L, VBG O2 Saturation 68.0, VBG Base Excess -11.4 L, VBG Lactic Acid 1.8, Sodium 138, Potassium 4.8, Chloride 103, Carbon Dioxide 15 L, Anion Gap 24.8 H, BUN 45 H D, Creatinine 2.90 H D, Estimated Creat Clear 15, Estimated GFR 16 L*, Est GFR ( Amer) 19 L* D, Glucose 188 H, Calcium 11.1 H, Phosphorus 4.3, Magnesium 0.5 L, Total Bilirubin 2.3 H, AST 29 D, ALT 12, Alkaline Phosphatase 52, Total Protein 8.7 H, Albumin 5.1 H, Globulin 3.6 H, Albumin/Globulin Ratio 1.4 I & O for Last 24 hours: Intake & Output 12/22/24 12/23/24 12/24/24 12/25/24 23:59 23:59 23:59 23:59 Weight 55.792 kg Constitutional Constitutional: no acute distress and cooperative *Routine HEENT Exam Head: Present normocephalic Eye: Present EOMI ENT: Present mucous membranes dry *Routine Neck Exam Neck: Present supple and full ROM; Absent JVD or lymphadenopathy *Routine Respiratory Exam Respiratory: Present CTA bilaterally, normal respiratory effort, able to speak in complete sentences and symmetric chest movement; Absent wheezes or crackles *Routine Cardiovascular Exam Cardiovascular: Present RRR, Normal S1 and Normal S2; Absent murmur *Routine Abdominal Exam Abdominal: Present soft and normoactive bowel sounds; Absent tenderness or distended Comments: Ileostomy in place *Routine Rectal Exam Rectal:: deferred *Routine Genitalia Exam Genitalia:: deferred *Routine Extremities Exam Extremities: Present full ROM, pulses intact and normal capillary refill; Absent clubbing or edema *Routine Skin Exam Skin: Present intact and dry; Absent rash *Routine Neurological Exam Neurological: Present alert, oriented X3, vision grossly intact, hearing grossly intact and normal speech Assessment and Plan *Assessment and plan (1) Acute dehydration: Status: Acute Category: Medical Code(s): E86.0 - Dehydration (2) EMILY (acute kidney injury): Status: Acute Category: Medical Code(s): N17.9 - Acute kidney failure, unspecified (3) Diarrhea: Status: Acute Category: Medical Code(s): R19.7 - Diarrhea, unspecified (4) Metabolic acidosis: Status: Acute Category: Medical Code(s): E87.20 - Acidosis, unspecified (5) Nausea: Status: Acute Category: Medical Code(s): R11.0 - Nausea (6) Type 2 diabetes mellitus: Status: Acute Category: Medical Code(s): E11.9 - Type 2 diabetes mellitus without complications Plan Ms. Cedillo is a 74-year-old female who presented to the emergency department from her PCPs office after having ongoing nausea, weakness, diarrhea, hypotension, and decreased p.o. intake. She has a primary medical history of type 2 diabetes, hypertension, hypothyroidism, GERD, and ileostomy. Patient states she has been having symptoms for approximately 3 to 4 days. She presented to the emergency department yesterday but wanted to go home to try and orally hydrate. Patient states she is having copious amounts of output from her ileostomy and has been unable to orally hydrate. Workup in the emergency department was notable for an increased creatinine of 2.9, baseline 1.2 and hypomagnesemia of 0.5. Hospital medicine was consulted for admission for further management of this patient's condition, I agreed to accept the patient. Plan of care as follows:\ #Dehydration #EMILY #Metabolic acidosis ? Patient CT shows cholelithiasis, assessment of patient reveals no abdominal tenderness to palpation. She does endorse abdominal cramping intermittently. Will hold on surgery consult at this time. Continue to assess. ? Patient's creatinine yesterday was 1.9, today has increased to 2.9. Anion gap 24.8. Patient states she is making urine. Patient appears hypovolemic at this time. IV hydration ordered, LR at 100 mL/H. Patient is hemodynamically stable blood pressure 121/66, pulse 82. Patient remains afebrile. ? Electrolytes stable at this time, sodium 138, potassium 4.8. ? Holding metformin in the setting of metabolic acidosis. Holding Januvia in the setting of EMILY. ? CBC, CMP, magnesium ordered for the a.m. #Diarrhea #Nausea ? Stool PCR sent to the lab, urinalysis pending. Zofran ordered as needed for nausea. Low residue diet ordered. #Type 2 diabetes ? ACHS fingersticks, SSI. Holding glimepiride in the inpatient setting. Continue atorvastatin 20 mg at bedtime, Synthroid 75 mcg daily, pantoprazole 40 mg at bedtime. Full code Low residue diet Ambulate as tolerated VTE?Lovenox 40 mg subcu daily
[2024-12-25 16:23] LABS: Adenovirus F 40/41, stool Not Detected (NotDetected); Clostridium Difficile A/B, PCR Not Detected (NotDetected); Cyclospora Cayetanesis Not Detected (NotDetected); Microscopic, Urine URINE MICROSCOPIC (MICROSCOPIC); Plesimonas Shigalloides, PCR Not Detected (NotDetected); Salmonella, PCR Not Detected (NotDetected); Shiga-like toxin E coli Not Detected (NotDetected); Shigella Enterovasive E coli Not Detected (NotDetected); Vibrio, PCR Not Detected (NotDetected); Yersinia Entercolitica, PCR Not Detected (NotDetected)
[2024-12-25 17:06] LABS: POC Glucose,Bedside 211 gm/dL (70-110)
[2024-12-25 18:43] LABS: Thyroid Stimulating Hormone 0.05 uIU/mL (0.465-4.68)
[2024-12-25 18:49] LABS: Hemoglobin A1C 5.8 % (4.0-6.0)
[2024-12-25 19:19] LABS: Color,Urine YELLOW (Yellow); Glucose,Urine (UA) Negative (Negative); Ketones,Urine 1+ (Negative); Leukocyte Esterase,Urine Negative (Negative); PH,Urine 5.5 (5.0-8.5); Protein,Urine 1+ (Negative); Specific Gravity, Urine >= 1.030 (1.005-1.030); Urobilinogen,Urine 0.2 EU/dl (0.2)
[2024-12-25 19:29] LABS: Bilirubin,Urine 2+ (Negative)
[2024-12-25 20:01] LABS: Bacteria,Urine 1+ /lpf; Calcium Oxalate Crystals,Urine 2+ /lpf
[2024-12-25 20:35] LABS: Free T4 (Free Thyroxine) 1.44 ng/dl (0.78-2.19)
[2024-12-25] MEDS: ATORVASTATIN 20MG TABLET 20 MG PO (21:28)
[2024-12-25] MEDS: PANTOPRAZOLE 40MG TABLET 40 MG PO (21:28)
[2024-12-25 21:37] LABS: POC Glucose,Bedside 159 gm/dL (70-110)
[2024-12-25] MEDS: ACETAMINOPHEN 325MG TAB 650 MG PO (23:13)
--- NOTE | 2024-12-25 23:58 | PC.NURSE ---
After Erythromycin infusion red/splotchy area noted above IV site. Paras Flores APRN notified. Benadryl ordered and given per MAR
[2024-12-26] VITALS (7 sets, daily range): BP systolic 104–126; BP diastolic 57–78; PULSE 67–83; RESP 12–19; TEMP 36.4–36.9; O2SAT 91–100; BMI 53.7; BMI 23.4
[2024-12-26] MEDS: humaLOG 100 UNITS/ML 10ML VIAL (SSI) SUBCUT ×4 (05:17→20:14)
[2024-12-26 05:22] LABS: POC Glucose,Bedside 206 gm/dL (70-110)
[2024-12-26] MEDS: LEVOTHYROXINE 75MCG (0.075MG) TAB 75 MCG PO (06:14)
[2024-12-26 06:29] LABS: Hematocrit 36.2 % (37.0-47.0); Immature Granulocytes % 0.4 %; Mean Corpuscular HGB Conc 36.5 g/dL (31.8-35.4); Mean Corpuscular Hemoglobin 31.9 pg (27.0-31.2); Mean Corpuscular Volume 87.4 fl (81-99); Nucleated Red Blood Cells % 0 %; Platelet Count 225 K/mm3 (142-424); Red Blood Count 4.14 M/mm3 (4.20-5.40); Red Cell Distribution Width-SD 38.3 fL; White Blood Count 7.5 K/mm3 (4.8-10.8)
[2024-12-26 06:35] LABS: Hemoglobin 13.2 g/dL (12.2-16.2)
[2024-12-26 06:44] LABS: Alanine Aminotransferase 10 U/L (12-78); Albumin Level 4.3 g/dl (3.5-5.0); Albumin/Globulin Ratio 1.5 (1.1-1.8); Alkaline Phosphatase 55 U/L (38-126); Anion Gap 15.6 mEq/L (5-15); Aspartate Amino Transferase 22 U/L (14-36); Bilirubin,Total 1.9 mg/dl (0.2-1.3); Blood Urea Nitrogen 44 mg/dl (7-17); Calcium 10.3 mg/dl (8.4-10.2); Carbon Dioxide 18 mmol/L (22.0-30.0); Chloride 104 mmol/L (98-107); Cholesterol 106 mg/dl (140-200); Creatinine Clearance Estimated 13 mL/min (50-200); Creatinine,Serum 2.70 mg/dl (0.52-1.04); Estimated Glomerular Filt Rate 17 ml/min (>60); GFR (African American) 21 ML/MIN (>60); Globulin 2.9 g/dL (1.3-3.2); Glucose 178 mg/dl (74-100); HDL Cholesterol 36 mg/dl (40-60); Magnesium 1.1 mg/dl (1.6-2.3); Potassium 3.6 mmoL/L (3.5-5.1); Sodium 134 mmol/L (136-145); Total Protein,Serum 7.2 g/dl (6.3-8.2); Triglycerides 180 mg/dl (30-150)
--- NOTE | 2024-12-26 08:02 | PC.NURSE ---
spoke with Dr chou, he is ok with replacing pt mag of 1.1 and creatine low
[2024-12-26] MEDS: MAGNESIUM SULFATE IN WATER 2 GM/50 ML PIGGYBACK IV ×3 (08:40→11:59)
[2024-12-26] MEDS: LACTATED RINGERS 1000ML 500 ML 999 ML IV (09:24)
--- NOTE | 2024-12-26 10:10 | P.PN_ITS ---
<Statement entered by Truong Milner MD - 12/26/24 17:34> Rounded on patient after nurse practitioner. Personally examined and interviewed patient. Agree with exam findings and care plan as documented. Subjective *Date: 12/26/24 *Time: 09:55 Interval history: Patient is doing well this morning, still complains of high output from ileostomy. Patient received initial fluid bolus on admission, creatinine today just slightly better at 2.7. Will initiate IV maintenance fluids at 125 mL/H. Magnesium is still low at 1.1, will continue to replace per protocol. Medical Exam Vital signs and Labs for Last 24 Hours: Vital Signs Temp Pulse Pulse Resp BP BP Pulse Ox 12/26/24 08:48 12/26/24 08:00 97.5 F L 76 18 120/57 L 98 12/26/24 07:48 12/26/24 07:00 12/26/24 05:00 12/26/24 04:00 98.1 F 78 12 111/63 91 L 12/26/24 03:00 12/26/24 01:00 12/26/24 00:00 97.9 F 82 16 126/63 97 12/25/24 23:00 12/25/24 21:00 12/25/24 20:00 12/25/24 20:00 98.1 F 89 14 110/65 98 12/25/24 18:05 73 18 138/74 96 12/25/24 18:02 12/25/24 17:35 69 18 134/76 95 12/25/24 17:05 75 18 128/84 97 12/25/24 17:00 12/25/24 16:50 73 18 129/91 H 96 12/25/24 16:35 71 18 124/83 94 L 12/25/24 16:20 98.3 F 74 18 122/76 94 L 12/25/24 16:00 97.7 F 82 16 121/66 100 12/25/24 15:41 98 F 82 17 106/70 L 12/25/24 15:26 82 16 106/70 L 100 12/25/24 15:23 12/25/24 13:26 98.0 F 110 H 18 96/66 L 97 O2 Del Method 12/26/24 08:48 Room Air 12/26/24 08:00 Room Air 12/26/24 07:48 Room Air 12/26/24 07:00 Room Air 12/26/24 05:00 Room Air 12/26/24 04:00 Room Air 12/26/24 03:00 Room Air 12/26/24 01:00 Room Air 12/26/24 00:00 Room Air 12/25/24 23:00 Room Air 12/25/24 21:00 Room Air 12/25/24 20:00 Room Air 12/25/24 20:00 Room Air 12/25/24 18:05 Room Air 12/25/24 18:02 Room Air 12/25/24 17:35 Room Air 12/25/24 17:05 Room Air 12/25/24 17:00 Room Air 12/25/24 16:50 Room Air 12/25/24 16:35 Room Air 12/25/24 16:20 Room Air 12/25/24 16:00 Room Air 12/25/24 15:41 Room Air 12/25/24 15:26 Room Air 12/25/24 15:23 Room Air 12/25/24 13:26 Room Air Intake and Output 12/25/24 12/26/24 12/26/24 23:59 07:59 15:59 Intake Total 1410 / 1410 280 / 330 50 / 330 Output Total 0 / 0 0 / 0 0 / 0 Balance 1410 / 1410 280 / 330 50 / 330 Intake: Intake, Oral Amount 360 / 360 280 / 280 Intake, Total IV Amount 1050 / 1050 50 / 50 Lactated Ringers 1000ML 1,000 1000 / 1000 ml @ 999 mls/hr IV .Q1H1M [facility] Rx#:[id number] Magnesium Sulfate in Water 2 gm 50 / 50 In 50 ml @ 50 mls/hr IV ONCE ONE Rx#:[id number] Magnesium Sulfate in Water 2 gm 50 / 50 In 50 ml @ 50 mls/hr IV Q1H [facility] Rx#:[id number] Output: Output, Urine Amount 0 / 0 0 / 0 0 / 0 Other: Number of Voids 0 0 Number of Unmeasured Voids 2 Weight 57.663 kg 129.2 kg Patient Weight 12/26/24 23:59 Weight 129.2 kg Laboratory Results - last 24 hr 12/25/24 14:30: WBC 9.7 D, RBC 4.72, Hgb 15.0, Hct 42.3, MCV 89.6, MCH 31.8 H, MCHC 35.5 H, RDW 12.2, Plt Count 254, MPV 11.9 H, Neut % (Auto) 79.1, Lymph % (Auto) 11.9, Mckenzie % (Auto) 7.7, Eos % (Auto) 0.6, Baso % (Auto) 0.3, Neut # (Auto) 7.7, Lymph # (Auto) 1.2, Mckenzie # (Auto) 0.8, Eos # (Auto) 0.1, Baso # (Auto) 0.0, VBG pH 7.22 L, VBG pCO2 40.7, VBG pO2 36.7, VBG HCO3 16.3 L, VBG Total CO2 17.6 L, VBG O2 Saturation 68.0, VBG Base Excess -11.4 L, VBG Lactic Acid 1.8, Sodium 138, Potassium 4.8, Chloride 103, Carbon Dioxide 15 L, Anion Gap 24.8 H, BUN 45 H D, Creatinine 2.90 H D, Estimated Creat Clear 15, Estimated GFR 16 L*, Est GFR ( Amer) 19 L* D, Glucose 188 H, Hemoglobin A1c 5.8, C alcium 11.1 H, Phosphorus 4.3, Magnesium 0.5 L, Total Bilirubin 2.3 H, AST 29 D , ALT 12, Alkaline Phosphatase 52, Total Protein 8.7 H, Albumin 5.1 H, Globulin 3.6 H, Albumin/Globulin Ratio 1.4, TSH 0.05 L 12/25/24 16:17: Urine Color Yellow, Urine Appearance Sl cloudy, Urine pH 5.5, Ur Specific [place] >= 1.030, Urine Protein 1+ A, Urine Glucose (UA) Negative, Urine Ketones 1+, Urine Blood Negative, Urine Nitrate Negative, Urine Bilirubin 2+ A, Urine Urobilinogen 0.2, Ur Leukocyte Esterase Negative, Urine RBC None, Urine WBC 5-10, Ur Squamous Epith Cells 5-10, Calcium Oxalate Crystal 2+, Urine Bacteria 1+, Hyaline Casts 5-10, Stl C. cayetanensis PCR Not detected, Stool Rotavirus (PCR) Not detected, Stl Adenov F 40/41 PCR Not detected, Stool Astrovirus (PCR) Not detected, Stool Campylobacter PCR Not detected, Stl C.difficile Tox PCR Not detected, Stool Cryptosporidium PCR Not detected, Stl E.coli Shiga Tox PCR Not detected, Stool E coli O157 PCR Not detected, Stl Enterotoxigenic E PCR Not detected, Stool EPEC (PCR) Not detected, Stool EAEC (PCR) Not detected, Stl E. histolytica PCR Not detected, Stool Giardia Lamblia PCR Not detected, Stool Salmonella PCR Not detected, Stool Sapovirus (PCR) Not detected, Stl P. shigelloides PCR Not detected, Stl Shigella/EIEC PCR Not detected, St Y.enterocolitica PCR Not detected, Stool Vibrio (PCR) Not detected, Stl Vibrio cholerae PCR Not detected, Stl Norovirus GI/GII PCR Not detected 12/25/24 16:59: POC Glucose 211 H 12/25/24 17:34: Free T4 1.44 12/25/24 21:28: POC Glucose 159 H 12/26/24 05:14: POC Glucose 206 H 12/26/24 06:07: WBC 7.5, RBC 4.14 L, Hgb 13.2 D, Hct 36.2 L, MCV 87.4, MCH 31.9 H, MCHC 36.5 H, RDW 11.9, Plt Count 225, MPV 11.8 H, Neut % (Auto) 66.6, Lymph % (Auto) 17.8, Mckenzie % (Auto) 12.2 H, Eos % (Auto) 2.5, Baso % (Auto) 0.5, Neut # (Auto) 5.0, Lymph # (Auto) 1.3, Mckenzie # (Auto) 0.9, Eos # (Auto) 0.2, Baso # (Auto) 0.0, Sodium 134 L, Potassium 3.6 D, Chloride 104, Carbon Dioxide 18 L, Anion Gap 15.6 H, BUN 44 H, Creatinine 2.70 H, Estimated Creat Clear 13, Estimated GFR 17 L*, Est GFR ( Amer) 21 L, Glucose 178 H, Calcium 10.3 H, Magnesium 1.1 L D, Total Bilirubin 1.9 H, AST 22, ALT 10 L, Alkaline Phosphatase 55, Total Protein 7.2, Albumin 4.3 D, Globulin 2.9, Albumin/Globulin Ratio 1.5, Triglycerides 180 H, Cholesterol 106 L, LDL Cholesterol Direct 36.15 L, VLDL Cholesterol 36, HDL Cholesterol 36 L, Cholesterol/HDL Ratio 2.9 I & O for Labs for Last 24 Hours: Intake & Output 12/23/24 12/24/24 12/25/24 12/26/24 23:59 23:59 23:59 23:59 Intake Total 1410 / 1410 330 / 330 Output Total 0 / 0 0 / 0 Balance 1410 / 1410 330 / 330 Weight 57.663 kg 129.2 kg Constitutional: Present no acute distress and cooperative Head: Present atraumatic Eyes: Present as per HPI ENT: Present normal exam Neck: Present normal inspection and full ROM Respiratory: Present CTA bilaterally, normal respiratory effort, able to speak in complete sentences and symmetric chest movement; Absent wheezes or crackles Cardiac: Present Reg Rate and Rhythm; Absent No Murmur GI: Absent distention or tenderness Comments:: Ileostomy in place Rectal (female): Present deferred (female): Present deferred Extremities: Present normal inspection, full ROM and normal capillary refill; Absent tenderness or edema Skin: Present intact and dry; Absent erythema or rash Neuro: Present alert, awake, oriented x 3 and moves all extremities Assessment and Plan *Assessment and plan (1) Acute dehydration: Status: Acute Category: Medical Code(s): E86.0 - Dehydration (2) EMILY (acute kidney injury): Status: Acute Category: Medical Code(s): N17.9 - Acute kidney failure, unspecified (3) Diarrhea: Status: Acute Category: Medical Code(s): R19.7 - Diarrhea, unspecified (4) Metabolic acidosis: Status: Acute Category: Medical Code(s): E87.20 - Acidosis, unspecified (5) Nausea: Status: Acute Category: Medical Code(s): R11.0 - Nausea (6) Type 2 diabetes mellitus: Status: Acute Category: Medical Code(s): E11.9 - Type 2 diabetes mellitus without complications Plan Ms. Cedillo is a 74-year-old female who presented to the emergency department from her PCPs office after having ongoing nausea, weakness, diarrhea, hypotension, and decreased p.o. intake. She has a primary medical history of type 2 diabetes, hypertension, hypothyroidism, GERD, and ileostomy. Patient states she has been having symptoms for approximately 3 to 4 days. She presented to the emergency department yesterday but wanted to go home to try and orally hydrate. Patient states she is having copious amounts of output from her ileostomy and has been unable to orally hydrate. Workup in the emergency department was notable for an increased creatinine of 2.9, baseline 1.2 and hypomagnesemia of 0.5. Hospital medicine was consulted for admission for further management of this patient's condition, I agreed to accept the patient. Plan of care as follows: #Dehydration #EMILY #Metabolic acidosis ? Patient CT shows cholelithiasis, patient continues to have no abdominal tenderness to palpation. She states that abdominal cramping has resolved. Will hold on surgery consult at this time. Continue to assess. ? Patient's creatinine on admission 2.9, slightly better today at 2.7. Will initiate LR at 125 mL/H. Recheck lab work at 2 PM today. Patient states she is making urine. Patient continues to appear hypovolemic, IV and p.o. hydration. ? Electrolytes stable at this time, sodium 134, potassium 3.6. ? Holding metformin in the setting of metabolic acidosis. Holding Januvia in the setting of EMILY. ? CBC, CMP, magnesium ordered for the a.m. #Diarrhea #Nausea ? Stool PCR negative, urinalysis unremarkable. Zofran ordered as needed for nausea. Low residue diet ordered. Patient states she is tolerating p.o. intake. #Type 2 diabetes ? ACHS fingersticks, SSI. Holding glimepiride in the inpatient setting. Continue atorvastatin 20 mg at bedtime, Synthroid 75 mcg daily, pantoprazole 40 mg at bedtime. Full code Low residue diet Ambulate as tolerated VTE?Lovenox 40 mg subcu daily
[2024-12-26] MEDS: LACTATED RINGERS 1000ML 1,000 ML 125 ML IV ×2 (10:37→15:52)
[2024-12-26 10:38] LABS: POC Glucose,Bedside 219 gm/dL (70-110)
[2024-12-26] MEDS: ONDANSETRON 4MG/2ML VIAL 4 MG IV (12:02)
[2024-12-26 14:20] LABS: Anion Gap 14.5 mEq/L (5-15); Blood Urea Nitrogen 41 mg/dl (7-17); Calcium 10.6 mg/dl (8.4-10.2); Carbon Dioxide 19 mmol/L (22.0-30.0); Chloride 102 mmol/L (98-107); Creatinine Clearance Estimated 17 mL/min (50-200); Creatinine,Serum 2.10 mg/dl (0.52-1.04); Estimated Glomerular Filt Rate 23 ml/min (>60); GFR (African American) 28 ML/MIN (>60); Glucose 168 mg/dl (74-100); Potassium 3.5 mmoL/L (3.5-5.1); Sodium 132 mmol/L (136-145)
[2024-12-26 14:44] LABS: Magnesium 3.8 mg/dl (1.6-2.3)
[2024-12-26 16:02] LABS: POC Glucose,Bedside 154 gm/dL (70-110)
--- NOTE | 2024-12-26 17:34 | PC.NURSE ---
pr is resting in bed, family at bedside, LR @ 125, call light in reach
[2024-12-26 20:12] LABS: POC Glucose,Bedside 180 gm/dL (70-110)
[2024-12-26] MEDS: ATORVASTATIN 20MG TABLET 20 MG PO (20:14)
[2024-12-26] MEDS: PANTOPRAZOLE 40MG TABLET 40 MG PO (20:14)
[2024-12-26] MEDS: ACETAMINOPHEN 325MG TAB 650 MG PO (22:51)
[2024-12-27] MEDS: LACTATED RINGERS 1000ML 1,000 ML 125 ML IV ×2 (01:08→08:38)
--- NOTE | 2024-12-27 03:26 | PC.NURSE ---
Pt AOx4, pleasant. VSS. No acute changes noted. Pt has a headache that was relieved with tylenol. Receiving LR @ 125mL/hr. Currently resting in bed with eyes closed. Respirations even and unlabored. Bed is low, locked and call light is in reach.
[2024-12-27 04:00] VITALS: BP 114/58; PULSE 74; RESP 16; TEMP 36.4; O2SAT 98; BMI 24.8
[2024-12-27 05:23] LABS: POC Glucose,Bedside 137 gm/dL (70-110)
[2024-12-27] MEDS: LEVOTHYROXINE 75MCG (0.075MG) TAB 75 MCG PO (06:10)
[2024-12-27 06:37] LABS: Hematocrit 33.2 % (37.0-47.0); Hemoglobin 12.1 g/dL (12.2-16.2); Immature Granulocytes % 0.2 %; Mean Corpuscular HGB Conc 36.4 g/dL (31.8-35.4); Mean Corpuscular Hemoglobin 31.8 pg (27.0-31.2); Mean Corpuscular Volume 87.4 fl (81-99); Nucleated Red Blood Cells % 0 %; Platelet Count 188 K/mm3 (142-424); Red Blood Count 3.80 M/mm3 (4.20-5.40); Red Cell Distribution Width-SD 37.8 fL; White Blood Count 5.4 K/mm3 (4.8-10.8)
[2024-12-27 06:45] LABS: Alanine Aminotransferase 9 U/L (12-78); Albumin Level 3.8 g/dl (3.5-5.0); Albumin/Globulin Ratio 1.5 (1.1-1.8); Alkaline Phosphatase 59 U/L (38-126); Anion Gap 13.2 mEq/L (5-15); Aspartate Amino Transferase 19 U/L (14-36); Bilirubin,Total 2.0 mg/dl (0.2-1.3); Blood Urea Nitrogen 33 mg/dl (7-17); Calcium 10.4 mg/dl (8.4-10.2); Carbon Dioxide 20 mmol/L (22.0-30.0); Chloride 103 mmol/L (98-107); Creatinine Clearance Estimated 25 mL/min (50-200); Creatinine,Serum 1.80 mg/dl (0.52-1.04); Estimated Glomerular Filt Rate 27 ml/min (>60); GFR (African American) 33 ML/MIN (>60); Globulin 2.6 g/dL (1.3-3.2); Glucose 151 mg/dl (74-100); Magnesium 2.3 mg/dl (1.6-2.3); Potassium 3.2 mmoL/L (3.5-5.1); Sodium 133 mmol/L (136-145); Total Protein,Serum 6.4 g/dl (6.3-8.2)
[2024-12-27 08:00] VITALS: BP 121/62; PULSE 87; RESP 16; TEMP 36.4; O2SAT 98
--- NOTE | 2024-12-27 08:26 | P.DS_ITS ---
<Statement entered by Truong Milner MD - 12/27/24 15:59> Rounded on patient after nurse practitioner. Personally examined and interviewed patient. Agree with exam findings and care plan as documented. General Admission date:: 12/25/24 Discharge date: 12/27/24 HPI HPI HPI: Ms. Cedillo is a 74-year-old female who presented to the emergency department from her PCPs office after having ongoing nausea, weakness, diarrhea, hypotension, and decreased p.o. intake. She has a primary medical history of type 2 diabetes, hypertension, hypothyroidism, GERD, and ileostomy. Patient states she has been having symptoms for approximately 3 to 4 days. She presented to the emergency department yesterday but wanted to go home to try and orally hydrate. Patient states she is having copious amounts of output from her ileostomy and has been unable to orally hydrate. Hospital Course Hospital Course Hospital Course: Ms. Cedillo is a 74-year-old female who presented to the emergency department from her PCPs office after having ongoing nausea, weakness, diarrhea, hypotension, and decreased p.o. intake. She has a primary medical history of type 2 diabetes, hypertension, hypothyroidism, GERD, and ileostomy. Patient states she has been having symptoms for approximately 3 to 4 days. Patient states she is having copious amounts of output from her ileostomy and has been unable to orally hydrate. Workup in the emergency department was notable for an increased creatinine of 2.9, baseline 1.2 and hypomagnesemia of 0.5. Hospital medicine was consulted for admission for further management of this patient's condition, I agreed to accept the patient. Care was as follows: #Dehydration #EMILY #Metabolic acidosis ? On admission patient CT showed cholelithiasis, patient denies abdominal pain, or tenderness to palpation. Initially she did complain of abdominal cramping, now resolved. ? Patient's creatinine on admission 2.9. Patient received fluid bolus in the ED, maintenance fluids at 125 mL/hour during the admission. Patient creatinine much improved day of discharge, 1.8 discussed with patient the need for continued hydration in the outpatient setting. Patient will come in for 1 L IV fluid infusion on Wednesday and Wednesday. We will also recheck BMP and magnesium during that time. Patient should follow-up with PCP after fluid infusions for lab results and monitoring. ? Day of discharge lab work stable, sodium 133, potassium 3.2?replace per protocol, creatinine 1.8. ? Patient should continue to hold metformin and Januvia until PCP follow-up and kidney function stabilizes. #Diarrhea #Nausea ? Stool PCR negative, urinalysis unremarkable. Patient tolerating p.o. intake without issues. Patient does have Zofran as needed at home for nausea. Patient is still having moderate output from her ileostomy. #Type 2 diabetes ? Patient may resume glimepiride 6 mg daily at discharge. Resume pantoprazole 40 mg daily, losartan 25 mg daily, levothyroxine 75 mcg daily, atorvastatin 20 mg at bedtime and loratadine 10 mg daily at discharge. Total time spent on discharge 32 minutes in counseling, documentation, chart review, and direct care with patient. Exam Data for Last 24 hours Vital signs and Labs for Last 24 Hours: Temp Pulse Resp BP Pulse Ox O2 Del Method 97.6 F 74 16 114/58 L 98 Room Air 12/27/24 04:00 12/27/24 04:00 12/27/24 04:00 12/27/24 04:00 12/27/24 04:00 12/27/24 07:40 Laboratory Results - last 24 hr 12/26/24 10:30: POC Glucose 219 H 12/26/24 13:59: Sodium 132 L, Potassium 3.5, Chloride 102, Carbon Dioxide 19 L, Anion Gap 14.5, BUN 41 H, Creatinine 2.10 H D, Estimated Creat Clear 17, Estimated GFR 23 L, Est GFR ( Amer) 28 L D, Glucose 168 H, Calcium 10.6 H , Magnesium 3.8 H D 12/26/24 15:55: POC Glucose 154 H 12/26/24 19:58: POC Glucose 180 H 12/27/24 05:00: POC Glucose 137 H 12/27/24 06:08: WBC 5.4 D, RBC 3.80 L, Hgb 12.1 L, Hct 33.2 L, MCV 87.4, MCH 31.8 H, MCHC 36.4 H, RDW 11.9, Plt Count 188, MPV 11.7 H, Neut % (Auto) 63.8, Lymph % (Auto) 17.7, [place] % (Auto) 13.2 H, Eos % (Auto) 4.5, Baso % (Auto) 0.6, Neut # (Auto) 3.4, Lymph # (Auto) 1.0, [place] # (Auto) 0.7, Eos # (Auto) 0.2, Baso # (Auto) 0.0, Sodium 133 L, Potassium 3.2 L, Chloride 103, Carbon Dioxide 20 L, Anion Gap 13.2, BUN 33 H, Creatinine 1.80 H, Estimated Creat Clear 25, Estimated GFR 27 L, Est GFR ( Amer) 33 L, Glucose 151 H, Calcium 10.4 H, Magnesium 2.3 D, Total Bilirubin 2.0 H, AST 19, ALT 9 L, Alkaline Phosphatase 59, Total Protein 6.4, Albumin 3.8 D, Globulin 2.6, Albumin/Globulin Ratio 1.5 I & O for Last 24 hours: Intake & Output 12/24/24 12/25/24 12/26/24 12/27/24 23:59 23:59 23:59 23:59 Intake Total 1410 / 1410 3184.583 / 3424.583 240 / 240 Output Total 0 / 0 200 / 200 Balance 1410 / 1410 2984.583 / 3224.583 240 / 240 Weight 57.663 kg 56.3 kg 59.783 kg Constitutional Constitutional: no acute distress and cooperative *Routine HEENT Exam Head: Present normocephalic Eye: Present EOMI ENT: Present mucous membranes moist *Routine Neck Exam Neck: Present supple and full ROM; Absent JVD or lymphadenopathy *Routine Respiratory Exam Respiratory: Present CTA bilaterally, able to speak in complete sentences and symmetric chest movement; Absent wheezes or crackles *Routine Cardiovascular Exam Cardiovascular: Present RRR; Absent murmur *Routine Abdominal Exam Abdominal: Present soft and normoactive bowel sounds; Absent tenderness or distended Comments: Ileostomy in place *Routine Extremities Exam Extremities: Present full ROM, pulses intact and normal capillary refill; Absent clubbing or edema *Routine Skin Exam Skin: Present intact and dry; Absent rash *Routine Neurological Exam Neurological: Present alert, oriented X3, vision grossly intact, hearing grossly intact and normal speech Routine Psychiatric Exam Psychiatric: Present normal affect Results Data Completed and Pending Labs on day of discharge: Labs from last 24 hours 12/27/24 12/27/24 12/26/24 06:08 05:00 19:58 WBC 5.4 D RBC 3.80 L Hgb 12.1 L Hct 33.2 L MCV 87.4 MCH 31.8 H MCHC 36.4 H RDW 11.9 Plt Count 188 MPV 11.7 H Neut % (Auto) 63.8 Lymph % (Auto) 17.7 [place] % (Auto) 13.2 H Eos % (Auto) 4.5 Baso % (Auto) 0.6 Neut # (Auto) 3.4 Lymph # (Auto) 1.0 [place] # (Auto) 0.7 Eos # (Auto) 0.2 Baso # (Auto) 0.0 Sodium 133 L Potassium 3.2 L Chloride 103 Carbon Dioxide 20 L Anion Gap 13.2 BUN 33 H Creatinine 1.80 H Estimated Creat Clear 25 Estimated GFR 27 L Est GFR ( Amer) 33 L Glucose 151 H POC Glucose 137 H 180 H Calcium 10.4 H Magnesium 2.3 D Total Bilirubin 2.0 H AST 19 ALT 9 L Alkaline Phosphatase 59 Total Protein 6.4 Albumin 3.8 D Globulin 2.6 Albumin/Globulin Ratio 1.5 12/26/24 12/26/24 12/26/24 15:55 13:59 10:30 WBC RBC Hgb Hct MCV MCH MCHC RDW Plt Count MPV Neut % (Auto) Lymph % (Auto) [place] % (Auto) Eos % (Auto) Baso % (Auto) Neut # (Auto) Lymph # (Auto) [place] # (Auto) Eos # (Auto) Baso # (Auto) Sodium 132 L Potassium 3.5 Chloride 102 Carbon Dioxide 19 L Anion Gap 14.5 BUN 41 H Creatinine 2.10 H D Estimated Creat Clear 17 Estimated GFR 23 L Est GFR ( Amer) 28 L D Glucose 168 H POC Glucose 154 H 219 H Calcium 10.6 H Magnesium 3.8 H D Total Bilirubin AST ALT Alkaline Phosphatase Total Protein Albumin Globulin Albumin/Globulin Ratio DS: Diagnosis Discharge Diagnosis (1) Acute dehydration: Status: Acute Code(s): E86.0 - Dehydration (2) EMILY (acute kidney injury): Status: Acute Code(s): N17.9 - Acute kidney failure, unspecified (3) Diarrhea: Status: Acute Code(s): R19.7 - Diarrhea, unspecified (4) Metabolic acidosis: Status: Acute Code(s): E87.20 - Acidosis, unspecified (5) Nausea: Status: Acute Code(s): R11.0 - Nausea (6) Type 2 diabetes mellitus: Status: Acute Code(s): E11.9 - Type 2 diabetes mellitus without complications Meds Home Medications and Allergies Home Medications ?Medication ?Instructions ?Recorded ?Confirmed ?Type blood sugar diagnostic (FreeStyle #10 ea 10/16/2108/04 History Lite Strips) levothyroxine 75 mcg tablet 75 mcg PO DAILY 03/22/24 0 12/25/24 History metformin 1,000 mg tablet 1,000 mg PO DAILY 03/22/24 0 12/25/24 History Held on 12/27/24. Instructions: until PCP f/u pantoprazole 40 mg tablet,delayed 40 mg PO DAILY 03/2212/25/24 History release sitagliptin phosphate 100 mg 100 mg PO DAILY 03/22/24 12/25/24 History tablet (Januvia) Held on 12/27/24. Instructions: until PCP f/u losartan 25 mg tablet 25 mg PO DAILY 09/13/2412/11 History atorvastatin 20 mg tablet 20 mg PO HS 12/25/24 5 History diclofenac sodium 1 % topical gel 4 g topical QIDP PRN Mild Pain 12/25/24 12/25/24 History (Scale Score 1-4) glimepiride 4 mg tablet 6 mg PO DAILY 12/25/2412/25 History loratadine 10 mg tablet 10 mg PO DAILY 12/25/2412/11 History ondansetron 4 mg disintegrating 4 mg PO Q6HP PRN nause a and 12/25/24 12/25/24 History tablet vomiting New Prescriptions to Start Prescriptions: Allergies Allergy/AdvReac Type Severity Reaction Status Date / Time ciprofloxacin (From Cipro) Allergy Verified 09/13/24 11:34 nitrofurantoin (From Allergy Verified 09/13/24 11:34 Macrobid) Discharge Plan Disposition Patient Disposition: Home, Self-Care Condition: Fair Follow up Plan Follow up with: Catherine Hernandez APRN [Primary Care Provider, Medical] - 01/01/25 9:45 am Referral Note: after infusion Prescriptions/Medication Reconciliation: Continued (DME) FreeStyle Lite Strips Strip See Rx Instructions .ROUTE .MEDSUPPLY Qty: 10 Rx Instructions: As directed losartan 25 mg tablet 25 mg PO DAILY levothyroxine 75 mcg tablet 75 mcg PO DAILY pantoprazole 40 mg tablet,delayed release (DR/EC) 40 mg PO DAILY Patient Comments: TAKE 1 TABLET BY MOUTH DAILY ondansetron 4 mg tablet,disintegrating 4 mg PO Q6HP PRN (Reason: nausea and vomiting) diclofenac sodium 1 % gel 4 g topical QIDP PRN (Reason: Mild Pain (Scale Score 1-4)) Rx Instructions: apply to single knee, ankle, foot; for foot includes sole/toes/top of foot atorvastatin 20 mg tablet 20 mg PO HS glimepiride 4 mg tablet 6 mg PO DAILY loratadine 10 mg Tablet 10 mg PO DAILY Held metformin 1,000 mg tablet 1,000 mg PO DAILY Hold Instructions: until PCP f/u Januvia 100 mg tablet 100 mg PO DAILY Hold Instructions: until PCP f/u Problem Reconciliation Problems Reviewed?: Yes Patient Discharge Instructions ACTIVITY: Continue current activity DIET: continue same diet Additional Instructions: ? Encourage p.o. intake ? IV fluids on 12/29/2024 and 01/02/2025?recheck BMP and magnesium. Follow-up with PCP on Wednesday after infusion and labs. Patient Instructions: Dehydration, Acute Kidney Injury, DI for Hypomagnesemia Print Language: Italian Providers Primary Care Provider: Catherine Hernandez Admit Provider: Ronnell Leung Attending Provider: Ronnell Leung
--- NOTE | 2024-12-27 10:49 | SW/DCPLANNER ---
Patient is agreeable to return to [facility] twice weekly for fluids per Geronimo White. Patient will discharge home today.
[2024-12-27] MEDS: humaLOG 100 UNITS/ML 10ML VIAL (SSI) SUBCUT (12:09)
[2024-12-27 12:11] LABS: POC Glucose,Bedside 244 gm/dL (70-110)
[2024-12-27] MEDS: POTASSIUM CHLORIDE 20MEQ TAB 40 MEQ PO (12:54)
--- NOTE | 2024-12-28 10:21 | SW/DCPLANNER ---
Spoke with patient on the phone. Patient stated that she is not feeling very well. Patient stated that she is aware of her upcoming appointment. Patient stated that she is aware they held 2 of her medicines. Patient stated that she has no concerns or questions at this time. José Schneider
== END 2024-12-27 13:24 | disposition home or self-care (01) ==
LOC: ER 15:13 → 2ND 15:22
PROVIDERS: Admitting Provider Student in an Organized Health Care Education/Training Program; Emergency Provider Student in an Organized Health Care Education/Training Program; PCP Nurse Practitioner Family; Visit Provider Student in an Organized Health Care Education/Training Program
DX: E86.0 Dehydration (principal); N17.9 Acute kidney failure, unspecified; E87.20 Acidosis, unspecified; E11.9 Type 2 diabetes mellitus without complications; E03.9 Hypothyroidism, unspecified; I10 Essential (primary) hypertension; K21.9 Gastro-esophageal reflux disease without esophagitis; E78.5 Hyperlipidemia, unspecified; K80.20 Calculus of gallbladder without cholecystitis without obstruction; R19.7 Diarrhea, unspecified; Z93.2 Ileostomy status; Z88.1 Allergy status to other antibiotic agents; Z79.84 Long term (current) use of oral hypoglycemic drugs; Z79.890 Hormone replacement therapy; Z79.899 Other long term (current) drug therapy
CPT/HCPCS: 36415; 80048; 80053; 80061; 81001; 82803; 82962; 83036; 83735; 84100; 84439; 84443; 85025; 87507; 96361; 96365; 96366; 96372; 96375; 96376; 99284; G0378; J1650; J2405; J3475; J7120

== ENCOUNTER 2024-12-29 11:09 | Outpatient (CLI) | payer MEDICARE, OTHER, SELFPAY ==
--- OUTSIDE RECORDS SUMMARY | 2024-11-02 08:10 | XMS_ITS | Encounter Summary ---
Author Organization Healthcare Address [address] [place] [address] Care Team Providers Care Cardiac Monitor Name Role Phone Catherine Hernandez JANAY Primary Care Provider +1- [phone] Encounter Details Date Type Department Care Team (Latest Contact Info) Description 11/02/2024 8:10 AM EDT - 11/02/2024 11:59 PM EDT Hospital Encounter [facility] [address] [facility], [address] [place] [address] Age-related osteoporosis without current pathological [...] Medical Office Building Surgical Specialties [address] [facility], [facility] 302 [place] [address] Lacho Lenz MD [address] [facility] [address] [place] [id number] 11/08/2025 8:20 AM EDT Office Visit [facility] [place] [facility] [address] [facility], [facility] 318 [place] [address] Lauri Zavala MD [address] [facility] 401 [place] [address] 11/08/2025 8:40 AM EDT Appointment [facility] [place] [facility] [address] [facility], [facility] [address] [place] [address] documented as of this encounter Procedures Procedure Name Priority Date/Time Associated Diagnosis Comments DEXA BONE DENSITY Routine 11/02/2024 8:1 0 AM EDT Age-related osteoporosis without current pathological fracture documented in this encounter Results * Dexa Bone Density (11/02/2024 8:10 AM EDT) Anatomical Region Laterality Modality L-spine Radiographic Whitney ging Narrative 11/12/2024 10:28 AM EDT [facility] - [facility] [address] [place] [address], [place] [address] DXA Bone Densitometry Report: [Date of exam] BMD test performed using the [employer] DXA System (analysis version: 14.10) manufactured by [employer]. REFERRING PROVIDER: Dr. Lauri Zavala MD CLINICAL [...] documented as of this encounter Care Teams Cardiac Monitor Relationship Specialty Start Date End Date Catherine Hernandez APRN [address] [place] [phone] PCP - General 08/23/20 documented as of this encounter
--- OUTSIDE RECORDS SUMMARY | 2024-11-02 08:40 | XMS_ITS | Encounter Summary ---
Author Organization Healthcare Address [address] [place] [address] Care Team Providers Care Clinical Associate Name Role Phone Catherine Hernandez JANAY Primary Care Provider +1- [phone] Reason for Referral * Consultation (Routine) - Authorized Specialty Diagnoses / Procedures Referred By Damaris t Referred To Contact General, Endocrine & Minimally Invasive Surgery / General Surgery Diagnoses Age-related osteoporosis without current pathological fracture Stage 3a chronic kidney disease (CMS/HCC) Hypercalcemia Hyperparathyroidism ([facility]/HCC) Kailash Granados PA [address] [address] Phone: tel: fax: Ijeoma Logan MD [address] [address] Phone: tel: fax: Referral ID Status Reason Start Date Expiration Date Visits Requested Visits Authorized [id number] Authorized Specialty Services Required 11/02/2024 05/04/2026 1 1 Scheduling Instructions Please evaluate for primary hyperparathyroidism, adenoma on NM parathyroid imaging Thanks! * Consultation (Routine) - Authorized Specialty Diagnoses / Procedures Referred By Contac t Referred To Contact Diagnoses Age-related osteoporosis without current pathological fracture Stage 3a chronic kidney disease (CMS/HCC) Hypercalcemia Kailash Granados PA [address] [address] Phone: tel: fax: Referral ID Status Reason Start Date Expiration Date V isits Requested Visits Authorized [id number] Authorized 11/02/2024 05/04/2026 1 1 Reason for Visit * Reason Comments Follow-up * Consultation (Routine) - Closed Specialty Diagnoses / Procedures Referred By Damaris donald Referred To Contact Diagnoses Age-related osteoporosis without current pathological fracture Lauri Zavala MD [address] [place] [address] Phone: tel: fax: Referral ID Status Reason Start Date Expiration Date Visits Re quested Visits Authorized [id number] Closed 08/28/2024 02/27/2026 1 1 Encounter Details Date Type Department Care Team ([facility] st Contact Info) Description 11/02/2024 8:40 AM EDT Office Visit [facility] [address], [address] [place] [address] Lauri Zavala MD [address] [place] [address] Age-related osteoporosis without current pathological fracture [...] XRT, renal stones, dental issues/scheduled dental procedures, rn long term care corticosteroid; - Has underlying UC, Colectomy in [...] file Social Connections: Unknown (01/20/2023) Received from [facility] Family and Community Support Help with Day-to-Day Activities: Not on file Lonely or Isolated: Not on file Intimate Partner Violence: Unknown (01/20/2023) Received from [facility] Abuse Screen Unsafe at Home or Work/School: Not on file Feels Threatened by Someone?: Not on file Does Anyone Keep You from Contacting Others or Doint Things Outside the Home?: Not on file Physical Sign of Abuse Present: Not on file Housing Stability: Unknown (01/20/2023) Received from [facility] Housing Stability Current Living Arrangements: Not on [...] , LH , PROLACTIN , TSH , [id number] , FREET4 , CORTISOL Urine studies: Lab [...] (delayed set) acquired and processed using Siemens Apps[employer]Pro Intevo 16 SPECT/CT hybrid technology. Three-dimensional attenuation-corrected SPECT, CT and fused SPECT/CT tomographic images in coronal, sagittal, and transverseplanes created and reviewed interactively to optimize sensitivity, specificity, and anatomic localization. CT: low-dose, epn-lcnlke-znsa, without intravenous contrast; TOTAL DLP (Dose Length [...] pathological fracture Stage 3a chronic kidney disease ([facility]) Hypercalcemia Hyperparathyroidism ([facility]) IgG lambda monoclonal gammopathy [3] Past Surgical [...] Medical Office Building Surgical Specialties [address] [facility], [address] [place] [address] Lacho Lenz MD [address] [facility] [address] [place] [address] 11/08/2025 8:20 AM EDT Office Visit [facility] Bone & Mineral Metabolism [address] [facility], [address] [place] [address] Lauri Zavala MD [address] [facility] [address] [place] [address] 11/08/2025 8:40 AM EDT Appointment [facility] Bone & Mineral Metabolism [address] [facility], [address] [place] [address] Scheduled Orders Name Type Priority [...] Hyperparathyroidism (CMS/HCC) Expected: 10/25/2025 (Approximate), Expires: 05/06/2026 [place] Lambda Quant Free Light Chains w/Ratio Lab [...] documented as of this encounter Care Teams Clinical Associate Relationship Specialty Start Date End Date Catherine Hernandez APRN [address] [place] [address] [place] [address] PCP - General 08/23/20 documented as of this encounter
--- OUTSIDE RECORDS SUMMARY | 2024-12-29 11:14 | XMS_ITS | Encounter Summary ---
Author Organization Healthcare Address [address] [place] [address] Care Team Providers Care Cloth Picker Name Role Phone Catherine Hernandez ALLERGY AND IMMUNOLOGY SPECIALIST Primary Care Provider [phone]- [phone] Encounter Details Date Type Department Care Team [...] Medical Office Building Surgical Specialties [address], [address] [place] [address] Lacho Lenz MD [address] [facility] [address] [place] [address] 11/08/2025 8:20 AM EDT Office Visit Professional [facility] [address], [address] [place] [address] Lauri Zavala MD [address] [place] [address] 11/08/2025 8:40 AM EDT Appointment [facility] [address], [address] [place] [address] documented as of this encounter Visit Diagnoses Not on filedocumented in this encounter Additional Health Concerns Assessment Noted Time A fall risk assessment has been complete d for the patient 11/02/2024 8:33 AM EDT A Body Mass Index follow-up plan has been documented for the patient 11/02/2024 9:00 AM EDT documented as of this encounter Care Teams Cloth Picker Relationship Specialty Start Date End Date Catherine Hernandez APRN [address] [place] [address] PCP - General 08/23/20 documented as of this encounter
--- OUTSIDE RECORDS SUMMARY | 2024-12-29 11:14 | XMS_ITS | Clinical Summary ---
[facility] Organization [facility] Address [address] [place] [address] Care Team Providers Care Mattress Maker Name Role Phone Provider, No Known Primary [...] season) 2024 INFLUENZA VACCINE 01/10/2025 Care Teams Mattress Maker Relationship Specialty Start Date End Date Provider, No Known [facility] [place] [address] PCP - General 06/05/15
--- OUTSIDE RECORDS SUMMARY | 2024-12-29 11:14 | XMS_ITS | Clinical Summary ---
Author Organization Healthcare Address [address] [place] [address] Care Team Providers Care Experimental Electronics Developer Name Role Phone Catherine Hernandez INSIDE PLANT SUPERVISOR Primary Care Provider +1- [phone] Allergies Active Allergy Reactions Criticality Noted Date [...] Description 11/02/2024 8:40 AM EDT Office Visit [facility] [address], [address] [place] [address] Lauri Zavala MD Age-related osteoporosis without current pathological fracture (Primary Dx); Stage 3a chronic kidney disease ([facility]/HCC); Hypercalcemia; Hyperparathyroidism ([facility]/HCC); IgG lambda monoclonal gammopathy 11/02/2024 8:10 AM EDT - 11/02/2024 11:59 PM EDT Hospital Encounter [facility] [address] [facility], [address] [place] [address] Age-related osteoporosis without current pathological fracture Discharge Disposition: Home or Self Care 11/02/2024 Travel from Last 3 Months Immunizations Immunization [...] Upcoming Encounters Date Type Department Care Team ([facility] st Contact Info) Description 04/26/2025 2:00 PM EST Consult Medical Office Building Surgical Specialties [address], [address] [place] [address] Lacho Lenz MD [address] [facility] [address] [place] [address] 11/08/2025 8:20 AM EDT Office Visit Professional [facility] Met[facility] [address], [address] [place] [address] Lauri Zavala MD [address] [place] [address] 11/08/2025 8:40 AM EDT Appointment [facility] [address] [facility], [address] [place] [address] Health Maintenance Due Date Last Done Comments [facility]-Diabetes: Hemoglobin A1C 1950 [facility]-Hepatitis C Screening 1950 [facility]-Medicare Annual Wellness (AWV) 1950 [facility]-Infant/Child/Adol SDOH Screenings 1950 Diabetes: Dental Exam 1958 [facility]- SDOH Screenings 1966 [facility]-Adult SDOH Screenings 1966 [facility]-DTaP,Tdap,and Td Vaccines (1 - Tdap) 03/26/2017 03/25/2017 [facility]-Zoster Vaccines (3 of 3) 04/26/2018 03/01/2018, 10/12/2016 [facility]-RSV Vaccine: 60+ Years or (1 - 1-dose 75+ series) 12/11/2023 [id number] Vaccine (4 - 2024- season) 2024 02/11/2021, [...] EDT Age-related osteoporosis without current pathological fracture from Last 3 Months Results * Dexa Bone Density (11/02/2024 8:10 AM EDT) Anatomical Region Laterality Modality L-spine Radiographic Whitney ging Narrative 11/12/2024 10:28 AM EDT [facility] [address] [place] [address] DXA Bone Densitometry Report: [Date of exam] BMD test performed using the [employer] DXA System (analysis version: 14.10) manufactured by [employer]. REFERRING PROVIDER: Dr. Lauri Zavala MD CLINICAL [...] MD IMG DXA PROCEDURES Final Resu lt from Last 3 Months Insurance MEDICARE [facility] Care Teams Experimental Electronics Developer Relationship Specialty Start Date End Date Catherine Hernandez APRN [address] [place] [address] PCP - General 08/23/20
--- OUTSIDE RECORDS SUMMARY | 2024-12-29 11:14 | XMS_ITS | Encounter Summary ---
Author Organization Healthcare Address [address] [place] [address] Care Team Providers Care Sweatband Separator Name Role Phone Catherine Hernandez APRN Primary Care Provider +1- [phone] Reason for Referral * Consultation (Routine) - Closed Specialty Diagnoses / Procedures Referred By Damaris donald Referred To Contact Nephrology Diagnoses Osteoporosis, unspecified osteoporosis type, unspecified pathological fracture presence Hypercalcemia Catherine Hernandez APRN [address] [address] Phone: tel: fax: Lauri Zavala MD [address] [address] Phone: tel: fax: Referral ID Status Reason Start Date Expiration Date V isits Requested Visits Authorized [id number] Closed Specialty Services Required 05/22/2024 11/21/2025 1 1 Encounter Details Date Type Department Care Team (Latest Contact Info) Description 05/22/2024 Community Orders Community Practice [address] [place] [address] Catherine Hernandez APRN [address] [address] Osteoporosis, unspecified osteoporosis type, unspecified [...] Upcoming Encounters Date Type Department Care Team ([facility] st Contact Info) Description 04/26/2025 2:00 PM EST Consult Medical Office Building Surgical Specialties [address] [facility], [address] [place] [address] Lacho Lenz MD [address] [facility] [address] [place] [address] 11/08/2025 8:20 AM EDT Office Visit [facility] Mineral [facility] [address] [facility], [address] [place] [address] Lauri Zavala MD [address] [facility] [address] [place] [address] 11/08/2025 8:40 AM EDT Appointment [facility] [address] [facility], [address] [place] [address] Scheduled Referrals Name Type Priority Associated Diagnoses Orde r Schedule Ambulatory referral to Nephrology Outpatient Referral Routine Osteoporosis, unspecified osteoporosis type, unspecified pathological fracture presence Hypercalcemia Ordered: 05/22/2024 documented as of this encounter Visit Diagnoses Diagnosis Osteoporosis, unspecified osteoporosis type, unspecified pathological fracture presence- Primary Hypercalcemia documented in this encounter Care Teams Sweatband Separator Relationship Specialty Start Date End Date Catherine Hernandez APRN [address] [place] [address] PCP - General 08/23/20 documented as of this encounter
--- OUTSIDE RECORDS SUMMARY | 2024-12-29 11:14 | XMS_ITS | Encounter Summary ---
Author Organization Healthcare Address [address] [place] [address] Care Team Providers Care Student Counselor Name Role Phone Catherine Hernandez CLINICAL DATA ANALYST Primary Care Provider +1- [phone] Reason for Referral * Consultation (Routine) - Authorized Specialty Diagnoses / Procedures Referred By Damaris donald Referred To Contact Nephrology Diagnoses Low bone density Acquired hypothyroidism Elevated parathyroid hormone related peptide level Catherine Hernandez, CLINICAL DATA ANALYST [address] [address] Phone: tel: fax: [facility] [address] [address] Phone: tel: fax: Referral ID Status Reason Start Date Expiration Date Visits Requested Visits Authorized [id number] Authorized Specialty Services Required 10/15/2023 04/15/2025 1 1 Encounter Details Date Type Department Care Team (Late st Contact Info) Description 10/15/2023 Community [facility] [address] [place] [address] Catherine Hernandez, CLINICAL DATA ANALYST [address] [address] Low bone density (Primary Dx); [...] Medical Office Building Surgical Specialties [address] [facility], [address] [place] [address] Lacho Lenz MD [address] [facility] 302 [place] [address] 11/08/2025 8:20 AM EDT Office Visit [facility] Bone & Mineral Metabolism [address] [facility], [address] [place] [address] Lauri Zavala MD [address] [facility] [address] [place] [address] 11/08/2025 8:40 AM EDT Appointment [facility] Bone & Mineral Metabolism [address] [facility], [address] [place] [address] Scheduled Referrals Name Type Priority Associated Diagnoses Orde r Schedule Ambulatory referral to Nephrology Outpatient Referral Routine Low bone density Acquired hypothyroidism Elevated parathyroid hormone related peptide level Ordered: 10/15/2023 documented as of this encounter Visit Diagnoses Diagnosis Low bone density- Primary Acquired hypothyroidism Unspecified hypothyroidism Elevated parathyroid hormone related peptide level documented in this encounter Care Teams Student Counselor Relationship Specialty Start Date End Date Catherine Hernandez APRN [facility] [address] PCP - General 08/23/20 documented as of this encounter
[2024-12-29 11:35] VITALS: BP 131/89; PULSE 89; RESP 18; TEMP 36.6; O2SAT 98
[2024-12-29] MEDS: 0.9 % SODIUM CHLORIDE 1000ML 1,000 ML 999 ML IV (11:35)
[2024-12-29 11:39] LABS: Chloride 96 mmol/L (98-107); Sodium 131 mmol/L (136-145)
[2024-12-29 11:40] LABS: Potassium 4.5 mmoL/L (3.5-5.1)
[2024-12-29 11:42] LABS: Anion Gap 23.5 mEq/L (5-15); Blood Urea Nitrogen 44 mg/dl (7-17); Carbon Dioxide 16 mmol/L (22.0-30.0); Creatinine,Serum 2.90 mg/dl (0.52-1.04); Estimated Glomerular Filt Rate 16 ml/min (>60); GFR (African American) 19 ML/MIN (>60); Glucose 217 mg/dl (74-100)
[2024-12-29 11:43] LABS: Magnesium 1.7 mg/dl (1.6-2.3)
[2024-12-29 11:47] LABS: Calcium 12.4 mg/dl (8.4-10.2)
[2024-12-29 12:40] VITALS: BP 130/57; PULSE 85; RESP 18; O2SAT 97
== END 2024-12-29 23:59 | disposition home or self-care (01) ==
PROVIDERS: PCP Nurse Practitioner Family
DX: N17.9 Acute kidney failure, unspecified (principal); E86.0 Dehydration
CPT/HCPCS: 80048; 83735; 96360; J7030

== ENCOUNTER 2024-12-29 12:41 | Inpatient (IN) | payer MEDICARE, OTHER, SELFPAY ==
--- OUTSIDE RECORDS SUMMARY | 2024-11-02 08:10 | XMS_ITS | Encounter Summary ---
Author Organization Healthcare Address [address] [place] [address] Care Team Providers Care Key Account Manager Name Role Phone Catherine Hernandez JANAY Primary Care Provider +1- [phone] Encounter Details Date Type Department Care Team (Latest Contact Info) Description 11/02/2024 8:10 AM EDT - 11/02/2024 11:59 PM EDT Hospital Encounter [facility] [address] [facility], [address] [place] [address] Age-related osteoporosis without current pathological [...] Office Building Surgical Specialties [address] [facility], [facility] [address] [place] [address] Lacho Lenz MD [address] [facility] [address] [place] [phone] 11/08/2025 8:20 AM EDT Office Visit [facility] Mineral Met[facility] [address] [facility], [facility] [address] [place] [address] Lauri Zavala MD [address] [facility] [address] [place] [address] 11/08/2025 8:40 AM EDT Appointment [facility] [address] [facility], [facility] [address] [place] [address] documented as of this encounter Procedures Procedure Name Priority Date/Time Associated Diagnosis Comments DEXA BONE DENSITY Routine 11/02/2024 8:1 0 AM EDT Age-related osteoporosis without current pathological fracture documented in this encounter Results * Dexa Bone Density (11/02/2024 8:10 AM EDT) Anatomical Region Laterality Modality L-spine Radiographic Whitney ging Narrative 11/12/2024 10:28 AM EDT [facility] [address] [place] [address], [place] [address] DXA Bone Densitometry Report: [Date of exam] BMD test performed using the eyeQ DXA System (analysis version: 14.10) manufactured by [employer]. REFERRING PROVIDER: Dr. Lauri Zavala MD CLINICAL [...] documented as of this encounter Care Teams Key Account Manager Relationship Specialty Start Date End Date Catherine Hernandez APRN [address] [place] [phone] PCP - General 08/23/20 documented as of this encounter
--- OUTSIDE RECORDS SUMMARY | 2024-11-02 08:10 | XMS_ITS | Encounter Summary ---
Author Organization Healthcare Address [address] [place] [address] Care Team Providers Care Senior Electrical Design Engineer Name Role Phone Catherine Hernandez JANAY Primary Care Provider +1- [phone] Encounter Details Date Type Department Care Team (Latest Contact Info) Description 11/02/2024 8:10 AM EDT - 11/02/2024 11:59 PM EDT Hospital Encounter [facility] [address] [facility], [address] [place] [address] Age-related osteoporosis without current pathological [...] Medical Office Building Surgical Specialties [address] [facility], [facility] [address] [place] [address] Lacho Lenz MD [address] [facility] [address] [place] [phone] 11/08/2025 8:20 AM EDT Office Visit [facility] [address] [facility], [facility] [address] [place] [address] Lauri Zavala MD [address] [facility] 401 [place] [address] 11/08/2025 8:40 AM EDT Appointment [facility] [address] [facility], [facility] [address] [place] [address] documented as of this encounter Procedures Procedure Name Priority Date/Time Associated Diagnosis Comments DEXA BONE DENSITY Routine 11/02/2024 8:1 0 AM EDT Age-related osteoporosis without current pathological fracture documented in this encounter Results * Dexa Bone Density (11/02/2024 8:10 AM EDT) Anatomical Region Laterality Modality L-spine Radiographic Whitney ging Narrative 11/12/2024 10:28 AM EDT [facility] [address] [place] [address], [place] [address] DXA Bone Densitometry Report: [Date of exam] BMD test performed using the [employer] DXA System (analysis version: 14.10) manufactured by [employer]. REFERRING PROVIDER: Dr. Lauri Zavala MD CLINICAL [...] documented as of this encounter Care Teams Senior Electrical Design Engineer Relationship Specialty Start Date End Date Catherine Hernandez APRN [address] [place] [phone] PCP - General 08/23/20 documented as of this encounter
--- OUTSIDE RECORDS SUMMARY | 2024-11-02 08:40 | XMS_ITS | Encounter Summary ---
Author Organization Healthcare Address [address] [place] [address] Care Team Providers Care Classroom Technology Coach Name Role Phone Catherine Hernandez JANAY Primary Care Provider [phone] Reason for Referral * Consultation (Routine) - Authorized Specialty Diagnoses / Procedures Referred By Damaris t Referred To Contact General, Endocrine & Minimally Invasive Surgery / General Surgery Diagnoses Age-related osteoporosis without current pathological fracture Stage 3a chronic kidney disease (CMS/HCC) Hypercalcemia Hyperparathyroidism ([facility]/HCC) Kailash Granados PA [address] [address] Phone: tel: fax: Ijeoma Logan MD [address] [address] Phone: tel: fax: Referral ID Status Reason Start Date Expiration Date Visits Requested Visits Authorized [id number] Authorized Specialty Services Required 11/02/2024 05/04/2026 1 1 Scheduling Instructions Please evaluate for primary hyperparathyroidism, adenoma on NM parathyroid imaging Thanks! * Consultation (Routine) - Authorized Specialty Diagnoses / Procedures Referred By Contac t Referred To Contact Diagnoses Age-related osteoporosis without current pathological fracture Stage 3a chronic kidney disease (CMS/HCC) Hypercalcemia Kailash Granados PA [address] [address] Phone: tel: fax: Referral ID Status Reason Start Date Expiration Date V isits Requested Visits Authorized [id number] Authorized 11/02/2024 05/04/2026 1 1 Reason for Visit * Reason Comments Follow-up * Consultation (Routine) - Closed Specialty Diagnoses / Procedures Referred By Damaris donald Referred To Contact Diagnoses Age-related osteoporosis without current pathological fracture Lauri Zavala MD [address] [place] [address] Phone: tel: fax: Referral ID Status Reason Start Date Expiration Date Visits Re quested Visits Authorized [id number] Closed 08/28/2024 02/27/2026 1 1 Encounter Details Date Type Department Care Team ([facility] st Contact Info) Description 11/02/2024 8:40 AM EDT Office Visit [facility] [address], [address] [place] [address] Lauri Zavala MD [address] [place] [phone] Age-related osteoporosis without current pathological fracture (Primary Dx); Stage 3a chronic kidney disease (CMS/HCC); Hypercalcemia; Hyperparathyroidism (CMS/HCC); IgG lambda monoclonal gammopathy Social History Tobacco Use Types Packs/Day Years Used Date Smoking Tobacco: Never Passive Smoke Exposure: Past Smokeless Tobacco: Never Tobacco Cessation:Counseling Given: Not Answered Alcohol Use Standard Drinks/Week Comments Never 0 (1 standard drink = 0.6 oz pur e alcohol) PHQ-2 Answer Date Recorded Patient Health Questionnaire-2 Score 0 11/02/2024 Comments No Sex and Gender Information Value Date Recorded Sex Assigned at Not on file Legal Sex Female 8:17 PM EDT Gender Identity Not on file Sexual Orientation Not on file documented as of this encounter Last Filed Vital Signs Vital Sign Reading Time Taken Comments Blood Pressure 111/68 11/02/2024 8:36 AM EDT Pulse 80 11/02/2024 8:36 AM EDT Temperature 36.4 C (97.6 F) 11/02/2024 8:36 AM EDT Respiratory Rate - - Oxygen Saturation 100% 11/02/2024 8:36 AM EDT Inhaled Oxygen Concentration - - Weight 61.6 kg (135 lb 12.9 oz) 11/02/2024 8:36 AM EDT Height 155.6 cm (5' 1.25 ) 11/02/2024 8:36 AM ED T Body Mass Index 25.45 11/02/2024 8:36 AM EDT documented in this encounter Functional Status * Over the [...] Jossy Day documented as of this encounter Miscellaneous Notes * Patient Instructions - Kailash Granados PA - 11/02/2024 8:40 AM EDT Referral to endocrine for hyperparathyroidism Follow up one year with repeat DXA scan and labs Will monitor the abnormal protein next year on repeat labs * Progress Notes - Kailash Granados PA - 11/02/2024 8:40 AM EDT [facility] New Consult Visit Patient: Vera Cedillo Primary Care Provider: Catherine Hernandez APRN Referring Provider: Catherine Hernandez APRN Reason for consult: Osteoporosis Subjective Mrs. Cedillo is a 73 yo F with PMHx significant for HTN, HLD, T2DM c/b charcots foot, Ulcerative ccolitis s/p colectomy w/ ileostomy, bladder prolapse who presents for follow up for Osteoporosis. 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 operator corticosteroid; - Has underlying UC, Colectomy in 1971, never needed CS therapy for it; intermittently 5d courses for URI symptoms but very infrequent Noliver disease; No RA/organ transplant/GI disease (celiac, IBD, bariatric surgery, short gut, ileostomy)/HIV, meds/prolonged immobility - Hypothyroidism - tx w/ Synthroid, no hx autoimmune - Had mild hyperPTH in the past, reported was stable and no additional w/u done No premature hearing loss, premature dental loss No Breast/ovarian ca Metabolic - hypercalcemia, hypophos, acidosis, hypoNa, vit d def, malnutrition, elevated ALP - Recent labs had mild elevated Ca 10.5, 10.7 Medications: corticosteroids, thyroid replacement, PPIs, HRT, ART, anticonvulsants MTX /heparin /tamoxifen /chemo anorexia nervosa/elite athletics - Good balanced diet, Ca2+ intake (some yogurt, cheese; infrequent milk; good balance of vegetables, good daily protein intake Prior bone biopsy PSH: No surgical history of bariatric surgery, joint surgeries/joint replacements, spine fusion, kyphoplasty/vertebroplasty Family History: No family history of OP, fractures Pt completed bone work up and returns today for follow up. Sent for NM parathyroid scan after last visit, revealed right parathyroid adenoma. US of neck did not reveal any concern in thyroid gland. No new issues since last visit. ROS Constitutional: Negative. No fever, fatigue, weight loss. Eyes: Negative. No vision changes. Cardiovascular: HTN Respiratory: Negative. No shortness of breath at rest, cough, hemoptysis. Gastrointestinal: UC Musculoskeletal: Negative. No lower back pain, joint swelling, gait disturbance. History: Past Medical History[1] Problem List[2] Surgical History[3] Family History[4] Social History Socioeconomic History Marital status: Spouse name: Not on file Number of children: Not on file Years of education: Not on file Highest education level: Not on file Occupational History Not on file Tobacco Use Smoking status: Never Passive exposure: Past Smokeless tobacco: Never Substance and Sexual Activity Alcohol use: Never Drug use: Never Sexual activity: Defer Other Topics Concern Not on file Social History Narrative Not on file Social Drivers of Health Financial Resource Strain: Not on file Food Insecurity: Not on file Transportation Needs: Not on file Physical Activity: Not on file Stress: Not on file Social Connections: Unknown (01/20/2023) Received from [facility] Family and Community Support Help with Day-to-Day Activities: Not on file Lonely or Isolated: Not on file Intimate Partner Violence: Unknown (01/20/2023) Received from [facility] Abuse Screen Unsafe at Home or Work/School: Not on file Feels Threatened by Someone?: Not on file Does Anyone Keep You from Contacting Others or Doint Things Outside the Home?: Not on file Physical Sign of Abuse Present: Not on file Housing Stability: Unknown (01/20/2023) Received from [facility] Housing Stability Current Living Arrangements: Not on file Potentially Unsafe Housing Conditions: Not on file Allergies[5] Medications: Current Medications: Current Outpatient Medications Medication Instructions atorvastatin (Lipitor) 20 MG tablet TAKE 1 TABLET orally once a day at night for 90 days diclofenac (Voltaren) 1 % topical gel Every 6 hours FREESTYLE LITE test strip glimepiride (Amaryl) 4 MG tablet Januvia 100 MG tablet TAKE 1 TABLET DAILY for 90 days lidocaine (Lidoderm) 5 % patch 1 patch, Every 24 hours loratadine (Claritin) 10 MG tablet 1 tablet, Daily losartan (Cozaar) 25 MG tablet metFORMIN (Glucophage) 1000 MG tablet Every 24 hours mupirocin (Bactroban) 2 % ointment Every 8 hours pantoprazole (Protonix) 40 MG EC tablet Every 24 hours Synthroid 75 MCG tablet Objective Physical Exam: Physical Exam: Constitutional: No acute distress. Well-developed and nourished. Body mass index is 25.45 kg/m??. Pulmonary: Normal effort of breathing; . Musculoskeletal: Normal range of motion. Psychiatric: Orientated to person, place, and time: Normal Mood and affect Laboratory: LAB RESULTS Renal Panel: Lab Results Component Value Date NA 139 08/28/2024 K 4.5 08/28/2024 CL 105 08/28/2024 CO2 21 (L) 08/28/2024 BUN 20 08/28/2024 CREATININE 1.39 (H) 08/28/2024 EGFR 39.7 08/28/2024 PHOS 3.5 08/28/2024 ALBUMIN 4.6 08/28/2024 ALBUMIN 4.2 08/28/2024 MBD: Lab Results Component Value Date PTH 68 08/28/2024 CALCIUM 10.1 08/28/2024 ICAS 5.6 (H) 08/28/2024 PHOS 3.5 08/28/2024 VITAMIN D 25 Lab Results Component Value Date VITD25 41.7 08/28/2024 VITAMIN D 1,25 No results found for: VITD32 PTHRP No results found for: PLASMA Paraproteinemia Labs: Lab Results Component Value Date SPEP Pathology report to follow. 08/28/2024 KAPPALAMBDA 0.84 08/28/2024 Nutritional: Lab Results Component Value Date VITD25 41.7 08/28/2024 Endocrine profile: No results found for: TESTOSTERONE , TESTOST , FSH , LH , PROLACTIN , TSH , [id number] , FREET4 , CORTISOL Urine studies: Lab Results Component Value Date CALCIUMUR <0.8 08/28/2024 CREATUR 103 08/28/2024 CBC: No results found for: WBC , RBC , HGB , HCT , PLT , MCV , MCH , MCHC , RDW , NRBC Iron studies: No results found for: FERRITIN , IRON , IRONSAT , TIBC Bone Turnover Markers: Lab Results Component Value Date BSAP 7.7 08/28/2024 CTELOX 555 08/28/2024 Imaging: BMD 11/02/24 lunar T scores: L spine -0.5, left femur neck -1.4, right femur neck -1.5, total left hip -1.4, total right hip -1.5. TBS normal. FRAX major fx 10.3 %, hip fx 2.4%. Compared to previous DXA appears stable, possible improvement in left femur neck but direct comparison can not be done dueto different scanner. CLINICAL INDICATION: Hyperparathyroidism by laboratory examination. On 08/28/2024, PTH level was 68 pg/mL. Total Ca levelwas 10.1 mg/dL. Patient is taking thyroid hormone replacement medication. TECHNIQUE: At approximately 10 minutes and 2-3 hours following intravenous administration of 25.5 mCi of Tc-99m sestamibi, SPECT and CT images of neck and chest (early set) and/or neck-only (delayed set) acquired and processed using Siemens Fast Orientation Intevo 16 SPECT/CT hybrid technology. Three-dimensional attenuation-corrected SPECT, CT and fused SPECT/CT tomographic images in coronal, sagittal, and transverseplanes created and reviewed interactively to optimize sensitivity, specificity, and anatomic localization. CT: low-dose, [id number], without intravenous contrast; TOTAL DLP (Dose Length Product): 1026 mGy*cm. For reference to the report, annotated images have not been created and made available in PACS. COMPARISON/CORRELATION: None. No correlative imaging. FINDINGS: Normal in size thyroid gland with moderately heterogeneous biodistribution and relatively greater activity in right lobe compared to left. Incomplete washout from thyroid gland on delayed images withpersistent uptake within the lower pole of the right lobe. Focal sestamibi localization to 11 x 10 mm soft tissue nodule posterior to the upper pole of the right thyroid lobe, series [address]: Minimal bibasilar atelectasis. Coronary artery calcifications. Atherosclerotic calcifications of the arch and the great vessels.. IMPRESSION: Parathyroid scintigraphy demonstrates evidence of a right superior parathyroid adenoma. Thyroid Gland: Persistent delayed sestamibi activity within the lower pole of the right thyroid gland, might represent a thyroid adenoma. Further assessment with dedicated thyroid ultrasound recommended. CLINICAL INDICATION: hypercalcemia TECHNIQUE: Multiplanar, bilateral dumont scale ultrasound of the thyroid, with limited Doppler vascular ultrasound. COMPARISON: None. FINDINGS: Thyroid: Isthmus measures 0.5 cm. Right thyroid measures 3.1 x 1.0 x 1.3 cm (2.1 cc). The left thyroid measures 2.6 x 0.8 x 0.7 cm (0.8 cc). No suspicious thyroid nodule. No enlarged lymph nodes. IMPRESSION: Atrophic thyroid, likely sequela of prior thyroiditis. No suspicious thyroid nodule. CRITICAL RESULT: No. COMMUNICATION: Per this written report. Impression & Plan: #Osteoporosis -BMD 11/02/24 lunar T scores: L spine -0.5, left femur neck -1.4, right femur neck -1.5, total left hip -1.4, total right hip -1.5. TBS normal. FRAX major fx 10.3 %, hip fx 2.4%. Compared to previous DXA appears stable, possible improvement in left femur neck but direct comparison can not be done due to different scanner. -Risk factors: largest risk factor PMO for 25 years never been on HRT; underlying UC but never needed long steroid treatment since colectomy 1971; no history of Ca or radiation therapy -Treatment history: naive to all theraopy -no hx of fractures -work up for hypercalcemia revealed right parathyroid adenoma, will refer to Endo surg -bone markers are mid normal range, Ca high normal, PTH non suppressed with elevated iCa. Vit D andphos normal -hold on bone treatment for the next year and until parathyroid work up is completed. -cont exercise as able, use fall precautions #Hypercalcemia -not on calcium supplementation or daily multivitamin; does report had seen provider for hyperPTH in the past but was mild, no workup or treatment done at that time -NM parathyroid revealed right parathyroid adenoma, refer pt to Endo surgy #monoclonal gammopathy -SIFE with IgG alley monoclonal gammopathy, K/L ratio normal. -discussed results with pt, offered referral to heme for further eval, pt declined at this time, will repeat next visit and trend results. #CKD3a - Etiology: suspected multifactorial, has underlying HTN and T2DM, may be progressive loss iso aging; reports had 1 year with regular Ibuprofen use but 2- 3x tabs during the day, 1 tablet at bedtime, never more than this; may have affected last labs - Baseline Cr unclear given paucity of data, appears 1.2-1.3 - Electrolytes: hypercalemia, further discussed above - Volume status: euvolemic - Advised adequate hydration, advoid NSAIDs, nephrotoxins as able Refer to Endo for primary hyperparathyroidism Hold on bone treatment until after that visit Will plan for RTC one year with labs and BMD to monitor Follow up with PCP in the interim Consider Heme referral for MGUS if needed Pt was discussed with Dr Zavala today Pt agreed with plan and can call with questions. Total time of encounter: 35 minutes. This time includes face to face with patient, counseling and discussion, lab/result interpretation, coordination of follow-up care. Documents reviewed: previous note, dxa report Labs reviewed: bone labs, NM parathyroid scan, bone markers, rfp,PTH, Spep Additional Historian: No Social Determinants impacting Health: none identified [facility] Note to patient: The Century Cures Act makes medical notes like these available to patients inthe interest of transparency. However, be advised this is a medical document. It is intended as peer to peer communication. It is written in medical language and may contain abbreviations or verbiagethat are unfamiliar. It may appear blunt or direct. Medical documents are intended to carry relevant information, facts as evident, and the clinical opinion of the practitioner. [1] History reviewed. No pertinent past medical history. [2] Patient Active Problem List Diagnosis Age-related osteoporosis without current pathological fracture Stage 3a chronic kidney disease ([facility]) Hypercalcemia Hyperparathyroidism ([facility]) IgG lambda monoclonal gammopathy [3] Past Surgical History: Procedure Laterality Date ENUCLEATION 11/30/2002 HAND SURGERY Left 09/06/2013 HAND SURGERY Right 02/2018 [4] History reviewed. No pertinent family history. [5] Allergies Allergen Reactions Ciprofloxacin Other - please document in the comment field Nitrofurantoin Other - please document in the comment field Pt reported stomach cramps documented in this encounter Plan of Treatment Upcoming Encounters Date Type Department Care Team (Late st Contact Info) Description 04/26/2025 2:00 PM EST Consult Medical Office [facility] [address], [address] [place] [address] Lacho Lenz MD [address] [place] [address] 11/08/2025 8:20 AM EDT Office Visit [facility] [address], [address] [place] [address] Lauri Zavala MD [address] [place] [address] 11/08/2025 8:40 AM EDT Appointment [facility] [address], [address] [place] [address] Scheduled Orders Name Type Priority Associated Diagnoses Orde r Schedule Dexa Bone Density Imaging Routine Age-related osteoporosis without current pathological fracture Stage 3a chronic kidney disease (CMS/HCC) Hypercalcemia Expected: 11/02/2025 (Approximate), Expires: 05/06/2026 Bone Specific Alkaline Phosphatase Lab Routine Age-related osteoporosis without current pathological fracture Stage 3a chronic kidney disease (CMS/HCC) Hypercalcemia Hyperparathyroidism (CMS/HCC) Expected: 10/25/2025 (Approximate), Expires: 05/06/2026 C-Telopeptide Lab Routine Age-related osteoporosis without current pathological fracture Stage 3a chronic kidney disease (CMS/HCC) Hypercalcemia Hyperparathyroidism (CMS/HCC) Expected: 10/25/2025 (Approximate), Expires: 05/06/2026 Renal Function Panel, Plasma Lab Routine Age-related osteoporosis without current pathological fracture Stage 3a chronic kidney disease (CMS/HCC) Hypercalcemia Hyperparathyroidism (CMS/HCC) Expected: 10/25/2025 (Approximate), Expires: 05/06/2026 Vitamin D 25 Hydroxy Lab Routine Age-related osteoporosis without current pathological fracture Stage 3a chronic kidney disease (CMS/HCC) Hypercalcemia Hyperparathyroidism (CMS/HCC) Expected: 10/25/2025 (Approximate), Expires: 05/06/2026 PTH Panel 1 Lab Routine Age-related osteoporosis without current pathological fracture Stage 3a chronic kidney disease (CMS/HCC) Hypercalcemia Hyperparathyroidism (CMS/HCC) Expected: 10/25/2025 (Approximate), Expires: 05/06/2026 Immunofixation electrophoresis Lab Routine Age-related osteoporosis without current pathological fracture Stage 3a chronic kidney disease (CMS/HCC) Hypercalcemia Hyperparathyroidism (CMS/HCC) Expected: 10/25/2025 (Approximate), Expires: 05/06/2026 [place] Lambda Quant Free Light Chains w/Ratio Lab Routine Age-related osteoporosis without current pathological fracture Stage 3a chronic kidney disease (CMS/HCC) Hypercalcemia Hyperparathyroidism (CMS/HCC) Expected: 10/25/2025 (Approximate), Expires: 05/06/2026 Scheduled Referrals Name Type Priority Associated Diagnoses Orde r Schedule Follow Up Bone [facility] Outpatient Referral Routine Age-related osteoporosis without current pathological fracture Stage 3a chronic kidney disease (CMS/HCC) Hypercalcemia Expected: 11/02/2025, Expires: 12/03/2025 Ambulatory referral to Endocrine Surgery ([facility]) Outpatient Referral Routine Age-related osteoporosis without current pathological fracture Stage 3a chronic kidney disease (CMS/HCC) Hypercalcemia Hyperparathyroidism (CMS/HCC) 1 Occurrences starting 11/02/2024 until 05/06/2026 documented as of this encounter Visit Diagnoses Diagnosis Age-related osteoporosis without current pathological fracture- Primary Stage 3a chronic kidney disease (CMS/HCC) Hypercalcemia Hyperparathyroidism (CMS/HCC) Hyperparathyroidism, unspecified IgG lambda monoclonal gammopathy documented in this encounter Additional Health Concerns Assessment Noted Time A fall risk assessment has been complete d for the patient 11/02/2024 8:33 AM EDT A Body Mass Index follow-up plan has been documented for the patient 11/02/2024 9:00 AM EDT documented as of this encounter Care Teams Classroom Technology Coach Relationship Specialty Start Date End Date Catherine Hernandez APRN [address] [place] [address] [place] [address] PCP - General 08/23/20 documented as of this encounter
--- OUTSIDE RECORDS SUMMARY | 2024-11-02 08:40 | XMS_ITS | Encounter Summary ---
Author Organization Healthcare Address [address] [place] [address] Care Team Providers Care Special Distribution Clerk Name Role Phone Catherine Hernandez JANAY Primary Care Provider [phone] Reason for Referral * Consultation (Routine) - Authorized Specialty Diagnoses / Procedures Referred By Damaris t Referred To Contact General, Endocrine & Minimally Invasive Surgery / General Surgery Diagnoses Age-related osteoporosis without current pathological fracture Stage 3a chronic kidney disease (CMS/HCC) Hypercalcemia Hyperparathyroidism ([facility]/HCC) Kailash Granados PA [address] [address] Phone: tel: fax: Ijeoma Logan MD [address] [address] Phone: tel: fax: Referral ID Status Reason Start Date Expiration Date Visits Requested Visits Authorized [id number] Authorized Specialty Services Required 11/02/2024 05/04/2026 1 1 Scheduling Instructions Please evaluate for primary hyperparathyroidism, adenoma on NM parathyroid imaging Thanks! * Consultation (Routine) - Authorized Specialty Diagnoses / Procedures Referred By Contac t Referred To Contact Diagnoses Age-related osteoporosis without current pathological fracture Stage 3a chronic kidney disease (CMS/HCC) Hypercalcemia Kailash Granados PA [address] [address] Phone: tel: fax: Referral ID Status Reason Start Date Expiration Date V isits Requested Visits Authorized [id number] Authorized 11/02/2024 05/04/2026 1 1 Reason for Visit * Reason Comments Follow-up * Consultation (Routine) - Closed Specialty Diagnoses / Procedures Referred By Damaris donald Referred To Contact Diagnoses Age-related osteoporosis without current pathological fracture Lauri Zavala MD [address] [place] [address] Phone: tel: fax: Referral ID Status Reason Start Date Expiration Date Visits Re quested Visits Authorized [id number] Closed 08/28/2024 02/27/2026 1 1 Encounter Details Date Type Department Care Team ([facility] st Contact Info) Description 11/02/2024 8:40 AM EDT Office Visit [facility] [address], [address] [place] [address] Lauri Zavala MD [address] [place] [address] Age-related osteoporosis without current pathological fracture [...] file Social Connections: Unknown (01/20/2023) Received from [facility] Family and Community Support Help with Day-to-Day Activities: Not on file Lonely or Isolated: Not on file Intimate Partner Violence: Unknown (01/20/2023) Received from [facility] Abuse Screen Unsafe at Home or Work/School: Not on file Feels Threatened by Someone?: Not on file Does Anyone Keep You from Contacting Others or Doint Things Outside the Home?: Not on file Physical Sign of Abuse Present: Not on file Housing Stability: Unknown (01/20/2023) Received from [facility] Housing Stability Current Living Arrangements: Not on [...] , LH , PROLACTIN , TSH , H2OLBWW , FREET4 , CORTISOL Urine studies: Lab [...] (delayed set) acquired and processed using Siemens Alfalight Intevo 16 SPECT/CT hybrid technology. Three-dimensional attenuation-corrected SPECT, CT and fused SPECT/CT tomographic images in coronal, sagittal, and transverseplanes created and reviewed interactively to optimize sensitivity, specificity, and anatomic localization. CT: low-dose, big-smgeym-sbou, without intravenous contrast; TOTAL DLP (Dose Length [...] Social Determinants impacting Health: none identified [facility] Note to patient: [...] pathological fracture Stage 3a chronic kidney disease ([facility]) Hypercalcemia Hyperparathyroidism ([facility]) IgG lambda monoclonal gammopathy [3] [...] Medical Office Building Surgical Specialties [address], [address] [place] [address] Lacho Lenz MD [address] [facility] [address] [place] [address] 11/08/2025 8:20 AM EDT Office Visit [facility] [address] [facility], [address] [place] [address] Lauri Zavala MD [address] [facility] [address] [place] [address] 11/08/2025 8:40 AM EDT Appointment [facility] [address] [facility], [address] [place] [address] Scheduled Orders Name Type Priority [...] Hyperparathyroidism (CMS/HCC) Expected: 10/25/2025 (Approximate), Expires: 05/06/2026 [place]one Lambda Quant Free Light Chains w/Ratio Lab [...] documented as of this encounter Care Teams Special Distribution Clerk Relationship Specialty Start Date End Date Catherine Hernandez APRN [address] [place] [address] [place] [address] PCP - General 08/23/20 documented as of this encounter
[2024-12-29] VITALS (9 sets, daily range): BP systolic 107–153; BP diastolic 61–90; PULSE 70–83; RESP 17–20; TEMP 36.2–37; O2SAT 98–100; BMI 22.4; BMI 23.4
--- OUTSIDE RECORDS SUMMARY | 2024-12-29 12:58 | XMS_ITS | Encounter Summary ---
Author Organization Healthcare Address [address] [place] [address] Care Team Providers Care Delivery Driver Name Role Phone Catherine Hernandez SUPERVISOR KENNEL Primary Care Provider +1- [phone] Reason for Referral * Consultation (Routine) - Authorized Specialty Diagnoses / Procedures Referred By Damaris donald Referred To Contact Nephrology Diagnoses Low bone density Acquired hypothyroidism Elevated parathyroid hormone related peptide level Catherine Hernandez, SUPERVISOR KENNEL [address] [address] Phone: tel: fax: [facility] [address] [address] Phone: tel: fax: Referral ID Status Reason Start Date Expiration Date Visits Requested Visits Authorized [id number] Authorized Specialty Services Required 10/15/2023 04/15/2025 1 1 Encounter Details Date Type Department Care Team (Late st Contact Info) Description 10/15/2023 Community [facility] [address] [place] [address] Catherine Hernandez, SUPERVISOR KENNEL [address] [address] Low bone density (Primary Dx); [...] Building Surgical Specialties [address] [facility], [address] [place] [address] Lacho Lenz MD [address] [facility] 302 [place] [address] 11/08/2025 8:20 AM EDT Office Visit [facility] Bone & Mineral Metabolism [address] [facility], [address] [place] [address] Lauri Zavala MD [address] [facility] 401 [place] [address] 11/08/2025 8:40 AM EDT Appointment [facility] Bone & Mineral Metabolism [address] [facility], [address] [place] [address] Scheduled Referrals Name Type Priority Associated Diagnoses Orde r Schedule Ambulatory referral to Nephrology Outpatient Referral Routine Low bone density Acquired hypothyroidism Elevated parathyroid hormone related peptide level Ordered: 10/15/2023 documented as of this encounter Visit Diagnoses Diagnosis Low bone density- Primary Acquired hypothyroidism Unspecified hypothyroidism Elevated parathyroid hormone related peptide level documented in this encounter Care Teams Delivery Driver Relationship Specialty Start Date End Date Catherine Hernandez APRN [facility] [address] PCP - General 08/23/20 documented as of this encounter
--- OUTSIDE RECORDS SUMMARY | 2024-12-29 12:58 | XMS_ITS | Clinical Summary ---
Author Organization Healthcare Address [address] [place] [address] Care Team Providers Care Manager Generation Name Role Phone Catherine Hernandez DIRECTOR OF PUBLIC HEALTH Primary Care Provider +1- [phone] Allergies Active Allergy Reactions Criticality Noted Date [...] Description 11/02/2024 8:40 AM EDT Office Visit [facility] Bone & Mineral Metabolism [address], [address] [place] [address] Lauri Zavala MD Age-related osteoporosis without current pathological fracture (Primary Dx); Stage 3a chronic kidney disease ([facility]/HCC); Hypercalcemia; Hyperparathyroidism ([facility]/HCC); IgG lambda monoclonal gammopathy 11/02/2024 8:10 AM EDT - 11/02/2024 11:59 PM EDT Hospital Encounter [facility] Bone & Mineral Metabolism [address] [facility], [address] [place] [address] Age-related osteoporosis without current pathological [...] Upcoming Encounters Date Type Department Care Team ([facility] st Contact Info) Description 04/26/2025 2:00 PM EST Consult Medical Office Building Surgical Specialties [address], [address] [place] [address] Lacho Lenz MD [address] [facility] 302 [place] [address] 11/08/2025 8:20 AM EDT Office Visit [facility] Bone & Mineral Metabolism [address], [address] [place] [address] Lauri Zavala MD [address] [place] [address] 11/08/2025 8:40 AM EDT Appointment [facility] Bone & Mineral Metabolism [address] [facility], [address] [place] [address] Health Maintenance Due Date Last [...] or (1 - 1-dose 75+ series) 12/11/2023 [id number] Vaccine (4 - 2024- season) 2024 02/11/2021, [...] Whitney ging Narrative 11/12/2024 10:28 AM EDT [facility] - [facility] Mineral Met[facility] Clinic [address] [place] [address] DXA Bone Densitometry Report: [Date of exam] BMD test performed using the [employer] DXA System (analysis version: 14.10) manufactured by [employer]. REFERRING PROVIDER: Dr. Lauri Zavala MD CLINICAL [...] [facility] Care Teams Manager Generation Relationship Specialty Start Date End Date Catherine Hernandez APRN [address] [place] [address] PCP - General 08/23/20
--- OUTSIDE RECORDS SUMMARY | 2024-12-29 12:58 | XMS_ITS | Encounter Summary ---
Author Organization Healthcare Address [address] [place] [address] Care Team Providers Care Magazine Editor Name Role Phone Catherine Hernandez ANCILLARY SPECIALIST Primary Care Provider +1- [phone] Encounter Details Date Type Department Care Team [...] Medical Office Building Surgical Specialties [address] [facility], [address] [place] [address] Lacho Lenz MD [address] [facility] 302 [place] [address] 11/08/2025 8:20 AM EDT Office Visit [facility] Bone & Mineral Metabolism [address] [facility], [address] [place] [address] Lauri Zavala MD [address] [place] [address] 11/08/2025 8:40 AM EDT Appointment [facility] Bone & Mineral Metabolism [address] [facility], [address] [place] [address] documented as of this encounter Visit Diagnoses Not on filedocumented in this encounter Additional Health Concerns Assessment Noted Time A fall risk assessment has been complete d for the patient 11/02/2024 8:33 AM EDT A Body Mass Index follow-up plan has been documented for the patient 11/02/2024 9:00 AM EDT documented as of this encounter Care Teams Magazine Editor Relationship Specialty Start Date End Date Catherine Hernandez APRN [address] [place] [address] PCP - General 08/23/20 documented as of this encounter
--- OUTSIDE RECORDS SUMMARY | 2024-12-29 12:59 | XMS_ITS | Clinical Summary ---
[facility] [address] [place] [address] Care Team Providers Care Child Caregiver Name Role Phone Provider, No Known Primary [...] season) 2024 INFLUENZA VACCINE 01/10/2025 Care Teams Child Caregiver Relationship Specialty Start Date End Date Provider, No Known [facility] [place] [address] PCP - General 06/05/15
--- OUTSIDE RECORDS SUMMARY | 2024-12-29 12:59 | XMS_ITS | Encounter Summary ---
Author Organization Healthcare Address [address] [place] [address] Care Team Providers Care Reimbursement Representative Name Role Phone Catherine Hernandez APRN Primary Care Provider +1- [phone] Reason for Referral * Consultation (Routine) - Closed Specialty Diagnoses / Procedures Referred By Damaris donald Referred To Contact Nephrology Diagnoses Osteoporosis, unspecified osteoporosis type, unspecified pathological fracture presence Hypercalcemia Catherine Hernandez APRN [address] [address] Phone: tel: fax: Lauri Zavala MD [address] [address] Phone: tel: fax: Referral ID Status Reason Start Date Expiration Date V isits Requested Visits Authorized [id number] Closed Specialty Services Required 05/22/2024 11/21/2025 1 1 Encounter Details Date Type Department Care Team (Latest Contact Info) Description 05/22/2024 [facility] [address] [place] [address] Catherine Hernandez APRN [address] [address] Osteoporosis, unspecified osteoporosis type, unspecified [...] Upcoming Encounters Date Type Department Care Team ([facility] st Contact Info) Description 04/26/2025 2:00 PM EST Consult Medical Office Building Surgical Specialties [address] [facility], [address] [place] [address] Lacho Lenz MD [address] [facility] 302 [place] [address] 11/08/2025 8:20 AM EDT Office Visit [facility] Bone & Mineral Metabolism [address] [facility], [address] [place] [address] Lauri Zavala MD [address] [facility] 401 [place] [address] 11/08/2025 8:40 AM EDT Appointment [facility] Bone & Mineral Metabolism [address] [facility], [address] [place] [address] Scheduled Referrals Name Type Priority Associated Diagnoses Orde r Schedule Ambulatory referral to Nephrology Outpatient Referral Routine Osteoporosis, unspecified osteoporosis type, unspecified pathological fracture presence Hypercalcemia Ordered: 05/22/2024 documented as of this encounter Visit Diagnoses Diagnosis Osteoporosis, unspecified osteoporosis type, unspecified pathological fracture presence- Primary Hypercalcemia documented in this encounter Care Teams Reimbursement Representative Relationship Specialty Start Date End Date Catherine Hernandez APRN [address] [place] [address] PCP - General 08/23/20 documented as of this encounter
[2024-12-29] MEDS: LACTATED RINGERS 1000ML 500 ML 250 ML IV (13:29)
--- NOTE | 2024-12-29 13:29 | ED_ITS ---
Discharge Plan Disposition Patient Disposition: Admitted Clinical Impressions Clinical Impression: EMILY (acute kidney injury), High output ileostomy, Dehydration, moderate Discharge ED Provider: Paras Mcclain General Adult HPI General Chief complaint: Weakness Stated complaint: abnormal labs Time Seen by Provider: 12/29/24 12:49 Mode of Arrival: Wheelchair Source of Information: Patient Description of Symptoms (Recalled from ER Triage Doc. by RN): pt presents to the ED with abnormal labs. Infusion nurse reports that the pt has elevated creatinine and calcium today. pt denies chest pain or shortness of breath. pt states that she has occassional nausea, weakness and dizziness. pt recieved 1L of NS in infusion before arrival to the ED. History of Present Illness HPI narrative: Patient is a 74-year-old female being sent from infusion for abnormal labs. I saw her twice last week she had high output ostomy initially presented with near syncope and abdominal discomfort ultimately was discharged and came back after she was unable to tolerate p.o. with significant acute kidney injury. She was admitted in the hospital for IV fluids and her creatinine improved from 2.8-1.9 on discharge. She had outpatient infusion fluids and labs ordered and she was found to have a creatinine back to 2.9 today. She continues to have lightheadedness and high output ostomy which may have improved a little bit. But she still is symptomatic. Related Data Home Medications ?Medication ?Instructions ?Recorded ?Confirmed blood sugar diagnostic ([facility] #10 ea 10/16/2108/04 Lite Strips) levothyroxine 75 mcg tablet 75 mcg PO DAILY 03/22/24 0 12/25/24 metformin 1,000 mg tablet 1,000 mg PO DAILY 03/22/24 0 12/25/24 Held on 12/27/24. Instructions: until PCP f/u pantoprazole 40 mg tablet,delayed 40 mg PO DAILY 03/2212/25/24 release sitagliptin phosphate 100 mg 100 mg PO DAILY 03/22/24 12/25/24 tablet (Januvia) Held on 12/27/24. Instructions: until PCP f/u losartan 25 mg tablet 25 mg PO DAILY 09/13/2412/11 atorvastatin 20 mg tablet 20 mg PO HS 12/25/24 diclofenac sodium 1 % topical gel 4 g topical QIDP PRN Mild Pain 12/25/24 12/25/24 (Scale Score 1-4) glimepiride 4 mg tablet 6 mg PO DAILY 12/25/2412/25 loratadine 10 mg tablet 10 mg PO DAILY 12/25/2412/11 ondansetron 4 mg disintegrating 4 mg PO Q6HP PRN nause a and 12/25/24 12/25/24 tablet vomiting Allergies Allergy/AdvReac Type Severity Reaction Status Date / Time ciprofloxacin (From Cipro) Allergy Verified 09/13/24 11:34 nitrofurantoin (From Allergy Verified 09/13/24 11:34 Macrobid) [facility] Disclaimer: The information contained in this section may have been updated after the patient was seen, as this information can be updated by other users. 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 Ulcerative colitis Ileostomy in place Arthritis Renal insufficiency GERD (gastroesophageal reflux disease) UTI (urinary tract infection) Seasonal allergies Hypothyroidism Hyperlipidemia Diabetes Surgical History Hx of removal of cyst History of colonoscopy H/O hand surgery History of eye removal History of bilateral tubal ligation History of carpal tunnel release of both wrists Family History Diabetes Hyperlipidemia Cancer Hypertension Thyroid disorder Social History Smoking Status: Never smoker second hand exposure: No alcohol intake: never substance use type: denies use current occupational status: retired Travel in the last 8 weeks?: None household members: spouse housing: house caffeine: Yes Have you lived/traveled outside US in past 30 days?: No Contact w/someone who lives/traveled outside US past 30 days?: No Exposure to someone with infectious disease in past 14 days?: No Do you have a fever (greater than 100.4 F or 38 C)?: No Have you tested positive for COVID-19?: No Exposed to someone with COVID-19 in past 14 days?: No Do you have a sore throat?: No Do you have a cough?: No Do you have any weakness?: No Do you have any diarrhea?: No Are you experiencing any unusual bleeding?: No Do you have any muscle aches/pain?: No Do you have any abdominal pain?: No Are you experiencing loss of taste or smell?: No Other Medical History Have you received the Flu Vaccine for this season: No Have you received the Pneumonia Vaccine: No ROS Obtained: Yes All systems reviewed & no additional complaints except as documented Physical Exam General General appearance: alert and in no apparent distress Respiratory Respiratory exam: Present normal lung sounds bilaterally Cardiovascular Cardiovascular exam: Present regular rate Neurological Exam Neurological exam: Present alert and oriented X3 Medical Decision Making Medical Records Screening: Per USPSTF and CDC recommendations, given the prevalence of disease in our region, it is our hospital?s policy to screen for HIV and viral Hepatitis for all patients aged 18 and over and those with ongoing risk factors. Attila Inquiry Pt receiving controlled substance: No Vital Signs: 12/29/24 12:55 12/29/24 12:55 12/29/24 13:00 Temperature 97.6 F 97.6 F Temperature Source Temporal Artery Scan Temporal Artery Scan Pulse Rate 83 80 Pulse Rate [Right] 83 Respiratory Rate 17 17 Blood Pressure 140/90 153/82 H Blood Pressure [Right Arm] 140/90 Blood Pressure Mean [Right Arm] 106 Blood Pressure Source Automatic Cuff Blood Pressure Source [Right Arm] Automatic Cuff Blood Pressure Position Supine Blood Pressure Position [Right Arm] Supine 02 Sat by Pulse Oximetry 99 99 100 Oxygen Delivery Method Room Air Room Air 12/29/24 13:06 12/29/24 13:18 Temperature Temperature Source Pulse Rate 73 Pulse Rate [Right] Respiratory Rate Blood Pressure 111/65 Blood Pressure [Right Arm] Blood Pressure Mean [Right Arm] Blood Pressure Source Blood Pressure Source [Right Arm] Blood Pressure Position Blood Pressure Position [Right Arm] 02 Sat by Pulse Oximetry 99 99 Oxygen Delivery Method Room Air Lab Data Lab results reviewed: Yes I reviewed the patient's lab results. Lab Results 12/29/24 13:50: Sodium 132 L, Potassium 4.7, Chloride 96 L, Carbon Dioxide 20 L, Anion Gap 20.7 H, BUN 42 H, Creatinine 2.50 H, Estimated Creat Clear 16, E stimated GFR 19 L*, Est GFR ( Amer) 23 L D, Glucose 180 H, Calcium 11.8 H , Magnesium 1.5 L D 12/29/24 13:50 Orders (Tests/Meds): ED MEDICATIONS Generic Name Dose Route Start Last Admin Trade Name Thao PRN Reason Stop Dose Admin Lactated Ringer's 500 mls @ 250 mls/hr 12/29/24 13:05 12/29/24 13:29 Lactated Ringer's 1000 Ml Bag IV 12/29/24 15:04 250 mls/hr .Q2H ONE Administration ORDERS Category Date Time Status BMP [Basic Metabolic Panel] Stat Lab 12/29/24 13:50 Completed Magnesium Stat Lab 12/29/24 13:50 Completed Medical Decision Narrative: Patient with above history and physical labs reviewed from 2 hours prior to her ED visit showing a creatinine of 2.9 which is higher than it was when I admitted her last time. She actually looks clinically better than last time I saw her but she claims that she still symptomatic feeling very lightheaded and still having high output ostomy output. IV fluids were given and the amount of 1 L at the infusion center of given another liter at 250 an hour at the moment. Waiting to hear back from Dr. Milner regarding further management. Dr. Milner assessed the patient and decided to admit the patient for further evaluation and management. Labs returned and are little bit better than they were few minutes ago but this will be further managed by hospital medicine. Patient admitted in stable condition Critical Care Critical Care Time Critical Care Time: Yes Attestation: On 12/29/24, the high probability of a clinically significant, sudden or life threatening deterioration of the following system(s) required my full and direct attention, intervention and personal management. The time I documented below is in addition to time spent performing reported procedures but includes the following listed in this critical care notation. Total Time Total Critical Care Time: 35
--- NOTE | 2024-12-29 13:47 | PC.NURSE ---
Dr. Mcclain speaking with hospitalist.
--- NOTE | 2024-12-29 14:01 | PC.NURSE ---
Hospitalist at pts bedside.
--- NOTE | 2024-12-29 14:01 | PC.NURSE ---
Dr. Milner at bedside to see patient.
[2024-12-29 14:03] LABS: Chloride 96 mmol/L (98-107); Potassium 4.7 mmoL/L (3.5-5.1); Sodium 132 mmol/L (136-145)
[2024-12-29 14:05] LABS: Blood Urea Nitrogen 42 mg/dl (7-17); Creatinine Clearance Estimated 16 mL/min (50-200); Creatinine,Serum 2.50 mg/dl (0.52-1.04); Estimated Glomerular Filt Rate 19 ml/min (>60); GFR (African American) 23 ML/MIN (>60)
[2024-12-29 14:06] LABS: Anion Gap 20.7 mEq/L (5-15); Calcium 11.8 mg/dl (8.4-10.2); Carbon Dioxide 20 mmol/L (22.0-30.0); Glucose 180 mg/dl (74-100); Magnesium 1.5 mg/dl (1.6-2.3)
--- NOTE | 2024-12-29 14:15 | PC.NURSE ---
converting supervisor contacted regarding bed.
--- OUTSIDE RECORDS SUMMARY | 2024-12-29 14:22 | XMS_ITS | Clinical Summary ---
Author Organization Healthcare Address [address] [place] [address] Care Team Providers Care Canine Deputy Name Role Phone Catherine Hernandez ASSEMBLY DEPARTMENT SUPERVISOR Primary Care Provider +1- [phone] Allergies Active Allergy Reactions Criticality Noted Date [...] Description 11/02/2024 8:40 AM EDT Office Visit [facility] Bone & Mineral Metabolism [address], [address] [place] [address] Lauri Zavala MD Age-related osteoporosis without current pathological fracture (Primary Dx); Stage 3a chronic kidney disease ([facility]/HCC); Hypercalcemia; Hyperparathyroidism ([facility]/HCC); IgG lambda monoclonal gammopathy 11/02/2024 8:10 AM EDT - 11/02/2024 11:59 PM EDT Hospital Encounter [facility] Bone & Mineral Metabolism [address] [facility], [address] [place] [address] Age-related osteoporosis without current pathological [...] Upcoming Encounters Date Type Department Care Team ([facility] st Contact Info) Description 04/26/2025 2:00 PM EST Consult Medical Office Building Surgical Specialties [address], [address] [place] [address] Lacho Lenz MD [address] [facility] [address] [place] [address] 11/08/2025 8:20 AM EDT Office Visit [facility] Bone & Mineral Metabolism [address], [address] [place] [address] Lauri Zavala MD [address] [place] [address] 11/08/2025 8:40 AM EDT Appointment [facility] Bone & Mineral Metabolism [address] [facility], [address] [place] [address] Health Maintenance Due Date Last [...] or (1 - 1-dose 75+ series) 12/11/2023 [id number] Vaccine (4 - 2024- season) 2024 02/11/2021, [...] 11/12/2024 10:28 AM EDT [facility] - Bone & Mineral Metabolism Clinic [address] [place] [address] DXA Bone Densitometry Report: [Date of exam] BMD test performed using the [employer] DXA System (analysis version: 14.10) manufactured by [employer]. REFERRING PROVIDER: Dr. Lauri Zavala MD CLINICAL [...] lt from Last 3 Months Insurance MEDICARE [facility] Care Teams Canine Deputy Relationship Specialty Start Date End Date Catherine Hernandez APRN [address] [place] [address] PCP - General 08/23/20
--- OUTSIDE RECORDS SUMMARY | 2024-12-29 14:22 | XMS_ITS | Encounter Summary ---
Author Organization Healthcare Address [address] [place] [address] Care Team Providers Care Radiocommunications Technician Name Role Phone Catherine Hernandez AED TRAINER Primary Care Provider +1- [phone] Encounter Details Date Type Department Care Team [...] Medical Office Building Surgical Specialties [address] [facility] [address] [facility], [address] [place] [address] Lacho Lenz MD [address] [facility] [address] [place] [address] 11/08/2025 8:20 AM EDT Office Visit Professional [facility] Met[facility] [address], [address] [place] [address] Lauri Zavala MD [address] [place] [address] 11/08/2025 8:40 AM EDT Appointment [facility] [place] [facility] [address], [address] [place] [address] documented as of this encounter Visit Diagnoses Not on filedocumented in this encounter Additional Health Concerns Assessment Noted Time A fall risk assessment has been complete d for the patient 11/02/2024 8:33 AM EDT A Body Mass Index follow-up plan has been documented for the patient 11/02/2024 9:00 AM EDT documented as of this encounter Care Teams Radiocommunications Technician Relationship Specialty Start Date End Date Catherine Hernandez APRN [address] [place] [address] PCP - General 08/23/20 documented as of this encounter
--- OUTSIDE RECORDS SUMMARY | 2024-12-29 14:22 | XMS_ITS | Encounter Summary ---
Author Organization Healthcare Address [address] [place] [address] Care Team Providers Care Network Support Engineer Name Role Phone Catherine Hernandez REGISTERED NURSE STEP DOWN Primary Care Provider +1- [phone] Reason for Referral * Consultation (Routine) - Authorized Specialty Diagnoses / Procedures Referred By Damaris donald Referred To Contact Nephrology Diagnoses Low bone density Acquired hypothyroidism Elevated parathyroid hormone related peptide level Catherine Hernandez, REGISTERED NURSE STEP DOWN [address] [address] Phone: tel: fax: [facility] [address] [address] Phone: tel: fax: Referral ID Status Reason Start Date Expiration Date Visits Requested Visits Authorized [id number] Authorized Specialty Services Required 10/15/2023 04/15/2025 1 1 Encounter Details Date Type Department Care Team (Late st Contact Info) Description 10/15/2023 Community [facility] [address] [place] [address] Catherine Hernandez, REGISTERED NURSE STEP DOWN [address] [address] Low bone density (Primary Dx); [...] Medical Office Building Surgical Specialties [address] [facility], [address] [place] [address] Lacho Lenz MD [address] [facility] [address] [place] [address] 11/08/2025 8:20 AM EDT Office Visit [facility] Bone & Mineral Metabolism [address] [facility], [address] [place] [address] Lauri Zavala MD [address] [facility] [address] [place] [address] 11/08/2025 8:40 AM EDT Appointment [facility] Mineral Metabolism [address] [facility], [address] [place] [address] Scheduled Referrals Name Type Priority Associated Diagnoses Orde r Schedule Ambulatory referral to Nephrology Outpatient Referral Routine Low bone density Acquired hypothyroidism Elevated parathyroid hormone related peptide level Ordered: 10/15/2023 documented as of this encounter Visit Diagnoses Diagnosis Low bone density- Primary Acquired hypothyroidism Unspecified hypothyroidism Elevated parathyroid hormone related peptide level documented in this encounter Care Teams Network Support Engineer Relationship Specialty Start Date End Date Catherine Hernandez APRN [facility] [address] PCP - General 08/23/20 documented as of this encounter
--- OUTSIDE RECORDS SUMMARY | 2024-12-29 14:23 | XMS_ITS | Encounter Summary ---
Author Organization Healthcare Address [address] [place] [address] Care Team Providers Care Architectural Drafter Name Role Phone Catherine Hernandez APRN Primary Care Provider +1- [phone] Reason for Referral * Consultation (Routine) - Closed Specialty Diagnoses / Procedures Referred By Damaris donald Referred To Contact Nephrology Diagnoses Osteoporosis, unspecified osteoporosis type, unspecified pathological fracture presence Hypercalcemia Catherine Hernandez APRN [address] [address] Phone: tel: fax: Lauri Zavala MD [address] [address] Phone: tel: fax: Referral ID Status Reason Start Date Expiration Date V isits Requested Visits Authorized [id number] Closed Specialty Services Required 05/22/2024 11/21/2025 1 1 Encounter Details Date Type Department Care Team (Latest Contact Info) Description 05/22/2024 [facility] [address] [place] [address] Catherine Hernandez APRN [address] [address] Osteoporosis, unspecified osteoporosis type, unspecified [...] Upcoming Encounters Date Type Department Care Team ([facility] st Contact Info) Description 04/26/2025 2:00 PM EST Consult Medical Office Building Surgical Specialties [address] [facility], [address] [place] [address] Lacho Lenz MD [address] [facility] [address] [place] [address] 11/08/2025 8:20 AM EDT Office Visit [facility] Mineral Metabolism [address] [facility], [address] [place] [address] Lauri Zavala MD [address] [facility] [address] [place] [address] 11/08/2025 8:40 AM EDT Appointment [facility] Mineral Metabolism [address] [facility], [address] [place] [address] Scheduled Referrals Name Type Priority Associated Diagnoses Orde r Schedule Ambulatory referral to Nephrology Outpatient Referral Routine Osteoporosis, unspecified osteoporosis type, unspecified pathological fracture presence Hypercalcemia Ordered: 05/22/2024 documented as of this encounter Visit Diagnoses Diagnosis Osteoporosis, unspecified osteoporosis type, unspecified pathological fracture presence- Primary Hypercalcemia documented in this encounter Care Teams Architectural Drafter Relationship Specialty Start Date End Date Catherine Hernandez APRN [address] [place] [address] PCP - General 08/23/20 documented as of this encounter
--- OUTSIDE RECORDS SUMMARY | 2024-12-29 14:23 | XMS_ITS | Clinical Summary ---
[facility] Address [address] [place] [address] Care Team Providers Care Civil Division Commander Deputy Sheriff Name Role Phone Provider, No Known Primary [...] season) 2024 INFLUENZA VACCINE 01/10/2025 Care Teams Civil Division Commander Deputy Sheriff Relationship Specialty Start Date End Date Provider, No Known [facility] [place] [address] PCP - General 06/05/15
--- NOTE | 2024-12-29 14:27 | EXP.HP ---
History of Present Illness *Admission Date: 12/29/24 *Reason for visit:: diarrhea, EMILY *History of present illness: Ms. Cedillo is a 74-year-old female who presented to the emergency department from infusion after being discharged 48 hours ago. Recently was admitted for high output ileostomy with EMILY and electrolyte disturbances. Responded well to IV fluids with improvement in kidney function to creatinine 1.8 down from 2.9. Was discharged home with plan for outpatient infusion of 1 L LR today and repeat labs and follow-up with PCP on Wednesday. Repeat labs today and infusion showed creatinine again up to 2.9 with BUN of 44. Calcium 12.4. Was sent to the ER for evaluation. Patient denies syncope or dizziness but does state that she felt nauseous when she got home and has not been drinking as much as normal. Still having liquid output. Denies any fever, chest pain, shortness of breath. Medicine consulted for admission and further management of EMILY and dehydration. On evaluation, states she had ileostomy performed with colectomy in her early 20s due to history of ulcerative colitis. Stable on room air. Blood pressure and heart rate within normal limits at this time. [facility] Disclaimer: The information contained in this section may have been updated after the patient was seen, as this information can be updated by other users. 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 Ulcerative colitis Ileostomy in place Arthritis Renal insufficiency GERD (gastroesophageal reflux disease) UTI (urinary tract infection) Seasonal allergies Hypothyroidism Hyperlipidemia Diabetes Surgical History Hx of removal of cyst History of colonoscopy H/O hand surgery History of eye removal History of bilateral tubal ligation History of carpal tunnel release of both wrists Family History Diabetes Hyperlipidemia Cancer Hypertension Thyroid disorder Social History (Updated 12/29/24 @ 15:15 by Paris Tolliver RN) Smoking Status: Never smoker second hand exposure: No alcohol intake: never substance use type: denies use current occupational status: retired Travel in the last 8 weeks?: None household members: spouse housing: house caffeine: Yes Have you lived/traveled outside US in past 30 days?: No Contact w/someone who lives/traveled outside US past 30 days?: No Exposure to someone with infectious disease in past 14 days?: No Do you have a fever (greater than 100.4 F or 38 C)?: No Have you tested positive for COVID-19?: No Exposed to someone with COVID-19 in past 14 days?: No Do you have a sore throat?: No Do you have a cough?: No Do you have any weakness?: No Are you experiencing any nausea/vomitting?: Yes Do you have any diarrhea?: No Are you experiencing any unusual bleeding?: No Do you have any muscle aches/pain?: No Do you have any abdominal pain?: No Are you experiencing loss of taste or smell?: No Other Medical History Have you received the Flu Vaccine for this season: No Have you received the Pneumonia Vaccine: No Review of Systems Review of Systems Review of systems (narrative): 14 point review of systems performed, pertinent positives and negatives as per HPI Meds Home Medications and Allergies Home Medications ?Medication ?Instructions ?Recorded ?Confirmed ?Type blood sugar diagnostic (Freeyle #10 ea 10/16/21 12/29/24 History Lite Strips) levothyroxine 75 mcg tablet 75 mcg PO DAILY 03/22/24 12/29/24 History metformin 1,000 mg tablet 1,000 mg PO DAILY 03/22/24 12/29/24 History Held on 12/27/24. Instructions: until PCP f/u pantoprazole 40 mg tablet,delayed 40 mg PO DAILY 03/22/24 12/29/24 History release sitagliptin phosphate 100 mg 100 mg PO DAILY 03/22/24 12/29/24 History tablet (Januvia) Held on 12/27/24. Instructions: until PCP f/u losartan 25 mg tablet 25 mg PO DAILY 09/13/24 12/29/24 History atorvastatin 20 mg tablet 20 mg PO HS 12/25/24 12/29/24 History diclofenac sodium 1 % topical gel 4 g topical QIDP PRN Mild Pain 12/25/24 12/29/24 History (Scale Score 1-4) glimepiride 4 mg tablet 6 mg PO DAILY 12/25/24 12/29/24 History loratadine 10 mg tablet 10 mg PO DAILY 12/25/24 12/29/24 History ondansetron 4 mg disintegrating 4 mg PO Q6HP PRN nausea and 12/25/24 12/29/24 History tablet vomiting New Prescriptions to Start Prescriptions: Allergies Allergy/AdvReac Type Severity Reaction Status Date / Time ciprofloxacin (From Cipro) Allergy Verified 09/13/24 11:34 nitrofurantoin (From Allergy Verified 09/13/24 11:34 Macrobid) Exam Data for Last 24 hours Vital signs and Labs for Last 24 Hours: Temp Pulse Resp BP Pulse Ox O2 Del Method 97.6 F 73 17 111/65 99 Room Air 12/29/24 12:55 12/29/24 13:18 12/29/24 12:55 12/29/24 13:18 12/29/24 13:18 12/29/24 13:06 Laboratory Results - last 24 hr 12/29/24 13:50: Sodium 132 L, Potassium 4.7, Chloride 96 L, Carbon Dioxide 20 L, Anion Gap 20.7 H, BUN 42 H, Creatinine 2.50 H, Estimated Creat Clear 16, Estimated GFR 19 L*, Est GFR ( Amer) 23 L D, Glucose 180 H, Calcium 11.8 H, Magnesium 1.5 L D I & O for Last 24 hours: Intake & Output 12/26/24 12/27/24 12/28/24 12/29/24 23:59 23:59 23:59 23:59 Weight 53.977 kg Constitutional Constitutional: mild distress, average body habitus, chronically ill appearing and cooperative *Routine HEENT Exam Head: Present normocephalic and atraumatic Eye: Present other ENT: Present mucous membranes moist Comments: Movement of right eye normal with pupillary response, left eye appears to be false and is stationary *Routine Neck Exam Neck: Present supple and full ROM; Absent JVD or lymphadenopathy *Routine Respiratory Exam Respiratory: Present CTA bilaterally, normal respiratory effort, able to speak in complete sentences and symmetric chest movement; Absent stridor, wheezes or crackles *Routine Cardiovascular Exam Cardiovascular: Present RRR, Normal S1 and Normal S2; Absent murmur *Routine Abdominal Exam Abdominal: Present soft and normoactive bowel sounds; Absent tenderness or distended Comments: Ileostomy in place *Routine Rectal Exam Rectal:: deferred *Routine Genitalia Exam Genitalia:: deferred *Routine Extremities Exam Extremities: Present full ROM, pulses intact and normal capillary refill; Absent clubbing or edema *Routine Skin Exam Skin: Present intact and dry; Absent rash *Routine Neurological Exam Neurological: Present alert, oriented X3, vision grossly intact, hearing grossly intact and normal speech Assessment and Plan *Assessment and plan (1) EMILY (acute kidney injury): Status: Acute Category: Medical Code(s): N17.9 - Acute kidney failure, unspecified (2) High output ileostomy: Status: Acute Category: Medical Code(s): R19.8 - Other specified symptoms and signs involving the digestive system and abdomen; Z93.2 - Ileostomy status (3) Hypercalcemia: Status: Acute Category: Medical Code(s): E83.52 - Hypercalcemia (4) Acute dehydration: Status: Acute Category: Medical Code(s): E86.0 - Dehydration (5) Diarrhea: Status: Acute Category: Medical Code(s): R19.7 - Diarrhea, unspecified (6) Metabolic acidosis: Status: Acute Category: Medical Code(s): E87.20 - Acidosis, unspecified (7) Type 2 diabetes mellitus: Status: Chronic Qualifiers: Diabetes mellitus nursing home insulin use: without nursing home use Category: Medical Code(s): E11.9 - Type 2 diabetes mellitus without complications Plan Ms. Cedillo is a 74-year-old female who presented to the emergency department from infusion after receiving IV fluids and having repeat labs showing recurrence of her EMILY due to high output ileostomy. She has a primary medical history of type 2 diabetes, hypertension, hypothyroidism, GERD, and ileostomy. Patient was just discharged 2 days ago after seeing improvement in her kidney function. Had been admitted for dehydration and high output ileostomy. Still having loose stools. Symptoms have been present for about a week. Starting to have an appetite at home she states. Denies fever, nausea or vomiting. Discussed case with ER physician, request admission for further IV fluid management and monitoring of kidney function. I decided to admit for further care. Problems addressed as follows: #Dehydration #EMILY #Metabolic acidosis #Hypercalcemia ?Reviewed imaging from previous admission that showed cholelithiasis, and hernia of small bowel at stoma site but no incarceration. - Creatinine bumped to 2.9, BUN 44. Calcium 12.4. Magnesium 1.7 and potassium 4.5. - Received 1 L as an outpatient in infusion. Will continue LR at 150 cc an hour for 2 L. Repeat CMP ordered for the evening, repeat CBC, CMP, magnesium ordered for the morning. Monitor kidney function and calcium every 12 hours - Holding metformin in the setting of metabolic acidosis. Holding Januvia in the setting of EMILY. #Diarrhea # High output ileostomy -Stool PCR was negative last visit. Continue Zofran as needed for nausea. Initiate Imodium to slow output. Low residue diet ordered strict monitoring of output from ileostomy. #Type 2 diabetes ? ACHS fingersticks, SSI. Holding glimepiride in the inpatient setting. Holding home Lipitor due to high output and EMILY Continue Synthroid 75 mcg daily Continue pantoprazole 40 mg at night Full code Low residue diet Ambulate as tolerated VTE?Lovenox 40 mg subcu daily
--- NOTE | 2024-12-29 14:34 | PC.NURSE ---
Report called to KAMRON Neal.
--- NOTE | 2024-12-29 14:52 | P.CONPHA_ITS ---
Pharmacy Intervention Comments: MED LIST COMPARED TO MD OFFICE LIST AND RECENT DISCHARGE FROM [facility] LIST ALONG WITH FILL HISTORY.
--- NOTE | 2024-12-29 14:52 | HMH.PHAINT1 ---
Pharmacy Intervention Comments: MED LIST COMPARED TO MD OFFICE LIST AND RECENT DISCHARGE FROM [facility] LIST ALONG WITH FILL HISTORY.
[2024-12-29] MEDS: LOPERAMIDE HCL 1 MG/7.5 ML 4 MG PO (16:35)
[2024-12-29] MEDS: humaLOG 100 UNITS/ML 10ML VIAL (SSI) SUBCUT (16:42)
[2024-12-29 16:54] LABS: POC Glucose,Bedside 175 gm/dL (70-110)
[2024-12-29 18:24] LABS: Albumin Level 4.3 g/dl (3.5-5.0); Chloride 96 mmol/L (98-107); Potassium 4.3 mmoL/L (3.5-5.1); Sodium 130 mmol/L (136-145)
[2024-12-29 18:27] LABS: Alanine Aminotransferase 11 U/L (12-78); Albumin/Globulin Ratio 1.5 (1.1-1.8); Alkaline Phosphatase 68 U/L (38-126); Anion Gap 18.3 mEq/L (5-15); Aspartate Amino Transferase 23 U/L (14-36); Bilirubin,Total 1.3 mg/dl (0.2-1.3); Blood Urea Nitrogen 41 mg/dl (7-17); Calcium 11.4 mg/dl (8.4-10.2); Carbon Dioxide 20 mmol/L (22.0-30.0); Creatinine Clearance Estimated 17 mL/min (50-200); Creatinine,Serum 2.50 mg/dl (0.52-1.04); Estimated Glomerular Filt Rate 19 ml/min (>60); GFR (African American) 23 ML/MIN (>60); Globulin 2.9 g/dL (1.3-3.2); Glucose 197 mg/dl (74-100); Total Protein,Serum 7.2 g/dl (6.3-8.2)
[2024-12-29] MEDS: LACTATED RINGERS 1000ML 1,000 ML 150 ML IV (21:41)
[2024-12-29] MEDS: PANTOPRAZOLE 40MG VIAL 40 MG IV (21:41)
[2024-12-29] MEDS: SODIUM CHLORIDE 0.9% 10ML VIAL 10 ML IV (21:41)
[2024-12-30] VITALS: BP 115/65; PULSE 69; RESP 14; TEMP 36.6; O2SAT 100
[2024-12-30 04:00] VITALS: BMI 24.4
[2024-12-30] MEDS: LACTATED RINGERS 1000ML 1,000 ML 150 ML IV (05:35)
[2024-12-30 06:01] LABS: POC Glucose,Bedside 100 gm/dL (70-110)
[2024-12-30 07:20] LABS: Hematocrit 33.1 % (37.0-47.0); Hemoglobin 11.9 g/dL (12.2-16.2); Immature Granulocytes % 1.1 %; Mean Corpuscular HGB Conc 36.0 g/dL (31.8-35.4); Mean Corpuscular Hemoglobin 31.6 pg (27.0-31.2); Mean Corpuscular Volume 87.8 fl (81-99); Nucleated Red Blood Cells % 0 %; Platelet Count 246 K/mm3 (142-424); Red Blood Count 3.77 M/mm3 (4.20-5.40); Red Cell Distribution Width-SD 38.4 fL; White Blood Count 7.3 K/mm3 (4.8-10.8)
[2024-12-30 08:00] VITALS: BP 116/53; PULSE 75; RESP 16; TEMP 36.6; O2SAT 96
[2024-12-30 08:04] LABS: Albumin Level 3.8 g/dl (3.5-5.0); Chloride 100 mmol/L (98-107)
[2024-12-30 08:05] LABS: Potassium 3.7 mmoL/L (3.5-5.1); Sodium 134 mmol/L (136-145)
[2024-12-30 08:07] LABS: Alanine Aminotransferase 10 U/L (12-78); Albumin/Globulin Ratio 1.4 (1.1-1.8); Alkaline Phosphatase 69 U/L (38-126); Aspartate Amino Transferase 27 U/L (14-36); Bilirubin,Total 1.2 mg/dl (0.2-1.3); Blood Urea Nitrogen 35 mg/dl (7-17); Creatinine Clearance Estimated 23 mL/min (50-200); Creatinine,Serum 1.90 mg/dl (0.52-1.04); Estimated Glomerular Filt Rate 26 ml/min (>60); GFR (African American) 31 ML/MIN (>60); Globulin 2.7 g/dL (1.3-3.2); Total Protein,Serum 6.5 g/dl (6.3-8.2)
[2024-12-30 08:08] LABS: Calcium 11.0 mg/dl (8.4-10.2); Glucose 96 mg/dl (74-100); Magnesium 1.4 mg/dl (1.6-2.3)
[2024-12-30 08:15] VITALS: O2SAT 96
[2024-12-30] MEDS: MAGNESIUM SULFATE IN WATER 2 GM/50 ML PIGGYBACK IV ×2 (09:11→16:15)
[2024-12-30] MEDS: LEVOTHYROXINE 75MCG (0.075MG) TAB 75 MCG PO (09:11)
--- NOTE | 2024-12-30 09:48 | EXP.ACUTE.PN ---
Subjective *Date: 12/30/24 *Time: 22:35 Interval history: Feeling somewhat better today. Labs showing some improvement. Decreased output after Imodium yesterday. Stable on room air. No nausea or vomiting. Medical Exam Vital signs and Labs for Last 24 Hours: Vital Signs Temp Pulse Pulse Resp BP BP Pulse Ox 12/30/24 08:00 98 F 75 16 116/53 L 96 12/30/24 07:00 12/30/24 05:00 12/30/24 03:00 12/30/24 01:00 12/30/24 00:00 97.8 F 69 14 115/65 100 12/29/24 23:00 12/29/24 21:00 12/29/24 20:00 12/29/24 20:00 98.6 F 70 20 114/61 100 12/29/24 18:30 12/29/24 17:00 12/29/24 16:00 98.1 F 79 18 109/63 L 100 12/29/24 15:10 97.2 F L 78 17 109/63 L 12/29/24 15:08 12/29/24 14:30 77 107/66 L 99 12/29/24 14:00 81 125/75 98 12/29/24 13:18 73 111/65 99 12/29/24 13:06 99 12/29/24 13:00 80 153/82 H 100 12/29/24 12:55 97.6 F 83 17 140/90 99 12/29/24 12:55 97.6 F 83 17 140/90 99 O2 Del Method 12/30/24 08:00 Room Air 12/30/24 07:00 Room Air 12/30/24 05:00 Room Air 12/30/24 03:00 Room Air 12/30/24 01:00 Room Air 12/30/24 00:00 Room Air 12/29/24 23:00 Room Air 12/29/24 21:00 Room Air 12/29/24 20:00 Room Air 12/29/24 20:00 Room Air 12/29/24 18:30 Room Air 12/29/24 17:00 Room Air 12/29/24 16:00 Room Air 12/29/24 15:10 Room Air 12/29/24 15:08 Room Air 12/29/24 14:30 12/29/24 14:00 12/29/24 13:18 12/29/24 13:06 Room Air 12/29/24 13:00 12/29/24 12:55 Room Air 12/29/24 12:55 Room Air Intake and Output 12/29/24 12/30/24 12/30/24 23:59 07:59 15:59 Intake Total 360 / 600 1240 / 1240 Output Total 500 / 500 200 / 200 Balance -140 / 100 1040 / 1040 Intake: Intake, Oral Amount 360 / 600 240 / 240 Intake, Total IV Amount 1000 / 1000 Lactated Ringers 1000ML 1,000 1000 / 1000 ml @ 150 mls/hr IV .[id number] [facility] Rx#:[id number] Output: Output, Urine Amount 300 / 300 200 / 200 Output, Stool Amount 200 / 200 Other: Number of Bowel Movements 1 1 Weight 56.359 kg 58.695 kg Patient Weight 12/30/24 23:59 Weight 58.695 kg Laboratory Results - last 24 hr 12/29/24 13:50: Sodium 132 L, Potassium 4.7, Chloride 96 L, Carbon Dioxide 20 L, Anion Gap 20.7 H, BUN 42 H, Creatinine 2.50 H, Estimated Creat Clear 16, Estimated GFR 19 L*, Est GFR ( Amer) 23 L D, Glucose 180 H, Calcium 11.8 H, Magnesium 1.5 L D 12/29/24 16:33: POC Glucose 175 H 12/29/24 18:04: Sodium 130 L, Potassium 4.3, Chloride 96 L, Carbon Dioxide 20 L, Anion Gap 18.3 H, BUN 41 H, Creatinine 2.50 H, Estimated Creat Clear 17, Estimated GFR 19 L*, Est GFR ( Amer) 23 L, Glucose 197 H, Calcium 11.4 H, Total Bilirubin 1.3, AST 23, ALT 11 L, Alkaline Phosphatase 68, Total Protein 7.2, Albumin 4.3, Globulin 2.9, Albumin/Globulin Ratio 1.5 12/30/24 05:51: POC Glucose 100 12/30/24 06:20: WBC 7.3, RBC 3.77 L, Hgb 11.9 L, Hct 33.1 L, MCV 87.8, MCH 31.6 H, MCHC 36.0 H, RDW 12.0, Plt Count 246 D, MPV 11.6 H, Neut % (Auto) 60.2, Lymph % (Auto) 21.6, [place] % (Auto) 12.0 H, Eos % (Auto) 4.5, Baso % (Auto) 0.6, Neut # (Auto) 4.4, Lymph # (Auto) 1.6, [place] # (Auto) 0.9, Eos # (Auto) 0.3, Baso # (Auto) 0.0, Sodium 134 L, Potassium 3.7, Chloride 100, Carbon Dioxide 22, BUN 35 H, Creatinine 1.90 H D, Estimated Creat Clear 23, Estimated GFR 26 L, Est GFR ( Amer) 31 L D, Glucose 96 D, Calcium 11.0 H, Magnesium 1.4 L, Total Bilirubin 1.2, AST 27, ALT 10 L, Alkaline Phosphatase 69, Total Protein 6.5, Albumin 3.8 D, Globulin 2.7, Albumin/Globulin Ratio 1.4 I & O for Labs for Last 24 Hours: Intake & Output 12/27/24 12/28/24 12/29/24 12/30/24 23:59 23:59 23:59 23:59 Intake Total 360 / 600 1240 / 1240 Output Total 500 / 500 200 / 200 Balance -140 / 100 1040 / 1040 Weight 56.359 kg 58.695 kg Constitutional: Present no acute distress and cooperative Head: Present atraumatic Eyes: Present as per HPI ENT: Present normal exam Neck: Present normal inspection and full ROM Respiratory: Present CTA bilaterally, normal respiratory effort, able to speak in complete sentences and symmetric chest movement; Absent wheezes or crackles Cardiac: Present Reg Rate and Rhythm; Absent No Murmur GI: Absent distention or tenderness Comments:: Ileostomy in place Extremities: Present normal inspection, full ROM and normal capillary refill; Absent tenderness or edema Skin: Present intact and dry; Absent erythema or rash Neuro: Present alert, awake, oriented x 3 and moves all extremities Assessment and Plan *Assessment and plan (1) EMILY (acute kidney injury): Status: Acute Category: Medical Code(s): N17.9 - Acute kidney failure, unspecified (2) High output ileostomy: Status: Acute Category: Medical Code(s): R19.8 - Other specified symptoms and signs involving the digestive system and abdomen; Z93.2 - Ileostomy status (3) Hypercalcemia: Status: Acute Category: Medical Code(s): E83.52 - Hypercalcemia (4) Acute dehydration: Status: Acute Category: Medical Code(s): E86.0 - Dehydration (5) Diarrhea: Status: Acute Category: Medical Code(s): R19.7 - Diarrhea, unspecified (6) Metabolic acidosis: Status: Acute Category: Medical Code(s): E87.20 - Acidosis, unspecified (7) Type 2 diabetes mellitus: Status: Chronic Qualifiers: Diabetes mellitus mcfp insulin use: without mcfp use Category: Medical Code(s): E11.9 - Type 2 diabetes mellitus without complications Plan Ms. Cedillo is a 74-year-old female who presented to the emergency department from infusion after receiving IV fluids and having repeat labs showing recurrence of her EMILY due to high output ileostomy. She has a primary medical history of type 2 diabetes, hypertension, hypothyroidism, GERD, and ileostomy. Patient was just discharged 2 days ago after seeing improvement in her kidney function. Had been admitted for dehydration and high output ileostomy. Still having loose stools. Symptoms have been present for about a week. Starting to have an appetite at home she states. Denies fever, nausea or vomiting. Discussed case with ER physician, request admission for further IV fluid management and monitoring of kidney function. I decided to admit for further care. Kidney function showing improvement. Will monitor p.o. intake over the next 24 hours stability in kidney function without IV fluids. Problems addressed as follows: #Dehydration #EMILY #Metabolic acidosis #Hypercalcemia ?Reviewed imaging from previous admission that showed cholelithiasis, and hernia of small bowel at stoma site but no incarceration. - Creatinine improved from 2.9-1.9. BUN 35. magnesium 1.9, potassium 3.7; calcium 11 - Discontinue IV fluids today. Repeat BMP this afternoon, CBC, CMP, magnesium ordered for the morning - Bicarb 22 today - Holding metformin in the setting of metabolic acidosis. Holding Januvia in the setting of EMILY. #Diarrhea # High output ileostomy -Stool PCR was negative last visit. Continue Zofran as needed for nausea. Continue Imodium daily as needed if output picks back up. Low residue diet ordered strict monitoring of output from ileostomy. #Type 2 diabetes ? ACHS fingersticks, SSI. Holding glimepiride in the inpatient setting. Holding home Lipitor due to high output and EMILY Continue Synthroid 75 mcg daily Continue pantoprazole 40 mg at night Full code Low residue diet Ambulate as tolerated VTE?Lovenox 40 mg subcu daily
[2024-12-30] MEDS: humaLOG 100 UNITS/ML 10ML VIAL (SSI) SUBCUT ×3 (11:17→20:31)
[2024-12-30 11:20] LABS: POC Glucose,Bedside 221 gm/dL (70-110)
[2024-12-30 11:31] LABS: Anion Gap 15.7 mEq/L (5-15); Carbon Dioxide 22 mmol/L (22.0-30.0)
--- NOTE | 2024-12-30 11:33 | PC.NURSE ---
rate increased on current bag of LR to 250/hr. approximately half of a bag left to run. I did titrate the rate on the MAR.
[2024-12-30 16:00] VITALS: BP 97/57; PULSE 72; RESP 16; TEMP 36.6; O2SAT 100
[2024-12-30 18:20] LABS: Albumin Level 3.6 g/dl (3.5-5.0); Chloride 98 mmol/L (98-107); Potassium 3.7 mmoL/L (3.5-5.1); Sodium 131 mmol/L (136-145)
[2024-12-30 18:22] LABS: Blood Urea Nitrogen 28 mg/dl (7-17); Creatinine Clearance Estimated 30 mL/min (50-200); Creatinine,Serum 1.50 mg/dl (0.52-1.04); Estimated Glomerular Filt Rate 34 ml/min (>60); GFR (African American) 41 ML/MIN (>60)
[2024-12-30 18:23] LABS: Alanine Aminotransferase 11 U/L (12-78); Albumin/Globulin Ratio 1.4 (1.1-1.8); Alkaline Phosphatase 64 U/L (38-126); Anion Gap 13.7 mEq/L (5-15); Aspartate Amino Transferase 19 U/L (14-36); Bilirubin,Total 1.0 mg/dl (0.2-1.3); Calcium 10.6 mg/dl (8.4-10.2); Carbon Dioxide 23 mmol/L (22.0-30.0); Globulin 2.6 g/dL (1.3-3.2); Glucose 208 mg/dl (74-100); Total Protein,Serum 6.2 g/dl (6.3-8.2)
--- NOTE | 2024-12-30 18:38 | PC.NURSE ---
pt is A&Ox4. pt is receiving lovenox for VTE. she needed two bags of magnesium today. her glucose has been steady today around the 220s. pt has no other needs at this time. call light is within reach.
[2024-12-30 19:50] VITALS: BP 117/48; PULSE 68; RESP 14; TEMP 36.8; O2SAT 100
[2024-12-30 20:00] VITALS: RESP 14; O2SAT 100
[2024-12-30] MEDS: SODIUM CHLORIDE 0.9% 10ML VIAL 10 ML IV (20:31)
[2024-12-30] MEDS: PANTOPRAZOLE 40MG VIAL 40 MG IV (20:31)
[2024-12-30 21:02] LABS: POC Glucose,Bedside 189 gm/dL (70-110)
[2024-12-31 04:00] VITALS: BP 106/63; PULSE 78; RESP 18; TEMP 36.7; O2SAT 100; BMI 23.4
[2024-12-31] MEDS: humaLOG 100 UNITS/ML 10ML VIAL (SSI) SUBCUT (06:12)
[2024-12-31 06:15] LABS: Hematocrit 28.8 % (37.0-47.0); Immature Granulocytes % 1.4 %; Mean Corpuscular HGB Conc 36.8 g/dL (31.8-35.4); Mean Corpuscular Hemoglobin 32.1 pg (27.0-31.2); Mean Corpuscular Volume 87.3 fl (81-99); Nucleated Red Blood Cells % 0 %; Platelet Count 228 K/mm3 (142-424); Red Blood Count 3.30 M/mm3 (4.20-5.40); Red Cell Distribution Width-SD 38.2 fL; White Blood Count 6.3 K/mm3 (4.8-10.8)
[2024-12-31 06:24] LABS: Hemoglobin 10.5 g/dL (12.2-16.2)
[2024-12-31 06:27] LABS: POC Glucose,Bedside 220 gm/dL (70-110)
[2024-12-31] MEDS: LEVOTHYROXINE 75MCG (0.075MG) TAB 75 MCG PO (07:23)
[2024-12-31 07:44] VITALS: BP 131/54; PULSE 71; RESP 18; TEMP 36.5; O2SAT 100
--- NOTE | 2024-12-31 07:44 | PC.NURSE ---
Pt. is alert and orientated x 4. Pt. is on room air. Pt. states she is feeling better. Pt. was admitted for hypercalcemia and EMILY. Pt has gotten up to the bathroom to void. Pt. has an ileostomy with liquid stool output that she is emptying for us to measure. Pt. states she djoes not have much of an appetite. Blood sugars are mildly elevated and covered with insulin. Pt. slept well this shift. Personal items and call roper in reach. Bed in low and locked position. safety measures in place.
[2024-12-31 07:51] LABS: Albumin Level 3.4 g/dl (3.5-5.0); Chloride 101 mmol/L (98-107); Potassium 3.6 mmoL/L (3.5-5.1); Sodium 133 mmol/L (136-145)
[2024-12-31 07:54] LABS: Alanine Aminotransferase 13 U/L (12-78); Albumin/Globulin Ratio 1.5 (1.1-1.8); Alkaline Phosphatase 49 U/L (38-126); Anion Gap 13.6 mEq/L (5-15); Aspartate Amino Transferase 20 U/L (14-36); Bilirubin,Total 0.8 mg/dl (0.2-1.3); Blood Urea Nitrogen 22 mg/dl (7-17); Calcium 10.2 mg/dl (8.4-10.2); Carbon Dioxide 22 mmol/L (22.0-30.0); Creatinine Clearance Estimated 30 mL/min (50-200); Creatinine,Serum 1.40 mg/dl (0.52-1.04); Estimated Glomerular Filt Rate 37 ml/min (>60); GFR (African American) 44 ML/MIN (>60); Globulin 2.3 g/dL (1.3-3.2); Glucose 215 mg/dl (74-100); Total Protein,Serum 5.7 g/dl (6.3-8.2)
[2024-12-31 07:55] LABS: Magnesium 1.9 mg/dl (1.6-2.3)
--- NOTE | 2024-12-31 08:20 | EXP.DC.SUM ---
General Admission date:: 12/29/24 Discharge date: 12/31/24 HPI HPI HPI: Ms. Cedillo is a 74-year-old female who presented to the emergency department from infusion after being discharged 48 hours ago. Recently was admitted for high output ileostomy with EMILY and electrolyte disturbances. Responded well to IV fluids with improvement in kidney function to creatinine 1.8 down from 2.9. Was discharged home with plan for outpatient infusion of 1 L LR today and repeat labs and follow-up with PCP on Wednesday. Repeat labs today and infusion showed creatinine again up to 2.9 with BUN of 44. Calcium 12.4. Was sent to the ER for evaluation. Patient denies syncope or dizziness but does state that she felt nauseous when she got home and has not been drinking as much as normal. Still having liquid output. Denies any fever, chest pain, shortness of breath. Medicine consulted for admission and further management of EMILY and dehydration. On evaluation, states she had ileostomy performed with colectomy in her early 20s due to history of ulcerative colitis. Stable on room air. Blood pressure and heart rate within normal limits at this time. Hospital Course Hospital Course Hospital Course: Ms. Cedillo is a 74-year-old female who presented to the emergency department from infusion after receiving IV fluids and having repeat labs showing recurrence of her EMILY due to high output ileostomy. She has a primary medical history of type 2 diabetes, hypertension, hypothyroidism, GERD, and ileostomy. Patient was just discharged 2 days ago after seeing improvement in her kidney function. Had been admitted for dehydration and high output ileostomy. Still having loose stools. Symptoms have been present for about a week. Starting to have an appetite at home she states. Denies fever, nausea or vomiting. Discussed case with ER physician, request admission for further IV fluid management and monitoring of kidney function. I decided to admit for further care. Kidney function showed improvement during admission. Back to baseline with creatinine 1.4. BUN 22. Stable discharge home. Has follow-up with PCP tomorrow. Ordered repeat labs with BMP and magnesium for the morning. Problems addressed as follows: #Dehydration #EMILY, resolved #Metabolic acidosis, resolved #Hypercalcemia ? Reviewed imaging from previous admission that showed cholelithiasis, and hernia of small bowel at stoma site but no incarceration. Initial creatinine 2.9. Showed improvement with hydration. Able to be off IV fluids for 24 hours prior to discharge with continued improvement in creatinine to baseline 1.4. BUN 22. Calcium elevated at 12 on admission, improved to 10.2 by day of discharge. Electrolytes stable with magnesium 1.9, potassium 3.6. Recommend repeat labs in the morning tomorrow prior to follow-up with PCP. Tolerating p.o. fluids. Did not order outpatient infusions at this time, will defer that decision to PCP after seeing repeat labs and patient's output. - Metabolic acidosis improved with bicarbonate of 22 on day of discharge. #Diarrhea, improved # High output ileostomy -Stool PCR was negative last visit. Continue Zofran as needed for nausea. Administered 1 dose of liquid Imodium with improvement in output. Will discharge with Imodium in case her stool output from ostomy picks up significantly to decrease risk for high output and dehydration again. Continue with low residue diet. #Type 2 diabetes: Treated with fingersticks ACHS and sliding scale insulin ACHS. Resume home regimen at discharge except for metformin which can increase her ostomy output. Reevaluate at follow-up with PCP. Held home Lipitor during admission. Resume at discharge. Continue Synthroid 75 mcg daily Continue pantoprazole 40 mg at night Total time spent on discharge 32 minutes in counseling, documentation, chart review, and direct care with patient. Exam Data for Last 24 hours Vital signs and Labs for Last 24 Hours: Temp Pulse Resp BP Pulse Ox O2 Del Method 97.7 F 71 18 131/54 L 100 Room Air 12/31/24 07:44 12/31/24 07:44 12/31/24 07:44 12/31/24 07:44 12/31/24 07:44 12/31/24 07:44 Laboratory Results - last 24 hr 12/30/24 06:20: Carbon Dioxide 22, Anion Gap 15.7 H 12/30/24 11:10: POC Glucose 221 H 12/30/24 17:40: Sodium 131 L, Potassium 3.7, Chloride 98, Carbon Dioxide 23, Anion Gap 13.7, BUN 28 H, Creatinine 1.50 H D, Estimated Creat Clear 30, Estimated GFR 34 L, Est GFR ( Amer) 41 L D, Glucose 208 H D, Calcium 10.6 H, Total Bilirubin 1.0, AST 19 D, ALT 11 L, Alkaline Phosphatase 64, Total Protein 6.2 L, Albumin 3.6, Globulin 2.6, Albumin/Globulin Ratio 1.4 12/30/24 20:21: POC Glucose 189 H 12/31/24 05:51: POC Glucose 220 H 12/31/24 05:54: WBC 6.3, RBC 3.30 L, Hgb 10.5 L D, Hct 28.8 L, MCV 87.3, MCH 32.1 H, MCHC 36.8 H, RDW 11.9, Plt Count 228, MPV 11.4 H, Neut % (Auto) 60.9, Lymph % (Auto) 21.1, [place] % (Auto) 11.6 H, Eos % (Auto) 4.5, Baso % (Auto) 0.5, Neut # (Auto) 3.8, Lymph # (Auto) 1.3, [place] # (Auto) 0.7, Eos # (Auto) 0.3, Baso # (Auto) 0.0, Sodium 133 L, Potassium 3.6, Chloride 101, Carbon Dioxide 22, Anion Gap 13.6, BUN 22 H, Creatinine 1.40 H, Estimated Creat Clear 30, Estimated GFR 37 L, Est GFR ( Amer) 44 L, Glucose 215 H, Calcium 10.2, Magnesium 1.9 D, Total Bilirubin 0.8, AST 20, ALT 13, Alkaline Phosphatase 49, Total Protein 5.7 L, Albumin 3.4 L, Globulin 2.3, Albumin/Globulin Ratio 1.5 I & O for Last 24 hours: Intake & Output 12/28/24 12/29/24 12/30/24 12/31/24 23:59 23:59 23:59 23:59 Intake Total 360 / 600 3480.0 / 3480.0 480 / 480 Output Total 500 / 500 1500 / 1500 575 / 575 Balance -140 / 100 1980.0 / 1980.0 -95 / -95 Weight 56.359 kg 58.695 kg 56.245 kg Constitutional Constitutional: no acute distress and cooperative *Routine HEENT Exam Head: Present normocephalic Eye: Present EOMI ENT: Present mucous membranes moist *Routine Neck Exam Neck: Present supple and full ROM; Absent JVD or lymphadenopathy *Routine Respiratory Exam Respiratory: Present CTA bilaterally, able to speak in complete sentences and symmetric chest movement; Absent wheezes or crackles *Routine Cardiovascular Exam Cardiovascular: Present RRR; Absent murmur *Routine Abdominal Exam Abdominal: Present soft and normoactive bowel sounds; Absent tenderness or distended Comments: Ileostomy in place *Routine Extremities Exam Extremities: Present full ROM, pulses intact and normal capillary refill; Absent clubbing or edema *Routine Skin Exam Skin: Present intact and dry; Absent rash *Routine Neurological Exam Neurological: Present alert, oriented X3, vision grossly intact, hearing grossly intact and normal speech Routine Psychiatric Exam Psychiatric: Present normal affect Results Data Completed and Pending Labs on day of discharge: Labs from last 24 hours 12/31/24 12/31/24 12/30/24 05:54 05:51 20:21 WBC 6.3 RBC 3.30 L Hgb 10.5 L D Hct 28.8 L MCV 87.3 MCH 32.1 H MCHC 36.8 H RDW 11.9 Plt Count 228 MPV 11.4 H Neut % (Auto) 60.9 Lymph % (Auto) 21.1 [place] % (Auto) 11.6 H Eos % (Auto) 4.5 Baso % (Auto) 0.5 Neut # (Auto) 3.8 Lymph # (Auto) 1.3 [place] # (Auto) 0.7 Eos # (Auto) 0.3 Baso # (Auto) 0.0 Sodium 133 L Potassium 3.6 Chloride 101 Carbon Dioxide 22 Anion Gap 13.6 BUN 22 H Creatinine 1.40 H Estimated Creat Clear 30 Estimated GFR 37 L Est GFR ( Amer) 44 L Glucose 215 H POC Glucose 220 H 189 H Calcium 10.2 Magnesium 1.9 D Total Bilirubin 0.8 AST 20 ALT 13 Alkaline Phosphatase 49 Total Protein 5.7 L Albumin 3.4 L Globulin 2.3 Albumin/Globulin Ratio 1.5 12/30/24 12/30/24 12/30/24 17:40 11:10 06:20 WBC RBC Hgb Hct MCV MCH MCHC RDW Plt Count MPV Neut % (Auto) Lymph % (Auto) [place] % (Auto) Eos % (Auto) Baso % (Auto) Neut # (Auto) Lymph # (Auto) [place] # (Auto) Eos # (Auto) Baso # (Auto) Sodium 131 L Potassium 3.7 Chloride 98 Carbon Dioxide 23 22 Anion Gap 13.7 15.7 H BUN 28 H Creatinine 1.50 H D Estimated Creat Clear 30 Estimated GFR 34 L Est GFR ( Amer) 41 L D Glucose 208 H D POC Glucose 221 H Calcium 10.6 H Magnesium Total Bilirubin 1.0 AST 19 D ALT 11 L Alkaline Phosphatase 64 Total Protein 6.2 L Albumin 3.6 Globulin 2.6 Albumin/Globulin Ratio 1.4 DS: Diagnosis Discharge Diagnosis (1) EMILY (acute kidney injury): Status: Acute Code(s): N17.9 - Acute kidney failure, unspecified (2) High output ileostomy: Status: Acute Code(s): R19.8 - Other specified symptoms and signs involving the digestive system and abdomen; Z93.2 - Ileostomy status (3) Hypercalcemia: Status: Acute Code(s): E83.52 - Hypercalcemia (4) Acute dehydration: Status: Acute Code(s): E86.0 - Dehydration (5) Diarrhea: Status: Acute Code(s): R19.7 - Diarrhea, unspecified (6) Metabolic acidosis: Status: Acute Code(s): E87.20 - Acidosis, unspecified (7) Type 2 diabetes mellitus: Status: Chronic Code(s): E11.9 - Type 2 diabetes mellitus without complications 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 Instructions: pending follow-up with PCP due to high volume ileostomy output pantoprazole 40 mg tablet,delayed 40 mg PO DAILY 03/22/24 12/29/24 History release sitagliptin phosphate 100 mg 100 mg PO DAILY 03/22/24 12/29/24 History tablet (Januvia) losartan 25 mg tablet 25 mg PO DAILY 09/13/24 12/29/24 History atorvastatin 20 mg tablet 20 mg PO HS 12/25/24 12/29/24 History diclofenac sodium 1 % topical gel 4 g topical QIDP PRN Mild Pain 12/25/24 12/29/24 History (Scale Score 1-4) glimepiride 4 mg tablet 6 mg PO DAILY 12/25/24 12/29/24 History loratadine 10 mg tablet 10 mg PO DAILY 12/25/24 12/29/24 History ondansetron 4 mg disintegrating 4 mg PO Q6HP PRN nausea and 12/25/24 12/29/24 History tablet vomiting loperamide 1 mg/7.5 mL oral liquid 2 mg (15 mL) PO Q4H PRN loose 12/31/24 Rx (Imodium A-D) stool #120 mL New Prescriptions to Start Prescriptions: loperamide [Imodium A-D] Truong Milner Allergies Allergy/AdvReac Type Severity Reaction Status Date / Time ciprofloxacin (From Cipro) Allergy Verified 09/13/24 11:34 nitrofurantoin (From Allergy Verified 09/13/24 11:34 Macrobid) Discharge Plan Disposition Patient Disposition: Home, Self-Care Condition: Fair Discharge Order Discharge Orders: Discharge Order (Routine); Ordered 12/31/24 Ordered By: Truong Milner Follow up Plan Follow up with: Catherine Hernandez APRN [Primary Care Provider, Medical] - 1 day Prescriptions/Medication Reconciliation: New loperamide [Imodium A-D] 1 mg/7.5 mL liquid 2 mg PO Q4H PRN (Reason: loose stool) Qty: 120 0RF Rx Instructions: take if have significant increase in osteomy output, no more than 8mg a day Continued (DME) FreeStyle Lite Strips Strip See Rx Instructions .ROUTE .MEDSUPPLY Qty: 10 Rx Instructions: As directed losartan 25 mg tablet 25 mg PO DAILY levothyroxine 75 mcg tablet 75 mcg PO DAILY pantoprazole 40 mg tablet,delayed release (DR/EC) 40 mg PO DAILY Patient Comments: TAKE 1 TABLET BY MOUTH DAILY Januvia 100 mg tablet 100 mg PO DAILY ondansetron 4 mg tablet,disintegrating 4 mg PO Q6HP PRN (Reason: nausea and vomiting) diclofenac sodium 1 % gel 4 g topical QIDP PRN (Reason: Mild Pain (Scale Score 1-4)) Rx Instructions: apply to single knee, ankle, foot; for foot includes sole/toes/top of foot atorvastatin 20 mg tablet 20 mg PO HS glimepiride 4 mg tablet 6 mg PO DAILY loratadine 10 mg Tablet 10 mg PO DAILY Held metformin 1,000 mg tablet 1,000 mg PO DAILY Hold Instructions: until PCP f/u Other Ambulatory Orders: Basic Metabolic Panel (Routine) Timeframe: 1 Day Facility: [facility] - Location: Laboratory Ordered By: Truong Milenr Magnesium (Routine) Timeframe: 1 Day Facility: [facility] - Location: Laboratory Ordered By: Truong Milner Problem Reconciliation Problems Reviewed?: Yes Patient Discharge Instructions ACTIVITY: Continue current activity DIET: continue same diet Print Language: Montenegrin Providers Primary Care Provider: Catherine Hernandez Admit Provider: Truong Milner Attending Provider: Truong Milner
[2024-12-31 08:30] VITALS: O2SAT 100
[2024-12-31 11:16] LABS: POC Glucose,Bedside 118 gm/dL (70-110)
[2024-12-31 11:54] VITALS: BP 102/64; PULSE 78; RESP 17; TEMP 36.5; O2SAT 94
--- NOTE | 2025-01-01 13:42 | SW/DCPLANNER ---
Spoke with patient on the phone. Patient stated that she is doing good. Patient stated that she is aware of her upcoming appointments. Patient stated that she was able to get her new medicine picked up from Clinic pharmacy. Patient stated that she has no concerns or questions at this time. José Schneider
[2025-01-01 13:57] LABS: POC Glucose,Bedside 219 gm/dL (70-110)
[2025-01-01 14:00] LABS: POC Glucose,Bedside 112 gm/dL (70-110)
== END 2024-12-31 12:03 | disposition home or self-care (01) | DRG 683 ==
LOC: ER 13:07 → 2ND 14:21
PROVIDERS: Admitting Provider Internal Medicine Adolescent Medicine; Emergency Provider Student in an Organized Health Care Education/Training Program; PCP Nurse Practitioner Family; Visit Provider Internal Medicine Adolescent Medicine
DX: N17.9 Acute kidney failure, unspecified (principal); E87.20 Acidosis, unspecified; E86.0 Dehydration; Z93.2 Ileostomy status; E11.9 Type 2 diabetes mellitus without complications; I10 Essential (primary) hypertension; E03.9 Hypothyroidism, unspecified; K21.9 Gastro-esophageal reflux disease without esophagitis; E83.52 Hypercalcemia; R19.7 Diarrhea, unspecified; E78.5 Hyperlipidemia, unspecified; K80.20 Calculus of gallbladder without cholecystitis without obstruction; Z90.49 Acquired absence of other specified parts of digestive tract; Z79.84 Long term (current) use of oral hypoglycemic drugs; Z79.890 Hormone replacement therapy; Z79.899 Other long term (current) drug therapy; Z88.1 Allergy status to other antibiotic agents
CPT/HCPCS: 36415; 80048; 80053; 82962; 83735; 85025; 99284; J1650; J2470; J3475; J7120

== ENCOUNTER 2025-01-01 09:08 | Outpatient (CLI) | payer MEDICARE, OTHER, SELFPAY ==
--- OUTSIDE RECORDS SUMMARY | 2024-11-02 08:10 | XMS_ITS | Encounter Summary ---
Author Organization Healthcare Address [address] [place] [address] Care Team Providers Care Pump Operator Name Role Phone Catherine Hernandez JANAY Primary Care Provider +1- [phone] Encounter Details Date Type Department Care Team (Latest Contact Info) Description 11/02/2024 8:10 AM EDT - 11/02/2024 11:59 PM EDT Hospital Encounter [facility] [address] [facility], [address] [place] [address] Age-related osteoporosis without current pathological [...] Medical Office Building Surgical Specialties [address] [facility], [facility] [address] [place] [address] Lacho Lenz MD [address] [facility] [address] [place] [phone] 11/08/2025 8:20 AM EDT Office Visit [facility] [address] [facility], [facility] [address] [place] [address] Lauri Zavala MD [address] [facility] [address] [place] [address] 11/08/2025 8:40 AM EDT Appointment [facility] [address] [facility], [facility] [address] [place] [address] documented as of this encounter Procedures Procedure Name Priority Date/Time Associated Diagnosis Comments DEXA BONE DENSITY Routine 11/02/2024 8:1 0 AM EDT Age-related osteoporosis without current pathological fracture documented in this encounter Results * Dexa Bone Density (11/02/2024 8:10 AM EDT) Anatomical Region Laterality Modality L-spine Radiographic Whitney ging Narrative 11/12/2024 10:28 AM EDT [facility] - [facility] [address] [place] [address], [place] [address] DXA Bone Densitometry Report: [Date of exam] BMD test performed using the [employer] DXA System (analysis version: 14.10) manufactured by [employer]. REFERRING PROVIDER: Dr. Lauri Zavala MD CLINICAL [...] documented as of this encounter Care Teams Pump Operator Relationship Specialty Start Date End Date Catherine Hernandez APRN [address] [place] [phone] PCP - General 08/23/20 documented as of this encounter
--- OUTSIDE RECORDS SUMMARY | 2024-11-02 08:40 | XMS_ITS | Encounter Summary ---
Author Organization Healthcare Address [address] [place] [address] Care Team Providers Care Executive Administrative Assistant Name Role Phone Catherine Hernandez JANAY Primary Care Provider +1- [phone] Reason for Referral * Consultation (Routine) - Authorized Specialty Diagnoses / Procedures Referred By Damaris t Referred To Contact General, Endocrine & Minimally Invasive Surgery / General Surgery Diagnoses Age-related osteoporosis without current pathological fracture Stage 3a chronic kidney disease (CMS/HCC) Hypercalcemia Hyperparathyroidism ([facility]/HCC) Kailash Granados PA [address] [address] Phone: tel: fax: Ijeoma Logan MD [address] [address] Phone: tel: fax: Referral ID Status Reason Start Date Expiration Date Visits Requested Visits Authorized [id number] Authorized Specialty Services Required 11/02/2024 05/04/2026 1 1 Scheduling Instructions Please evaluate for primary hyperparathyroidism, adenoma on NM parathyroid imaging Thanks! * Consultation (Routine) - Authorized Specialty Diagnoses / Procedures Referred By Contac t Referred To Contact Diagnoses Age-related osteoporosis without current pathological fracture Stage 3a chronic kidney disease (CMS/HCC) Hypercalcemia Kailash Granados PA [address] [address] Phone: tel: fax: Referral ID Status Reason Start Date Expiration Date V isits Requested Visits Authorized [id number] Authorized 11/02/2024 05/04/2026 1 1 Reason for Visit * Reason Comments Follow-up * Consultation (Routine) - Closed Specialty Diagnoses / Procedures Referred By Damaris donald Referred To Contact Diagnoses Age-related osteoporosis without current pathological fracture Lauri Zavala MD [address] [place] [address] Phone: tel: fax: Referral ID Status Reason Start Date Expiration Date Visits Re quested Visits Authorized [id number] Closed 08/28/2024 02/27/2026 1 1 Encounter Details Date Type Department Care Team ([facility] st Contact Info) Description 11/02/2024 8:40 AM EDT Office Visit [facility] [address], [address] [place] [address] Lauri Zavala MD [address] [place] [address] Age-related osteoporosis without current pathological fracture [...] XRT, renal stones, dental issues/scheduled dental procedures, intermediate card tender corticosteroid; - Has underlying UC, Colectomy in [...] file Social Connections: Unknown (01/20/2023) Received from [facility] Family and Community Support Help with Day-to-Day Activities: Not on file Lonely or Isolated: Not on file Intimate Partner Violence: Unknown (01/20/2023) Received from [facility] Abuse Screen Unsafe at Home or Work/School: Not on file Feels Threatened by Someone?: Not on file Does Anyone Keep You from Contacting Others or Doint Things Outside the Home?: Not on file Physical Sign of Abuse Present: Not on file Housing Stability: Unknown (01/20/2023) Received from [facility] Housing Stability Current Living Arrangements: Not on [...] , LH , PROLACTIN , TSH , [id number] , FREET4 , CORTISOL Urine studies: Lab [...] (delayed set) acquired and processed using Siemens SideStripe Intevo 16 SPECT/CT hybrid technology. Three-dimensional attenuation-corrected SPECT, CT and fused SPECT/CT tomographic images in coronal, sagittal, and transverseplanes created and reviewed interactively to optimize sensitivity, specificity, and anatomic localization. CT: low-dose, [id number], without intravenous contrast; TOTAL DLP (Dose Length [...] pathological fracture Stage 3a chronic kidney disease ([facility]) Hypercalcemia Hyperparathyroidism ([facility]) IgG lambda monoclonal gammopathy [3] Past Surgical [...] Medical Office Building Surgical Specialties [address] [facility] [place] [facility], [address] [place] [address] Lacho Lenz MD [address] [facility] [address] [place] [address] 11/08/2025 8:20 AM EDT Office Visit [facility] Bone & Mineral Metabolism [address] [facility] [place] [facility], [address] [place] [address] Lauri Zavala MD [address] [facility] [place] [facility] [address] [place] [address] 11/08/2025 8:40 AM EDT Appointment [facility] Bone & Mineral Metabolism [address] [facility] [place] [facility], [address] [place] [address] Scheduled Orders Name Type Priority [...] Hyperparathyroidism (CMS/HCC) Expected: 10/25/2025 (Approximate), Expires: 05/06/2026 [place] Lambda Quant Free Light Chains w/Ratio Lab [...] documented as of this encounter Care Teams Executive Administrative Assistant Relationship Specialty Start Date End Date Catherine Hernandez APRN [address] [place] [address] [place] [address] PCP - General 08/23/20 documented as of this encounter
--- OUTSIDE RECORDS SUMMARY | 2024-12-19 06:41 | XMS_ITS ---
Author Organization [facility] Address [address] [facility] [address] [place] [address] Care Team Providers Care Behavioral Therapist Name Role Phone Catherine Hernandez Primary Care Provider [phone] REASON FOR VISIT mammogram order Encounters Encounter Location Date Provider Diagnosis [facility] [address] [place], [place] [address] 12/19/2024 Catherine Hernandez Breast cancer screening by mammogram Z12.31 Assessments Encounter Date Diagnosis (ICD Code) Assessment Notes Treatment Notes Treatment Clinical Notes Section Notes 12/19/2024 Breast cancer screening by mammogram (ICD-10 - Z12.31) Plan Of Treatment Pending Test Test Name Order Date Mammogram : Bilateral 12/19/2024 Next Appt Details Provider Name:Catherine Martinez ce, 01/01/2025 09:45:00 AM, [address], [address], [place], [address], Progress Notes * James GUTIÉRREZLaurieB:1950 (74 yo F)Acc No.[id number]:12/19/2024 Patient: Vera KELLER :1950 A ge:74 Y S ex:Female [address] [place], [address] Subjective: * Chief Complaints: * M ammogram order * Medical History: * Surgical History: * Hospitalization/Major Diagno stic Procedure: * Medications: Objective: * Vitals: * Physical Examination: Assessment: * Assessment: 1. B reast cancer screening by mammogram - Z12.31 Plan: * Treatment: * Procedure Codes: * true * Date: Generated for Sim fierro/Jasmyn/Payton on: 0 01/01/2025 09:36 AM EDT
--- OUTSIDE RECORDS SUMMARY | 2024-12-20 07:00 | XMS_ITS ---
Author Organization [facility] Address [address] [place] [address] Care Team Providers Care Family Intervention Specialist Name Role Phone Catherine Hernandez Primary Care Provider [phone] Dave Rocha Unavailable [phone] Allergies Allergen (clinical drug ingredient) Drug/Non Drug [...] Signs Temperature 97.6 degrees Fahrenheit 12/21/19 25 Blood pressure systolic 102 mm Hg 12/21/19 25 Blood pressure diastolic 56 mm Hg 025 Heart Rate 80 /min 12/20/2024 Height 62.5 in 12/20/2024 Weight 131.6 lbs 12/20/2024 BMI 23.68 kg/m2 12/20/2024 Encounters Encounter Location Date Provider Diagnosis [facility] [address] [place] [address] 12/20/2024 Dave Rocha Urinary frequency R35.0 Assessments [...] canal on self examination, she notes seeing RN SHIFT MGR for this many years ago when prolapse was less severe and was asymptomatic - has not completed Pelvic Floor PT in past - discussed with patient, she will call and schedule appointment with RN SHIFT MGR, Dr. Tracey, regarding concerns for pelvic organ [...] canal on self examination, she notes seeing RN SHIFT MGR for this many years ago when prolapse was less severe and was asymptomatic - has not completed Pelvic Floor PT in past - discussed with patient, she will call and schedule appointment with RN SHIFT MGR, Dr. Tracey, regarding concerns for pelvic organ prolapse and if warranting further interventions at that time - patient has rountine follow up scheduled for annual visit in our clinic in the coming weeks Next Appt Details Follow Up: prn, Reason: Provider Name:Catherine Martinez ce, 01/01/2025 09:45:00 AM, [address] [facility], [address], [place], [address], Progress Notes * James GUTIÉRREZLaurieB:1950 (74 yo F)Acc No.[id number]:12/20/2024 Progress Notes Patient: Vera KELLER Provider: Gael Rocha MD :1950 A ge:74 Y S ex:Female Date:12/20/2024 Address:[address] [place] [address], [facility] Pcp:Catherine Hernandez Subjective: * Chief [...] bladder prolapse years ago and has seen RN SHIFT MGR, Dr. Tracey, for this in the past [...] is planning on calling to schedule with RN SHIFT MGR for follow up on bladder prolapse and [...] canal on self examination, she notes seeing RN SHIFT MGR for this many years ago when prolapse was less severe and was asymptomatic - has not completed Pelvic Floor PT in past - discussed with patient, she will call and schedule appointment with RN SHIFT MGR, Dr. Tracey, regarding concerns for pelvic organ [...] 12/20/2024 Generated for Printi ng/Fatwing/eTransmitting on: 0 01/01/2025 09:35 AM EDT History and Physical Notes * [...] bladder prolapse years ago and has seen RN SHIFT MGR, Dr. Tracey, for this in the past [...] is planning on calling to schedule with RN SHIFT MGR for follow up on bladder prolapse and has not yet completed pelvic floor PT. Examination Category Sub-Category Detail Notes Category Not es General Examination Heart: Regular Rate and Rhyt hm Lungs: clear to auscultatio n, Abdomen: soft, ND, BS present , no CVA tenderness, General Pleasant and Coopera tive, NAD on RA, Psych Normal Mood/Affect
--- OUTSIDE RECORDS SUMMARY | 2024-12-28 05:00 | XMS_ITS ---
Author Organization [facility] Address [address] [place], [place] [address] Care Team Providers Care Clinical Laboratory Technician Name Role Phone Catherine Hernandez Primary Care Provider [phone] REASON FOR VISIT yearly AWV Encounters Encounter Location Date Provider Diagnosis [facility] [address] [place], [place] [address] 12/28/2024 Catherine Hernandez Plan Of Treatment Next Appt Details Provider Name:Catherine Martinez ce, 01/01/2025 09:45:00 AM, [address], [address], [place], [place], [address], Progress Notes * James GUTIÉRREZaDOB:1950 (74 yo F)Acc No.[id number]:12/28/2024 Progress Notes Patient: Vera KELLER Provider: MIGUEL Ace :1950 A ge:74 Y S ex:Female Date:12/28/2024 Address:[address], [place] Subjective: * Chief Complaints: * 1 . yearly AWV. * Medical History: Objective: * Vitals: Assessment: Plan: * Treatment: * * Electronic signature of Charo Hernandez APRN on 01/01/2025 at 09:35 AM EDT Sign off status: Pending * Provider: MIGUEL Ace Date: 0 12/28/2024 Generated for Sim fierro/Jasmyn/Payton on: 0 01/01/2025 09:35 AM EDT
--- OUTSIDE RECORDS SUMMARY | 2025-01-01 09:35 | XMS_ITS | Encounter Summary ---
Author Organization Healthcare Address [address] [place] [address] Care Team Providers Care Delivery Coordinator Name Role Phone Catherine Hernandez PRODUCT COORDINATOR Primary Care Provider [phone]- [phone] Encounter Details Date Type Department Care Team [...] Medical Office Building Surgical Specialties [address] [facility], [address] [place] [address] Lacho Lenz MD [address] [facility] [address] [place] [address] 11/08/2025 8:20 AM EDT Office Visit Professional [facility] Mineral Metabolism [address] [facility], [address] [place] [address] Lauri Zavala MD [address] [place] [address] 11/08/2025 8:40 AM EDT Appointment [facility] Bone & Mineral Metabolism [address] [facility], [address] [place] [address] documented as of this encounter Visit Diagnoses Not on filedocumented in this encounter Additional Health Concerns Assessment Noted Time A fall risk assessment has been complete d for the patient 11/02/2024 8:33 AM EDT A Body Mass Index follow-up plan has been documented for the patient 11/02/2024 9:00 AM EDT documented as of this encounter Care Teams Delivery Coordinator Relationship Specialty Start Date End Date Catherine Hernandez APRN [address] [place] [address] PCP - General 08/23/20 documented as of this encounter
--- OUTSIDE RECORDS SUMMARY | 2025-01-01 09:35 | XMS_ITS | Encounter Summary ---
Author Organization Healthcare Address [address] [place] [address] Care Team Providers Care Manager Of Sales Name Role Phone Catherine Hernandez APRN Primary Care Provider +1- [phone] Reason for Referral * Consultation (Routine) - Closed Specialty Diagnoses / Procedures Referred By Damaris donald Referred To Contact Nephrology Diagnoses Osteoporosis, unspecified osteoporosis type, unspecified pathological fracture presence Hypercalcemia Catherine Hernandez APRN [address] [address] Phone: tel: fax: Lauri Zavala MD [address] [address] Phone: tel: fax: Referral ID Status Reason Start Date Expiration Date V isits Requested Visits Authorized [id number] Closed Specialty Services Required 05/22/2024 11/21/2025 1 1 Encounter Details Date Type Department Care Team (Latest Contact Info) Description 05/22/2024 Community Orders Community Practice [address] [place] [address] Catherine Hernandez APRN [address] [address] Osteoporosis, unspecified osteoporosis type, unspecified [...] Upcoming Encounters Date Type Department Care Team ([facility] st Contact Info) Description 04/26/2025 2:00 PM EST Consult Medical Office Building Surgical Specialties [address] [facility], [address] [place] [address] Lacho Lenz MD [address] [facility] [address] [place] [address] 11/08/2025 8:20 AM EDT Office Visit [facility] Bone & Mineral Metabolism [address] [facility], [address] [place] [address] Lauri Zavala MD [address] [facility] [address] [place] [address] 11/08/2025 8:[address] [facility] Bone & Mineral Metabolism [address] [facility], [address] [place] [address] Scheduled Referrals Name Type Priority Associated Diagnoses Orde r Schedule Ambulatory referral to Nephrology Outpatient Referral Routine Osteoporosis, unspecified osteoporosis type, unspecified pathological fracture presence Hypercalcemia Ordered: 05/22/2024 documented as of this encounter Visit Diagnoses Diagnosis Osteoporosis, unspecified osteoporosis type, unspecified pathological fracture presence- Primary Hypercalcemia documented in this encounter Care Teams Manager Of Sales Relationship Specialty Start Date End Date Catherine Hernandez APRN [address] [place] [address] PCP - General 08/23/20 documented as of this encounter
--- OUTSIDE RECORDS SUMMARY | 2025-01-01 09:35 | XMS_ITS | Encounter Summary ---
Author Organization Healthcare Address [address] [place] [address] Care Team Providers Care Seam Stayer Name Role Phone Catherine Hernandez REGISTER IN CHANCERY Primary Care Provider +1- [phone] Reason for Referral * Consultation (Routine) - Authorized Specialty Diagnoses / Procedures Referred By Damaris donald Referred To Contact Nephrology Diagnoses Low bone density Acquired hypothyroidism Elevated parathyroid hormone related peptide level Catherine Hernandez, REGISTER IN CHANCERY [address] [address] Phone: tel: fax: [facility] [address] [address] Phone: tel: fax: Referral ID Status Reason Start Date Expiration Date Visits Requested Visits Authorized [id number] Authorized Specialty Services Required 10/15/2023 04/15/2025 1 1 Encounter Details Date Type Department Care Team (Late st Contact Info) Description 10/15/2023 Community [facility] Community Practice [address] [place] [address] Catherine Hernandez, REGISTER IN CHANCERY [address] [address] Low bone density (Primary Dx); [...] [address] [facility], [address] [place] [address] Lacho Lenz MD [address] [facility] [address] [place] [address] 11/08/2025 8:20 AM EDT Office Visit [facility] Bone & Mineral Metabolism [address] [facility], [address] [place] [address] Lauri Zavala MD [address] [facility] [address] [place] [address] 11/08/2025 8:[address] [facility] Bone & Mineral Metabolism [address] [facility], [address] [place] [address] Scheduled Referrals Name Type Priority Associated Diagnoses Orde r Schedule Ambulatory referral to Nephrology Outpatient Referral Routine Low bone density Acquired hypothyroidism Elevated parathyroid hormone related peptide level Ordered: 10/15/2023 documented as of this encounter Visit Diagnoses Diagnosis Low bone density- Primary Acquired hypothyroidism Unspecified hypothyroidism Elevated parathyroid hormone related peptide level documented in this encounter Care Teams Seam Stayer Relationship Specialty Start Date End Date Catherine Hernandez APRN [facility] [address] PCP - General 08/23/20 documented as of this encounter
--- OUTSIDE RECORDS SUMMARY | 2025-01-01 09:35 | XMS_ITS | Clinical Summary ---
Author Organization Healthcare Address [address] [place] [address] Care Team Providers Care Advertising Layout Worker Name Role Phone Catherine Hernandez SALES REPRESENTATIVE GAS SERVICE Primary Care Provider +1- [phone] Allergies Active Allergy Reactions Criticality Noted Date [...] Description 11/02/2024 8:40 AM EDT Office Visit [facility] [address], [address] [place] [address] Lauri Zavala MD Age-related osteoporosis without current pathological fracture (Primary Dx); Stage 3a chronic kidney disease ([facility]/HCC); Hypercalcemia; Hyperparathyroidism ([facility]/HCC); IgG lambda monoclonal gammopathy 11/02/2024 8:10 AM EDT - 11/02/2024 11:59 PM EDT Hospital Encounter [facility] [address] [facility], [address] [place] [address] Age-related osteoporosis without current pathological [...] Upcoming Encounters Date Type Department Care Team ([facility] st Contact Info) Description 04/26/2025 2:00 PM EST Consult Medical Office Building Surgical Specialties [address], [address] [place] [address] Lacho Lenz MD [address] [facility] [address] [place] [address] 11/08/2025 8:20 AM EDT Office Visit [facility] [address], [address] [place] [address] Lauri Zavala MD [address] [place] [address] 11/08/2025 8:40 AM EDT Appointment [facility] [address] [facility], [address] [place] [address] Health Maintenance Due Date Last [...] or (1 - 1-dose 75+ series) 12/11/2023 [id number] Vaccine (4 - 2024- season) 2024 02/11/2021, [...] Center - [facility] [address] [place] [address] DXA Bone Densitometry Report: [Date of exam] BMD test performed using the [employer] DXA System (analysis version: 14.10) manufactured by [employer]. REFERRING PROVIDER: Dr. Lauri Zavala MD CLINICAL [...] lt from Last 3 Months Insurance MEDICARE [facility] [place] Care Teams Advertising Layout Worker Relationship Specialty Start Date End Date Catherine Hernandez APRN [address] [place] [address] PCP - General 08/23/20
--- OUTSIDE RECORDS SUMMARY | 2025-01-01 09:36 | XMS_ITS | Patient Health Record ---
Author Organization [facility] Address [address] [place] [address] Care Team Providers Care Development Chemist Name Role Phone MaryCatherine Primary Care Provider Dave Rocha Unavailable [phone] Alexus Terrazas Unavailable [phone] Migration, Provider Unavailable Unavailable Allergies Allergen (clinical [...] Performing Lab: Notes/Report: TSH 1.45 0.465-4.68 uIU/mL M-Uric Acid Reviewed date:05/12/2024 10:37:34 AM Interpretation: Performing Lab: Notes/Report: URIC 6.5 2.5-6.2 mg/dl M-Hemoglobin A1C Reviewed date:05/12/2024 10:37:34 AM Interpretation: Performing Lab: Notes/Report: HGBA1C 6.5 4.0-6.0 % < 6% Non-Diabetic Level < 7% Controlled Diabetic Level > 8% Poorly Controlled Diabetic Level COMPREHENSIVE METABOLIC [facility]Un[facility] ([address]) Reviewed date:03/29/2024 12:29:19 PM Interpretation: Performing Lab:[facility] [email or web address] Khus[address]el [facility], [facility] CenterJbomVF[address] Yannick Elizalde Notes/Report: NON-FASTING; NON-FASTING; NON-FASTING GLUCOSE [...] Reviewed date:03/29/2024 12:29:19 PM Interpretation: Performing Lab:[facility] [employer] [id number] Khus[place]el [facility], [facility] CenterIaqcHU[address] Yannick Elizalde Notes/Report: NON-FASTING; NON-FASTING; NON-FASTING WHITE [...] MPV 12.2 7.5-12.5 fL ABSOLUTE NEUTROPHILS [phone] cells/uL ABSOLUTE LYMPHOCYTES 2514 342-0403 cells/uL ABSOLUTE MONOCYTES 613 200-950 cells/uL ABSOLUTE EOSINOPHILS 161 15-500 cells/uL ABSOLUTE BASOPHILS 44 0-200 cells/uL NEUTROPHILS 73.2 LYMPHOCYTES 15.6 MONOCYTES 8.4 EOSINOPHILS 2.2 BASOPHILS 0.6 CULTURE, URINE, ROUTINE (395 ) Reviewed date:03/30/2024 01:23:39 PM Interpretation: Performing Lab:CB, [facility], [facility] CenterApimHN[address] Yannick Elizalde Notes/Report: NON-FASTING; NON-FASTING; NON-FASTING CULTURE, URINE, ROUTINE SEE NOTE CULTURE, URINE, ROUTINE Micro Number: [id number] Test Status: Final Specimen Source: Urine Specimen Quality: Adequate Result: No Growth M-Comprehensive Metabolic Pa ezio Reviewed date:05/12/2024 10:37:34 [...] AGRATIO 1.7 1.1-1.8 ALP 54 38-126 U/L H-MICROALB Reviewed date:05/10/2024 04:46:34 PM Interpretation: Performing Lab: Notes/Report: MICROALB 27.000 0-16.7 mg/L M-Complete Blood Count Auto Diff Reviewed date:05/12/2024 [...] 0.2 0.0-0.4 K/mm3 BA# 0.1 0-0.2 K/mm3 CULTURE, URINE, ROUTINE (395 ) Reviewed date:12/21/2024 05:53:33 PM Interpretation: Performing Lab:[facility] [place] [address], [facility] CenterNxyvJG[address] Yannick Elizalde Notes/Report: NON-FASTING CULTURE, URINE, ROUTINE SEE NOTE CULTURE, URINE, ROUTINE Micro Number: [id number] Test Status: Final Specimen Source: Urine Specimen Quality: Adequate Result: Mixed genital brittani isolated. These superficial bacteria are not indicative of a urinary tract infection. No further organism identification is warranted on this specimen. If clinically indicated, recollect clean-catch, mid-stream urine and transfer immediately to Urine Culture Transport Tube. X ray : Knee, Right Reviewed date:05/12/2024 10:37:34 AM Interpretation: Performing Lab: Notes/Report: Urinalysis Reviewed date:12/12/2024 02:14:08 PM Interpretation: Performing Lab: Notes/Report: Color/Clarity yellow Leuk small Nitrite neg Urobili 0.2 Protein neg pH 5.5 Blood neg Sp. Gr. >=1.030 Ketone neg Bili neg Glucose neg Urinalysis Reviewed date:03/28/2024 11:12:14 AM Interpretation: Performing Lab: Notes/Report: Color/Clarity Roselyn Leuk neg Nitrite pos Urobili 0.2 Protein 100mg/dL pH 5.5 Blood neg Sp. Gr. >=1.030 Ketone neg Bili small Glucose neg M-Lipid Panel Reviewed date:05/12/2024 10:37:34 AM Interpretation: Performing Lab: Notes/Report: Patient Fasting? Y TRIG 171 30-150 mg/dl CHOL 194 140-200 mg/dl DLDL 110.44 100-129 mg/dL VLDL 34 0-40 mg/dL HDL 44 40-60 mg/dl CHLHDL 4.4 1-3.5 Medications Medication SIG (Take, Route, Frequency, Duration) [...] (Fluzone)--Medicar e only IM Intramuscular 02/06/2014 Administered [id number] exp luke e 09/13/2014 Influenza (Fluzone)--Medicar e only IM Intramuscular 01/29/2015 Administered Influenza (Fluzone)--Medicar e only IM Intramuscular 12/26/2016 Administered Influenza (Fluzone)--Medicar e only IM Intramuscular 12/14/2017 Administered Pneumovax 23 IM Intramuscular 02/28/2016 Administered Prevnar PCV-13 (Pneumococcal conjugate 13) IM Intramuscular 03/25/2017 Administered SHINGRIX IM Intramuscular 03/01/2018 Administered Tenivac (Td) 7 + yrs IM Intramuscular 03/25/2017 Administered Zostavax (Shingles) SC Subcutaneous 10/14/2016 Administered Lot # [id number] Problems Problem Type SNOMED Code ICD Code Onset Dates Problem Status W/U Status Risk Notes Problem Hypercalcemia (38284052) Hypercalcemia (E83.52) Active confirmed Problem Ileostomy present (710329772) Ileostomy status (Z93.2) Active confirmed Problem Recurrent urinary tract infection (367871036) Recurrent UTI (N39.0) Active confirmed Problem Hyperlipidemia (86295428) Hyperlipidemia (E78.5) Active confirmed Problem Essential hypertension (92489664) Essential hypertension (I10) Active confirmed Problem Back pain (248080672) Back pain (M54.9) Active confirmed Problem Chronic pain (35221367) Other chronic pain (G89.29) Active confirmed Problem Lower abdominal pain (25146493) Lower abdominal pain (R10.30) Active confirmed Problem Goiter (1931919) Goiter (E04.9) Active confirme d Problem Gastroesophageal reflux disease (441369333) Gastroesophageal reflux disease, esophagitis presence not specified (K21.9) Active confirmed Problem Body mass index 25-29 - overweight (196614045) BMI 28.0-28.9,adult (Z68.28) Active confirmed Problem Degeneration of lumbosacral intervertebral disc (48204232) DDD (degenerative disc disease), lumbosacral (M51.37) Active confirmed Problem Hypothyroidism (91685510) Hypothyroidism, unspecified type (E03.9) Active confirmed Problem Methicillin resistant Staphylococcus aureus infection (106364702) Methicillin resistant Staphylococcus aureus infection (A49.02) Active confirmed Problem Body mass index 25-29 - overweight (851475887) BMI 26.0-26.9,adult (Z68.26) Active confirmed Problem Atrophic vaginitis (86800496) Atrophic vaginitis (N95.2) Active confirmed Problem Seasonal allergic rhinitis (799222168) Chronic seasonal allergic rhinitis, unspecified trigger (J30.2) Active confirmed Problem Chondrocalcinosis (475849540) Chondrocalcinosis (M11.20) Active confirmed Problem Midline cystocele (060646960) Female bladder prolapse (N81.10) Active confirmed Problem Osteopenia following menopause (disorder) (850474492) Osteopenia after menopause (M81.0) Active confirmed Problem Arthropathy associated with a neurological disorder (09538028) Charcot's joint of left foot (M14.672) Active confirmed Problem Diabetic neuropathic arthropathy (943101128) Type 2 diabetes mellitus with diabetic neuropathic arthropathy, 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) Active confirmed Problem Blood chemistry abnormal (332702885) Elevated PTHrP level (R79.89) Active confirmed Problem 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) Active confirmed Vital Signs Heart Rate 98 /min 12/25/2024 Temperature 97.8 degrees Fahrenheit 12/25/2024 Blood pressure diastolic 64 mm Hg 12/25/2024 Height 62.5 in 12/25/2024 Blood pressure systolic 88 mm Hg 12/25/2024 Weight 123.6 lbs 12/25/2024 BMI 22.24 kg/m2 12/25/2024 Encounters Encounter Location Date Provider Diagnosis [facility] [address] [place] [address] 07/15/2024 Provider Migration [facility] [address] [facility] [address] [place] [address] 03/28/2024 Alexus Terrazas Low back pain, unspecified M54.50 ; Acute cystitis without hematuria N30.00 and Weakness R53.1 [facility] [address] [place] [address] 05/09/2024 [facility] Type 2 diabetes mellitus with diabetic neuropathic arthropathy, without long-term current use of insulin E11.610 ; Hypothyroidism, unspecified type E03.9 ; Essential hypertension I10 ; Hyperlipidemia E78.5 ; Other chronic pain G89.29 and Pain, joint, knee, right M25.561 [facility] [address] [place] [address] 12/12/2024 Catherine Mary Urinary frequency R35.0 ; Acute UTI N39.0 and Female bladder prolapse N81.10 [facility] [address] [place] [address] 12/20/2024 Dave Rocha Urinary frequency R35.0 [facility] [address] [facility] [address] [place] [address] 12/25[facility]20[facility] Diarrhea of presumed infectious origin R19.7 ; EMILY (acute kidney injury) N17.9 and Symptomatic hypotension I95.9 [facility] [address] [place] [address] 03/23/2024 Catherine Mary [facility] [address] [facility] [address] [place] [address] 05/11/2024 Catherine Mary [facility] [address] [place] [address] 05/22/2024 Catherine Mary [facility] [address] [facility] [address] [place] [address] 12/06/2024 Catherine Mary [facility] [address] [place] [address], [place] [id number] 12/13/2024 Catherine Mary Acute UTI N39.0 [facility] [address] [facility] [address] [place] [address] 12/19[facility] Z12.31 [facility] [address] [place], [place] [address] 12/21/2024 [facility] [address] [place], [place] [address] 12/27/2024 [facility] [address] [place] [address] 12/29/2024 Catherine Hernandez Assessments Encounter Date Diagnosis (ICD Code) Assessment Notes Treatment Notes Treatment Clinical Notes Section Notes 03/28/2024 Acute cystitis without hematuria (ICD-10 - N30.00) [facility] records reviewed. UA unremarkable. Urine CX [...] back pain, unspecified (ICD-10 - M54.50) 05/09/2024 Hypothyroidism, unspecified type (ICD-10 - E03.9) update labs as noted, continue oral replacement 05/09/2024 Type 2 diabetes mellitus with diabetic [...] canal on self examination, she notes seeing HOME APPLIANCES MECHANIC for this many years ago when prolapse was less severe and was asymptomatic - has not completed Pelvic Floor PT in past - discussed with patient, she will call and schedule appointment with HOME APPLIANCES MECHANIC, Dr. Tracey, regarding concerns for pelvic organ prolapse and if warranting further interventions at that time - patient has roumarcellusine follow up scheduled for annual visit in our clinic in the coming weeks 12/25/2024 EMILY (acute kidney injury) (ICD-10 - N17.9) 12/25/2024 Diarrhea of presumed infectious origin (ICD-10 [...] was on her way for evaluation. 12/25/2024 Symptomatic hypotension (ICD-10 - I95.9) 12/12/2024 Female bladder prolapse (ICD-10 - N81.10) could be contributing to symptoms, has consulted with HOME APPLIANCES MECHANIC previously 05/09/2024 Essential hypertension (ICD-10 - I10) [...] H-Ionized Calcium 04/02/2015 M-Comprehensive Metabolic Panel 11/02/19 M-Comprehensive Metabolic Panel 03/08/20 18 M-Hemoglobin A1C 03/08/2018 M-Hemoglobin A1C 11/01/2017 M-Lipid Panel 11/01/2017 M-Lipid Panel 03/08/2018 M-Thyroid Stimulating Hormone 03/08/2018 M-Thyroid Stimulating Hormone 11/01/2017 M-Parathyroid Hormone Intact 11/13/2022 M-Vitamin D 25 Hydroxy 11/13/2022 M-Vitamin D 25 Hydroxy 12/07/2019 M-Vitamin D 25 Hydroxy 10/10/2020 M-Microalb/Creat Ratio, Randm Ur 018 M-Microalb/Creat Ratio, Randm Ur 025 M-Microalb/Creat Ratio, Randm Ur 018 URINALYSIS, COMPLETE (5463) 04/14/2023 CULTURE, URINE, ROUTINE (395) 11/02/2022 NUCLEAR MED : Parathyroid scan 3 Next Appt Details Provider Name:Catherine Martinez ce, 01/01/2025 09:45:00 AM, [address] [facility], [address], [place], [address], Insurance Providers Payer Name Payer Address Payer Phone Subscriber Number Group Number Insured Name Patient Relationship to Insured Coverage Start Date Coverage End Date [place] [address] [place] [place] [address] [id number] Vera Cedillo Self - patient is the insured [facility] CLAIMS [address] [place] [address] [id number] Vera Cedillo Self - patient is the insured [employer] [address] [place] [address] [address] [place] [address] ACL Vera Cedillo Self - patient is the insured Medical (General) History Medical History History ICD Code Diabetes,Hyperlipidemia, Allergies, Ulce rative Colitis s/p ilostomy left eye trauma and subsequent hemorrhag e - left prosthetic eye hernia Osteopenia, 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
--- OUTSIDE RECORDS SUMMARY | 2025-01-01 09:36 | XMS_ITS | Clinical Summary ---
[facility] Address [address] [place] [address] Care Team Providers Care Welder Production Line Combination Name Role Phone Provider, No Known Primary [...] - Adults (1 - 1-dose 75+ series) INFLUENZA VACCINE 11/10/2024 COVID-19 Vaccine (2023- season) 2024 Care Teams Welder Production Line Combination Relationship Specialty Start Date End Date Provider, No Known [facility] [place] [address] PCP - General 06/05/15
[2025-01-01 10:21] LABS: Chloride 101 mmol/L (98-107); Sodium 135 mmol/L (136-145)
[2025-01-01 10:22] LABS: Potassium 4.5 mmoL/L (3.5-5.1)
[2025-01-01 10:25] LABS: Anion Gap 13.5 mEq/L (5-15); Blood Urea Nitrogen 16 mg/dl (7-17); Calcium 10.8 mg/dl (8.4-10.2); Carbon Dioxide 25 mmol/L (22.0-30.0); Creatinine,Serum 1.20 mg/dl (0.52-1.04); Estimated Glomerular Filt Rate 44 ml/min (>60); GFR (African American) 53 ML/MIN (>60); Glucose 163 mg/dl (74-100); Magnesium 1.3 mg/dl (1.6-2.3)
== END 2025-01-01 23:59 | disposition home or self-care (01) ==
LOC: LAB 09:09
PROVIDERS: PCP Nurse Practitioner Family; Visit Provider Internal Medicine Adolescent Medicine
DX: N17.9 Acute kidney failure, unspecified (principal); E83.42 Hypomagnesemia
CPT/HCPCS: 36415; 80048; 83735

== ENCOUNTER 2025-01-04 09:22 | Outpatient (CLI) | payer MEDICARE, OTHER, SELFPAY ==
--- OUTSIDE RECORDS SUMMARY | 2024-12-19 06:41 | XMS_ITS ---
Author Organization [facility] Address [address] [facility] [address] [place] [address] Care Team Providers Care Clinical Consultant Name Role Phone Mary Catherine Primary Care Provider REASON FOR VISIT mammogram order Encounters Encounter Location Date Provider Diagnosis [facility] [address] [place], [place] [address] 12/19/2024 Catherine Hernandez Breast cancer screening by mammogram Z12.31 Assessments Encounter Date Diagnosis (ICD Code) Assessment Notes Treatment Notes Treatment Clinical Notes Section Notes 12/19/2024 Breast cancer screening by mammogram (ICD-10 - Z12.31) Plan Of Treatment Pending Test Test Name Order Date Mammogram : Bilateral 12/19/2024 Next Appt Details Provider Name:Catherine Martinez ce, 01/25/2025 02:45:00 PM, [address], [address], [place], [place], [address], Progress Notes * James GUTIÉRREZLaurieB:1950 (74 yo F)Acc No.[id number]:12/19/2024 Patient: Vera KELLER :1950 A ge:74 Y S ex:Female [address] [place], [address] Subjective: * Chief Complaints: * M ammogram order * Medical History: * Surgical History: * Hospitalization/Major Diagno stic Procedure: * Medications: Objective: * Vitals: * Physical Examination: Assessment: * Assessment: 1. B reast cancer screening by mammogram - Z12.31 Plan: * Treatment: * Procedure Codes: * true * Date: Generated for Sim fierro/Jasmyn/Payton on: 0 01/04/2025 09:27 AM EDT
--- OUTSIDE RECORDS SUMMARY | 2024-12-20 07:00 | XMS_ITS ---
Author Organization [facility] Address [address] [place] [address] Care Team Providers Care Events Intern Name Role Phone Catherine Hernandez Primary Care Provider Dave Rocha Unavailable [phone] Allergies Allergen (clinical drug ingredient) Drug/Non Drug [...] 12/20/2024 Encounters Encounter Location Date Provider Diagnosis [facility] [address] [place] [address] 12/20/2024 Dave Rocha Urinary frequency R35.0 Assessments [...] canal on self examination, she notes seeing EDITORIAL ASSISTANT for this many years ago when prolapse was less severe and was asymptomatic - has not completed Pelvic Floor PT in past - discussed with patient, she will call and schedule appointment with EDITORIAL ASSISTANT, Dr. Tracey, regarding concerns for pelvic organ [...] canal on self examination, she notes seeing EDITORIAL ASSISTANT for this many years ago when prolapse was less severe and was asymptomatic - has not completed Pelvic Floor PT in past - discussed with patient, she will call and schedule appointment with EDITORIAL ASSISTANT, Dr. Tracey, regarding concerns for pelvic organ prolapse and if warranting further interventions at that time - patient has rountine follow up scheduled for annual visit in our clinic in the coming weeks Next Appt Details Follow Up: prn, Reason: Provider Name:Catherine Martinez ce, 01/25/2025 02:45:00 PM, [address] [place] [facility] [address] [facility], [address], [place], [address], Progress Notes * James GUTIÉRREZLaurieB:1950 (74 yo F)Acc No.[id number]:12/20/2024 Progress Notes Patient: Vera KELLER Provider: Gael Rocha MD :1950 A ge:74 Y S ex:Female Date:12/20/2024 Address:[address] [place] [address], [facility] Pcp:Catherine Hernandez Subjective: * Chief Complaints: * [...] bladder prolapse years ago and has seen EDITORIAL ASSISTANT, Dr. Tracey, for this in the past [...] is planning on calling to schedule with EDITORIAL ASSISTANT for follow up on bladder prolapse and [...] canal on self examination, she notes seeing EDITORIAL ASSISTANT for this many years ago when prolapse was less severe and was asymptomatic - has not completed Pelvic Floor PT in past - discussed with patient, she will call and schedule appointment with EDITORIAL ASSISTANT, Dr. Tracey, regarding concerns for pelvic organ [...] 12/20/2024 Generated for Printi ng/Fatwing/eTransmitting on: 0 01/04/2025 09:27 AM EDT History and Physical Notes * HPI [...] bladder prolapse years ago and has seen EDITORIAL ASSISTANT, Dr. Tracey, for this in the past [...] is planning on calling to schedule with EDITORIAL ASSISTANT for follow up on bladder prolapse and has not yet completed pelvic floor PT. Examination Category Sub-Category Detail Notes Category Not es General Examination Heart: Regular Rate and Rhyt hm Lungs: clear to auscultatio n, Abdomen: soft, ND, BS present , no CVA tenderness, General Pleasant and Coopera tive, NAD on RA, Psych Normal Mood/Affect
--- OUTSIDE RECORDS SUMMARY | 2024-12-25 08:45 | XMS_ITS ---
Author Organization [facility] D [facility] Address [address] [place] [address] Care Team Providers Care Plumbing Mechanic Name Role Phone Catherine Hernandez Primary Care [...] 12/25/2024 Encounters Encounter Location Date Provider Diagnosis [facility] [address] [place] [address] 12/25/2024 Catherine Hernandez Diarrhea of presumed infectious [...] discharg e, Reason: Provider Name:Catherine Martinez paty, 01/25/2025 02:45:00 PM, [address], [address], [place], [address], Progress Notes * James GUTIÉRREZaDOB:1950 (74 yo F)Acc No.[id number]:12/25/2024 Progress Notes Patient: Vera KELLER Provider: MIGUEL Ace :1950 A ge:74 Y S ex:Female Date:12/25/2024 Address:[address] [facility], [place], [id number] Subjective: * Chief Complaints: * 1 . [...] Completed true * Provider: MIGUEL Ace Date: 12/25/2024 Generated for Sim fierro/Jasmyn/Northitting on: 01/04/2025 09:28 AM EDT History and Physical Notes * Examination Category Sub-Category Detail Notes Category Not es General Examination Alert an d oriented but ill-appearing. She has copious green watery stool in her ileostomy bag. Heart has regular rate and rhythm, lungs are clear. Abdomen is soft, nondistended. No edema.
--- OUTSIDE RECORDS SUMMARY | 2024-12-28 05:00 | XMS_ITS ---
Author Organization [facility] Address [address] [place], [place] [address] Care Team Providers Care Woven Blind Loom Tender Name Role Phone Catherine Hernandez Primary Care Provider [phone] REASON FOR VISIT yearly AWV Encounters Encounter Location Date Provider Diagnosis [facility] [address] [place], [place] [address] 12/28/2024 Catherine Hernandez Plan Of Treatment Next Appt Details Provider Name:Catherine Martinez ce, 01/25/2025 02:45:00 PM, [address], [address], [place], [place], [address], Progress Notes * James GUTIÉRREZaDOB:1950 (74 yo F)Acc No.[id number]:12/28/2024 Progress Notes Patient: Vera KELLER Provider: MIGUEL Ace :1950 A ge:74 Y S ex:Female Date:12/28/2024 Address:[address], [place] Subjective: * Chief Complaints: * 1 . yearly AWV. * Medical History: Objective: * Vitals: Assessment: Plan: * Treatment: * * Electronic signature of Charo Hernandez APRN on 01/04/2025 at 09:27 AM EDT Sign off status: Pending * Provider: MIGUEL Ace Date: 0 12/28/2024 Generated for Sim fierro/Jasmyn/Payton on: 0 01/04/2025 09:27 AM EDT
--- OUTSIDE RECORDS SUMMARY | 2025-01-01 05:45 | XMS_ITS ---
Author Organization [facility] Address [address] [place] [address] Care Team Providers Care Manual Arts Therapist Name Role Phone Catherine Hernandez Primary Care Provider [phone] Allergies Allergen (clinical drug ingredient) Drug/Non Drug Allergy documented on EMR Reaction Allergy Type Onset Date Status Ciprofloxacin shakes Drug Allergy Act sofia nitrofurantoin, macrocrystals / nitrofurantoin, monohydrate Macrobid abdominal cramping Drug Allergy Active REASON FOR VISIT [facility] D/C 12/27/2024-had labs for Dr. Milner this AM at [facility], c/o still being weak, appetite is better, is not taking any meds at this time Medications Medication SIG (Take, Route, Frequency, Duration) Notes Start Date End Date Status Mupirocin 2 % 1 jayson applied topica lly 3 times a day; Duration: 7 days Active Synthroid 75 MCG 1 tab(s) orally once a day; Duration: 90 days Active Atorvastatin Calcium 20 MG TAKE 1 TABLET orally once a day at night; Duration: 90 days Active Pantoprazole Sodium 40 MG 1 tab(s) orall y once a day; Duration: 30 days Active FREESTYLE LITE TEST STRIPS USE TO CHECK BLOOD SUGAR DX:E11.9 ONCE DAILY; Duration: 100 DAYS Active Lidocaine 5 % 1 patch applied topically once a day; Duration: 30 day(s) prn Active Loratadine 10 MG TAKE 1 TABLET DAILY Active ACCU-CHECK AVIA PLUS TEST STRIPS NA DIRECTED ONCE A DAY ONCE A DAY Active Voltaren Arthritis Pain 1 % as directed applied topically 4 times a day Active Ondansetron 4 MG 1 tablet on the tong ue and allow to dissolve Orally prn Active Januvia 100 MG TAKE 1 TABLET DAILY; Duration: 90 days Not-Taking metFORMIN HCl 1000 MG 1 cap orally once a day; Duration: 90 days Not-Takin g Glimepiride 4 MG 1 1/2 tab(s) orally once a day; Duration: 90 days Not-Taking Losartan Potassium 25 MG 1 tab(s) orally once a day; Duration: 90 days Active Problems Problem Type SNOMED Code ICD Code Onset Dates Problem Status W/U Status Risk Notes Problem Hypomagnesemia (183092324) Hypomagnesemia (E83.42) Active confirmed Vital Signs Temperature 97.6 degrees Fahrenheit 01/02/20 25 Heart Rate 78 /min 01/01/2025 Blood pressure systolic 116 mm Hg 01/02/20 25 Blood pressure diastolic 52 mm Hg 025 Height 62.5 in 01/01/2025 Weight 130 lbs 01/01/2025 BMI 23.4 kg/m2 01/01/2025 Encounters Encounter Location Date Provider Diagnosis [facility] [address] [place] [address] 01/01/2025 Catherine Hernandez EMILY (acute kidney injury) N17.9 ; Hypomagnesemia E83.42 ; Hypercalcemia E83.52 ; Other specified symptoms and signs involving the digestive system and abdomen R19.8 ; Ileostomy status Z93.2 ; Hospital discharge follow-up Z09 and Type 2 diabetes mellitus with diabetic neuropathic arthropathy, without long-term current use of insulin E11.610 Assessments Encounter Date Diagnosis (ICD Code) Assessment Notes Treatment Notes Treatment Clinical Notes Section Notes 01/01/2025 EMILY (acute kidney injury) (ICD-10 - N17.9) Labs drawn this morning were reviewed personally and showed improvement since hospital discharge. Labs will be drawn on 01/04 and reviewed personally to evaluate changes since discharge. Pt was encouraged to continue increasing her fluid intake as tolerated. 01/01/2025 Hypomagnesemia (ICD-10 - E83.42) Labs drawn this morning were reviewed personally and showed improvement since hospital discharge. Labs will be drawn on 01/04 and reviewed personally to evaluate changes since discharge. Pt was advised her levels should stabilize some once she starts eating more consistently and incorporates adequate fluids for hydration. 01/01/2025 Hypercalcemia (ICD-10 - E83.52) Labs drawn this morning were reviewed personally and showed improvement since hospital discharge. Labs will be drawn on 01/04 and reviewed personally to evaluate changes since discharge. Pt was advised to continue consuming a consistent and balanced diet along with adequate water for hydration. 01/01/2025 Other specified symptoms and signs involving the digestive system and abdomen (ICD-10 - R19.8) 01/01/2025 Ileostomy status (ICD-10 - Z93.2) 01/01/2025 Hospital discharge follow-up (ICD-10 - Z09) Labs drawn this morning were reviewed personally and showed improvement since hospital discharge. Labs will be drawn on 01/04 and reviewed personally to evaluate changes since discharge. Pt was instructed to continue taking her Synthroid daily and adding back in her Januvia for blood sugar control. Pt was advised she may add back her Glimepiride as her appetite returns and she is eating meals consistently for added control. Pt was advised to hold off on taking her Metformin, Losartan, and Atorvastatin until advised otherwise. Pt was encouraged to continue consuming adequate fluids and a balanced diet as she moves forward. 01/01/2025 Type 2 diabetes mellitus with diabetic neuropathic arthropathy, without long-term current use of insulin (ICD-10 - E11.610) Plan Of Treatment Treatment Notes Assessment Notes EMILY (acute kidney injury) Labs drawn thi s morning were reviewed personally and showed improvement since hospital discharge. Labs will be drawn on 01/04 and reviewed personally to evaluate changes since discharge. Pt was encouraged to continue increasing her fluid intake as tolerated. Hypomagnesemia Labs drawn this morn ing were reviewed personally and showed improvement since hospital discharge. Labs will be drawn on 01/04 and reviewed personally to evaluate changes since discharge. Pt was advised her levels should stabilize some once she starts eating more consistently and incorporates adequate fluids for hydration. Hypercalcemia Labs drawn this morn ing were reviewed personally and showed improvement since hospital discharge. Labs will be drawn on 01/04 and reviewed personally to evaluate changes since discharge. Pt was advised to continue consuming a consistent and balanced diet along with adequate water for hydration. Hospital discharge follow-up Labs drawn this morning were reviewed personally and showed improvement since hospital discharge. Labs will be drawn on 01/04 and reviewed personally to evaluate changes since discharge. Pt was instructed to continue taking her Synthroid daily and adding back in her Januvia for blood sugar control. Pt was advised she may add back her Glimepiride as her appetite returns and she is eating meals consistently for added control. Pt was advised to hold off on taking her Metformin, Losartan, and Atorvastatin until advised otherwise. Pt was encouraged to continue consuming adequate fluids and a balanced diet as she moves forward. Future Test Test Name Order Date M-Complete Blood Count Auto Diff 025 M-Basic Metabolic Panel 01/04/2025 M-Magnesium 01/04/2025 Next Appt Details Follow Up: 3 Weeks, Reason: Provider Name:Catherine Martinez ce, 01/25/2025 02:45:00 PM, [address], [address], [place], [address], Progress Notes * Clau GUTIÉRREZB:1950 (74 yo F)Acc No.[id number]:01/01/2025 HOSP F/U Patient: Vera KELLER Provider: MIGUEL Ace :1950 A ge:74 Y S ex:Female Date:01/01/2025 Address:[address], [place], [id number] Subjective: * Chief Complaints: * 1 . [facility] D/C 12/27/2024-had labs for Dr. Milner this AM at [facility]. 2. C/o still being weak, appetite is better. 3. Is not taking any meds at this time. * HPI: g en: Gen [age]yo female comes in following-up on recent discharge from [facility]. Pt explains she is feeling alright this morning but is still extremely weak. Pt explains she is taking more caution with movement now. Pt denies any dizziness, headaches, nausea, or vomiting. Pt explains her appetite is returning and was able to eat 2 meals last night. Pt explains she took her Synthroid this morning but has not taken any of her other medications. Pt checked fingerstick glucose this morning and reported 125. Pt explains her diarrhea has slowed some and explains her stool has been less runny than normal . Pt was given Imodium in the hospital and explained it provided great relief. Pt was given instructions to drink half a dose as needed if her stool becomes runny again. Pt explains she has increased her fluid intake as instructed and has been urinating more frequently. Pt has no other concerns today. . I ntrim History: Transition of care visit from hospital D ate of admission to hospital: 0 12/29/2024, D ate of receipt of hospital admission report: 0 12/31/2024,?Date of discharge from hospital: 0 12/31/2024, D ate of receipt of hospital discharge summary: 0 01/01/2025, D ischarge medications reviewed and reconciled from hospital: M edications changed (e.g. discontinued, changed or added). * ROS: C ONSTITUTIONAL: See HPI Y es. D ERMATOLOGY: no R cassidy. G ASTROENTEROLOGY: See HPI Y es. U ROLOGY: Reviewed, No Symptoms Reported: Y es. * Medical History: D iabetes,Hyperlipidemia, [...] * Hospitalization/Major Diagno stic Procedure: D ehydration, MEILY , [facility] x 2 -dehydration 12/2024. * Family History: F ather: , Diabetes, Heart issues. M other: , Breast cancer. P aternal Grand Father: , Diabetes. P aternal Grand Mother: . M aternal Grand Father: , emphysema. M aternal Grand Mother: , emphysema. P aternal uncle: . M aternal uncle: alive, 2 uncles -cancer. M aternal aunt: alive. S iblings: alive. C hildren: alive. 1 brother(s) , 1 sister(s) - [...] 1 tab(s) orally once a day , Not-Taking Glimepiride 4 MG Tablet 1 1/2 tab(s) orally once a day , Not-Taking metFORMIN HCl 1000 MG Tablet 1 cap orally once a day , Not-Taking Januvia 100 MG Tablet TAKE 1 TABLET DAILY , Medication List reviewed and reconciled with the patient * Allergies: C iprofloxacin: shakes, Macrobid: abdominal cramping - Side Effects. Objective: * Vitals: N urse: jl, Pain: 0, Temp: 97.6, RR: 18, HR: 78, BP: 116/52, Ht: 62.5, Wt: 130, BMI:23.4. * Examination: G eneral Examination: General P leasant and Cooperative, NAD on RA,. Chest: n ormal shape and expansion. Heart: R egular Rate and Rhythm, no murmur, rubs or gallops. Lungs: L CTAB, No wheezes, crackles or rhonchi, Good air movement,. Abdomen: S oft, NTND, BSNA, No organomegaly or peritoneal signs.. Skin: w ithout acute rashes. Extremities: n o clubbing, no edema,. Psych N ormal Mood/Affect. Assessment: * Assessment: 1. A KI (acute kidney injury) - N17.9 (Primary) 2 . H ypomagnesemia - E83.42 3 . H ypercalcemia - E83.52 4 . O ther specified symptoms and signs involving the digestive system and abdomen - R19.8 5 . I leostomy status - Z93.2 6 . H ospital discharge follow-up - Z09 7 . T ype 2 diabetes mellitus with diabetic neuropathic arthropathy, without long-term current use of insulin - E11.610 Plan: * Treatment: 2. H ypomagnesemia L AB: M-Basic Metabolic Panel (Ordered for 01/04/2025) L AB: M-Complete Blood Count Auto Diff (Ordered for 01/04/2025) L AB: M-Magnesium (Ordered for 01/04/2025) Notes: Labs drawn this morning were reviewed personally and showed improvement since hospital discharge. Labs will be drawn on 01/04 and reviewed personally to evaluate changes since discharge. Pt was advised her levels should stabilize some once she starts eating more consistently and incorporates adequate fluids for hydration. 3. H ypercalcemia L AB: M-Basic Metabolic Panel (Ordered for 01/04/2025) L AB: M-Complete Blood Count Auto Diff (Ordered for 01/04/2025) L AB: M-Magnesium (Ordered for 01/04/2025) Notes: Labs drawn this morning were reviewed personally and showed improvement since hospital discharge. Labs will be drawn on 01/04 and reviewed personally to evaluate changes since discharge. Pt was advised to continue consuming a consistent and balanced diet along with adequate water for hydration. 4. H ospital discharge follow-up Notes: Labs drawn this morning were reviewed personally and showed improvement since hospital discharge. Labs will be drawn on 01/04 and reviewed personally to evaluate changes since discharge. Pt was instructed to continue taking her Synthroid daily and adding back in her Januvia for blood sugar control. Pt was advised she may add back her Glimepiride as her appetite returns and she is eating meals consistently for added control. Pt was advised to hold off on taking her Metformin, Losartan, and Atorvastatin until advised otherwise. Pt was encouraged to continue consuming adequate fluids and a balanced diet as she moves forward. * Procedure Codes: 9 9496 TRANS CARE MGMT 7 DAY DISCH, 1111F DSCHRG MED/CURRENT MED MERGE * Follow Up: 3 Weeks * * Sign off status: Completed true * Provider: MIGUEL Ace Date: 0 01/01/2025 Generated for Sim fierro/Jasmyn/Northitting on: 0 01/04/2025 09:28 AM EDT History and Physical Notes * HPI (History of Present Illness) Category Sub-Category Detail Notes Category Not es Intrim History Transition of care v isit from hospital Date of admission to hospital:: 12/29/2024 Date of receipt of hospital admission re port:: 12/31/2024 Date of discharge from hospital:: 2024 Date of receipt of hospital discharge mosley mmary:: 01/01/2025 Discharge medications review ed and reconciled from hospital:: Medications changed (e.g. discontinued, changed or added) gen Gen 74yo female come s in following-up on recent discharge from [facility]. Pt explains she is feeling alright this morning but is still extremely weak. Pt explains she is taking more caution with movement now. Pt denies any dizziness, headaches, nausea, or vomiting. Pt explains her appetite is returning and was able to eat 2 meals last night. Pt explains she took her Synthroid this morning but has not taken any of her other medications. Pt checked fingerstick glucose this morning and reported 125. Pt explains her diarrhea has slowed some and explains her stool has been less runny than normal . Pt was given Imodium in the hospital and explained it provided great relief. Pt was given instructions to drink half a dose as needed if her stool becomes runny again. Pt explains she has increased her fluid intake as instructed and has been urinating more frequently. Pt has no other concerns today. Examination Category Sub-Category Detail Notes Category Not es General Examination Heart: Regular Rate and Rhythm, no murmur, rubs or gallops Lungs: LCTAB, No wheezes, c rackles or rhonchi, Good air movement, Abdomen: Soft, NTND, BSNA, No organomegaly or peritoneal signs. Extremities: no clubbing, no john a, Skin: without acute rashes Chest: normal shape and exp ansion General Pleasant and Coopera tive, NAD on RA, Psych Normal Mood/Affect
--- OUTSIDE RECORDS SUMMARY | 2025-01-04 09:27 | XMS_ITS | Encounter Summary ---
Author Organization Healthcare Address [address] [place] [address] Care Team Providers Care Ambulatory Technologist Name Role Phone Catherine Hernandez HOUSEHOLD APPLIANCES SERVICE TECHNICIAN Primary Care Provider +1- [phone] Reason for Referral * Consultation (Routine) - Authorized Specialty Diagnoses / Procedures Referred By Damaris donald Referred To Contact Nephrology Diagnoses Low bone density Acquired hypothyroidism Elevated parathyroid hormone related peptide level Catherine Hernandez, HOUSEHOLD APPLIANCES SERVICE TECHNICIAN [address] [address] Phone: tel: fax: [facility] [address] [address] Phone: tel: fax: Referral ID Status Reason Start Date Expiration Date Visits Requested Visits Authorized [id number] Authorized Specialty Services Required 10/15/2023 04/15/2025 1 1 Encounter Details Date Type Department Care Team (Late st Contact Info) Description 10/15/2023 Community [facility] Community Practice [address] [place] [address] Catherine Hernandez, HOUSEHOLD APPLIANCES SERVICE TECHNICIAN [address] [address] Low bone density (Primary Dx); [...] [facility], [address] [place] [address] Lacho Lenz MD [address] [facility] [address] [place] [address] 11/08/2025 8:20 AM EDT Office Visit [facility] Mineral [facility] [address] [facility], [address] [place] [address] Lauri Zavala MD [address] [facility] [address] [place] [address] 11/08/2025 8:40 AM EDT Appointment [facility]eral [facility] [address] [facility], [address] [place] [address] Scheduled Referrals Name Type Priority Associated Diagnoses Orde r Schedule Ambulatory referral to Nephrology Outpatient Referral Routine Low bone density Acquired hypothyroidism Elevated parathyroid hormone related peptide level Ordered: 10/15/2023 documented as of this encounter Visit Diagnoses Diagnosis Low bone density- Primary Acquired hypothyroidism Unspecified hypothyroidism Elevated parathyroid hormone related peptide level documented in this encounter Care Teams Ambulatory Technologist Relationship Specialty Start Date End Date Catherine Hernandez APRN [facility] [address] PCP - General 08/23/20 documented as of this encounter
--- OUTSIDE RECORDS SUMMARY | 2025-01-04 09:27 | XMS_ITS | Encounter Summary ---
Author Organization Healthcare Address [address] [place] [address] Care Team Providers Care Financial Agent Name Role Phone Catherine Hernandez APRN Primary Care Provider +1- [phone] Reason for Referral * Consultation (Routine) - Closed Specialty Diagnoses / Procedures Referred By Damaris donald Referred To Contact Nephrology Diagnoses Osteoporosis, unspecified osteoporosis type, unspecified pathological fracture presence Hypercalcemia Catherine Hernandez APRN [address] [address] Phone: tel: fax: Lauri Zavala MD [address] [address] Phone: tel: fax: Referral ID Status Reason Start Date Expiration Date V isits Requested Visits Authorized [id number] Closed Specialty Services Required 05/22/2024 11/21/2025 1 1 Encounter Details Date Type Department Care Team (Latest Contact Info) Description 05/22/2024 Community Orders Community Practice [address] [place] [address] Catherine Hernandez APRN [address] [address] Osteoporosis, unspecified osteoporosis type, unspecified [...] Upcoming Encounters Date Type Department Care Team ([facility] st Contact Info) Description 04/26/2025 2:00 PM EST Consult Medical Office Building Surgical Specialties [address] [facility], [address] [place] [address] Lacho Lenz MD [address] [facility] [address] [place] [address] 11/08/2025 8:20 AM EDT Office Visit [facility] Mineral Metabolism [address] [facility], [address] [place] [address] Lauri Zavala MD [address] [facility] [address] [place] [address] 11/08/2025 8:40 AM EDT Appointment [facility]eral Met[facility] [address] [facility], [address] [place] [address] Scheduled Referrals Name Type Priority Associated Diagnoses Orde r Schedule Ambulatory referral to Nephrology Outpatient Referral Routine Osteoporosis, unspecified osteoporosis type, unspecified pathological fracture presence Hypercalcemia Ordered: 05/22/2024 documented as of this encounter Visit Diagnoses Diagnosis Osteoporosis, unspecified osteoporosis type, unspecified pathological fracture presence- Primary Hypercalcemia documented in this encounter Care Teams Financial Agent Relationship Specialty Start Date End Date Catherine Hernandez APRN [address] [place] [address] PCP - General 08/23/20 documented as of this encounter
--- OUTSIDE RECORDS SUMMARY | 2025-01-04 09:27 | XMS_ITS | Clinical Summary ---
[facility] [address] [place] [address] Care Team Providers Care Rug Sample Beveler Name Role Phone Provider, No Known Primary [...] COVID-19 Vaccine (2023- season) 2024 Care Teams Rug Sample Beveler Relationship Specialty Start Date End Date Provider, No Known [facility] [place] [address] PCP - General 06/05/15
--- OUTSIDE RECORDS SUMMARY | 2025-01-04 09:27 | XMS_ITS | Clinical Summary ---
Author Organization Healthcare Address [address] [place] [address] Care Team Providers Care Plant Sciences Professor Name Role Phone Catherine Hernandez COURT COMMISSIONER Primary Care Provider [phone]- [phone] Allergies Active Allergy Reactions Criticality Noted Date [...] Description 11/02/2024 8:40 AM EDT Office Visit [facility] [address], [address] [place] [address] Lauri Zavala MD Age-related osteoporosis without current pathological fracture (Primary Dx); Stage 3a chronic kidney disease ([facility]); Hypercalcemia; Hyperparathyroidism ([facility]/HCC); IgG lambda monoclonal gammopathy 11/02/2024 8:10 AM EDT - 11/02/2024 11:59 PM EDT Hospital Encounter [facility] [address], [address] [place] [address] Age-related osteoporosis without current pathological [...] Upcoming Encounters Date Type Department Care Team ([facility] st Contact Info) Description 04/26/2025 2:00 PM EST Consult Medical Office Building [facility] [address], [address] [place] [address] Lacho Lenz MD [address] [facility] [address] [place] [address] 11/08/2025 8:20 AM EDT Office Visit Professional [facility] [address], [address] [place] [address] Lauri Zavala MD [address] [place] [address] 11/08/2025 8:40 AM EDT Appointment [facility] [address], [address] [place] [address] Health Maintenance Due Date Last [...] or (1 - 1-dose 75+ series) 12/11/2023 [id number] Vaccine (4 - 2024- season) 2024 02/11/2021, [...] Whitney ging Narrative 11/12/2024 10:28 AM EDT [facility] [address] [place] [address] DXA Bone Densitometry Report: [Date of exam] BMD test performed using the [employer] DXA System (analysis version: 14.10) manufactured by [employer]. REFERRING PROVIDER: Dr. Lauri Zavala MD [...] lt from Last 3 Months Insurance MEDICARE [facility] Care Teams Plant Sciences Professor Relationship Specialty Start Date End Date Catherine Hernandez APRN [address] [place] [address] PCP - General 08/23/20
--- OUTSIDE RECORDS SUMMARY | 2025-01-04 09:28 | XMS_ITS | Patient Health Record ---
Author Organization [facility] Address [address] [place] [address] Care Team Providers Care Insulation Power Unit Tender Name Role Phone Mary Catherine Primary Care Provider Dave Rocha Unavailable [phone] Alexus Terrazas Unavailable [phone] Migration, Provider Unavailable Unavailable Allergies Allergen (clinical [...] neg Bili neg Glucose neg Urinalysis Reviewed date:12/12/2024 02:14:08 PM Interpretation: Performing Lab: Notes/Report: Color/Clarity yellow Leuk small Nitrite neg Urobili 0.2 Protein neg pH 5.5 Blood neg Sp. Gr. >=1.030 Ketone neg Bili neg Glucose neg X ray : Knee, Right Reviewed date:05/12/2024 10:37:34 AM Interpretation: Performing Lab: Notes/Report: COMPREHENSIVE METABOLIC PANE L ([id number]) Reviewed date:03/29/2024 12:29:19 PM Interpretation: Performing Lab:CB, [facility] [id number], [facility] Center[facility] Yannick Elizalde Notes/Report: NON-FASTING; NON-FASTING; NON-FASTING GLUCOSE [...] 9) Reviewed date:03/29/2024 12:29:19 PM Interpretation: Performing Lab:CB, [facility] [address] [facility], [facility] Center[facility]ad[facility] Yannick Elizalde Notes/Report: NON-FASTING; NON-FASTING; NON-FASTING WHITE [...] MPV 12.2 7.5-12.5 fL ABSOLUTE NEUTROPHILS 5344 3569-9968 cells/uL ABSOLUTE LYMPHOCYTES 3098 186-5276 cells/uL ABSOLUTE MONOCYTES 613 200-950 cells/uL ABSOLUTE EOSINOPHILS 161 15-500 cells/uL ABSOLUTE BASOPHILS 44 0-200 cells/uL NEUTROPHILS 73.2 LYMPHOCYTES 15.6 MONOCYTES 8.4 EOSINOPHILS 2.2 BASOPHILS 0.6 CULTURE, URINE, ROUTINE (395 ) Reviewed date:03/30/2024 01:23:39 PM Interpretation: Performing Lab:[facility], [facility] Media[facility]shaZH[address] Yannick Elizalde Notes/Report: NON-FASTING; NON-FASTING; NON-FASTING CULTURE, URINE, ROUTINE SEE NOTE CULTURE, URINE, ROUTINE Micro Number: [id number] Test Status: Final Specimen Source: Urine Specimen Quality: Adequate Result: No Growth CULTURE, URINE, ROUTINE (395 ) Reviewed date:12/21/2024 05:53:33 PM Interpretation: Performing Lab:[facility] [address] F[address], [facility] MediaGukdJA[address] Yannick Elizalde Notes/Report: NON-FASTING CULTURE, URINE, ROUTINE SEE NOTE CULTURE, URINE, ROUTINE Micro Number: [id number] Test Status: Final Specimen Source: Urine Specimen Quality: Adequate Result: Mixed genital brittani isolated. These superficial bacteria are not indicative of a urinary tract infection. No further organism identification is warranted on this specimen. If clinically indicated, recollect clean-catch, mid-stream urine and transfer immediately to Urine Culture Transport Tube. H-MICROALB Reviewed date:05/10/2024 04:46:34 PM Interpretation: Performing Lab: Notes/Report: MICROALB 27.000 0-16.7 mg/L Urinalysis Reviewed date:03/28/2024 11:12:14 AM Interpretation: Performing Lab: Notes/Report: Color/Clarity Roselyn Leuk neg Nitrite pos Urobili 0.2 Protein 100mg/dL pH 5.5 Blood neg Sp. Gr. >=1.030 Ketone neg Bili small Glucose neg M-Complete Blood Count Auto Diff [...] AGRATIO 1.7 1.1-1.8 ALP 54 38-126 U/L M-Thyroid Stimulating Hormon e Reviewed date:05/12/2024 10:37:34 AM Interpretation: Performing Lab: Notes/Report: TSH 1.45 0.465-4.68 uIU/mL M-Lipid Panel Reviewed date:05/12/2024 10:37:34 AM Interpretation: Performing Lab: Notes/Report: Patient Fasting? Y TRIG 171 30-150 mg/dl CHOL 194 140-200 mg/dl DLDL 110.44 100-129 mg/dL VLDL 34 0-40 mg/dL HDL 44 40-60 mg/dl CHLHDL 4.4 1-3.5 M-Uric Acid Reviewed date:05/12/2024 10:37:34 AM Interpretation: Performing Lab: Notes/Report: URIC 6.5 2.5-6.2 mg/dl M-Hemoglobin A1C Reviewed date:05/12/2024 10:37:34 AM Interpretation: Performing Lab: Notes/Report: HGBA1C 6.5 4.0-6.0 % < 6% Non-Diabetic Level < 7% Controlled Diabetic Level > 8% Poorly Controlled Diabetic Level Medications Medication SIG (Take, Route, Frequency, Duration) Notes Start Date End Date Status Mupirocin 2 % 1 jayson applied topica lly 3 times a day; Duration: 7 days Active Lidocaine 5 % 1 patch applied topically once a day; Duration: 30 day(s) prn Active Loratadine 10 MG TAKE 1 TABLET DAILY Active ACCU-CHECK AVIA PLUS TEST STRIPS NA DIRECTED ONCE A DAY ONCE A DAY Active Januvia 100 MG TAKE 1 TABLET DAILY; Duration: 90 days Not-Taking Synthroid 75 MCG 1 tab(s) orally once a day; Duration: 90 days Active Atorvastatin Calcium 20 MG TAKE 1 TABLET orally once a day at night; Duration: 90 days Active Pantoprazole Sodium 40 MG 1 tab(s) orall y once a day; Duration: 30 days Active Voltaren Arthritis Pain 1 % as directed applied topically 4 times a day Active metFORMIN HCl 1000 MG 1 cap orally once a day; Duration: 90 days Not-Takin g Ondansetron 4 MG 1 tablet on the tong ue and allow to dissolve Orally prn Active Glimepiride 4 MG 1 1/2 tab(s) orally once a day; Duration: 90 days Not-Taking Losartan Potassium 25 MG 1 tab(s) orally once a day; Duration: 90 days Active FREESTYLE LITE TEST STRIPS USE TO CHECK BLOOD SUGAR DX:E11.9 ONCE DAILY; Duration: 100 DAYS Active Immunizations Vaccine Route Administration Date Status Comme nts Zostavax (Shingles) SC Subcutaneous 10/14/2016 Administered Lot # [id number] Tenivac (Td) 7 + yrs IM Intramuscular 03/25/2017 Administered SHINGRIX IM Intramuscular 03/01/2018 Administered Prevnar PCV-13 (Pneumococcal conjugate 13) IM Intramuscular 03/25/2017 Administered Pneumovax 23 IM Intramuscular 02/28/2016 Administered Influenza (Fluzone)--Medicar e only IM Intramuscular 02/06/2014 Administered [id number] exp luke e 09/13/2014 Influenza (Fluzone)--Medicar e only IM Intramuscular 01/29/2015 Administered Influenza (Fluzone)--Medicar e only IM Intramuscular 12/26/2016 Administered Influenza (Fluzone)--Medicar e only IM Intramuscular 12/14/2017 Administered Fluzone High Dose Unknown 12/26/2018 Administered Fluzone High Dose Unknown 11/29/2019 Administered Fluzone High Dose Unknown 01/19/2024 Administered Problems Problem Type SNOMED Code ICD Code Onset Dates Problem Status W/U Status Risk Notes Problem Hypomagnesemia (257192277) Hypomagnesemia (E83.42) Active confirmed Problem Hypercalcemia (75291260) Hypercalcemia (E83.52) Active confirmed Problem Ileostomy present (052458615) Ileostomy status (Z93.2) Active confirmed Problem Recurrent urinary tract infection (661809020) Recurrent UTI (N39.0) Active confirmed Problem Hyperlipidemia (61065249) Hyperlipidemia (E78.5) Active confirmed Problem Essential hypertension (58843371) Essential hypertension (I10) Active confirmed Problem Back pain (149290800) Back pain (M54.9) Active confirmed Problem Chronic pain (09162288) Other chronic pain (G89.29) Active confirmed Problem Lower abdominal pain (88332377) Lower abdominal pain (R10.30) Active confirmed Problem Goiter (5159678) Goiter (E04.9) Active confirme d Problem Gastroesophageal reflux disease (518973998) Gastroesophageal reflux disease, esophagitis presence not specified (K21.9) Active confirmed Problem Body mass index 25-29 - overweight (102146499) BMI 28.0-28.9,adult (Z68.28) Active confirmed Problem Degeneration of lumbosacral intervertebral disc (17852905) DDD (degenerative disc disease), lumbosacral (M51.37) Active confirmed Problem Hypothyroidism (83399222) Hypothyroidism, unspecified type (E03.9) Active confirmed Problem Methicillin resistant Staphylococcus aureus infection (995875575) Methicillin resistant Staphylococcus aureus infection (A49.02) Active confirmed Problem Body mass index 25-29 - overweight (358787014) BMI 26.0-26.9,adult (Z68.26) Active confirmed Problem Atrophic vaginitis (50417247) Atrophic vaginitis (N95.2) Active confirmed Problem Seasonal allergic rhinitis (597258125) Chronic seasonal allergic rhinitis, unspecified trigger (J30.2) Active confirmed Problem Chondrocalcinosis (226102356) Chondrocalcinosis (M11.20) Active confirmed Problem Midline cystocele (592174190) Female bladder prolapse (N81.10) Active confirmed Problem Osteopenia following menopause (disorder) (119199458) Osteopenia after menopause (M81.0) Active confirmed Problem Arthropathy associated with a neurological disorder (82425382) Charcot's joint of left foot (M14.672) Active confirmed Problem Diabetic neuropathic arthropathy (944253567) Type 2 diabetes mellitus with diabetic neuropathic arthropathy, 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) Active confirmed Problem Blood chemistry abnormal (953571769) Elevated PTHrP level (R79.89) Active confirmed Problem 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) Active confirmed Vital Signs Heart Rate 78 /min 01/01/2025 Temperature 97.6 degrees Fahrenheit 01/01/2025 Blood pressure diastolic 52 mm Hg 01/01/2025 Height 62.5 in 01/01/2025 Blood pressure systolic 116 mm Hg 01/01/2025 Weight 130 lbs 01/01/2025 BMI 23.4 kg/m2 01/01/2025 Encounters Encounter Location Date Provider Diagnosis [facility] [address] [facility] [address] [place], [place] [address] 07/15/2024 Provider Migration [facility] [address] [place], [place] [address] 03/28/2024 Alexus Nini Low back pain, unspecified M54.50 ; Acute cystitis without hematuria N30.00 and Weakness R53.1 [facility] [address] [place], [place] [address] 05/09/2024 Catherine Mary Type 2 diabetes mellitus with diabetic neuropathic arthropathy, without long-term current use of insulin E11.610 ; Hypothyroidism, unspecified type E03.9 ; Essential hypertension I10 ; Hyperlipidemia E78.5 ; Other chronic pain G89.29 and Pain, joint, knee, right M25.561 [facility] [address] [place], [place] [address] 12/12/2024 Catherine Petersence Urinary frequency R35.0 ; Acute UTI N39.0 and Female bladder prolapse N81.10 [facility] [address] [place] [address] 12/20/2024 Dave Taoson Urinary frequency R35.0 [facility] [address] [place] [address] 12/25/2024 Catherine Hernandez Diarrhea of presumed infectious origin R19.7 ; EMILY (acute kidney injury) N17.9 and Symptomatic hypotension I95.9 [facility] [address] [place] [address] 01/01/2025 Catherine Mary EMILY (acute kidney injury) N17.9 ; Hypomagnesemia E83.42 ; Hypercalcemia E83.52 ; Other specified symptoms and signs involving the digestive system and abdomen R19.8 ; Ileostomy status Z93.2 ; Hospital discharge follow-up Z09 and Type 2 diabetes mellitus with diabetic neuropathic arthropathy, without long-term current use of insulin E11.610 [facility] [address] [facility] [address] [place], [place] [address] 03/23/2024 Catherine Mary [facility] [address] [place] [address] 05/11/2024 Catherine Mary [facility] [address] [place] [address] 05/22/2024 Catherine Petersence [facility] [address] [place], [place] [address] 12/06/2024 Catherine Petersence [facility] [address] [facility] [address] [place], [place] [address] 12/13/2024 Catherine Hernandez Acute UTI N39.0 [facility] [address] [place] [address] 12/19/2024 Catherine Hernandez Breast cancer screening by mammogram Z12.31 [facility] [address] [place] [address] 12/21/2024 Catherine Petersence [facility] [address] [place] [address] 12/27/2024 Catherine Petersence [facility] [address] [place], [place] [address] 12/29/2024 Catherine Hernandez Assessments Encounter Date Diagnosis (ICD Code) Assessment Notes Treatment Notes Treatment Clinical Notes Section Notes 03/28/2024 Acute cystitis without hematuria (ICD-10 - N30.00) [facility] records reviewed. UA unremarkable. Urine [...] cancer screening by mammogram (ICD-10 - Z12.31) 12/25/2024 EMILY (acute kidney injury) (ICD-10 - [...] she was on her way for evaluation. 01/01/2025 Hypomagnesemia (ICD-10 - E83.42) Labs drawn this morning were reviewed personally and showed improvement since hospital discharge. Labs will be drawn on 01/04 and reviewed personally to evaluate changes since discharge. Pt was advised her levels should stabilize some once she starts eating more consistently and incorporates adequate fluids for hydration. 01/01/2025 EMILY (acute kidney injury) (ICD-10 - N17.9) Labs drawn this morning were reviewed personally and showed improvement since hospital discharge. Labs will be drawn on 01/04 and reviewed personally to evaluate changes since discharge. Pt was encouraged to continue increasing her fluid intake as tolerated. 12/20/2024 Urinary frequency (ICD-10 - R35.0) - [...] canal on self examination, she notes seeing [employer] [facility] for this many years ago when prolapse was less severe and was asymptomatic - has not completed Pelvic Floor PT in past - discussed with patient, she will call and schedule appointment with [employer], Dr. Tracey, regarding concerns for pelvic organ prolapse and if warranting further interventions at that time - patient has rountine follow up scheduled for annual visit in our clinic in the coming weeks 01/01/2025 Hypercalcemia (ICD-10 - E83.52) Labs drawn this morning were reviewed personally and showed improvement since hospital discharge. Labs will be drawn on 01/04 and reviewed personally to evaluate changes since discharge. Pt was advised to continue consuming a consistent and balanced diet along with adequate water for hydration. 12/25/2024 Symptomatic hypotension (ICD-10 - I95.9) 12/12/2024 Female bladder prolapse (ICD-10 - N81.10) could be contributing to symptoms, has consulted with [facility] previously 05/09/2024 Essential hypertension (ICD-10 - I10) normal today, no longer requiring antihypertensive therapy, monitor 03/28/2024 Weakness (ICD-10 - R53.1) 05/09/2024 Hyperlipidemia (ICD-10 - E78.5) continue statin therapy 01/01/2025 Other specified symptoms and signs involving the digestive system and abdomen (ICD-10 - R19.8) 01/01/2025 Ileostomy status (ICD-10 - Z93.2) 05/09/2024 Other chronic pain (ICD-10 - G89.29) 05/09/2024 Pain, joint, knee, right (ICD-10 - M25.561) Continue sleeve for support, topicals, imaging today. likely need orthopedic consultation 01/01/2025 Hospital discharge follow-up (ICD-10 - Z09) [...] insulin (ICD-10 - E11.610) Plan Of Treatment Pending Test Test Name Order Date Mammogram : Bilateral 12/19/2024 CT Scan : Abdomen and Pelvis, with and w ithout contrast 12/25/2014 H-MISCELLANEOUS CULTURE 08/18/2013 H-CMP 04/02/2015 H-LIPID PANEL 01/29/2015 H-PTH,INTACT 04/02/2015 H-MICROALBUMIN URINE 10/12/2016 Urine Culture, Routine 07/07/2021 H-Ionized Calcium 04/02/2015 M-Comprehensive Metabolic Panel 03/08/20 M-Comprehensive Metabolic Panel 11/02/19 18 M-Hemoglobin A1C 11/01/2017 M-Hemoglobin A1C 03/08/2018 M-Lipid [...] Martinez ce, 01/25/2025 02:45:00 PM, [address] [facility] [address] [facility], [address], [place], [address], Insurance Providers Payer Name Payer Address Payer Phone Subscriber Number Group Number Insured Name Patient Relationship to Insured Coverage Start Date Coverage End Date [place] [address] [place] [address] [id number] MamadouVera Self - patient is the insured [facility] [address] [place] [address] [id number] Mamadou Vera Self - patient is the insured [employer] [address] [place] [address] [address] [place] [address] ACL White, Vera Self - patient is the insured Medical [...] 02/2019 Hospitalization History Reason Date(Month/Year) Dehydration, [facility]ILY [facility] x 2 -dehydration 12/2024
[2025-01-04 09:40] LABS: Hematocrit 32.5 % (37.0-47.0); Hemoglobin 11.5 g/dL (12.2-16.2); Immature Granulocytes % 1.5 %; Mean Corpuscular HGB Conc 35.4 g/dL (31.8-35.4); Mean Corpuscular Hemoglobin 32.3 pg (27.0-31.2); Mean Corpuscular Volume 91.3 fl (81-99); Nucleated Red Blood Cells % 0 %; Platelet Count 247 K/mm3 (142-424); Red Blood Count 3.56 M/mm3 (4.20-5.40); Red Cell Distribution Width-SD 40.6 fL; White Blood Count 7.3 K/mm3 (4.8-10.8)
[2025-01-04 10:13] LABS: Chloride 103 mmol/L (98-107); Potassium 4.5 mmoL/L (3.5-5.1); Sodium 138 mmol/L (136-145)
[2025-01-04 10:16] LABS: Anion Gap 12.5 mEq/L (5-15); Blood Urea Nitrogen 11 mg/dl (7-17); Calcium 10.7 mg/dl (8.4-10.2); Carbon Dioxide 27 mmol/L (22.0-30.0); Creatinine,Serum 1.10 mg/dl (0.52-1.04); Estimated Glomerular Filt Rate 48 ml/min (>60); GFR (African American) 58 ML/MIN (>60); Glucose 198 mg/dl (74-100)
[2025-01-04 10:17] LABS: Magnesium 1.2 mg/dl (1.6-2.3)
== END 2025-01-04 23:59 | disposition home or self-care (01) ==
LOC: LAB 09:23
PROVIDERS: PCP Nurse Practitioner Family; Visit Provider Nurse Practitioner Family
DX: N17.9 Acute kidney failure, unspecified (principal); E83.42 Hypomagnesemia; E83.52 Hypercalcemia
CPT/HCPCS: 36415; 80048; 83735; 85025

== ENCOUNTER 2025-02-01 10:02 | Outpatient (CLI) | payer MEDICARE, OTHER, SELFPAY ==
[2025-02-01 10:38] LABS: Hematocrit 39.0 % (37.0-47.0); Hemoglobin 13.2 g/dL (12.2-16.2); Immature Granulocytes % 0.4 %; Mean Corpuscular HGB Conc 33.8 g/dL (31.8-35.4); Mean Corpuscular Hemoglobin 32.0 pg (27.0-31.2); Mean Corpuscular Volume 94.4 fl (81-99); Nucleated Red Blood Cells % 0 %; Platelet Count 196 K/mm3 (142-424); Red Blood Count 4.13 M/mm3 (4.20-5.40); Red Cell Distribution Width-SD 43.2 fL; White Blood Count 5.5 K/mm3 (4.8-10.8)
--- OUTSIDE RECORDS SUMMARY | 2025-02-01 10:40 | XMS_ITS | Encounter Summary ---
Author Organization Healthcare Address [address] [place] [address] Care Team Providers Care Studio Grip Name Role Phone Catherine Hernandez PRIVATE CLIENT ADVISOR Primary Care Provider +1- [phone] Reason for Referral * Consultation (Routine) - Authorized Specialty Diagnoses / Procedures Referred By Damaris donald Referred To Contact Nephrology Diagnoses Low bone density Acquired hypothyroidism Elevated parathyroid hormone related peptide level Catherine Hernandez, PRIVATE CLIENT ADVISOR [address] [address] Phone: tel: fax: [facility] [address] [address] Phone: tel: fax: Referral ID Status Reason Start Date Expiration Date Visits Requested Visits Authorized [id number] Authorized Specialty Services Required 10/15/2023 04/15/2025 1 1 Encounter Details Date Type Department Care Team (Late st Contact Info) Description 10/15/2023 Community [facility] [address] [place] [address] Catherine Hernandez, PRIVATE CLIENT ADVISOR [address] [address] Low bone density (Primary Dx); [...] Medical Office Building Surgical Specialties [address] [facility], [address] [place] [address] Lacho Lenz MD [address] [facility] [address] [place] [address] 11/08/2025 8:20 AM EDT Office Visit [facility] Bone & Mineral Metabolism [address] [facility], [address] [place] [address] Lauri Zavala MD [address] [facility] [address] [place] [address] 11/08/2025 8:40 AM EDT Appointment [facility] Bone & Mineral Metabolism [address] [facility], [address] [place] [address] Scheduled Referrals Name Type Priority Associated Diagnoses Orde r Schedule Ambulatory referral to Nephrology Outpatient Referral Routine Low bone density Acquired hypothyroidism Elevated parathyroid hormone related peptide level Ordered: 10/15/2023 documented as of this encounter Visit Diagnoses Diagnosis Low bone density- Primary Acquired hypothyroidism Unspecified hypothyroidism Elevated parathyroid hormone related peptide level documented in this encounter Care Teams Studio Grip Relationship Specialty Start Date End Date Catherine Hernandez APRN [facility] [address] PCP - General 08/23/20 documented as of this encounter
--- OUTSIDE RECORDS SUMMARY | 2025-02-01 10:40 | XMS_ITS | Clinical Summary ---
Author Organization Healthcare Address [address] [place] [address] Care Team Providers Care Sheriffs Name Role Phone Catherine Hernandez BATCH TRUCKER Primary Care Provider +1- [phone] Allergies Active Allergy Reactions Criticality Noted Date [...] Description 11/02/2024 8:40 AM EDT Office Visit [facility] Bone & Mineral Metabolism [address], [address] [place] [address] Lauri Zavala MD Age-related osteoporosis without current pathological fracture (Primary Dx); Stage 3a chronic kidney disease ([facility]); Hypercalcemia; Hyperparathyroidism ([facility]/HCC); IgG lambda monoclonal gammopathy 11/02/2024 8:10 AM EDT - 11/02/2024 11:59 PM EDT Hospital Encounter [facility] Bone & Mineral Metabolism [address] [facility], [address] [place] [address] Age-related osteoporosis without current [...] Upcoming Encounters Date Type Department Care Team ([facility] st Contact Info) Description 04/26/2025 2:00 PM EST Consult Medical Office Building Surgical Specialties [address], [address] [place] [address] Lacho Lenz MD [address] [facility] 302 [place] [address] 11/08/2025 8:20 AM EDT Office Visit [facility] Bone & Mineral Metabolism [address], [address] [place] [address] Lauri Zavala MD [address] [place] [address] 11/08/2025 8:40 AM EDT Appointment [facility] Bone & Mineral Metabolism [address] [facility], [address] [place] [address] Health Maintenance Due Date [...] or (1 - 1-dose 75+ series) 12/11/2023 [id number] Vaccine (4 - 2024- season) 2024 02/11/2021, [...] Whitney ging Narrative 11/12/2024 10:28 AM EDT [facility] - Bone & Mineral Metabolism Clinic [address] [place] [address] DXA Bone Densitometry Report: [Date of exam] BMD test performed using the Access [employer] DXA System (analysis version: 14.10) manufactured by [email or web address]. REFERRING PROVIDER: Dr. Lauri Zavala MD CLINICAL [...] MEDICARE [facility] [place] Care Teams Sheriffs Relationship Specialty Start Date End Date Catherine Hernandez APRN [address] [place] [address] PCP - General 08/23/20
--- OUTSIDE RECORDS SUMMARY | 2025-02-01 10:40 | XMS_ITS | Encounter Summary ---
Author Organization Healthcare Address [address] [place] [id number] Care Team Providers Care Tube Builder Airplane Name Role Phone Catherine Hernandez APRN Primary Care Provider +1- [phone] Reason for Referral * Consultation (Routine) - Closed Specialty Diagnoses / Procedures Referred By Damaris donald Referred To Contact Nephrology Diagnoses Osteoporosis, unspecified osteoporosis type, unspecified pathological fracture presence Hypercalcemia Catherine Hernandez APRN [address] [address] Phone: tel: fax: Lauri Zavala MD [address] [address] Phone: tel: fax: Referral ID Status Reason Start Date Expiration Date V isits Requested Visits Authorized [id number] Closed Specialty Services Required 05/22/2024 11/21/2025 1 1 Encounter Details Date Type Department Care Team (Latest Contact Info) Description 05/22/2024 Community Orders Community Practice [address] [place] [address] Catherine Hernandez APRN [address] [address] Osteoporosis, unspecified osteoporosis type, unspecified [...] Upcoming Encounters Date Type Department Care Team ([facility] st Contact Info) Description 04/26/2025 2:00 PM EST Consult Medical Office Building Surgical Specialties [address] [facility], [address] [place] [address] Lacho Lenz MD [address] [facility] 302 [place] [address] 11/08/2025 8:20 AM EDT Office Visit [facility] Bone & Mineral Metabolism [address] [facility], [address] [place] [address] Lauri Zavala MD [address] [facility] [address] [place] [address] 11/08/2025 8:40 AM EDT Appointment [facility] Bone & Mineral Metabolism [address] [facility], [address] [place] [address] Scheduled Referrals Name Type Priority Associated Diagnoses Orde r Schedule Ambulatory referral to Nephrology Outpatient Referral Routine Osteoporosis, unspecified osteoporosis type, unspecified pathological fracture presence Hypercalcemia Ordered: 05/22/2024 documented as of this encounter Visit Diagnoses Diagnosis Osteoporosis, unspecified osteoporosis type, unspecified pathological fracture presence- Primary Hypercalcemia documented in this encounter Care Teams Tube Builder Airplane Relationship Specialty Start Date End Date Catherine Hernandez APRN [address] [place] [address] PCP - General 08/23/20 documented as of this encounter
--- OUTSIDE RECORDS SUMMARY | 2025-02-01 10:40 | XMS_ITS | Clinical Summary ---
[facility] [address] [place] [address] Care Team Providers Care Heating Equipment Repairer Name Role Phone Provider, No Known Primary [...] COVID-19 Vaccine (2023- season) 2024 Care Teams Heating Equipment Repairer Relationship Specialty Start Date End Date Provider, No Known [facility] [place] [address] PCP - General 06/05/15
[2025-02-01 11:10] LABS: Hemoglobin A1C 6.0 % (4.0-6.0)
[2025-02-01 11:28] LABS: Albumin Level 3.9 g/dl (3.5-5.0); Chloride 104 mmol/L (98-107); Potassium 4.4 mmoL/L (3.5-5.1); Sodium 137 mmol/L (136-145)
[2025-02-01 11:31] LABS: Alanine Aminotransferase 12 U/L (12-78); Albumin/Globulin Ratio 1.4 (1.1-1.8); Alkaline Phosphatase 63 U/L (38-126); Anion Gap 11.4 mEq/L (5-15); Aspartate Amino Transferase 17 U/L (14-36); Bilirubin,Total 2.1 mg/dl (0.2-1.3); Blood Urea Nitrogen 15 mg/dl (7-17); Calcium 10.3 mg/dl (8.4-10.2); Carbon Dioxide 26 mmol/L (22.0-30.0); Cholesterol 215 mg/dl (140-200); Creatinine,Serum 1.10 mg/dl (0.52-1.04); Estimated Glomerular Filt Rate 48 ml/min (>60); GFR (African American) 58 ML/MIN (>60); Globulin 2.7 g/dL (1.3-3.2); Glucose 157 mg/dl (74-100); Total Protein,Serum 6.6 g/dl (6.3-8.2); Triglycerides 173 mg/dl (30-150)
[2025-02-01 11:32] LABS: HDL Cholesterol 53 mg/dl (40-60); Magnesium 1.3 mg/dl (1.6-2.3)
[2025-02-01 12:02] LABS: Thyroid Stimulating Hormone 0.19 uIU/mL (0.465-4.68)
== END 2025-02-01 23:59 | disposition home or self-care (01) ==
LOC: LAB 10:03
PROVIDERS: PCP Nurse Practitioner Family; Visit Provider Nurse Practitioner Family
DX: E11.610 Type 2 diabetes mellitus with diabetic neuropathic arthropathy (principal); E03.9 Hypothyroidism, unspecified; I10 Essential (primary) hypertension; E78.5 Hyperlipidemia, unspecified; E83.42 Hypomagnesemia
CPT/HCPCS: 36415; 80053; 80061; 82043; 82570; 83036; 83735; 84443; 85025

== ENCOUNTER 2025-02-09 09:49 | Outpatient (CLI) | payer MEDICARE, OTHER, SELFPAY ==
--- OUTSIDE RECORDS SUMMARY | 2024-04-25 07:45 | XMS_ITS ---
Author Organization [facility] Address [address] [place], [place] [address] Care Team Providers Care Hardness Inspector Name Role Phone Catherine Hernandez Primary Care Provider [phone] REASON FOR VISIT DM Check Up and Labs Encounters Encounter Location Date Provider Diagnosis [facility] [address] [place], [place] [address] 04/25/2024 Catherine Hernandez Plan Of Treatment Next Appt Details Provider Name:Catherine newman, 05/07/2025 09:00:00 AM, [address], [address], [place], [place], [address], Progress Notes * James GUTIÉRREZaDOB:1950 (74 yo F)Acc No.[id number]:04/25/2024 Progress Notes Patient: Vera KELLER Provider: MIGUEL Ace :1950 A ge:73 Y S ex:Female Date:04/25/2024 Address:[address], [id number] Subjective: * Chief Complaints: * 1 . DM Check Up and Labs. * Medical History: Objective: * Vitals: Assessment: Plan: * Treatment: * * Electronic signature of Charo Hernandez APRN on 02/09/2025 at 09:52 AM EDT Sign off status: Pending * Provider: MIGUEL Ace Date: 0 04/25/2024 Generated for Sim fierro/Jasmyn/Payton on: 1 09:52 AM EDT
--- OUTSIDE RECORDS SUMMARY | 2024-07-15 17:30 | XMS_ITS ---
Author Organization [facility] D [facility] Address [address] [place] [address] Care Team Providers Care Hospitality Intern Name Role Phone Catherine Hernandez Primary Care Provider Migration, Provider Unavailable Unavailable Allergies Allergen (clinical drug ingredient) Drug/Non Drug Allergy documented on EMR Reaction Allergy Type Onset Date Status Ciprofloxacin shakes Drug Allergy Act sofia nitrofurantoin, macrocrystals / nitrofurantoin, monohydrate Macrobid abdominal cramping Drug Allergy Active REASON FOR VISIT [facility] To [facility] Conversion Encounter Medications Medication SIG (Take, [...] Active Encounters Encounter Location Date Provider Diagnosis [facility] [address] [facility] 36 [facility] [address] [place] [address] 07/15/2024 Provider Migration Plan Of Treatment Medication Medication Name Sig Start Date Stop Date Notes Losartan Potassium 25 MG 1 tab(s) orally once a day; Duration: 90 days 05/11/2024 Next Appt Details Provider Name:Catherine Martinez ce, 05/07/2025 09:00:00 AM, [address] [facility] 36 [facility], [address], [place], [address], Progress Notes * Clau GUTIÉRREZB:1950 (74 yo F)Acc No.[id number]:07/15/2024 Patient: Vera KELLER Provider: Yg jorgensen Migration :1950 A ge:73 Y S ex:Female Date:07/15/2024 Address:[address] [place] [address] [place], [place], [place]-[address] Pcp:Catherine Hernandez Subjective: * Chief Complaints: * 1 . [facility] Conversion Encounter. * Medical History: * Medications: T aking Voltaren Arthritis Pain 1 % Gel as [...] Electronic signature of Saeed morrison Migration on 02/09/2025 at 09:52 AM EDT Sign off status: Pending * Provider: Yg jorgensen Migration Date: 0 07/15/2024 Generated for Sim fierro/Jasmyn/Payton on: 09:52 AM EDT
--- OUTSIDE RECORDS SUMMARY | 2024-12-12 07:15 | XMS_ITS ---
Author Organization [facility] Address [address] [place] [address] Care Team Providers Care Foreign Exchange Dealer Name Role Phone Catherine Hernandez Primary Care Provider [phone] Allergies Allergen (clinical drug ingredient) Drug/Non Drug [...] date:12/21/2024 05:53:33 PM Interpretation: Performing Lab:[facility], [facility] [address], [facility]we[facility] Yannick Elizalde Notes/Report: NON-FASTING CULTURE, URINE, ROUTINE SEE NOTE CULTURE, URINE, ROUTINE Micro Number: [id number] Test Status: Final Specimen Source: Urine Specimen [...] W/U Status Risk Notes Problem Midline cystocele (072806880) Female bladder prolapse (N81.10) Active confirmed Vital Signs Temperature 96.6 degrees Fahrenheit 12/13/19 25 Heart Rate 76 /min 12/12/2024 Blood pressure systolic 126 mm Hg 12/13/19 25 Blood pressure diastolic 62 mm Hg 025 Height 62.5 in 12/12/2024 Weight 134 lbs 12/12/2024 BMI 24.12 kg/m2 12/12/2024 Encounters Encounter Location Date Provider Diagnosis [facility] [address] [place] [address] 12/12/2024 Catherine Mary Urinary frequency R35.0 ; [...] be contributing to symptoms, has consulted with ADMINISTRATIVE PROCESSOR previously Plan Of Treatment Medication Medication Name Sig Start Date Stop Date Notes Cefdinir 300 MG 300 mg Orally 2 time s a day; Duration: 5 days 12/12/2024 Next Appt Details Follow Up: prn, Reason: Provider Name:Catherine Martinez ce, 05/07/2025 09:00:00 AM, [address], [address], [place], [address], Progress Notes * James GUTIÉRREZaDOB:1950 (74 yo F)Acc No.[id number]:12/12/2024 Progress Notes Patient: Vera KELLER Provider: MIGUEL Ace :1950 A ge:74 Y S ex:Female Date:12/12/2024 Address:[facility] [address], [place], [id number] Subjective: * Chief Complaints: * 1 . [...] be contributing to symptoms, has consulted with ADMINISTRATIVE PROCESSOR previously?? * Procedure Codes: 8 1002 URINALYSIS, Modifiers: QW * Follow Up: p rn * * Sign off status: Completed true * Provider: MIGUEL Ace Date: 0 12/12/2024 Generated for Sim fierro/Jasmyn/eTrutsmitting on: 09:53 AM EDT History and Physical Notes * Examination Category Sub-Category Detail Notes Category Not es General Examination Heart: Regular Rate and Rhyt hm Lungs: clear to auscultatio n, Abdomen: soft, ND, BS present , no CVA tenderness, General Pleasant and Coopera tive, NAD on RA, Psych Normal Mood/Affect
--- OUTSIDE RECORDS SUMMARY | 2024-12-19 06:41 | XMS_ITS ---
Author Organization [facility] Address [address] [facility] [address] [place] [address] Care Team Providers Care Regional Economist Name Role Phone Catherine Hernandez Primary Care Provider REASON FOR VISIT mammogram order Encounters Encounter Location Date Provider Diagnosis [facility] [address] [place], [place] [address] 12/19/2024 Catherine Hernandez Breast cancer screening by [address], [place], [address], Progress Notes * James GUTIÉRREZLaurieB:1950 (74 yo F)Acc No.[id number]:12/19/2024 Patient: Vera KELLER :1950 A ge:74 Y S ex:Female Address[address] [place], [address] Subjective: * Chief Complaints: * M ammogram order * Medical History: * Surgical History: * Hospitalization/Major Diagno stic Procedure: * Medications: Objective: * Vitals: * Physical Examination: Assessment: * Assessment: 1. B reast cancer screening by mammogram - Z12. Plan: * Treatment: * Procedure Codes: * true * Date: Generated for Sim fierro/Jasmyn/Payton on: 09:53 AM EDT
--- OUTSIDE RECORDS SUMMARY | 2024-12-20 07:00 | XMS_ITS ---
Author Organization [facility] Address [address] [place] [address] Care Team Providers Care Band Top Maker Name Role Phone Cathernie Hernandez Primary Care Provider Dave Rocha Unavailable [phone] Allergies Allergen (clinical drug ingredient) Drug/Non Drug [...] 12/20/2024 Encounters Encounter Location Date Provider Diagnosis [facility] [address] [place] [address] 12/20/2024 Dave Rocha Urinary frequency R35.0 Assessments [...] canal on self examination, she notes seeing CLINICAL LAB CLERK for this many years ago when prolapse was less severe and was asymptomatic - has not completed Pelvic Floor PT in past - discussed with patient, she will call and schedule appointment with CLINICAL LAB CLERK, Dr. Tracey, regarding concerns for pelvic organ [...] canal on self examination, she notes seeing CLINICAL LAB CLERK for this many years ago when prolapse was less severe and was asymptomatic - has not completed Pelvic Floor PT in past - discussed with patient, she will call and schedule appointment with CLINICAL LAB CLERK, Dr. Tracey, regarding concerns for pelvic organ prolapse and if warranting further interventions at that time - patient has rountine follow up scheduled for annual visit in our clinic in the coming weeks Next Appt Details Follow Up: prn, Reason: Provider Name:Catherine Martinez ce, 05/07/2025 09:00:00 AM, [address] [place] [facility] [address] [facility], [address], [place], [address], Progress Notes * James GUTIÉRREZLaurieB:1950 (74 yo F)Acc No.[id number]:12/20/2024 Progress Notes Patient: Vera KELLER Provider: Gael Rocha MD :1950 A ge:74 Y S ex:Female Date:12/20/2024 Address:[address] [place] [address], [facility] Pcp:Ctaherine Hernandez Subjective: * Chief Complaints: * 1 [...] bladder prolapse years ago and has seen CLINICAL LAB CLERK, Dr. Tracey, for this in the past [...] is planning on calling to schedule with CLINICAL LAB CLERK for follow up on bladder prolapse and [...] canal on self examination, she notes seeing CLINICAL LAB CLERK for this many years ago when prolapse was less severe and was asymptomatic - has not completed Pelvic Floor PT in past - discussed with patient, she will call and schedule appointment with CLINICAL LAB CLERK, Dr. Tracey, regarding concerns for pelvic organ [...] 0 12/20/2024 Generated for Printi ng/Fatwing/eTransmitting on: 09:51 AM EDT History and Physical Notes * [...] bladder prolapse years ago and has seen CLINICAL LAB CLERK, Dr. Tracey, for this in the past [...] is planning on calling to schedule with CLINICAL LAB CLERK for follow up on bladder prolapse and has not yet completed pelvic floor PT. Examination Category Sub-Category Detail Notes Category Not es General Examination Heart: Regular Rate and Rhyt hm Lungs: clear to auscultatio n, Abdomen: soft, ND, BS present , no CVA tenderness, General Pleasant and Coopera tive, NAD on RA, Psych Normal Mood/Affect
--- OUTSIDE RECORDS SUMMARY | 2024-12-25 08:45 | XMS_ITS ---
Author Organization [facility] D [facility] Address [address] [place] [address] Care Team Providers Care Octave Board Racker Name Role Phone Catherine Hernandez Primary Care Provider Allergies Allergen (clinical drug ingredient) Drug/Non Drug Allergy documented on EMR Reaction Allergy Type Onset Date Status Ciprofloxacin shakes Drug Allergy Act sofia nitrofurantoin, macrocrystals / nitrofurantoin, monohydrate Macrobid abdominal cramping Drug Allergy Active REASON FOR VISIT ED f/u, very dehydrated, passed out - needs new labs (has not been drinking much), weight loss, hadstomach pain last Wednesday Medications Medication SIG (Take, Route, Frequency, Duration) Notes Start Date End Date Status ACCU-CHECK AVIA PLUS TEST STRIPS NA DIRECTED ONCE A DAY ONCE A DAY Active Voltaren Arthritis Pain 1 % as directed applied topically 4 times a day Active Lidocaine 5 % 1 patch applied topi jonathan once a day; Duration: 30 day(s) prn Active Loratadine 10 MG TAKE 1 TABLET DAILY Active Mupirocin 2 % 1 jayson applied topica lly 3 times a day; Duration: 7 days Active Ondansetron 4 MG 1 tablet on the tong ue and allow to dissolve Orally prn Active FREESTYLE LITE TEST STRIPS USE TO CHECK BLOOD SUGAR DX:E11.9 ONCE DAILY; Duration: 100 DAYS Active Januvia 100 MG TAKE 1 TABLET DAILY; Duration: 90 days Active Losartan Potassium 25 MG 1 tab(s) orally once a day; Duration: 90 days Active metFORMIN HCl 1000 MG 1 cap orally once a day; Duration: 90 days Active Glimepiride 4 MG 1 1/2 tab(s) orally once a day; Duration: 90 days Active Pantoprazole Sodium 40 MG 1 tab(s) orall y once a day; Duration: 30 days Active Atorvastatin Calcium 20 MG TAKE 1 TABLET orally once a day at night; Duration: 90 days Active Synthroid 75 MCG 1 tab(s) orally once a day; Duration: 90 days Active Vital Signs Temperature 97.8 degrees Fahrenheit 12/26/19 25 Heart Rate 98 /min 12/25/2024 Blood pressure systolic 88 mm Hg 12/26/19 25 Blood pressure diastolic 64 mm Hg 025 Height 62.5 in 12/25/2024 Weight 123.6 lbs 12/25/2024 BMI 22.24 kg/m2 12/25/2024 Encounters Encounter Location Date Provider Diagnosis [facility] [address] [place] [address] 12/25/2024 Catherine Hernandez Diarrhea of presumed infectious origin R19.7 ; EMILY (acute kidney injury) N17.9 and Symptomatic hypotension I95.9 Assessments Encounter Date Diagnosis (ICD Code) Assessment Notes Treatment Notes Treatment Clinical Notes Section Notes 12/25/2024 Diarrhea of presumed infectious origin (ICD-10 - R19.7) Labs in the emergency department were significant for mildly elevated white blood cell count and acute kidney injury. She is hypotensive today despite holding her home medications for the past 72 hours. Not doing very well with oral hydration. Her ileostomy increases her risk for dehydration. Recommend that she return to the emergency department for evaluation and treatment, suggested testing for C. difficile if ER providers agree. Her family transported her to the emergency department via wheelchair and I notified the emergency department that she was on her way for evaluation. 12/25/2024 EMILY (acute kidney injury) (ICD-10 - N17.9) 12/25/2024 Symptomatic hypotension (ICD-10 - I95.9) Plan Of Treatment Next Appt Details Follow Up: after ED discharg e, Reason: Provider Name:Catherine Martinez paty, 05/07/2025 09:00:00 AM, [address], [place], [address], Progress Notes * James GUTIÉRREZaDOB:1950 (74 yo F)Acc No.[id number]:12/25/2024 Progress Notes Patient: Vera KELLER Provider: MIGUEL Ace :1950 A ge:74 Y S ex:Female Date:12/25/2024 Address:[address] [facility], [place], [id number] Subjective: * Chief Complaints: * 1 . ED f/u, very dehydrated, passed out - needs new labs (has not been drinking much). 2. weight loss, had stomach pain last Wednesday. * HPI: anne en: Presents today accompanied by family to follow-up on an ED visit. She presented there yesterday after having a presyncopal event when she attempted to stand up. Has had diarrhea for the past 24 to 48 hours, nausea. Lots of difficulty with hydration. No vomiting. No fevers to her knowledge. No urinary symptoms presently. She did complete cefdinir her UTI symptoms in the past week. Has not noticed any blood in her stool output but it is copious and liquid, green. Denies any known exposure to illness. * ROS: C ONSTITUTIONAL: See HPI Y es. * Medical History: D iabetes,Hyperlipidemia, Allergies, Ulcerative Colitis s/p ilostomy, Left eye trauma and subsequent hemorrhage - left prosthetic eye, Hernia, Osteopenia, DEXA 2018, LEFT charcot foot, Kidney injury due to dehydration, ACEI/ARB stopped, Hyperparathyroidism. * Surgical History: E ye removal r/t trauma 2002, Hernia Removal 1997, Ileostomy 1971, hand surgery- left 2013, right hand-carpal tunnel surgery 02/2019. * Hospitalization/Major Diagno stic Procedure: D ehydration, EMILY . * Family History: F ather: , Diabetes, Heart issues. M other: , Breast cancer. P aternal Grand Father: , Diabetes. P aternal Grand Mother: . M aternal Grand Father: , emphysema. M aternal Grand Mother: , emphysema. P aternal uncle: . M aternal uncle: alive, 2 uncles -cancer. M aternal aunt: alive. S iblings: alive. C abhi: alive. 1 brother(s) , 1 sister(s) - healthy. 2 son(s) , 1 daughter(s) - healthy. . * Social History: S moking A re you a:: nonsmoker. R ecreational drug use: no. Exercise: yes. Home smoke detector use: yes. Caffeine: yes, frequency:tea- 1 a weeksoft drinks- 2 per day. Living Will: Yes, is POA and then daughter. Alcohol: no. Sexually active: no. Travel outside [place]: no. Occupation: Retired [employer]. * Medications: T aking Ondansetron 4 MG Tablet Disintegrating 1 tablet on the tongue and allow to dissolve Orally prn , Taking Voltaren Arthritis Pain 1 % Gel as [...] MG Tablet TAKE 1 TABLET DAILY , Discontinued Cefdinir 300 MG Capsule 300 mg Orally 2 times a day , Medication List reviewed and reconciled with the patient * Allergies: C iprofloxacin: shakes, Macrobid: abdominal cramping - Side Effects. Objective: * Vitals: N urse: jl, Pain: 0, Temp: 97.8, RR: 20, HR: 98, BP: 88/64, Ht: 62.5, Wt: 123.6, BMI:22.24. * Examination: G eneral Examination: A lert and oriented but ill-appearing. She has copious green watery stool in her ileostomy bag. Heart has regular rate and rhythm, lungs are clear. Abdomen is soft, nondistended. No edema. Assessment: * Assessment: 1. D iarrhea of presumed infectious origin - R19.7 (Primary) 2 . A KI (acute kidney injury) - N17.9 3 . S ymptomatic hypotension - I95.9 Plan: * Treatment: * Follow Up: a fter ED discharge * * Sign off status: Completed true * Provider: MIGUEL Ace Date: 0 12/25/2024 Generated for Sim fierro/Jasmyn/Northitting on: 09:53 AM EDT History and Physical Notes * Examination Category Sub-Category Detail Notes Category Not es General Examination Alert an d oriented but ill-appearing. She has copious green watery stool in her ileostomy bag. Heart has regular rate and rhythm, lungs are clear. Abdomen is soft, nondistended. No edema.
--- OUTSIDE RECORDS SUMMARY | 2024-12-28 05:00 | XMS_ITS ---
Author Organization [facility] Address [address] [place], [place] [address] Care Team Providers Care Foundry Worker Apprentice Name Role Phone Catherine Hernandez Primary Care Provider REASON FOR VISIT yearly AWV Encounters Encounter Location Date Provider Diagnosis [facility] [address] [place], [place] [address] 12/28/2024 Catherine Hernandez Plan Of Treatment Next Appt Details Provider Name:Catherine newman, 05/07/2025 09:00:00 AM, [address], [address], [place], [place], [address], Progress Notes * James GUTIÉRREZaDOB:1950 (74 yo F)Acc No.[id number]:12/28/2024 Progress Notes Patient: Vera KELLER Provider: MIGUEL [...] 0 12/28/2024 Generated for Sim fierro/Jasmyn/Payton on: 1 09:52 AM EDT
--- OUTSIDE RECORDS SUMMARY | 2025-01-01 05:45 | XMS_ITS ---
Author Organization [facility] Address [address] [place] [address] Care Team Providers Care Meat Inspector Name Role Phone Catherine Hernandez Primary Care Provider [phone] Allergies Allergen (clinical drug ingredient) Drug/Non Drug Allergy documented on EMR Reaction Allergy Type Onset Date Status Ciprofloxacin shakes Drug Allergy Act sofia nitrofurantoin, macrocrystals / nitrofurantoin, monohydrate Macrobid abdominal cramping Drug Allergy Active REASON FOR VISIT [facility] D/C 12/27/2024-had labs for Dr. Milner this AM at [facility], c/o still being weak, appetite is better, [...] Status W/U Status Risk Notes Problem Hypomagnesemia (507638775) Hypomagnesemia (E83.42) Active confirmed Vital Signs Temperature 97.6 degrees Fahrenheit 01/02/20 25 Heart Rate 78 /min 01/01/2025 Blood pressure systolic 116 mm Hg 01/02/20 25 Blood pressure diastolic 52 mm Hg 025 Height 62.5 in 01/01/2025 Weight 130 lbs 01/01/2025 BMI 23.4 kg/m2 01/01/2025 Encounters Encounter Location Date Provider Diagnosis [facility] [address] [place] [address] 01/01/2025 Catherine Hernandez EMILY (acute kidney injury) [...] a balanced diet as she moves forward. Next Appt Details Follow Up: 3 Weeks, Reason: Provider Name:Catherine Hayes Michelle ce, 05/07/2025 09:00:00 AM, [address], [address], [place], [address], Progress Notes * Clau GUTIÉRREZB:1950 (74 yo F)Acc No.[id number]:01/01/2025 HOSP F/U Patient: Vera KELLER Provider: MIGUEL Ace :1950 A ge:74 Y S ex:Female Date:01/01/2025 Address:[facility], [place], [id number] Subjective: * Chief Complaints: * 1 . [facility] D/C 12/27/2024-had labs for Dr. Milner this AM at [facility]. 2. C/o still being weak, appetite is better. 3. Is not taking any meds at this time. * HPI: g en: Gen [age]yo female comes in following-up on recent discharge from [facility]. Pt explains she is feeling alright this [...] Hospitalization/Major Diagno stic Procedure: D ehydration, EMILY , [facility] x 2 -dehydration 12/2024. * [...] Ace Date: 0 01/01/2025 Generated for Sim fierro/Jasmyn/[place] on: 1 09:53 AM EDT History and Physical Notes [...] s in following-up on recent discharge from [facility]. Pt explains she is feeling alright this [...]
--- OUTSIDE RECORDS SUMMARY | 2025-02-01 05:15 | XMS_ITS ---
Author Organization [facility] Address [address] [place] [address] Care Team Providers Care Farm Reporter Name Role Phone Catherine Hernandez Primary Care Provider Allergies Allergen (clinical drug ingredient) Drug/Non Drug Allergy documented on EMR Reaction Allergy Type Onset Date Status Ciprofloxacin shakes Drug Allergy Act sofia nitrofurantoin, macrocrystals / nitrofurantoin, monohydrate Macrobid abdominal cramping Drug Allergy Active Results Component Value Reference Range Notes M-Thyroid Stimulating Hormon e Reviewed date:02/02/2025 02:42:03 PM Interpretation: Performing Lab: Notes/Report: TSH 0.19 0.465-4.68 uIU/mL M-Magnesium Reviewed date:02/02/2025 02:42:03 PM Interpretation: Performing Lab: Notes/Report: MG 1.3 1.6-2.3 mg/dl M-Complete Blood Count Auto Diff Reviewed date:02/02/2025 02:42:03 PM Interpretation: Performing Lab: Notes/Report: WBC 5.5 4.8-10.8 K/mm3 RBC 4.13 4.20-5.40 M/mm3 HGB 13.2 12.2-16.2 g/dL HCT 39.0 37.0-47.0 % MCV 94.4 81-99 fl MCH 32.0 27.0-31.2 pg MCHC 33.8 31.8-35.4 g/dL RDW 12.4 11.5-17.5 % PLT 196 142-424 K/mm3 MPV 11.2 7.4-10.4 fl NE% 70.5 37.0-80.0 % LY% 18.3 10-50 % MO% 6.5 1.7-9.3 % EO% 3.6 0.1-12.0 % BA% 0.7 0.1-2.0 % NE# 3.9 1.8-7.8 K/mm3 LY# 1.0 0.7-4.5 K/mm3 MO# 0.4 0.1-1.0 K/mm3 EO# 0.2 0.0-0.4 Kmm3 BA# 0.0 0-0.2 K/mm3 RDW-SD 43.2 NRBC% 0 IG% 0.4 NRBC# 0 IG# 0.02 M-Lipid Panel Reviewed date:02/02/2025 02:42:03 PM Interpretation: Performing Lab: Notes/Report: Patient Fasting? Y TRIG 173 30-150 mg/dl CHOL 215 140-200 mg/dl DLDL 118.49 100-129 mg/dL VLDL 35 0-40 mg/dL HDL 53 40-60 mg/dl CHLHDL 4.1 1-3.5 M-Hemoglobin A1C Reviewed date:02/02/2025 02:42:03 PM Interpretation: Performing Lab: Notes/Report: HGBA1C 6.0 4.0-6.0 % < 6% Non-Diabetic Level < 7% Controlled Diabetic Level > 8% Poorly Controlled Diabetic Level M-Comprehensive Metabolic Pa ezio Reviewed date:02/02/2025 02:42:03 PM Interpretation: Performing Lab: Notes/Report: NA 137 136-145 mmol/L K 4.4 3.5-5.1 mmoL/L CL 104 98-107 mmol/L CO2 26 22.0-30.0 mmol/L GAP 11.4 5-15 mEq/L BUN 15 7-17 mg/dl CREATT 1.10 0.52-1.04 mg/dl GFRAA 58 >60 ML/MIN EGFR 48 >60 ml/min GLU 157 74-100 mg/dl CA 10.3 8.4-10.2 mg/dl BILIT 2.1 0.2-1.3 mg/dl AST 17 14-36 U/L ALT 12 12-78 U/L TP 6.6 6.3-8.2 g/dl ALB 3.9 3.5-5.0 g/dl GLOB 2.7 1.3-3.2 g/dL AGRATIO 1.4 1.1-1.8 ALP 63 38-126 U/L REASON FOR VISIT AWV Medications Medication SIG (Take, Route, Frequency, Duration) Notes Start Date End Date Status Glimepiride 4 MG 1 1/2 tab(s) orally once a day; Duration: 90 days Active FREESTYLE LITE TEST STRIPS USE TO CHECK BLOOD SUGAR DX:E11.9 ONCE DAILY; Duration: 100 DAYS Active Synthroid 75 MCG 1 tab(s) orally once a day; Duration: 90 days Active ACCU-CHECK AVIA PLUS TEST STRIPS NA DIRECTED ONCE A DAY ONCE A DAY Active Voltaren Arthritis Pain 1 % as directed applied topically 4 times a day Active Problems Problem Type SNOMED Code ICD Code Onset Dates Problem Status W/U Status Risk Notes Problem Hyperparathyroidism (27785726) Hyperparathyroidism (E21.3) Active confirmed Problem Postmenopausal osteoporosis (970793024) Postmenopausal osteoporosis (M81.0) Active confirmed Problem IgG lambda monoclonal gammopathy (D47.2) Active confirmed Problem Chronic kidney disease stage 3A (disorder) (463127010) Stage 3a chronic kidney disease (CKD) (N18.31) Active confirmed Vital Signs Temperature 97.5 degrees Fahrenheit 02/02/20 25 Heart Rate 64 /min 02/01/2025 Blood pressure systolic 128 mm Hg 02/02/20 25 Blood pressure diastolic 70 mm Hg 025 Height 62.5 in 02/01/2025 Weight 130.6 lbs 02/01/2025 BMI 23.5 kg/m2 02/01/2025 Encounters Encounter Location Date Provider Diagnosis [facility] [address] [place] [address] 02/01/2025 Catherineah Florence Medicare annual well ness visit, subsequent Z00.00 ; Type 2 diabetes mellitus with diabetic neuropathic arthropathy, without long-term current use of insulin E11.610 ; Hypothyroidism, unspecified type E03.9 ; Essential hypertension I10 ; Hyperlipidemia E78.5 ; Hypomagnesemia E83.42 ; BMI 23.0-23.9, adult Z68.23 ; Hypercalcemia E83.52 ; Hyperparathyroidism E21.3 ; Postmenopausal osteoporosis M81.0 ; IgG lambda monoclonal gammopathy D47.2 and Stage 3a chronic kidney disease (CKD) N18.31 Assessments Encounter Date Diagnosis (ICD Code) Assessment Notes Treatment Notes Treatment Clinical Notes Section Notes 02/01/2025 Medicare annual wellness visit, subsequent (ICD-10 - Z00.00) preventive exams for age reviewed, upcoming [facility] and mamm appts. Again reminded about getting RSV vaccination at her convenience 02/01/2025 Type 2 diabetes mellitus with diabetic neuropathic arthropathy, without long-term current use of insulin (ICD-10 - E11.610) improved control on home monitoring, no changes recommended. Will continue to hold statin and ARB 02/01/2025 Hypothyroidism, unspecified type (ICD-10 - E03.9) monitoring labs today as noted 02/01/2025 Essential hypertensi on (ICD-10 - I10) normal today 02/01/2025 Hyperlipidemia (ICD- 10 - E78.5) monitor 02/01/2025 Hypomagnesemia (ICD- 10 - E83.42) 02/01/2025 BMI 23.0-23.9, adult (ICD-10 - Z68.23) 02/01/2025 Hypercalcemia (ICD-1 0 - E83.52) See consult note from [facility] 02/01/2025 Hyperparathyroidism (ICD-10 - E21.3) 02/01/2025 Postmenopausal osteoporosis (ICD-10 - M81.0) 02/01/2025 IgG lambda monoclona l gammopathy (ICD-10 - D47.2) 02/01/2025 Stage 3a chronic kidney disease (CKD) (ICD-10 - N18.31) Plan Of Treatment Treatment Notes Assessment Notes Medicare annual wellness visit, subseque nt preventive exams for age reviewed, upcoming [facility] and mamm appts. Again reminded about getting RSV vaccination at her convenience Essential hypertension normal today Pending Test Test Name Order Date M-Microalb/Creat Ratio, Randm Ur 025 Next Appt Details Follow Up: 4 Months, Reason: Provider Name:Catherine Martinez ce, 05/07/2025 09:00:00 AM, [address], [place], [address], Progress Notes * James GUTIÉRREZaDOB:1950 (74 yo F)Acc No.[id number]:02/01/2025 Progress Notes Patient: Vera KELLER Provider: MIGUEL Ace :1950 A ge:74 Y S ex:Female Date:02/01/2025 Address:[address], [place], [id number] Subjective: * Chief Complaints: * 1 . AWV. * HPI: g en: 74 yr old female presents today for routine followup on diabetes complicated by Charcot foot, hyperlipidemia, hypothyroidism and history of mild hypertension. Denies any chest pain, shortness of breath, palpitations, edema. UTD on flu vaccination and has had both pneumococcal vaccinations and COVID series No concerns with bowel or bladder function. Has known bladder prolapse, opted again surgical intervention and is to FU with [facility] again soon. Stool output from ileostomy is at baseline She does have some nagging left upper back pain, along the scapula, using topicals with some relief and would like a RF of lidocaine patches. Has routine FU scheduled with eye provider as well as for mammogram and annual podiatry appt. Recent acute illness with profuse diarrhea, EMILY, weakness, electrolyte abnormalities. Required hospitalization x 2. Feeling much better for a few weeks now. Appetite is good, glucose control good on her log today and she feels much better on fewer medications. D iabetes: FSBS l og reviewed, well controlled. o ral medications?well tolerated. d iet T alicja to follow diet most of the time. f oot lesions c hronic, charcot foot, followed by Dr Patel. o phthalmology eval W chinyere the past year, due again in March. L ast HbA1C 7 .0 - 9 %. A CE inhibitor? n o, renal disease. A spirin therapy y es. S tatin therapy y es. E xercise R outinely, walks. C omplications c harcot foot. statin and ARB on hold following recent illness. * ROS: F UNCTIONAL STATUS: ADLS I ndependent for all ADL/IADL. R ESPIRATORY: Reviewed, No Symptoms Reported: Y es. C ARDIOLOGY: Reviewed, No Symptoms Reported: Y es. C ONSTITUTIONAL: Weakness y es, i mproving. D ERMATOLOGY: Positive for c ontinues with recurrent skin abscesses but none requiring I&D recently, uses topical mupirocin and warm compresses early. E NDOCRINOLOGY: no S leep disturbance. n o C old intolerance. n o H eat intolerance. D iabetes y es. F EMALE REPRODUCTIVE: Positive for h /o pelvic organ prolapse, seen by [facility] 10/2021 for PAP. Rec watchful waiting. G ASTROENTEROLOGY: Positive for o stomy since age 19years, loose stool because of location. n o V omiting. n o A bdominal pain. n o D iarrhea. ? H EMATOLOGY/LYMPH: no S wollen glands. n o F atigue. n o L oss of appetite. n o E asy bruising. M USCULOSKELETAL: back pain y es. N EUROLOGY: no I nsomnia. n o M deborah loss. n o D izziness. 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 P SYCHOLOGY: no D epression. S leep disturbances y es, u nable to fall asleep at night. n o A nxiety. U ROLOGY: Difficulty urinating yes, a t times. n o B lood in urine. n o U rinary incontinence. * Medical History: D iabetes,Hyperlipidemia, Allergies, Ulcerative [...] M aternal aunt: alive. S iblings: alive. Shaq moe: alive. 1 brother(s) , 1 sister(s) - [...] Dept. of Affairs. * Medications: T aking Voltaren Arthritis Pain 1 % Gel as directed applied topically 4 times a day , Taking ACCU-CHECK AVIA PLUS TEST STRIPS NA 100'S BOX DIRECTED ONCE A DAY ONCE A DAY , Taking Synthroid 75 MCG Tablet 1 tab(s) orally once a day , Taking FREESTYLE LITE TEST STRIPS USE TO CHECK BLOOD SUGAR DX:E11.9 ONCE DAILY , Taking Glimepiride 4 MG Tablet 1 1/2 tab(s) orally once a day , Discontinued Januvia 100 MG Tablet TAKE 1 TABLET DAILY , Discontinued Ondansetron 4 MG Tablet Disintegrating 1 tablet on the tongue and allow to dissolve Orally prn , Discontinued Loratadine 10 MG Tablet TAKE 1 TABLET DAILY , Discontinued Lidocaine 5 % Patch 1 patch applied topically once a day , Notes to Pharmacist: prn, Discontinued Mupirocin 2 % Ointment 1 marifer applied topically 3 times a day , Discontinued Atorvastatin Calcium 20 MG Tablet TAKE 1 TABLET orally once a day at night , Discontinued Pantoprazole Sodium 40 MG Tablet Delayed Release 1 tab(s) orally once a day , Discontinued Losartan Potassium 25 MG Tablet 1 tab(s) orally once a day , Discontinued metFORMIN HCl 1000 MG Tablet 1 cap orally once a day , Medication List reviewed and reconciled with the patient * Allergies: C iprofloxacin: shakes, Macrobid: abdominal cramping - Side Effects. Objective: * Vitals: N urse: KJ, Pain: 0, Temp: 97.5, RR: 18, HR: 64, BP: 128/70, Ht: 62.5, Wt: 130.6, BMI:23.5. * Examination: G eneral Examination: General P leasant and Cooperative, NAD on RA,. Chest: n ormal shape and expansion. Heart: R egular Rate and Rhythm, no murmur, rubs or gallops. Lungs: L CTAB, No wheezes, crackles or rhonchi, Good air movement,. Abdomen: S oft, NTND, BSNA, No organomegaly or peritoneal signs. hernia around the ileostomy. Skin: w ithout acute rashes. Extremities: n o clubbing, no edema,. Psych N ormal Mood/Affect. Assessment: * Assessment: 1. M larry annual wellness visit, subsequent - Z00.00 (Primary) 2 . T ype 2 diabetes mellitus with diabetic neuropathic arthropathy, without long-term current use of insulin - E11.610 3 . H ypothyroidism, unspecified type - E03.9 4 . Essential hypertension - I10 5 . H yperlipidemia - E78.5 6 .?Hypomagnesemia - E83.42 7 . B AZ 23.0-23.9, adult - Z68.23 8 . H ypercalcemia - E83.52 9 . H yperparathyroidism - E21.3 1 0. P ostmenopausal osteoporosis - M81.0 1 1. I gG lambda monoclonal gammopathy - D47.2 1 2. S tage 3a chronic kidney disease (CKD) - N18.31 ? Plan: * Treatment: 2. T ype 2 diabetes mellitus with diabetic neuropathic arthropathy, without long-term current use of insulin L AB: M-Microalb/Creat Ratio, Randm Ur L AB: M-Complete Blood Count Auto Diff (Collection Date & Time - 02/01/2025 10:08 AM) Value Reference Range W saranya Blood Count 5.5 4.8-10.8 - K/mm3 * R ed Blood Count 4.13 L 4.20-5.40 - M/mm3 * H emoglobin 13.2 12.2-16.2 - g/dL * H ematocrit 39.0 37.0-47.0 - % * M charla Corpuscular Volume 94.4 81-99 - fl * M charla Corpuscular Hemoglobin 32.0 H 27.0-31.2 - p g * M charla Corpuscular HGB Conc 33.8 31.8-35.4 - g/d L * R ed Cell Distribution Width 12.4 11.5-17.5 - % * P latelet Count 196 142-424 - K/mm3 * M charla Platelet Volume 11.2 H 7.4-10.4 - fl * N eutrophils % 70.5 37.0-80.0 - % * L ymphocytes % 18.3 10-50 - % * M onocytes % 6.5 1.7-9.3 - % * E osinophils % 3.6 0.1-12.0 - % * B asophils % 0.7 0.1-2.0 - % * N eutrophils # 3.9 1.8-7.8 - K/mm3 * L ymphocytes # 1.0 0.7-4.5 - K/mm3 * M onocytes # 0.4 0.1-1.0 - K/mm3 * E osinophils # 0.2 0.0-0.4 - Kmm3 * B asophils # 0.0 0-0.2 - K/mm3 * Philippe Herlinda M 02/02/2025 02: 40:15 PM EDT > pt informed-Rx sent ?LAB: M-Comprehensive Metabolic Panel (Collection Date & Time - 02/01/2025 10:08 AM)* Value Reference Range S odium 137 136-145 - mmol/L * P otassium 4.4 3.5-5.1 - mmoL/L * C hloride 104 98-107 - mmol/L * C arbon Dioxide 26 22.0-30.0 - mmol/L * A nion Gap 11.4 5-15 - mEq/L * B lood Urea Nitrogen 15 7-17 - mg/dl * C reatinine,Serum 1.10 H 0.52-1.04 - mg/dl * G FR () 58 L >60 - ML/MIN * E stimated Glomerular Filt Rate 48 L >60 - ml/m in * G lucose 157 H 74-100 - mg/dl * C alcium 10.3 H 8.4-10.2 - mg/dl * B ilirubin,Total 2.1 H 0.2-1.3 - mg/dl * A spartate Amino Transferase 17 14-36 - U/L * A lanine Aminotransferase 12 12-78 - U/L * T otal Protein,Serum 6.6 6.3-8.2 - g/dl * A lbumin Level 3.9 3.5-5.0 - g/dl * G lobulin 2.7 1.3-3.2 - g/dL * A lbumin/Globulin Ratio 1.4 1.1-1.8 - * A lkaline Phosphatase 63 38-126 - U/L * Herlinda Paez 02/02/2025 02: 40:15 PM EDT > pt informed-Rx sent ?LAB: M-Hemoglobin A1C (Collection Date & Time - 02/01/2025 10:08 AM)* Value Reference Range H emoglobin A1C 6.0 4.0-6.0 - % * Herlinda Paez 02/02/2025 02: 40:15 PM EDT > pt informed-Rx sent ?LAB: M-Magnesium (Collection Date & Time - 02/01/2025 10:08 AM)* Value Reference Range M agnesium 1.3 L 1.6-2.3 - mg/dl * Herlinda Paez 02/02/2025 02: 40:15 PM EDT > pt informed-Rx sent ?LAB: M-Lipid Panel (Collection Date & Time - 02/01/2025 10:08 AM)* Value Reference Range T riglycerides 173 H 30-150 - mg/dl * C holesterol 215 H 140-200 - mg/dl * L DL Cholesterol 118.49 100-129 - mg/dL * V LDL Cholesterol 35 0-40 - mg/dL * H DL Cholesterol 53 40-60 - mg/dl * C hol/HDL Ratio 4.1 H 1-3.5 - * Herlinda Paez 02/02/2025 02: 40:15 PM EDT > pt informed-Rx sent ?LAB: M-Thyroid Stimulating Hormone (Collection Date & Time - 02/01/2025 10:08 AM)* Value Reference Range T hyroid Stimulating Hormone 0.19 L 0.465-4.68 - uIU/mL * Herlinda Paez 02/02/2025 02: 40:15 PM EDT > pt informed-Rx sent Clinical Notes: improved control on home monitoring, no changes recommended. Will continue to hold statin and ARB??3.?Hypothyroidism, unspecified type?LAB: M-Microalb/Creat Ratio, Randm Ur ?LAB: M-Complete Blood Count Auto Diff (Collection Date & Time - 02/01/2025 10:08 AM)* Value Reference Range W saranya Blood Count 5.5 4.8-10.8 - K/mm3 * R ed Blood Count 4.13 L 4.20-5.40 - M/mm3 * H emoglobin 13.2 12.2-16.2 - g/dL * H ematocrit 39.0 37.0-47.0 - % * M charla Corpuscular Volume 94.4 81-99 - fl * M charla Corpuscular Hemoglobin 32.0 H 27.0-31.2 - p g * M charla Corpuscular HGB Conc 33.8 31.8-35.4 - g/d L * R ed Cell Distribution Width 12.4 11.5-17.5 - % * P latelet Count 196 142-424 - K/mm3 * M charla Platelet Volume 11.2 H 7.4-10.4 - fl * N eutrophils % 70.5 37.0-80.0 - % * L ymphocytes % 18.3 10-50 - % * M onocytes % 6.5 1.7-9.3 - % * E osinophils % 3.6 0.1-12.0 - % * B asophils % 0.7 0.1-2.0 - % * N eutrophils # 3.9 1.8-7.8 - K/mm3 * L ymphocytes # 1.0 0.7-4.5 - K/mm3 * M onocytes # 0.4 0.1-1.0 - K/mm3 * E osinophils # 0.2 0.0-0.4 - Kmm3 * B asophils # 0.0 0-0.2 - K/mm3 * Herlinda Paez 02/02/2025 02: 40:15 PM EDT > pt informed-Rx sent ?LAB: M-Comprehensive Metabolic Panel (Collection Date & Time - 02/01/2025 10:08 AM)* Value Reference Range S odium 137 136-145 - mmol/L * P otassium 4.4 3.5-5.1 - mmoL/L * C hloride 104 98-107 - mmol/L * C arbon Dioxide 26 22.0-30.0 - mmol/L * A nion Gap 11.4 5-15 - mEq/L * B lood Urea Nitrogen 15 7-17 - mg/dl * C reatinine,Serum 1.10 H 0.52-1.04 - mg/dl * G FR () 58 L >60 - ML/MIN * E stimated Glomerular Filt Rate 48 L >60 - ml/m in * G lucose 157 H 74-100 - mg/dl * C alcium 10.3 H 8.4-10.2 - mg/dl * B ilirubin,Total 2.1 H 0.2-1.3 - mg/dl * A spartate Amino Transferase 17 14-36 - U/L * A lanine Aminotransferase 12 12-78 - U/L * T otal Protein,Serum 6.6 6.3-8.2 - g/dl * A lbumin Level 3.9 3.5-5.0 - g/dl * G lobulin 2.7 1.3-3.2 - g/dL * A lbumin/Globulin Ratio 1.4 1.1-1.8 - * A lkaline Phosphatase 63 38-126 - U/L * Herlinda Paez 02/02/2025 02: 40:15 PM EDT > pt informed-Rx sent ?LAB: M-Hemoglobin A1C (Collection Date & Time - 02/01/2025 10:08 AM)* Value Reference Range H emoglobin A1C 6.0 4.0-6.0 - % * Herlinda Paez 02/02/2025 02: 40:15 PM EDT > pt informed-Rx sent ?LAB: M-Magnesium (Collection Date & Time - 02/01/2025 10:08 AM)* Value Reference Range M agnesium 1.3 L 1.6-2.3 - mg/dl * Herlinda Paez 02/02/2025 02: 40:15 PM EDT > pt informed-Rx sent ?LAB: M-Lipid Panel (Collection Date & Time - 02/01/2025 10:08 AM)* Value Reference Range T riglycerides 173 H 30-150 - mg/dl * C holesterol 215 H 140-200 - mg/dl * L DL Cholesterol 118.49 100-129 - mg/dL * V LDL Cholesterol 35 0-40 - mg/dL * H DL Cholesterol 53 40-60 - mg/dl * C hol/HDL Ratio 4.1 H 1-3.5 - * Herlinda Paez 02/02/2025 02: 40:15 PM EDT > pt informed-Rx sent ?LAB: M-Thyroid Stimulating Hormone (Collection Date & Time - 02/01/2025 10:08 AM)* Value Reference Range T hyroid Stimulating Hormone 0.19 L 0.465-4.68 - uIU/mL * Herlinda Paez 02/02/2025 02: 40:15 PM EDT > pt informed-Rx sent Clinical Notes: monitoring labs today as noted??4.?Essential hypertension?LAB: M-Microalb/Creat Ratio, Randm Ur ?LAB: M-Complete Blood Count Auto Diff (Collection Date & Time - 02/01/2025 10:08 AM)* Value Reference Range W saranya Blood Count 5.5 4.8-10.8 - K/mm3 * R ed Blood Count 4.13 L 4.20-5.40 - M/mm3 * H emoglobin 13.2 12.2-16.2 - g/dL * H ematocrit 39.0 37.0-47.0 - % * M charla Corpuscular Volume 94.4 81-99 - fl * M charla Corpuscular Hemoglobin 32.0 H 27.0-31.2 - p g * M charla Corpuscular HGB Conc 33.8 31.8-35.4 - g/d L * R ed Cell Distribution Width 12.4 11.5-17.5 - % * P latelet Count 196 142-424 - K/mm3 * M charla Platelet Volume 11.2 H 7.4-10.4 - fl * N eutrophils % 70.5 37.0-80.0 - % * L ymphocytes % 18.3 10-50 - % * M onocytes % 6.5 1.7-9.3 - % * E osinophils % 3.6 0.1-12.0 - % * B asophils % 0.7 0.1-2.0 - % * N eutrophils # 3.9 1.8-7.8 - K/mm3 * L ymphocytes # 1.0 0.7-4.5 - K/mm3 * M onocytes # 0.4 0.1-1.0 - K/mm3 * E osinophils # 0.2 0.0-0.4 - Kmm3 * B asophils # 0.0 0-0.2 - K/mm3 * Herlinda Paez 02/02/2025 02: 40:15 PM EDT > pt informed-Rx sent ?LAB: M-Comprehensive Metabolic Panel (Collection Date & Time - 02/01/2025 10:08 AM)* Value Reference Range S odium 137 136-145 - mmol/L * P otassium 4.4 3.5-5.1 - mmoL/L * C hloride 104 98-107 - mmol/L * C arbon Dioxide 26 22.0-30.0 - mmol/L * A nion Gap 11.4 5-15 - mEq/L * B lood Urea Nitrogen 15 7-17 - mg/dl * C reatinine,Serum 1.10 H 0.52-1.04 - mg/dl * G FR () 58 L >60 - ML/MIN * E stimated Glomerular Filt Rate 48 L >60 - ml/m in * G lucose 157 H 74-100 - mg/dl * C alcium 10.3 H 8.4-10.2 - mg/dl * B ilirubin,Total 2.1 H 0.2-1.3 - mg/dl * A spartate Amino Transferase 17 14-36 - U/L * A lanine Aminotransferase 12 12-78 - U/L * T otal Protein,Serum 6.6 6.3-8.2 - g/dl * A lbumin Level 3.9 3.5-5.0 - g/dl * G lobulin 2.7 1.3-3.2 - g/dL * A lbumin/Globulin Ratio 1.4 1.1-1.8 - * A lkaline Phosphatase 63 38-126 - U/L * Herlinda Paez 02/02/2025 02: 40:15 PM EDT > pt informed-Rx sent ?LAB: M-Hemoglobin A1C (Collection Date & Time - 02/01/2025 10:08 AM)* Value Reference Range H emoglobin A1C 6.0 4.0-6.0 - % * Herlinda Paez 02/02/2025 02: 40:15 PM EDT > pt informed-Rx sent ?LAB: M-Magnesium (Collection Date & Time - 02/01/2025 10:08 AM)* Value Reference Range M agnesium 1.3 L 1.6-2.3 - mg/dl * Herlinda Paez 02/02/2025 02: 40:15 PM EDT > pt informed-Rx sent ?LAB: M-Lipid Panel (Collection Date & Time - 02/01/2025 10:08 AM)* Value Reference Range T riglycerides 173 H 30-150 - mg/dl * C holesterol 215 H 140-200 - mg/dl * L DL Cholesterol 118.49 100-129 - mg/dL * V LDL Cholesterol 35 0-40 - mg/dL * H DL Cholesterol 53 40-60 - mg/dl * C hol/HDL Ratio 4.1 H 1-3.5 - * Herlinda Paez 02/02/2025 02: 40:15 PM EDT > pt informed-Rx sent ?LAB: M-Thyroid Stimulating Hormone (Collection Date & Time - 02/01/2025 10:08 AM)* Value Reference Range T hyroid Stimulating Hormone 0.19 L 0.465-4.68 - uIU/mL * Herlinda Paez 02/02/2025 02: 40:15 PM EDT > pt informed-Rx sent Notes: normal today??5.?Hyperlipidemia?LAB: M-Microalb/Creat Ratio, Randm Ur ?LAB: M-Complete Blood Count Auto Diff (Collection Date & Time - 02/01/2025 10:08 AM)* Value Reference Range W saranya Blood Count 5.5 4.8-10.8 - K/mm3 * R ed Blood Count 4.13 L 4.20-5.40 - M/mm3 * H emoglobin 13.2 12.2-16.2 - g/dL * H ematocrit 39.0 37.0-47.0 - % * M charla Corpuscular Volume 94.4 81-99 - fl * M charla Corpuscular Hemoglobin 32.0 H 27.0-31.2 - p g * M charla Corpuscular HGB Conc 33.8 31.8-35.4 - g/d L * R ed Cell Distribution Width 12.4 11.5-17.5 - % * P latelet Count 196 142-424 - K/mm3 * M charla Platelet Volume 11.2 H 7.4-10.4 - fl * N eutrophils % 70.5 37.0-80.0 - % * L ymphocytes % 18.3 10-50 - % * M onocytes % 6.5 1.7-9.3 - % * E osinophils % 3.6 0.1-12.0 - % * B asophils % 0.7 0.1-2.0 - % * N eutrophils # 3.9 1.8-7.8 - K/mm3 * L ymphocytes # 1.0 0.7-4.5 - K/mm3 * M onocytes # 0.4 0.1-1.0 - K/mm3 * E osinophils # 0.2 0.0-0.4 - Kmm3 * B asophils # 0.0 0-0.2 - K/mm3 * PhilippeHerlinda 02/02/2025 02: 40:15 PM EDT > pt informed-Rx sent ?LAB: M-Comprehensive Metabolic Panel (Collection Date & Time - 02/01/2025 10:08 AM)* Value Reference Range S odium 137 136-145 - mmol/L * P otassium 4.4 3.5-5.1 - mmoL/L * C hloride 104 98-107 - mmol/L * C arbon Dioxide 26 22.0-30.0 - mmol/L * A nion Gap 11.4 5-15 - mEq/L * B lood Urea Nitrogen 15 7-17 - mg/dl * C reatinine,Serum 1.10 H 0.52-1.04 - mg/dl * G FR () 58 L >60 - ML/MIN * E stimated Glomerular Filt Rate 48 L >60 - ml/m in * G lucose 157 H 74-100 - mg/dl * C alcium 10.3 H 8.4-10.2 - mg/dl * B ilirubin,Total 2.1 H 0.2-1.3 - mg/dl * A spartate Amino Transferase 17 14-36 - U/L * A lanine Aminotransferase 12 12-78 - U/L * T otal Protein,Serum 6.6 6.3-8.2 - g/dl * A lbumin Level 3.9 3.5-5.0 - g/dl * G lobulin 2.7 1.3-3.2 - g/dL * A lbumin/Globulin Ratio 1.4 1.1-1.8 - * A lkaline Phosphatase 63 38-126 - U/L * Herlinda Paez 02/02/2025 02: 40:15 PM EDT > pt informed-Rx sent ?LAB: M-Hemoglobin A1C (Collection Date & Time - 02/01/2025 10:08 AM)* Value Reference Range H emoglobin A1C 6.0 4.0-6.0 - % * Herlinda Paez 02/02/2025 02: 40:15 PM EDT > pt informed-Rx sent ?LAB: M-Magnesium (Collection Date & Time - 02/01/2025 10:08 AM)* Value Reference Range M agnesium 1.3 L 1.6-2.3 - mg/dl * Herlinda Paez 02/02/2025 02: 40:15 PM EDT > pt informed-Rx sent ?LAB: M-Lipid Panel (Collection Date & Time - 02/01/2025 10:08 AM)* Value Reference Range T riglycerides 173 H 30-150 - mg/dl * C holesterol 215 H 140-200 - mg/dl * L DL Cholesterol 118.49 100-129 - mg/dL * V LDL Cholesterol 35 0-40 - mg/dL * H DL Cholesterol 53 40-60 - mg/dl * C hol/HDL Ratio 4.1 H 1-3.5 - * Herlinda Paez 02/02/2025 02: 40:15 PM EDT > pt informed-Rx sent ?LAB: M-Thyroid Stimulating Hormone (Collection Date & Time - 02/01/2025 10:08 AM)* Value Reference Range T hyroid Stimulating Hormone 0.19 L 0.465-4.68 - uIU/mL * Herlinda Paez 02/02/2025 02: 40:15 PM EDT > pt informed-Rx sent Clinical Notes: monitor??6.?Hypomagnesemia?LAB: M-Microalb/Creat Ratio, Randm Ur ?LAB: M-Complete Blood Count Auto Diff (Collection Date & Time - 02/01/2025 10:08 AM)* Value Reference Range W saranya Blood Count 5.5 4.8-10.8 - K/mm3 * R ed Blood Count 4.13 L 4.20-5.40 - M/mm3 * H emoglobin 13.2 12.2-16.2 - g/dL * H ematocrit 39.0 37.0-47.0 - % * M charla Corpuscular Volume 94.4 81-99 - fl * M charla Corpuscular Hemoglobin 32.0 H 27.0-31.2 - p g * M charla Corpuscular HGB Conc 33.8 31.8-35.4 - g/d L * R ed Cell Distribution Width 12.4 11.5-17.5 - % * P latelet Count 196 142-424 - K/mm3 * M charla Platelet Volume 11.2 H 7.4-10.4 - fl * N eutrophils % 70.5 37.0-80.0 - % * L ymphocytes % 18.3 10-50 - % * M onocytes % 6.5 1.7-9.3 - % * E osinophils % 3.6 0.1-12.0 - % * B asophils % 0.7 0.1-2.0 - % * N eutrophils # 3.9 1.8-7.8 - K/mm3 * L ymphocytes # 1.0 0.7-4.5 - K/mm3 * M onocytes # 0.4 0.1-1.0 - K/mm3 * E osinophils # 0.2 0.0-0.4 - Kmm3 * B asophils # 0.0 0-0.2 - K/mm3 * Herlinda Paez 02/02/2025 02: 40:15 PM EDT > pt informed-Rx sent ?LAB: M-Comprehensive Metabolic Panel (Collection Date & Time - 02/01/2025 10:08 AM)* Value Reference Range S odium 137 136-145 - mmol/L * P otassium 4.4 3.5-5.1 - mmoL/L * C hloride 104 98-107 - mmol/L * C arbon Dioxide 26 22.0-30.0 - mmol/L * A nion Gap 11.4 5-15 - mEq/L * B lood Urea Nitrogen 15 7-17 - mg/dl * C reatinine,Serum 1.10 H 0.52-1.04 - mg/dl * G FR () 58 L >60 - ML/MIN * E stimated Glomerular Filt Rate 48 L >60 - ml/m in * G lucose 157 H 74-100 - mg/dl * C alcium 10.3 H 8.4-10.2 - mg/dl * B ilirubin,Total 2.1 H 0.2-1.3 - mg/dl * A spartate Amino Transferase 17 14-36 - U/L * A lanine Aminotransferase 12 12-78 - U/L * T otal Protein,Serum 6.6 6.3-8.2 - g/dl * A lbumin Level 3.9 3.5-5.0 - g/dl * G lobulin 2.7 1.3-3.2 - g/dL * A lbumin/Globulin Ratio 1.4 1.1-1.8 - * A lkaline Phosphatase 63 38-126 - U/L * Herlinda Paez 02/02/2025 02: 40:15 PM EDT > pt informed-Rx sent ?LAB: M-Hemoglobin A1C (Collection Date & Time - 02/01/2025 10:08 AM)* Value Reference Range H emoglobin A1C 6.0 4.0-6.0 - % * Herlinda Paez 02/02/2025 02: 40:15 PM EDT > pt informed-Rx sent ?LAB: M-Magnesium (Collection Date & Time - 02/01/2025 10:08 AM)* Value Reference Range M agnesium 1.3 L 1.6-2.3 - mg/dl * Herlinda Paez 02/02/2025 02: 40:15 PM EDT > pt informed-Rx sent ?LAB: M-Lipid Panel (Collection Date & Time - 02/01/2025 10:08 AM)* Value Reference Range T riglycerides 173 H 30-150 - mg/dl * C holesterol 215 H 140-200 - mg/dl * L DL Cholesterol 118.49 100-129 - mg/dL * V LDL Cholesterol 35 0-40 - mg/dL * H DL Cholesterol 53 40-60 - mg/dl * C hol/HDL Ratio 4.1 H 1-3.5 - * Herlinda Paez 02/02/2025 02: 40:15 PM EDT > pt informed-Rx sent ?LAB: M-Thyroid Stimulating Hormone (Collection Date & Time - 02/01/2025 10:08 AM)* Value Reference Range T hyroid Stimulating Hormone 0.19 L 0.465-4.68 - uIU/mL * Herlinda Paez 02/02/2025 02: 40:15 PM EDT > pt informed-Rx sent 7.?Hypercalcemia? Clinical Notes: See consult note from [facility]?? * Procedure Codes: G 0439 ANNUAL WELLNESS VST; PPS SUBSQT VST, G8399 PT W/DXA DOCUMENT OR ORDER, 1123F ADVANCED DIRECTIVE - HAS A LIVING WILL, G8420 BMI documented as normal, no follow up required., G8510 NEGATIVE SCREENING F/U NOT REQUIRED, G9903 Pt scrn tbco id as non user, G8752 Most recent systolic blood pressure < 140mmhg, G8754 Most recent diastolic blood pressure < 90mmhg, G9744 PATIENT NOT ELIG D/T ACTIVE DX HTN * Preventive Medicine: Counseling: L iving will H as living will. C are goal follow up plan B [place] management provided Y john, A handy Normal BMI Follow-up G iving encouragement to exercise. B P Management L IFESTYLE RECOMMENDATION: H ypertension education consistently normal BP at home, continue to monitor. MARIFER Screening: F alls: Future screening for fall risks H ave you had two or more falls in the past year? N o, H ave you had any falls with injury in the past year? N o. Depression Screening: P HQ 2 F eeling down depressed or hopeless N o. Immunizations: T etanus . i nfluenza H ave you had a flu shot since the most recent December 11 ? Y es. P neumonia vaccine: Status for Older Adults A re you up-to-date on your pneumonia vaccine? yes or no B oth Prevnar and Pneumovax. S hingrix U TD. C OVID C ompleted series. R SV vaccination D iscussed, will consider at pharmacy. Screening / Special Tests: M ammogram s cheduled. P ap Smear f ollowed by COMMAND CENTER ANALYST, upcoming appt. C olonoscopy s /p colectomy with ileostomy. B one mineral Density?2023, consulted with [facility] and has ongoing FU. L shefali Cancer Screening N ot indicated - nonsmoker. * Follow Up: 4 Months * * Sign off status: Completed true * Provider: MIGUEL Ace Date: Generated for Sim fierro/Jasmyn/Northitting on: 09:52 AM EDT History and Physical Notes * HPI (History of Present Illness) Category Sub-Category Detail Notes Category Not es Diabetes FSBS log reviewed, well controlle d statin and ARB on hold following recent illness oral medications well tolerated diet Tries to follow diet most of the time foot lesions chronic, charcot fortino donald, followed by Dr Patel ophthalmology eval Within the past year , due again in March Last HbA1C 7.0 - 9 % BINH inhibitor? no, renal disease Aspirin therapy yes Statin therapy yes Exercise Routinely, walks Complications charcot foot Examination Category Sub-Category Detail Notes Category Not es General Examination Heart: Regular Rate and Rhythm, no murmur, rubs or gallops Lungs: LCTAB, No wheezes, c rackles or rhonchi, Good air movement, Abdomen: Soft, NTND, BSNA, No organomegaly or peritoneal signs. hernia around the ileostomy Extremities: no clubbing, no john a, Skin: without acute rashes Chest: normal shape and exp ansion General Pleasant and [place] tive, NAD on RA, Psych Normal Mood/Affect
--- NOTE | 2025-02-09 09:51 | MM_ITS ---
PROCEDURE INFORMATION: Exam: MG Bilateral Screening 3D Mammography Exam date and time: 02/09/2025 9:51 AM Age: 74 years old Clinical indication: Screening examination. Her mother had breast cancer at age 68. TECHNIQUE: Imaging protocol: Bilateral Screening tomosynthesis and 2D mammography including computer-aided detection (CAD) when performed. COMPARISON: 1. MG MM DIG SCREENING MAMM BI W/CAD 10/11/2023 7:49 AM 2. MG MM DIG SCREENING MAMM BI W/CAD 06/15/2022 4:01 PM 3. MG MM DIG SCREENING MAMM BI W/CAD 02/03/2021 8:27 AM 4. MG MM DIG SCREENING MAMM BI W/CAD 01/22/2020 8:01 AM FINDINGS: MAMMOGRAPHY: Breast composition: The breasts are extremely dense, which lowers the sensitivity of mammography. Mass: None. Architectural distortion: None. Calcifications: No suspicious calcifications. Asymmetric density: None. Skin thickening: None. Axillary adenopathy: None. IMPRESSION: No mammographic evidence of malignancy. Annual screening is recommended unless otherwise clinically indicated. ASSESSMENT: BI-RADS Category 1: Negative.
--- OUTSIDE RECORDS SUMMARY | 2025-02-09 09:52 | XMS_ITS | Clinical Summary ---
Author Organization Healthcare Address [address] [place] [address] Care Team Providers Care Beader Tender Name Role Phone Catherine Hernandez SUBWAY TRAIN DRIVER Primary Care Provider +1- [phone] Allergies Active Allergy Reactions Criticality Noted Date [...] Hyperparathyroidism 11/02/2024 IgG lambda monoclonal gammopathy 11/02/2024 Immunizations Immunization Administration Dates Next Due Influenza [...] Upcoming Encounters Date Type Department Care Team ([facility] st Contact Info) Description 04/26/2025 2:00 PM EST Consult Medical Office Building Surgical Specialties [address] [facility], [address] [place] [address] Lacho Lenz MD [address] [facility] [address] [place] [address] 11/08/2025 8:20 AM EDT Office Visit [facility] Bone & Mineral Metabolism [address] [facility], [address] [place] [address] Lauri Zavala MD [address] [facility] [address] [place] [address] 11/08/2025 8:40 AM EDT Appointment [facility] Bone & Mineral Metabolism [address] [facility], [address] [place] [address] Health Maintenance Due Date Last Done Comments [facility]-Diabetes: Hemoglobin A1C 1950 [facility]-Hepatitis C Screening 1950 [facility]-Medicare Annual Wellness (AWV) 1950 [facility]-/Child/Adol SDOH Screenings 1950 Diabetes: Dental Exam 1958 [facility]- SDOH Screenings 1966 [facility]-Adult SDOH Screenings 1966 [facility]-DTaP,Tdap,and Td Vaccines (1 - Tdap) 03/26/2017 03/25/2017 [facility]-Zoster Vaccines (3 of 3) 04/26/2018 03/01/2018, 10/12/2016 [facility]-RSV Vaccine: 60+ Years or (1 - 1-dose 75+ series) 12/11/2023 [id number] Vaccine (4 - 2024- season) 2024 02/11/2021, [...] current pathological fracture from Last 3 Months or Most Recently Relevant to Health Maintenance Results * Dexa Bone Density (11/02/2024 8:10 AM EDT) Anatomical Region Laterality Modality L-spine Radiographic Whitney ging Narrative 11/12/2024 10:28 AM EDT [facility] - Bone & Mineral Metabolism Clinic [address] [place] [address] DXA Bone Densitometry Report: [Date of exam] BMD test performed using the milliPay SystemsXA DXA System (analysis version: 14.10) manufactured by [employer]. REFERRING PROVIDER: Dr. Lauri Zavala MD CLINICAL [...] therapy Consider repeat BMD in 2-3 years Lauri Zavala MD IM DXA PROCEDURES Final Resu lt from Last 3 Months or Most Recently Relevant to Health Maintenance Insurance MEDICARE [facility] Care Teams Beader Tender Relationship Specialty Start Date End Date Catherine Hernandez APRN [address] [place] [address] PCP - General 08/23/20
--- OUTSIDE RECORDS SUMMARY | 2025-02-09 09:53 | XMS_ITS | Encounter Summary ---
Author Organization Healthcare Address [address] [place] [address] Care Team Providers Care Automotive Internet Sales Consultant Name Role Phone Catherine Hernandez APRN Primary Care Provider +1- [phone] Reason for Referral * Consultation (Routine) - Closed Specialty Diagnoses / Procedures Referred By Damaris donald Referred To Contact Nephrology Diagnoses Osteoporosis, unspecified osteoporosis type, unspecified pathological fracture presence Hypercalcemia Catherine Hernandez APRN [address] [address] Phone: tel: fax: Lauri Zavala MD [address] [address] Phone: tel: fax: Referral ID Status Reason Start Date Expiration Date V isits Requested Visits Authorized [id number] Closed Specialty Services Required 05/22/2024 11/21/2025 1 1 Encounter Details Date Type Department Care Team (Latest Contact Info) Description 05/22/2024 Community Orders Community Practice [address] [place] [address] Catherine Hernandez APRN [address] [address] Osteoporosis, unspecified osteoporosis type, unspecified [...] Upcoming Encounters Date Type Department Care Team ([facility] st Contact Info) Description 04/26/2025 2:00 PM EST Consult Medical Office Building Surgical Specialties [address] [facility], [address] [place] [address] Lacho Lenz MD [address] [facility] 302 [place] [address] 11/08/2025 8:20 AM EDT Office Visit [facility] Bone & Mineral Metabolism [address] [facility], [address] [place] [address] Lauri Zavala MD [address] [facility] [address] [place] [address] 11/08/2025 8:[address] [facility] Bone & Mineral Metabolism [address] [facility], [address] [place] [address] Scheduled Referrals Name Type Priority Associated Diagnoses Orde r Schedule Ambulatory referral to Nephrology Outpatient Referral Routine Osteoporosis, unspecified osteoporosis type, unspecified pathological fracture presence Hypercalcemia Ordered: 05/22/2024 documented as of this encounter Visit Diagnoses Diagnosis Osteoporosis, unspecified osteoporosis type, unspecified pathological fracture presence- Primary Hypercalcemia documented in this encounter Care Teams Automotive Internet Sales Consultant Relationship Specialty Start Date End Date Catherine Hernandez APRN [address] [place] [address] PCP - General 08/23/20 documented as of this encounter
--- OUTSIDE RECORDS SUMMARY | 2025-02-09 09:53 | XMS_ITS | Encounter Summary ---
Author Organization Healthcare Address [address] [place] [address] Care Team Providers Care Tar Man Name Role Phone Catherine Hernandez CHANNELER OUTSOLE Primary Care Provider +1- [phone] Reason for Referral * Consultation (Routine) - Authorized Specialty Diagnoses / Procedures Referred By Damaris donald Referred To Contact Nephrology Diagnoses Low bone density Acquired hypothyroidism Elevated parathyroid hormone related peptide level Catherine Hernandez, CHANNELER OUTSOLE [address] [address] Phone: tel: fax: [facility] [address] [address] Phone: tel: fax: Referral ID Status Reason Start Date Expiration Date Visits Requested Visits Authorized [id number] Authorized Specialty Services Required 10/15/2023 04/15/2025 1 1 Encounter Details Date Type Department Care Team (Late st Contact Info) Description 10/15/2023 Community [facility] [address] [place] [address] Catherine Hernandez, CHANNELER OUTSOLE [address] [address] Low bone density (Primary Dx); [...] Medical Office Building Surgical Specialties [address] [facility], [address] [place] [address] Lacho Lenz MD [address] [facility] 302 [place] [address] 11/08/2025 8:20 AM EDT Office Visit [facility] Bone & Mineral Metabolism [address] [facility], [address] [place] [address] Lauri Zavala MD [address] [facility] [address] [place] [address] 11/08/2025 8:40 AM EDT Appointment [facility] Bone & Mineral Metabolism [address] [facility], [address] [place] [address] Scheduled Referrals Name Type Priority Associated Diagnoses Orde r Schedule Ambulatory referral to Nephrology Outpatient Referral Routine Low bone density Acquired hypothyroidism Elevated parathyroid hormone related peptide level Ordered: 10/15/2023 documented as of this encounter Visit Diagnoses Diagnosis Low bone density- Primary Acquired hypothyroidism Unspecified hypothyroidism Elevated parathyroid hormone related peptide level documented in this encounter Care Teams Tar Man Relationship Specialty Start Date End Date Catherine Hernandez APRN [facility] [address] PCP - General 08/23/20 documented as of this encounter
--- OUTSIDE RECORDS SUMMARY | 2025-02-09 09:53 | XMS_ITS | Patient Health Record ---
Author Organization [facility] Address [address] [place] [address] Care Team Providers [employer] Education Director Name Role Phone Catherine Hernandez Primary Care Provider Dave Rocha Unavailable [phone] Alexus Terrazas Unavailable [phone] Migration, Provider Unavailable Unavailable Allergies Allergen (clinical [...] neg M-Complete Blood Count Auto Diff Reviewed date:02/02/2025 [...] 0 IG% 0.4 NRBC# 0 IG# 0.02 M-Comprehensive Metabolic Pa ezio Reviewed date:02/02/2025 02:42:03 [...] AGRATIO 1.4 1.1-1.8 ALP 63 38-126 U/L M-Hemoglobin A1C Reviewed date:05/12/2024 10:37:34 AM Interpretation: Performing Lab: Notes/Report: HGBA1C 6.5 4.0-6.0 % < 6% Non-Diabetic Level < 7% Controlled Diabetic Level > 8% Poorly Controlled Diabetic Level M-Hemoglobin A1C Reviewed date:02/02/2025 02:42:03 PM Interpretation: Performing Lab: Notes/Report: HGBA1C 6.0 4.0-6.0 % < 6% Non-Diabetic Level < 7% Controlled Diabetic Level > 8% Poorly Controlled Diabetic Level M-Uric Acid Reviewed date:05/12/2024 10:37:34 AM Interpretation: Performing Lab: Notes/Report: URIC 6.5 2.5-6.2 mg/dl M-Magnesium Reviewed date:02/02/2025 02:42:03 PM Interpretation: Performing Lab: Notes/Report: MG 1.3 1.6-2.3 mg/dl M-Magnesium Reviewed date:01/04/2025 10:42:38 AM Interpretation: Performing Lab: Notes/Report: MG 1.2 1.6-2.3 mg/dl M-Lipid Panel Reviewed date:02/02/2025 02:42:03 PM Interpretation: Performing Lab: Notes/Report: Patient Fasting? Y TRIG 173 30-150 mg/dl CHOL 215 140-200 mg/dl DLDL 118.49 100-129 mg/dL VLDL 35 0-40 mg/dL HDL 53 40-60 mg/dl CHLHDL 4.1 1-3.5 M-Lipid Panel Reviewed date:05/12/2024 10:37:34 AM Interpretation: Performing Lab: Notes/Report: Patient Fasting? Y TRIG 171 30-150 mg/dl CHOL 194 140-200 mg/dl DLDL 110.44 100-129 mg/dL VLDL 34 0-40 mg/dL HDL 44 40-60 mg/dl CHLHDL 4.4 1-3.5 M-Thyroid Stimulating Hormon e Reviewed date:05/12/2024 10:37:34 AM Interpretation: Performing Lab: Notes/Report: TSH 1.45 0.465-4.68 uIU/mL M-Thyroid Stimulating Hormon e Reviewed date:02/02/2025 02:42:03 PM Interpretation: Performing Lab: Notes/Report: TSH 0.19 0.465-4.68 uIU/mL M-Comprehensive Metabolic Pa ezio Reviewed date:05/12/2024 10:37:34 [...] AGRATIO 1.7 1.1-1.8 ALP 54 38-126 U/L M-Complete Blood Count Auto Diff Reviewed date:01/05/2025 08:50:36 AM Interpretation: Performing Lab: Notes/Report: WBC 7.3 4.8-10.8 K/mm3 RBC 3.56 4.20-5.40 M/mm3 HGB 11.5 12.2-16.2 g/dL HCT 32.5 37.0-47.0 % MCV 91.3 81-99 fl MCH 32.3 27.0-31.2 pg MCHC 35.4 31.8-35.4 g/dL RDW 12.2 11.5-17.5 % PLT 247 142-424 K/mm3 MPV 10.4 7.4-10.4 fl NE% 61.5 37.0-80.0 % LY% 24.1 10-50 % MO% 7.8 1.7-9.3 % EO% 4.4 0.1-12.0 % BA% 0.7 0.1-2.0 % NE# 4.5 1.8-7.8 K/mm3 LY# 1.8 0.7-4.5 K/mm3 MO# 0.6 0.1-1.0 K/mm3 EO# 0.3 0.0-0.4 Kmm3 BA# 0.1 0-0.2 K/mm3 RDW-SD 40.6 NRBC% 0 IG% 1.5 NRBC# 0 IG# 0.11 M-Complete Blood Count Auto Diff Reviewed date:05/12/2024 [...] 0.1 0-0.2 K/mm3 COMPREHENSIVE METABOLIC PANE L ([id number]) Reviewed date:03/29/2024 12:29:19 PM Interpretation: Performing Lab:[place], [facility] [id number] [facility], [facility] CenterIfftIK[address] Yannick Elizalde Notes/Report: NON-FASTING; NON-FASTING; NON-FASTING GLUCOSE [...] Reviewed date:03/29/2024 12:29:19 PM Interpretation: Performing Lab:[place], [facility] [id number], [place]rite[place]lkf[place] Yannick Elizalde Notes/Report: NON-FASTING; NON-FASTING; NON-FASTING WHITE [...] MPV 12.2 7.5-12.5 fL ABSOLUTE NEUTROPHILS 5344 1627-7039 cells/uL ABSOLUTE LYMPHOCYTES 3318 997-1010 cells/uL ABSOLUTE MONOCYTES 613 200-950 cells/uL ABSOLUTE EOSINOPHILS 161 15-500 cells/uL ABSOLUTE BASOPHILS 44 0-200 cells/uL NEUTROPHILS 73.2 LYMPHOCYTES 15.6 MONOCYTES 8.4 EOSINOPHILS 2.2 BASOPHILS 0.6 CULTURE, URINE, ROUTINE (395 ) Reviewed date:03/30/2024 01:23:39 PM Interpretation: Performing Lab:[place], [facility] [id number], [place]plh[place] Yannick Elizalde Notes/Report: NON-FASTING; NON-FASTING; NON-FASTING CULTURE, URINE, ROUTINE SEE NOTE CULTURE, URINE, ROUTINE Micro Number: [id number] Test Status: Final Specimen Source: Urine Specimen Quality: Adequate Result: No Growth M-Basic Metabolic Panel Reviewed date:01/04/2025 10:42:42 AM Interpretation: Performing Lab: Notes/Report: NA 138 136-145 mmol/L K 4.5 3.5-5.1 mmoL/L CL 103 98-107 mmol/L CO2 27 22.0-30.0 mmol/L GAP 12.5 5-15 mEq/L BUN 11 7-17 mg/dl CREATT 1.10 0.52-1.04 mg/dl GFRAA 58 >60 ML/MIN EGFR 48 >60 ml/min GLU 198 74-100 mg/dl CA 10.7 8.4-10.2 mg/dl X ray : Knee, Right Reviewed date:05/12/2024 10:37:34 AM Interpretation: Performing Lab: Notes/Report: Urinalysis Reviewed date:03/28/2024 11:12:14 AM Interpretation: Performing Lab: Notes/Report: Color/Clarity Roselyn Leuk neg Nitrite pos Urobili 0.2 Protein 100mg/dL pH 5.5 Blood neg Sp. Gr. >=1.030 Ketone neg Bili small Glucose neg Urinalysis Reviewed date:12/12/2024 02:14:08 PM Interpretation: Performing Lab: Notes/Report: Color/Clarity yellow Leuk small Nitrite neg Urobili 0.2 Protein neg pH 5.5 Blood neg Sp. Gr. >=1.030 Ketone neg Bili neg Glucose neg H-MALBCREA Reviewed date:02/01/2025 05:08:29 PM Interpretation: Performing Lab: Notes/Report: Units: mg/g creat Normal: 0 - 29 Moderately Increased: 30 - 300 Severely Increased: >300 UCREAT 111 Not Estab. mg/dL Random urine reference range not established. 24 hour urine samples recommended. MICROALB 9.200 0-16.7 mg/L MALBCREAT 8.2 CULTURE, URINE, ROUTINE (395 ) Reviewed date:12/21/2024 05:53:33 PM Interpretation: Performing Lab:[facility], [facility] [address], [place] PrideLbda[place] Yannick Elizalde Notes/Report: NON-FASTING CULTURE, URINE, ROUTINE SEE NOTE CULTURE, URINE, ROUTINE Micro Number: [id number] Test Status: Final Specimen Source: Urine Specimen Quality: Adequate Result: Mixed genital brittani isolated. These superficial bacteria are not indicative of a urinary tract infection. No further organism identification is warranted on this specimen. If clinically indicated, recollect clean-catch, mid-stream urine and transfer immediately to Urine Culture Transport Tube. H-MICROALB Reviewed date:05/10/2024 04:46:34 PM Interpretation: Performing Lab: Notes/Report: MICROALB 27.000 0-16.7 mg/L Medications Medication SIG (Take, Route, Frequency, Duration) Notes Start Date End Date Status Glimepiride 4 MG 1 1/2 tab(s) orally once a day; Duration: 90 days Active FREESTYLE LITE TEST STRIPS USE TO CHECK BLOOD SUGAR DX:E11.9 ONCE DAILY; Duration: 100 DAYS Active Synthroid 50 MCG 1 tablet Orally Once a day; Duration: 90 days Active Lidocaine 5 % 1 patch remove after 12 hours Externally Once a day; Duration: 30 days 02/03/2025 Active ACCU-CHECK AVIA PLUS TEST STRIPS NA DIRECTED ONCE A DAY ONCE A DAY Active Voltaren Arthritis Pain 1 % as directed applied topically 4 times a day Active Immunizations Vaccine Route Administration Date Status Comme nts Fluzone High Dose Unknown 12/26/2018 Administered Fluzone High Dose Unknown 11/29/2019 Administered Fluzone High Dose Unknown 01/19/2024 Administered Influenza (Fluzone)--Medicar e only IM Intramuscular 02/06/2014 Administered [id number] exp luke e 09/13/2014 Influenza (Fluzone)--Medicar e [...] (Shingles) SC Subcutaneous 10/14/2016 Administered Lot # [id number] Problems Problem Type SNOMED Code ICD Code Onset Dates Problem Status W/U Status Risk Notes Problem Hypomagnesemia (030172218) Hypomagnesemia (E83.42) Active confirmed Problem Hypercalcemia (21138147) Hypercalcemia (E83.52) Active confirmed Problem Ileostomy present (756206853) Ileostomy status (Z93.2) Active confirmed Problem Recurrent urinary tract infection (496795086) Recurrent UTI (N39.0) Active confirmed Problem Hyperlipidemia (21015344) Hyperlipidemia (E78.5) Active confirmed Problem Essential hypertension (76215404) Essential hypertension (I10) Active confirmed Problem Back pain (208122622) Back pain (M54.9) Active confirmed Problem Chronic pain (64309166) Other chronic pain (G89.29) Active confirmed Problem Lower abdominal pain (58704726) Lower abdominal pain (R10.30) Active confirmed Problem Goiter (6539393) Goiter (E04.9) Active confirme d Problem Gastroesophageal reflux disease (520952051) Gastroesophageal reflux disease, esophagitis presence not specified (K21.9) Active confirmed Problem Body mass index 25-2 9 - overweight (783378923) BMI 28.0-28.9,adult (Z68.28) Active confirmed Problem Degeneration of lumbosacral intervertebral disc (01376282) DDD (degenerative disc disease), lumbosacral (M51.37) Active confirmed Problem Hypothyroidism (16311893) Hypothyroidism, unspecified type (E03.9) Active confirmed Problem Methicillin resistan t Staphylococcus aureus infection (398602392) Methicillin resistant Staphylococcus aureus infection (A49.02) Active confirmed Problem Body mass index 25-2 9 - overweight (057345057) BMI 26.0-26.9,adult (Z68.26) Active confirmed Problem Atrophic vaginitis (73516996) Atrophic vaginitis (N95.2) Active confirmed Problem Seasonal allergic rhinitis (055197709) Chronic seasonal allergic rhinitis, unspecified trigger (J30.2) Active confirmed Problem Postmenopausal osteoporosis (149893264) Postmenopausal osteoporosis (M81.0) Active confirmed Problem Chondrocalcinosis (809953960) Chondrocalcinosis (M11.20) Active confirmed Problem Midline cystocele (936379060) Female bladder prolapse (N81.10) Active confirmed Problem Hyperparathyroidism (05810918) Hyperparathyroidism (E21.3) Active confirmed Problem Arthropathy associated with a neurological disorder (06373613) Charcot's joint of left foot (M14.672) Active confirmed Problem Diabetic neuropathic arthropathy (781982382) Type 2 diabetes mellitus with diabetic neuropathic arthropathy, 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) Active confirmed Problem Chronic kidney disease stage 3A (disorder) (979978864) Stage 3a chronic kidney disease (CKD) (N18.31) Active confirmed Problem Blood chemistry abnormal (898819844) Elevated PTHrP level (R79.89) Active confirmed Problem 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) Active confirmed Problem IgG lambda monoclonal gammopathy (D47.2) Active confirmed Vital Signs Heart Rate 64 /min 02/01/2025 Temperature 97.5 degrees Fahrenheit 02/01/2025 Blood pressure diastolic 70 mm Hg 02/01/2025 Height 62.5 in 02/01/2025 Blood pressure systolic 128 mm Hg 02/01/2025 Weight 130.6 lbs 02/01/2025 BMI 23.5 kg/m2 02/01/2025 Encounters Encounter Location Date Provider Diagnosis [facility] [address] [place], [facility] [address] 07/15/2024 Provider Migration [facility] [address] [place], [facility] [address] 03/28/2024 Alexus McNees Low back pain, unspe cified M54.50 ; Acute cystitis without hematuria N30.00 and Weakness R53.1 [facility] [address] [place], [facility] [address] 05/09/2024 Catherine Mary Type 2 diabetes rudy itus with diabetic neuropathic arthropathy, without long-term current use of insulin E11.610 ; Hypothyroidism, unspecified type E03.9 ; Essential hypertension I10 ; Hyperlipidemia E78.5 ; Other chronic pain G89.29 and Pain, joint, knee, right M25.561 [facility] [address] [place] [address] 12/12/2024 Catherine Mary Urinary frequency R3 5.0 ; Acute UTI N39.0 and Female bladder prolapse N81.10 [facility] [address] [facility] [address] [place], [place] [address] 12/20/2024 Dave Rocha Urinary frequency R3 5.0 [facility] [address] [place], [place] [address] [facility] R19.7 ; EMILY (acute kidney injury) N17.9 and Symptomatic hypotension I95.9 [facility] [address] [place], [place] [address] 01/01/2025 [facility] EMILY (acute kidney in jury) N17.9 ; Hypomagnesemia E83.42 ; Hypercalcemia E83.52 ; Other specified symptoms and signs involving the digestive system and abdomen R19.8 ; Ileostomy status Z93.2 ; Hospital discharge follow-up Z09 and Type 2 diabetes mellitus with diabetic neuropathic arthropathy, without long-term current use of insulin E11.610 [facility] [address] [place] [address] 02/01/2025 Sarah Florence Medicare annual well ness visit, subsequent [...] Stage 3a chronic kidney disease (CKD) N18.31 [facility] [address] [facility] [address] [place], [place] [address] 03/23/2024 [facility] [address] [facility] [address] [place], [place] [address] 05/11/2024 [facility] [address] [facility] [address] [place], [place] [address] 05/22/2024 [facility] [address] [place] [address] 12/06/2024 Catherine Mary [facility] [address] [facility] [address] [place], [place] [address] 12/13/2024 Catherine Mary Acute UTI N39.0 [facility] [address] [place] [address] 12/19/2024 Catherine Mary Breast cancer screen ing by mammogram Z12.31 [facility] [address] [place] [address] 12/21/2024 Catherine Mary [facility] [address] [place] [address] 12/27/2024 Catherine Mary [facility] [address] [place] [address] 12/29/2024 Catherine Mary [facility] [address] [place] [address] 01/12/2025 Catherine Mary [facility] [address] [place] [address] 02/02/2025 Catherine Mary [facility] [address] [place] [address] 02/02/2025 Catherine Mary Assessments Encounter Date Diagnosis (ICD Code) Assessment Notes Treatment Notes Treatment Clinical Notes Section Notes 03/28/2024 Acute cystitis without hematuria (ICD-10 - N30.00) [facility] records reviewed. UA unremarkable. Urine CX contaminated. [...] Low back pain, unspecified (ICD-10 - M54.50) 12/12/2024 Urinary frequency (ICD-10 - R35.0) 12/12/2024 [...] canal on self examination, she notes seeing [facility] for this many years ago when prolapse was less severe and was asymptomatic - has not completed Pelvic Floor PT in past - discussed with patient, she will call and schedule appointment with [facility], Dr. Tracey, regarding concerns for pelvic organ prolapse and if warranting further interventions at that time - patient has rountine follow up scheduled for annual visit in our clinic in the coming weeks 02/01/2025 Medicare annual wellness visit, subsequent (ICD-10 - Z00.00) preventive exams for age reviewed, upcoming [facility] and mamm appts. Again reminded about getting RSV vaccination at her convenience 02/01/2025 Type 2 diabetes mellitus with diabetic neuropathic arthropathy, without long-term current use of insulin (ICD-10 - E11.610) improved control on home monitoring, no changes recommended. Will continue to hold statin and ARB 05/09/2024 Type 2 diabetes mellitus with diabetic neuropathic arthropathy, without long-term current use of insulin (ICD-10 - E11.610) Update labs today, tolerating current regimen 05/09/2024 Hypothyroidism, unspecified type (ICD-10 - E03.9) update labs as noted, continue oral replacement 01/01/2025 Hypomagnesemia (ICD-10 - E83.42) Labs drawn [...] continue increasing her fluid intake as tolerated. 12/25/2024 EMILY (acute kidney injury) (ICD-10 - [...] evaluation. 12/25/2024 Symptomatic hypotension (ICD-10 - I95.9) 01/01/2025 Hypercalcemia (ICD-1 0 - E83.52) Labs drawn this morning were reviewed personally and showed improvement since hospital discharge. Labs will be drawn on 01/04 and reviewed personally to evaluate changes since discharge. Pt was advised to continue consuming a consistent and balanced diet along with adequate water for hydration. 05/09/2024 Essential hypertension (ICD-10 - I10) normal today, no longer requiring antihypertensive therapy, monitor 02/01/2025 Hypothyroidism, unspecified type (ICD-10 - E03.9) monitoring labs today as noted 12/12/2024 Female bladder prolapse (ICD-10 - N81.10) could be contributing to symptoms, has consulted with [facility] previously 03/28/2024 Weakness (ICD-10 - R53.1) 02/01/2025 Essential hypertension (ICD-10 - I10) normal today 01/01/2025 Other specified symptoms and signs involving the digestive system and abdomen (ICD-10 - R19.8) 05/09/2024 Hyperlipidemia (ICD-10 - E78.5) continue statin therapy 01/01/2025 Ileostomy status (ICD-10 - Z93.2) 05/09/2024 Other chronic pain (ICD-10 - G89.29) 02/01/2025 Hyperlipidemia (ICD-10 - E78.5) monitor 02/01/2025 Hypomagnesemia (ICD-10 - E83.42) 01/01/2025 Hospital discharge follow-up (ICD-10 - Z09) [...] a balanced diet as she moves forward. 05/09/2024 Pain, joint, knee, right (ICD-10 - M25.561) Continue sleeve for support, topicals, imaging today. likely need orthopedic consultation 01/01/2025 Type 2 diabetes mellitus with diabetic neuropathic arthropathy, without long-term current use of insulin (ICD-10 - E11.610) 02/01/2025 BMI 23.0-23.9, adult (ICD-10 - Z68.23) 02/01/2025 Hypercalcemia (ICD-1 0 - E83.52) See consult note from [facility] 02/01/2025 Hyperparathyroidism (ICD-10 - E21.3) 02/01/2025 Postmenopausal osteoporosis (ICD-10 - M81.0) 02/01/2025 IgG lambda monoclona l gammopathy (ICD-10 - D47.2) 02/01/2025 Stage 3a chronic kidney disease (CKD) (ICD-10 - N18.31) Plan Of Treatment Pending Test Test Name Order Date Mammogram : Bilateral 12/19/2024 CT Scan : Abdomen and Pelvis, with and w ithout contrast 12/25/2014 H-MISCELLANEOUS CULTURE 08/18/2013 H-CMP 04/02/2015 H-LIPID PANEL 01/29/2015 H-PTH,INTACT 04/02/2015 H-MICROALBUMIN URINE 10/12/2016 Urine Culture, Routine 07/07/2021 H-Ionized Calcium 04/02/2015 M-Comprehensive Metabolic Panel 03/08/20 18 M-Comprehensive Metabolic Panel 11/02/19 18 M-Hemoglobin A1C 11/01/2017 M-Hemoglobin A1C 03/08/2018 M-Lipid Panel 03/08/2018 M-Lipid Panel 11/01/2017 M-Thyroid Stimulating Hormone 03/08/2018 M-Thyroid Stimulating Hormone 11/01/2017 M-Parathyroid Hormone Intact 11/13/2022 M-Vitamin D 25 Hydroxy 11/13/2022 M-Vitamin D 25 Hydroxy 10/10/2020 M-Vitamin D 25 Hydroxy 12/07/2019 M-Microalb/Creat Ratio, Randm Ur 018 M-Microalb/Creat Ratio, Randm Ur 025 M-Microalb/Creat Ratio, Randm Ur 025 M-Microalb/Creat Ratio, Randm Ur 018 URINALYSIS, COMPLETE ([id number]) 04/14/2023 CULTURE, URINE, ROUTINE (395) 11/02/2022 NUCLEAR MED : Parathyroid scan Next Appt Details Provider Name:Catherine newman, 05/07/2025 09:00:00 AM, [address] [facility], [address], [place], [address], Insurance Providers Payer Name Payer Address Payer Phone Subscriber Number Group Number Insured Name Patient Relationship to Insured Coverage Start Date Coverage End Date [place] [address] [place] [address] [id number] Vera Cedillo Self - patient is the insured [facility] CLAIMS [address] [place] [address] [id number] Vera Cedillo Self - patient is the insured [employer] [address] [place] [address] [address] [place] [address] ACL Vera Cedillo Self - patient is [...] 02/2019 Hospitalization History Reason Date(Month/Year) Dehydration, [facility] x 2 -dehydration 12/2024
--- OUTSIDE RECORDS SUMMARY | 2025-02-09 09:53 | XMS_ITS | Clinical Summary ---
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 [place] [address] PCP - General 06/05/15
== END 2025-02-09 23:59 | disposition home or self-care (01) ==
LOC: RAD 09:50
PROVIDERS: PCP Nurse Practitioner Family; Visit Provider Nurse Practitioner Family
DX: Z12.31 Encounter for screening mammogram for malignant neoplasm of breast (principal); R92.333 Mammographic heterogeneous density, bilateral breasts; Z80.3 Family history of malignant neoplasm of breast
CPT/HCPCS: 77063; 77067